=== PATIENT | female | born 1985 | race Caucasian/White ===

== ENCOUNTER → 2017-03-18 | Outpatient (CLI) | payer MEDICAID ==
[~2017-03-18] MED LIST: ACHYD1T PO; AMOX2505RX; CEPH500C PO; CODE-54 PO; FRS325T PO; Ibuprofen PO; MTC10T; ONDA-42 SL; ONDA4TAB11 PO; OSLT75C; PROM25SU10 PR; TIGAN PO
--- NOTE | 2017-03-18 15:02 | Diagnostic Imaging Report ---
PROCEDURE: CT urinary tract, rule out kidney stone. TECHNIQUE: Multiple contiguous axial images were obtained through the abdomen and pelvis without the use of intravenous contrast. INDICATION: Left flank pain and hematuria. No prior studies are available for comparison. The lung bases are clear. The liver is unremarkable. The gallbladder is contracted. The pancreas and spleen are unremarkable. No adrenal mass is identified. No renal calculi or hydronephrosis is detected. No ureteral calculi are detected. There appears to be a cyst in the left adnexa measuring approximately 3.6 cm. No free fluid in the abdomen or pelvis is identified. The uterus and bladder are unremarkable. The small and large bowel loops are normal caliber. There is no ascites. Appendix is unremarkable. IMPRESSION: 1. No evidence of urinary tract calculi or obstruction. 2. Left adnexal cyst 3.6 cm, likely ovarian. Dictated by: Dictated on workstation # [id number]
== END ==
LOC: RAD 14:33
PROVIDERS: ATTEND Nurse Practitioner Family
DX: N83.8 Other noninflammatory disorders of ovary, fallopian tube and broad ligament (principal); R31.9 Hematuria, unspecified; Z87.442 Personal history of urinary calculi
CPT/HCPCS: 74176

== ENCOUNTER 2019-08-22 08:22 | Emergency (ER) | payer MEDICAID ==
[~2019-08-22] VITALS: Ht 167 cm; Wt 59.9 kg
[2019-08-22] MEDS ORDERED: LACTATED RINGERS 1,000 ML IV ONE ×2 (08:34→09:34)
[2019-08-22] MEDS ORDERED: FAMOTIDINE 20MG/2ML IV (PEPCID) IVP ONE (08:45)
[2019-08-22] MEDS ORDERED: PROMETHAZINE INJ 25 MG/ML (PHENERGAN) AMP IVP ONE (08:45)
[2019-08-22 08:49] LABS: BASOPHILS % (AUTO) 0 % (0-10); EOSINOPHILS % (AUTO) 0 % (0-10); HEMATOCRIT 35 % (35-52); HEMOGLOBIN 12.2 G/DL (11.5-16.0); LYMPHOCYTES # (AUTO) 1.6 X 10^3 (1.0-4.0); LYMPHOCYTES % (AUTO) 23 % (12-44); MEAN CORPUSCULAR HEMOGLOBIN 31 PG (25-34); MEAN CORPUSCULAR HGB CONC 35 G/DL (32-36); MEAN CORPUSCULAR VOLUME 88 FL (80-99); MEAN PLATELET VOLUME 9.7 FL (7.4-10.4); MONOCYTES # (AUTO) 0.5 X 10^3 (0.0-1.0); MONOCYTES % (AUTO) 7 % (0-12); NEUTROPHILS # (AUTO) 4.9 X 10^3 (1.8-7.8); NEUTROPHILS % (AUTO) 70 % (42-75); PLATELET COUNT 269 10^3/uL (130-400); RED CELL DISTRIBUTION WIDTH 12.3 % (10.0-14.5)
[2019-08-22 08:50] LABS: CLARITY,URINE TURBID; COLOR,URINE YELLOW; GLUCOSE, URINE (UA) NEGATIVE (NEGATIVE); KETONES,URINE 3+ (NEGATIVE); LEUKOCYTE ESTERASE ,URINE 3+ (NEGATIVE); NITRITE,URINE NEGATIVE (NEGATIVE); PROTEIN,URINE TRACE (NEGATIVE)
[2019-08-22 08:58] LABS: ALBUMIN 4.5 GM/DL (3.2-4.5)
[2019-08-22 08:59] LABS: CHLORIDE 106 MMOL/L (98-107); POTASSIUM 3.9 MMOL/L (3.6-5.0); SODIUM 137 MMOL/L (135-145)
[2019-08-22 09:00] LABS: CALCIUM 9.7 MG/DL (8.5-10.1)
[2019-08-22 09:01] LABS: GLUCOSE 81 MG/DL (70-105); TOTAL PROTEIN 7.2 GM/DL (6.4-8.2)
[2019-08-22 09:02] LABS: CARBON DIOXIDE 19 MMOL/L (21-32)
[2019-08-22 09:03] LABS: BILIRUBIN,TOTAL 0.7 MG/DL (0.1-1.0)
[2019-08-22] MEDS ORDERED: MULT-228 PO (09:03)
[2019-08-22 09:04] LABS: ALKALINE PHOSPHATASE 36 U/L (40-136)
[2019-08-22 09:05] LABS: CREATININE SERUM 0.66 MG/DL (0.60-1.30); GFR ESTIMATED > 60
[2019-08-22 09:06] LABS: BUN/CREATININE RATIO 17
[2019-08-22 09:07] LABS: MAGNESIUM 1.9 MG/DL (1.6-2.4)
[2019-08-22 09:08] LABS: ALANINE AMINOTRANSFERASE 10 U/L (0-55)
[2019-08-22 09:11] LABS: AMORPHOUS SEDIMENT,UR RARE AMOR URATES /LPF; BACTERIA,URINE FEW /HPF; BILIRUBIN,URINE 1+ (NEGATIVE)
--- NOTE | 2019-08-22 09:19 | NUR ---
Patient states her nausea is improving. Warm blankets provided. Patient denies any other needs.
--- OUTSIDE RECORDS SUMMARY | 2019-08-22 09:29 | XMS REPORT ---
Author Author Ubalo fbi investigator [facility] [employer] [facility] Address [address] [address] Care Team Providers Care Superintendent Circus Name Role Phone BELLE RICHMOND Unavailable Unavailable NAVID SILVERIO Unavailable Unavailable JOSE LUIS TOBIAS Unavailable Unavailable SUNITHA LEBRON Unavailable Unavailable SANDRO HOSKINS Unavailable Unavailable SULMA VILA Unavailable Unavailable VONDA MARTINEZ Unavailable Unavailable [facility] Unavailable ROSIO AGUERO Unavailable Unavailable BRITTNI MOODY Unavailable VERONIKA CABALLERO Unavailable ELEANOR DEGN Unavailable [facility] Unavailable MOODY, BRITTNI Unavailable PARAS WILL Unavailable AIDEE Johnson Unavailable CECILE KEENAN Unavailable RICHMOND, BELLE Unavailable MAT AGRAWAL Unavailable AGRAWAL, MAT Unavailable MOODY, BRITTNI Unavailable CECILE Quach Unavailable CAMILO, DALE Unavailable DIMPLE DE LA FUENTE Unavailable CAMILO, DALE Unavailable Migration, Doctor Unavailable Unavailable Migration, Doctor Unavailable Unavailable CALRIBEL Agrawal Unavailable PCP, OUTSIDE Unavailable Unavailable Mat Sommers Unavailable Unavailable Reilly Escobar Unavailable Unavailable RICHMONDASHLEYA Unavailable RICHMOND BELLE Unavailable MELANIE WYNN Unavailable Unavailable Unavailable DONY MIRELES Unavailable Unavailable Unavailable Unavailable Unavailable Unavailable Allergies Normalized Allergy Reported Date of Reaction(s) Care Provider Facility Allergy Type classification allergen Allergy Onset Propensity to Unclassified Omeprazole 06-05-2014 - Unknown Doct or Community adverse Magnesium 20 [facility] reactions (1 Mg of source.) Capsule,delaye [place] ([address]342) d Release Medications The data below is from unstructured sourcesNo Known Medications No Known Medications No Known Medications No Known Medications No Known Medications No Known Medications No Known Medications No Known Medications No Known Medications No Known Medications No Known Medications Unknown Medications Unknown Medications Unknown Medications Unknown Medications Unknown Medications Unknown Medications Unknown Medications Unknown Medications No Known Medications No Known Medications No Known Medications No Known Medications No Known Medications No Known Medications No Known Medications No Known Medications Unknown Medications Unknown Medications Unknown Medications Unknown Medications Unknown Medications Unknown Medications Unknown Medications Unknown Medications Unknown Medications No Known Medications No Known Medications No Known Medications No Known Medications No Known Medications No Known Medications No Known Medications No Known Medications No Known Medications No Known Medications No Known Medications No Known Medications No Known Medications No Known Medications No Known Medications No Known Medications No Known Medications No Known Medications Unknown Medications No Known Medications Problems Active Problems Problem Normalized Date Last Normalized Normalized Provider Fa cility Classification Problem(s) Recorded Problem Problem Sta tus Duration Other skin Alopecia Episodic Active Doctor Community disorders (6 Translations: [facility] sources.) [ Alopecia, of [facility] unspecified] [place] ([address]) Other Anemia of Chronic Active BIANCA FENECH Not Birgit ilable complications mother, , DO (30615) of ; delivered, puerperium with mention affecting of management of complication mother (1 source.) Blindness and Generalized Episodic Active Mat Lan Vision vision defects contraction of [facility] (22803 ) (9 sources.) visual field, bilateral Translations: [ Other visual disturbances] Unclassified Insertion of no information Active Doctor C ommunity (6 sources.) subcutaneous [facility] contraceptive of [facility] Translations: [place] ([address]383) [ Nexplanon insertion] Residual Pain, Episodic Active BELLE RICHMOND Community codes; unspecified [address] [facility] unclassified Translations: of [facility] (6 sources.) [ - Body aches [place] (03643) R52] Residual Reduced libido Episodic Active Doctor Mika ty codes; Translations: [facility] unclassified [ Decreased of [place] (6 sources.) libido] [place] (93816) Substance-rela Tobacco Chronic Active Doctor Communit y margarette disorders dependence [facility] (6 sources.) syndrome of [place] Translations: [place] ([address]134) [ Nondependent tobacco use disorder] Inflammation; Unspecified Chronic Active Mat Edyta Vision infection of optic neuritis [facility] (06364 ) eye (except that caused by tuberculosis or sexually transmitteddis ease) (5 sources.) Past or Other Problems Problem Normalized Date Last Normalized Normalized Provider Fa cility Classification Problem(s) Recorded Problem Problem Sta tus Duration Acute Acute Episodic Completed BIANCA FENECH Not Avai lable posthemorrhagi posthemorrhagi , DO (54512) c anemia (1 c anemia source.) Spondylosis; Backache, Episodic Completed BIANCA FENECH Not Available intervertebral unspecified , DO (34029) disc disorders; other back problems (1 source.) NEGATED Bone and joint Episodic Completed BIANCA FENECH No t Available no disorders of , DO (65728) information (2 back, pelvis, sources.) and lower limbs of mother, antepartum condition or complication Translations: [ BONY PELV OBSTRUCT-DELIV , FETOPELV DISPROPOR-DELI V] Contraceptive Encounter for no information no information Docto r Community and surveillance [facility] procreative of [facility] of [facility] management (3 subdermal [place] ([address]48) sources.) contraceptive Translations: [ - Encounter for Nexplanon removal Z30.46] Other Infections of Episodic Completed ANAIS Not Avai lable complications genitourinary BRUEGGEMANN , (28532) of tract in MD (1 source.) , antepartum condition or complication NEGATED Mild Episodic Completed ANAIS Not Available no hyperemesis BRUEGGEMANN , (29928) information (2 gravidarum, sources.) antepartum condition or complication Umbilical cord Other and Episodic Completed BIANCA FENECH No t Available complication unspecified , DO (08029) (1 source.) cord entanglement, without mention of compression, complicating labor and delivery, delivered, with or without mention of antepartum condition Other Other current Episodic Completed MARITZA Not Avai lable complications conditions MD ELIDA (28754) of classifiable (1 source.) elsewhere of mother, antepartum condition or complication Other female Other Episodic Completed MAT AGRAWAL Not Av ailable genital noninflammator (04688) disorders (2 y disorders of sources.) ovary, fallopian tube and broad ligament Other Other Episodic Completed BIANCA FENECH Not Avai lable complications specified , DO (54202) of complications (1 source.) of , antepartum condition or complication Early or Other Episodic Completed BIANCA FENECH Not Avai lable threatened threatened , DO (15534) labor (1 labor, source.) antepartum condition or complication Urinary tract Urinary tract Episodic Completed ANAIS Not Available infections (1 infection, BRUEGGEMANN , (05130) source.) site not MD specified Procedures Procedure Normalized Procedure Procedure Result Performer Facility Date APPL/ADMIN OF AN no information no name Not Available (10401) ADHESION BARRIER SUBSTA 03-08-2013 Collection venous no information no name [facility] blood venipuncture [facility] ([id number]) 03-08-2013 Gonadotropin chorionic no information no name [facility] (53357) 08-11-2011 Incision & drainage no information no name Critical [facility] hospital abscess simple/single [facility] (29321) LOW CERVICAL no information no name Not Birgit ilable (37965) 03-03-2019 Visual field xm uni/bi no information no name [facility] w/interp extended exam (27237) Immunizations The data below is from unstructured sources Name Given Type Tetanus Booster (TDap) Unknown Historical No Known Immunizations Results Test Name Value Interpretation Reference Range Date Time Fa cility (Normalized) (Normalized) (Medline Reference) laboratory on 2019-08-02 Beta HCG Positive (A) On license of [facility] ( test) [facility] (72671) not yet categorized on 2019-03-22 Control Negative (no code) [facility] (01990) Exp date 01/18/2021 (no code) [facility] (42683) Lot # [id number] (no code) [facility] (20684) not yet categorized on 2018-08-05 Exp date +~11/2019 (no code) [facility] (64486) Lot # [id number] (no code) [facility] (75650) RESULTS Negative (no code) [facility] (57188) not yet categorized on 2018-04-12 COMMENT no information (no code) [facility] (34449) laboratory on 2018-04-12 C. trachomatis NOT DETECTED (N) On license of [facility] rRNA JEFF+probe [facility] (Unsp spec) [facility] (33331) N. gonorrhoeae NOT DETECTED (N) On license of [facility] rRNA JEFF+probe [facility] (Unsp spec) [facility] (65573) urinalysis on 2017-03-18 Bacteria SEE NOTE (no code) On license of [facility] identified Cx [facility] Nom (U) [facility] (42715) Protein mass Negative (no code) 0 - 20 mg/dL [facility] ealth conc (U) [facility] (18833) other on 2017-03-18 BLO 2+ (no code) [facility] (66211) KET 10/2017~clear~ye (no code) [facility]~present~neg [facility] ative~negative~n [facility] egative (32530) TOREY Negative (no code) [facility] (06740) Lot # [id number] (no code) [facility] (81547) SG 1.025 (no code) [facility] (71908) URO 1.0 (no code) [facility] (18227) hematology on 2017-03-18 pH (Bld) 6.5 [pH] (no code) 7.38 - 7.42 [pH] [facility] (59309) thyroid on 2016-07-15 Free T4 1.08 ng/dL (no code) 0.9 - 2.2 ng/dL 07-15-2016 Not A vailable [Mass/Vol] 08:24-0400 (60330) TSH Qn 1.630 (no code) 07-15-2016 Not Available 08:240400 (71742) other on 2016-07-15 Albumin/Globulin 1.8 {ratio} (no code) 1 - 2.5 {ratio} 7 Not Available [Mass ratio] 09: () Erythrocyte 13.4 % (no code) 11.6 - 14.6 % 07-15-2016 Not Av ailable distribution 08: () width (RBC) [Ratio] Globulin (S) 2.4 g/dL (no code) 2 - 3.5 g/dL 07-15-2016 Not Av ailable [Mass/Vol] 09: () Immature 0.0 10*3/uL (no code) 0 - 0.2 10*3/uL 07-15-2016 Not Available granulocytes 08: () (Bld) [#/Vol] Immature 0 % (no code) 0 - 0.5 % 07-15-2016 Not Availabl e granulocytes/100 08: () WBC (Bld) MCHC (RBC) 32.1 g/dL (no code) 32 - 36 g/dL 07-15-2016 Not Avai lable [Mass/Vol] 08: () metabolic panel on 2016-07-15 Albumin 4.2 g/dL (no code) 3.4 - 5.4 g/dL 07-15-2016 Not Birgit ilable [Mass/Vol] 09: () ALP [Catalytic 51 U/L (no code) 44 - 147 U/L 07-15-2016 Not Available activity/Vol] 09: (50581) ALT [Catalytic 7 U/L (no code) 4 - 40 U/L 07-15-2016 Not Av ailable activity/Vol] 09: () AST [Catalytic 11 U/L (no code) 10 - 34 U/L 07-15-2016 Not A vailable activity/Vol] 09: () Bilirubin 0.2 mg/dL (no code) 0.1 - 1.2 mg/dL 07-15-2016 Not Av ailable [Mass/Vol] 09: () Calcium 9.5 mg/dL (no code) 8.5 - 10.2 mg/dL 07-15-2016 Not A vailable [Mass/Vol] 09: (91052) Chloride 101 mmol/L (no code) 95 - 106 mmol/L 07-15-2016 Not A vailable [Moles/Vol] 09: (81531) CO2 [Moles/Vol] 25 mmol/L (no code) 23 - 29 mmol/L 07-15-2016 N ot Available : (33124) Creatinine 0.73 mg/dL (no code) 07-15-2016 Not Available [Mass/Vol] 09: (91864) GFR/1.73 sq M 130 (no code) 90 - 120 07-15-2016 Not Avai lable predicted among mL/min/{1.73_m2} mL/min/{1.73_m2} 09: (20040) blacks MDRD (S/P/Bld) [Vol rate/Area] GFR/1.73 sq M 112 (no code) 90 - 120 07-15-2016 Not Avai lable predicted among mL/min/{1.73_m2} mL/min/{1.73_m2} 09: (66622) non-blacks MDRD (S/P/Bld) [Vol rate/Area] Glucose 86 mg/dL (no code) 60 - 125 mg/dL 07-15-2016 Not Birgit ilable [Mass/Vol] : (10610) Potassium 4.0 mmol/L (no code) 3.7 - 5.2 mmol/L 07-15-2016 Not Available [Moles/Vol] : (71272) Protein 6.6 g/dL (no code) 6.4 - 8.3 g/dL 07-15-2016 Not Birgit ilable [Mass/Vol] : (92438) Sodium 141 mmol/L (no code) 135 - 145 mmol/L 07-15-2016 Not Available [Moles/Vol] 09: (68620) Urea nitrogen 13 mg/dL (no code) 7 - 20 mg/dL 07-15-2016 Not A vailable [Mass/Vol] 09: (74677) Urea 18 mg/mg (no code) 6 - 22 mg/mg 07-15-2016 Not Avail able nitrogen/Creatin 09: (25936) ine [Mass ratio] hematology on 2016-07-15 Basophils (Bld) 0.1 10*3/uL (no code) 0 - 0.3 10*3/uL 07-15-2016 Not Available [#/Vol] 08:060400 (39786) Basophils/100 1 % (no code) 0.5 - 1 % 07-15-2016 Not Avai lable WBC (Bld) 08: (43673) Eosinophils 0.1 10*3/uL (no code) 0.05 - 0.5 07-15-2016 Not Birgit ilable (Bld) [#/Vol] 10*3/uL 08: (51965) Eosinophils/100 2 % (no code) 1 - 4 % 07-15-2016 Not Av ailable WBC (Bld) 08: (69649) Hematocrit (Bld) 38.3 % (no code) 36.1 - 50.3 % 07-15-2016 N ot Available [Volume 08: (88237) fraction] Hemoglobin (Bld) 12.3 g/dL (no code) 12.1 - 17.2 g/dL 07-15-2016 Not Available [Mass/Vol] 08: (43880) Lymphocytes 2.7 10*3/uL (no code) 0.9 - 2.9 07-15-2016 Not Avai lable (Bld) [#/Vol] 10*3/uL 08: (04302) Lymphocytes/100 43 % (no code) 20 - 40 % 07-15-2016 Not Av ailable WBC (Bld) 08: (29557) MCH (RBC) 29.5 pg (no code) 27 - 31 pg 07-15-2016 Not Availab le [Entitic mass] 08: (04836) MCV (RBC) 92 fL (no code) 80 - 100 fL 07-15-2016 Not Availa ble [Entitic vol] 08: (33075) Monocytes (Bld) 0.6 10*3/uL (no code) 0.3 - 0.9 07-15-2016 Not Available [#/Vol] 10*3/uL 08: (43386) Monocytes/100 10 % (no code) 2 - 8 % 07-15-2016 Not Avai lable WBC (Bld) 08: (77130) Neutrophils 2.8 10*3/uL (no code) 1.7 - 7 10*3/uL 07-15-2016 No t Available (Bld) [#/Vol] 08: (51359) Neutrophils/100 44 % (no code) 40 - 60 % 07-15-2016 Not Av ailable WBC (Bld) 08: (26737) Platelets (Bld) 246 10*3/uL (no code) 150 - 450 07-15-2016 Not Available [#/Vol] 10*3/uL 08: (56778) RBC (Bld) 4.17 10*6/uL (no code) 4.2 - 6.1 07-15-2016 Not Avail able [#/Vol] 10*6/uL 08: (98851) WBC (Bld) 6.3 10*3/uL (no code) 3.5 - 10.5 07-15-2016 Not Avail able [#/Vol] 10*3/uL 08: (26413) Vital Signs Vital Sign Value Interpretation Reference Date Time Care Prov ider Facility (Normalized) (Normalized) Range Body height 167.64 cm (no code) cm 08-11-2011 MELANIE NEW [facility] 10:762 (Other Health Center Phone: of [facility] ) [place] ([address]75) Body 98.5 [degF] (no code) 97.8 - 99.0 08-11-2011 MELANIE ZIMMERMAN [facility] temperature [degF] 10:762 (Other Health [facility] er Phone: of [facility] ) [place] ([address]161) Body weight 58.56 kg (no code) kg 08-11-2011 MELANIE WYNN [facility] 10:762 (Other Health Center Phone: of [facility] ) [place] ([address]6552) Interventions No Information Plan of Treatment The data below is from unstructured sources Discharge Date 10/30/13 1:29pm Disposition 01 HOME, SELF-CARE Instructions/Education Provided OB O UTPATIENT DISCHARGE Forms Provided PDI Women Services/OP Prescriptions See Medications Sectio n Referrals BIANCA BUSH DO (Unspe cified) 11/07/13 Address: [address] [place] [address] Discharge Date 11/04/13 12:40pm Disposition 01 HOME, SELF-CARE Instructions/Education Provided POST DISCHARGE SECTION DISCHARGE Iron Rich Diet (DC) Breast Care for the Breast Feeding Mother (DC) Prescriptions See Medications Sectio n Referrals BIANCA BUSH DO (Unspe cified) 11/07/13 Address: [address] [place] [address] BIANCA BUSH DO (Unspecified) 11/07/13 Address: [address] [place] [address] Activity Details Follow Up prn Reason:chin Activity Details Follow Up prn Reason:fillings Activity Details Follow Up prn Reason: Activity Details Follow Up prn Reason:hygiene/filling s Activity Details Follow Up prn Reason:restorative Activity Details Follow Up enzo Reason:endo and crown Activity Details Follow Up prn Reason:RCT #14 Activity Details Follow Up if not improving or with p cp for regular fu Reason: Activity Details Follow Up 3 Months Reason:chin/hygien e Goals No Information Social History No Information Functional Status The data below is from unstructured sourcesNo functional status results.No functional status results.No functional status results.No functional status results.No functional status results.No functional status results.No functional status results.No functional status results.No functional status results. Mental Status No Information Encounters Encounter Normalized Encounter Encounter Diagnosis Care Provi ingrid Organization Date Type 05-19-2018 (D-HYG/13/A) Hygiene Encounter for dental RAMY PARDO (no [facility] - 13 and above examination and phone) DENTAL (n o phone) 05-19-2018 cleaning without - abnormal findings 05-19-2018 01-26-2018 (D-PAIN/BRIDGETTE) Pain/BRIDGETTE Encounter for dental VERONIKA CRUMP (no [facility] - examination and phone) DENTAL (no jonathan ne) 01-26-2018 cleaning without - abnormal findings 01-26-2018 08-05-2018 (imm/inj) Encounter for BELLE RICHMOND (no phone) [facility] - Immunization/injection surveillance of (no p roshan) 08-05-2018 injectable - contraceptive 08-05-2018 04-12-2018 (PROC-40) Procedure-40 Encounter for DONY WINN AM (no [facility] - min surveillance of phone) (no phone) 04-12-2018 implantable subdermal - contraceptive 04-12-2018 03-22-[address] Influenza due to BIANCA BUSCH (no [address] unidentified influenza phone) (no phone) virus with other respiratory manifestations 11-08-2018 [facility] Encounter for DONY Spann (no [facility] - surveillance of phone) (no phone) 11-08-2018 injectable - contraceptive 11-08-2018 04-04-2013 Emergency department no information no name no organization name - patient visit 04-04-2013 03-20-2013 Emergency department no information no name no organization name - patient visit 03-20-2013 04-12-2013 Evaluation and no information no name no organ ization name - management of 04-13-2013 inpatient 03-03-2019 Office outpatient new no information no name n o organization name 45 minutes 04-21-2017 Patient encounter no information no name no or ganization name 03-18-2017 Patient encounter no information no name no or ganization name 03-18-2017 Patient encounter no information no name no or ganization name 08-02-2019 Patient encounter no information (no phone) ANGELA Cook [facility] procedure ALINE (no phone) (no [facility] phone) [place] (no phone) 03-24-2019 Patient encounter no information no name no or ganization name procedure 03-22-2019 Patient encounter no information no name no or ganization name procedure 03-16-2019 Patient encounter no information no name no or ganization name procedure 03-08-2019 Patient encounter no information no name no or ganization name procedure 03-06-2019 Patient encounter no information no name no or ganization name procedure 03-03-2019 Patient encounter no information no name no or ganization name procedure 02-17-2019 Patient encounter no information no name no or ganization name procedure 08-05-2018 Patient encounter no information no name no or ganization name procedure 05-19-2018 Patient encounter no information no name no or ganization name procedure 04-12-2018 Patient encounter no information no name no or ganization name procedure 01-26-2018 Patient encounter no information no name no or ganization name procedure no information Encounter for dental no name no organi zation name examination and cleaning without abnormal findings no information Dental examination no name no organiza tion name no information Encounter for no name no organization name gynecological examination (general) (routine) without abnormal findings Medical Equipment No Information Payers Normalized Payer Value Private Health Insurance [id number] History general Narrative - Reported 2013-11-01 Note Type Note Facility History general Narrative - Reported Type Surgical section 11/01/2013 History Surgical tonsillectomy youth History Hospitaliz /healthy 11/01/2013 ation History [facility] ([id number]) Summary Purpose eClinicalWorks SubmissioneClinicalWorks SubmissioneClinicalWorks SubmissioneClinicalWorks SubmissioneClinicalWorks SubmissioneClinicalWorks SubmissioneClinicalWorks SubmissioneClinicalWorks Submission Advance Directives Directive Response Recor ded Date/Time Advance Directives No 11:25am Health Care Power of Bark Skinner No 10/20/13 3:38am Organ Donor Yes 10/30/13 11:25am Resuscitation Status Full Code 10/30/13 11:25am Directive Response Recor ded Date/Time Advance Directives No 3:44am Health Care Power of Bark Skinner No 11/01/13 3:44am Organ Donor Yes 11/01/13 3:44am Resuscitation Status Full Code 11/01/13 3:44am Resuscitation Status Full Code 11/01/13 5:37am Directive Response Recor ded Date/Time Advance Directives No 3:38am Health Care Power of Bark Skinner No 10/20/13 3:38am Organ Donor Yes 10/20/13 3:38am Resuscitation Status Full Code 10/20/13 3:38am Resuscitation Status Full Code 10/20/13 3:30am Discharge Instructions No hospital discharge instructions. Patient Instructions Physician Instructions New, Converted or Re-Newed RX: Call to Patients Pharmacy Additional Follow Up: Yes Orders/Referrals 7-[address] Bush [address] Bush Activity: Activity as Tolerated Driving Instructions: No Driving for 1 Week NO SMOKING: NO SMOKING Nothing Inside Vagina: No Douching, No [place], No Tampons Discharge Diet: No Restrictions Symptoms to Report to Dr.: Bleeding Excessive, Pain Increased, Fever Over 101 Degrees F, Vaginal Bleeding Increase, Shortness of Breath For Any Problems or Questions: Contact Your Physician Infection Signs and Symptoms: Increased Redness, Foul Odor of Wound, Increased Drainage, Skin Itchy or Has a Rash, Increased Swelling, Temperature Above 101 F Operative Area Clean and Dry: Keep Incision Clean/Dry Stitches/[place]/Dermabond: Dermabond, Care of Stitches Bathing Instructions: Shower No hospital discharge instructions. Patient Instructions Physician Instructions New, Converted or Re-Newed RX: Call to Patients Pharmacy Additional Follow Up: Yes Orders/Referrals 7-[address] Bush [address] Bush Activity: Activity as Tolerated Driving Instructions: No Driving for 1 Week NO SMOKING: NO SMOKING Nothing Inside Vagina: No Douching, No [place], No Tampons Discharge Diet: No Restrictions Symptoms to Report to Dr.: Bleeding Excessive, Pain Increased, Fever Over 101 Degrees F, Vaginal Bleeding Increase, Shortness of Breath For Any Problems or Questions: Contact Your Physician Infection Signs and Symptoms: Increased Redness, Foul Odor of Wound, Increased Drainage, Skin Itchy or Has a Rash, Increased Swelling, Temperature Above 101 F Operative Area Clean and Dry: Keep Incision Clean/Dry Stitches/Merry/Dermabond: Dermabond, Care of Stitches Bathing Instructions: Shower No hospital discharge instructions. Additional Source Comments This clinical document has been generated using [employer] software that has been certified by the Office of the National Coordinator for Health Information Technology (ONC 15.99.04.3023.Diam.31.00.0.584378) and the National Committee for Lining Inserter (NCQA, as an eMeasure certified technology). FOR RECORDS PERTAINING TO PATIENTS WHO ARE OR HAVE BEEN ENROLLED IN A CHEMICAL D EPENDENCY/SUBSTANCE ABUSE PROGRAM, SOME INFORMATION MAY BE OMITTED. This clinica l summary was aggregated from multiple sources. Caution should be exercised in using it in the provision of clinical care. This summary normalizes information from multiple sources, and as a consequence, information in this document may ma terially change the coding, format and clinical context of patient data. In samuel tion, data may be omitted in some cases. CLINICAL DECISIONS SHOULD BE BASED ON T HE PRIMARY CLINICAL RECORDS. [employer] provides no warranty or guara ntee of the accuracy or completeness of information in this document.The followi ng information is based on time limited clinical information UNRECOGNIZED CONTENT PROVIDED BELOW FOR UNRECOGNIZED SECTION MEDICAL (GENERAL) HISTORY Type Description Date Surgical History section 11/01/2013 Surgical History tonsillectomy youth Hospitalization History /healthy 11/01/2013 Type Description Date Medical History Kidney stones during Surgical History section 11/01/2013 Surgical History tonsillectomy youth Hospitalization History /healthy 11/01/2013 UNRECOGNIZED CONTENT PROVIDED BELOW FOR UNRECOGNIZED SECTION REASON FOR VISIT [facility]
--- OUTSIDE RECORDS SUMMARY | 2019-08-22 09:29 | XMS REPORT ---
Author Author Kacey Mariee Doctor Organization [facility] Address Unknown Phone Unavailable Care Team Providers Care [employer] Lab Technician Name Role Phone Migration, Doctor Unavailable Unavailable PROBLEMS Type Condition ICD9-CM Code FKR96-EE Code Onset Dates Condition S tatus SNOMED Code Problem Alopecia, unspecified L65.9 Active 59183229 Problem Abdominal tenderness R10.819 Active 42432343 Problem Nexplanon insertion Z30.49 Active 264790460 Problem Chronic fatigue R53.82 Active 5270 2003 Problem Counseling on substance use and abuse Z71.89 Active 087404684 Problem Nondependent tobacco use disorder Z72.0 Active 33976409 Problem Esophageal reflux K21.9 Active 23 3130205 Problem Decreased libido R68.82 Active 835 7008 ALLERGIES No Information ENCOUNTERS Encounter Location Date Diagnosis [facility] [address] [id number] [address] [place] [phone] 10 Jul, 2019 Encounter for test , result unknown Z32.[id number] [place] [id number] 29 Feb, 2019 Influenza J11.1 [facility] [address] [facility] [id number] [address] [place] [phone] 17 Oct, 2018 Encounter for Depo-Provera c ontraception Z30.42 [facility] [address] [id number] [address] [place] [phone] 14 Jul, 2018 Encounter for Depo-Provera c ontraception Z30.42 [facility] [address] [id number] [address] [place] [id number] 28 Apr, 2018 Dental examination Z01.20 an d Oral health maintenance status requiring routine preventive dental care K08.9 [facility] [address] [facility] [id number] [address] [place] [phone] 19 Mar, 2018 Encounter for Nexplanon almaz tamiko Z30.46 ; Nexplanon removal Z30.49 ; Contraception management Z30.9 ; Encounter for initial prescription of contraceptives, unspecified contraceptive Z30.019 ; Contraceptive education Z30.09 ; Screening for STD (sexually transmitted disease) Z11.3 and Encounter for Depo-Provera contraception Z30.42 [facility] [address] [id number] [address] [place] [address] [id number] Jan, Dental examination Z01.20 [facility] [id number] [place] [address] [phone] June, Dental caries K02.9 [facility] [address] [facility] [id number] [address] [place] [phone] May, Pharyngitis, unspecified lee ology J02.9 [facility] [address] [id number] [address] [place] [address] [id number] Apr, [facility] [address] [id number] [place] [address] [id number] Mar, Dental caries extending into dentin K02.62 and Dental examination Z01.20 [facility] [address] [id number] [address] [place] [phone] Feb, [facility] [address] [id number] [address] [place] [phone] Feb, Flank pain R10.9 and History of renal stone Z87.442 [facility] [address] [id number] [address] [place] [phone] Jan, [facility] [address] [facility] [id number] [address] [place] [phone] Nov, Dental examination Z01.20 [facility] [address] [id number] [place] [address] [id number] Oct, Dental examination Z01.20 [facility] [address] [facility] [id number] [address] [place] [phone] Aug, [facility] [address] [id number] [address] [place] [phone] Jul, Encounter for immunization Z 23 and Penetrating wound of left foot, initial encounter S91.332A [facility] [address] [facility] [id number] [address] [place] [phone] June, Chronic fatigue R53.82 [place] [address] [facility] [id number] [address] [place] [phone] June, [facility] [address] [facility] [id number] [address] [place] [phone] May, Strep pharyngitis J02.0 and Sore throat J02.9 [facility] [address] [facility] [id number] [address] [place] [phone] May, Encounter for immunization Z 23 [place] [address] [facility] [id number] [address] [place] [phone] May, [place] [address] [id number] [address] [place] [phone] May, Dental examination Z01.20 [place] [address] [id number] [address] [place] [phone] Mar, Dental examination Z01.20 [facility] [address] [id number] [address] [place] [address] [phone] Mar, Dental examination Z01.20 [facility] [address] [id number] [address] [place] [phone] Mar, Acute non-recurrent maxillar y sinusitis J01.00 [facility] [address] [facility] [id number] [address] [place] [phone] Feb, Gastroenteritis K52.9 ; Righ t otitis media with effusion H65.91 and Fever R50.9 [facility] [address] [facility] [id number] [address] [place] [phone] Feb, [facility] [address] [place] [address] [phone] Feb, Dental examination Z01.20 [facility] [address] [id number] [address] [place] [phone] Feb, Dysuria R30.0 [place] [address] [id number] Jan, Dental examination Z01.20 [address] [address] [address] Jan, Dental examination Z01.20 [facility] [address] [phone] Dec, Encounter for immunization Z 23 [address] [address] [phone] Nov, Dental examination Z01.20 an d Dental caries K02.9 [address] [address] [phone] Nov, [place] [address] [id number] Oct, Dental examination Z01.20 [facility] [place] [address] [phone] Sep, Body aches R52 and Flu syndr ome J11.1 [place] [address] [id number] Sep, [place] [address] [phone] Apr, [place] [address] [id number] Apr, Well woman exam Z01.419 ; Ne xplanon insertion Z30.49 ; Encounter for screening for malignant neoplasm of cervix Z12.4 and Irregular menses N92.6 [facility] [address] [phone] Mar, Body aches R52 and Acute gas tritis without bleeding K29.00 [facility] [address] [facility] [id number] [address] [place] [phone] Jan, Encounter for counseling reg arding contraception Z30.9 ; Vaginal discharge N89.8 ; Surveillance of contraceptive injection Z30.42 ; Irregular menses N92.6 ; OCP (oral contraceptive pills) initiation Z30.011 and Decreased libido R68.82 [facility] [address] [facility] [id number] [address] [place] [phone] Jan, Encounter for Depo-Provera c ontraception Z30.42 [facility] [id number] [place] [address] [phone] Jan, Encounter for dental examina tion Z01.20 [facility] [address] [place] [address] [phone] Dec, Dental caries K02.9 and Enco unter for dental examination Z01.20 [facility] [address] [id number] [address] [place] [phone] 16 Nov, 2014 Encounter for immunization Z 23 [facility] [id number] [place] [address] [phone] Oct, Encounter for dental examina tion V72.2 [facility] [address] [place] [phone] Sep, Encounter for contraceptive management V25.9 [facility] [address] [place] [phone] May, [facility] [address] [facility] [id number] [address] [place] [phone] May, [facility] [address] [id number] [address] [place] [phone] Feb, [facility] [address] [id number] [address] [place] [phone] Feb, [facility] [address] [id number] [address] [place] [address], [place] [address] Feb, [facility] [address] [id number] [address] [place] [address], [place] [address] Feb, [facility] [address] [id number] [address] [place] [address], [place] [phone] 16 Feb, 2013 [facility] [address] [id number] [address] [place] [address], [place] [address] Feb, [facility] [address] [id number] [address] [place] [address], [place] [address] Feb, [facility] [address] [id number] [address] [place] [address], [place] [address] Feb, [facility] [address] [id number] [address] [place] [address], [place] [address] Jul, [facility] [address] [id number] [address] [place] [address], [place] [phone] June, [facility] [address] [id number] [address] [place] [address], [place] [address] Mar, [facility] [address] [id number] [address] [place] [address], [place] [address] Nov, [facility] [address] [id number] [address] [place] [address], [place] [address] Nov, [facility] [address] [id number] [address] [place] [address], [place] [address] Nov, [facility] [address] [id number] [address] [place] [address], [place] [address] Nov, [facility] [address] [id number] [address] [place] [address], [place] [address] Nov, [facility] [address] [id number] [address] [place] [address], [place] [address] Nov, [facility] [address] [id number] [address] [place] [address], [place] [address] Nov, [facility] [address] [id number] [address] [place] [phone] Jul, [facility] [address] [id number] [address] [place] [phone] 20 May, 2011 [facility] [address] [facility] [id number] [address] [place] [phone] Feb, [facility] [address] [facility] [id number] [address] [place] [phone] Jan, [facility] [address] [facility] [id number] [address] [place] [phone] Jan, [facility] [address] [facility] [id number] [address] [place] [phone] Dec, [facility] [address] [facility] [id number] [address] [place] [phone] Oct, [facility] [address] [facility] [id number] [address] [place] [phone] Sep, IMMUNIZATIONS No Known Immunizations SOCIAL HISTORY Never Assessed REASON FOR VISIT PLAN OF CARE VITAL SIGNS Height 66 in 2012-08-15 Weight 128.42 lbs 2012-08-15 Temperature 98.1 degrees Fahrenheit 2012-08-15 Heart Rate 72 bpm 2012-08-15 Respiratory Rate 18 2012-08-15 Blood pressure systolic 100 mmHg 2012-08-15 Blood pressure diastolic 75 mmHg 2012-08-15 MEDICATIONS Unknown Medications RESULTS No Results PROCEDURES Procedure Date Ordered Result Body Site SMOK TOB CESS CNSL; INTNSV > NEW PT 10 MIN August 15, 2012 INSTRUCTIONS MEDICATIONS ADMINISTERED No Known Medications MEDICAL (GENERAL) HISTORY Type Description Date Medical History Kidney stones during Surgical History section 11/01/2013 Surgical History tonsillectomy youth Hospitalization History /healthy 11/01/2013
--- NOTE | 2019-08-22 09:30 | ED General ---
General Chief Complaint: Abdominal/GI Problems Stated Complaint: N/V;DEHYDRATION Nursing Triage Note: Patient ambulatory to ER with complaint of vomiting x 2 weeks. Patient states she has also had dizziness and dry heaves. Patient states she is 8 weeks with 2nd child with a due date of Apr 03, 2020. She was seen at the walk-in clinic 2 weeks ago and was given Zofran tablets. She has not been able to keep them down. Patient also states she has not had a BM x 10 days. She denies any abdominal pain. Nursing Sepsis Screen: No Definite Risk Source of Information: Patient Exam Limitations: No Limitations (BRANT RATLIFF,MED STUDENT) History of Present Illness Date Seen by Provider: Aug 22, 2019 Time Seen by Provider: 08:26 Initial Comments Ms. Collier is a 33 year old female who presents to the emergency department this morning with complaints of nausea/vomiting. She is currently 8 weeks with expected delivery date of 04/03/20. Kacey states the vomiting began about 2 weeks ago and has been increasing in frequency since. Past medical history of hyperemesis gravidarum in her last . She was seen at the walk-in clinic at the start of her vomiting and prescribed oral zofran. She has not noticed any benefit from the zofran and states she is unable to keep it down. She states she has been able to tolerate only water for the last couple of days. Associated symptoms include dizziness, lightheaded, poor sleep, and a sore throat. She has not had a bowel movement for 10 days. She denies abdominal pain or urinary symptoms. Her obstetric provider is Dr. Martin. Timing/Duration: Getting Worse Associated Systoms: No Chest Pain, No Diaphoresis, No Fever/Chills; Nausea/Vomiting, Other (constipation, dizziness, sore thraot) (BRANT RATLIFF,MED STUDENT) Initial Comments I was personally present for the history and physical on this patient and I agree with MS4 documentation as above. (ANAIS GUERRA MD) Allergies and Home Medications Allergies Coded Allergies: NKANo Known Allergies (Verified Allergy, Mild, 03/29/06) Home Medications Famotidine 20 Mg Tablet, 20 MG PO BID Prescribed by: ANAIS FAITH on 08/22/19 0955 Ferrous Sulfate 325 Mg Tab, 325 MG PO BID WITH MEALS Prescribed by: BIANCA MARTIN on 11/02/13 1630 Hydrocodone Bit/Acetaminophen 1 Ea Tab, 1-2 EA PO Q3HR PRN for PAIN Prescribed by: BIANCA MARTIN on 11/02/13 163 Multivitamin 1 Each Tab.chew, 1 EACH PO DAILY, (Reported) Ondansetron 4 Mg Tab.rapdis, 4 MG PO Q4H PRN for NAUSEA/VOMITING Prescribed by: ANAIS FAITH on 08/22/19 09 Promethazine HCl 25 Mg Tablet, 25 MG PO Q6H PRN for NAUSEA/VOMITING Prescribed by: ANAIS FAITH on 08/22/19 0955 Promethazine HCl 25 Mg Supp.rect, 25 MG RC Q6H PRN for NAUSEA/VOMITING Prescribed by: ANAIS FAITH on 08/22/19 09 [Ibuprofen] 600 MG TAB, 600 MG PO Q6H PRN for PAIN Prescribed by: BIANCA MARTIN on 11/02/13 163 Patient Home Medication List Home Medication List Reviewed: Yes (BRANT RATLIFF MED STUDENT) Review of Systems Review of Systems Constitutional: No chills; dizziness; No fever EENTM: throat pain Respiratory: no symptoms reported Cardiovascular: no symptoms reported Gastrointestinal: No abdominal pain; constipation, loss of appetite, nausea, vomiting Genitourinary: no symptoms reported Expected Date of Delivery: Apr 03, 2020 Musculoskeletal: no symptoms reported Skin: no symptoms reported Psychiatric/Neurological: No Symptoms Reported (BRANT RATLIFF MED STUDENT) Past Warbsrp-Hxyvbz-Ohmtww Hx Past Med/Social Hx: Reviewed Nursing Past Med/Soc Hx (ANAIS GUERRA MD) Patient Social History Alcohol Use: Denies Use Recreational Drug Use: No Smoking Status: Never a Smoker 2nd Hand Smoke Exposure: No Recent Foreign Travel: No Contact w/Someone Who Travel: No Recent Infectious Disease Expo: No Recent Hopitalizations: No Physical Abuse: No Sexual Abuse: No Mistreated: No Fear: No (BRANT RATLIFF MED STUDENT) Immunizations Up To Date Tetanus Booster (TDap): Unknown PED Vaccines UTD: Yes (BRANT RATLIFF MED STUDENT) Past Medical History Surgeries: Yes ([place] Teeth) Section Respiratory: No Cardiac: No Neurological: No : Yes Expected Date of Delivery: Apr 03, 2020 Last Menstrual Period: June 28, 2019 Reproductive Disorders: No Female Reproductive Disorders: Denies Sexually Transmitted Disease: No HIV/AIDS: No Genitourinary: No Gastrointestinal: No Musculoskeletal: No Endocrine: No HEENT: No Cancer: No Psychosocial: No Integumentary: No Blood Disorders: No Adverse Reaction/Blood Tranf: No (BRANT RATLIFF MED STUDENT) Family Medical History Arthritis Grandparents (Maternal Grandmother) Asthma 19 FATHER Cardiovascular disease Grandparents (Maternal Grandmother) Fibrocystic disease of breast 19 MOTHER No Family History of: AIDS Abdominal aortic aneurysm Dewitt's disease Alcoholism Alzheimer's disease Aphasia Cancer of mouth Cataracts Colon cancer Completed stroke Congenital disease Congenital heart disease Coronary thrombosis Cystic fibrosis Deafness or hearing loss Dementia Diabetes mellitus Drug abuse Dysphasia Gastroenteritis Glaucoma Headache disorder Hypercholesterolemia Hypertension Infertility Kidney disease Myocardial infarction Neoplasm Not obtainable due to adoption Osteoporosis Parkinson's disease Prostate cancer Psychosocial problem Respiratory disorder Seizure disorder Severe allergy Thyroid disease Tuberculosis Visual disorder No Pertinent Family Hx (BRANT RATLIFF MED STUDENT) Physical Exam Vital Signs Vital Signs - First Documented 08/22/19 08:27 Temp 36.9 Pulse 83 Resp 18 B/P (MAP) 108/77 (87) Pulse Ox 99 O2 Delivery Room Air (ANAIS GUERRA MD) Vital Signs Capillary Refill : Less Than 3 Seconds (BRANT RATLIFF MED STUDENT) Height, Weight, BMI Height: 5'6.00" Weight: 140lbs. oz. 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 Norm as Tested Skin: Normal Color, Warm/Dry (ANAIS GUERRA MD) Progress/Results/Core Measures Suspected Sepsis Recent Fever Within 48 Hours: No Infection Criteria Present: None New/Unexplained Altered Menta: No Sepsis Screen: No Definite Risk SIRS Temperature: Pulse: 83 Respiratory Rate: 18 Laboratory Tests 08/22/19 08:36: White Blood Count 7.0 Blood Pressure 108 /77 Mean: 87 Laboratory Tests 08/22/19 08:36: Creatinine 0.66, Platelet Count 269, Total Bilirubin 0.7 (BRANT RATLIFF MED STUDENT) Results/Orders Lab Results Laboratory Tests Test 08/22/19 08:36 08/22/19 08:44 Range/Units White Blood Count 7.0 4.3-11.0 10^3/uL Red Blood Count 3.97 L 4.35-5.85 10^6/uL Hemoglobin 12.2 11.5-16.0 G/DL Hematocrit 35 35-52 % Mean Corpuscular Volume 88 80-99 FL Mean Corpuscular Hemoglobin 31 25-34 PG Mean Corpuscular Hemoglobin Concent 35 32-36 G/DL Red Cell Distribution Width 12.3 10.0-14.5 % Platelet Count 269 130-400 10^3/uL Mean Platelet Volume 9.7 7.4-10.4 FL Neutrophils (%) (Auto) 70 42-75 % Lymphocytes (%) (Auto) 23 12-44 % Monocytes (%) (Auto) 7 0-12 % Eosinophils (%) (Auto) 0 0-10 % Basophils (%) (Auto) 0 0-10 % Neutrophils # (Auto) 4.9 1.8-7.8 X 10^3 Lymphocytes # (Auto) 1.6 1.0-4.0 X 10^3 Monocytes # (Auto) 0.5 0.0-1.0 X 10^3 Eosinophils # (Auto) 0.0 0.0-0.3 10^3/uL Basophils # (Auto) 0.0 0.0-0.1 10^3/uL Sodium Level 137 135-145 MMOL/L Potassium Level 3.9 3.6-5.0 MMOL/L Chloride Level 106 98-107 MMOL/L Carbon Dioxide Level 19 L 21-32 MMOL/L Anion Gap 12 5-14 MMOL/L Blood Urea Nitrogen 11 7-18 MG/DL Creatinine 0.66 0.60-1.30 MG/DL Estimat Glomerular Filtration Rate > 60 BUN/Creatinine Ratio 17 Glucose Level 81 70-105 MG/DL Calcium Level 9.7 8.5-10.1 MG/DL Corrected Calcium 9.3 8.5-10.1 MG/DL Magnesium Level 1.9 1.6-2.4 MG/DL Total Bilirubin 0.7 0.1-1.0 MG/DL Aspartate Amino Transf (AST/SGOT) 13 5-34 U/L Alanine Aminotransferase (ALT/SGPT) 10 0-55 U/L Alkaline Phosphatase 36 L 40-136 U/L Total Protein 7.2 6.4-8.2 GM/DL Albumin 4.5 3.2-4.5 GM/DL Urine Color YELLOW Urine Clarity TURBID Urine pH 6.0 5-9 Urine Specific Mather 1.025 H 1.016-1.022 Urine Protein TRACE H NEGATIVE Urine Glucose (UA) NEGATIVE NEGATIVE Urine Ketones 3+ H NEGATIVE Urine Nitrite NEGATIVE NEGATIVE Urine Bilirubin 1+ H NEGATIVE Urine Urobilinogen 1.0 < = 1.0 MG/DL Urine Leukocyte Esterase 3+ H NEGATIVE Urine RBC (Auto) 3+ H NEGATIVE Urine RBC 10-25 H /HPF Urine WBC 5-10 H /HPF Urine Squamous Epithelial Cells 10-25 H /HPF Urine Crystals PRESENT H /LPF Urine Amorphous Sediment RARE AIDE URATES H /LPF Urine Bacteria FEW H /HPF Urine Casts NONE /LPF Urine Mucus SMALL H /LPF Urine Culture Indicated YES (ANAIS GUERRA MD) My Orders Orders - ANAIS GUERRA MD Ed Iv/Invasive Line Start (08/22/19 08:34) Lactated Ringers (Lr 1000 Ml Iv Solution (08/22/19 08:34) Cbc With Automated Diff (08/22/19 08:34) Comprehensive Metabolic Panel (08/22/19 08:34) Magnesium (08/22/19 08:34) Ua Culture If Indicated (08/22/19 08:34) Promethazine Injection (Phenergan Injec (08/22/19 08:45) Famotidine Injection (Pepcid Injection) (08/22/19 08:45) Urine Culture (08/22/19 08:44) Lactated Ringers (Lr 1000 Ml Iv Solution (08/22/19 09:34) Ceftriaxone For Iv Use (Rocephin For I (08/22/19 09:45) (ANAIS GUERRA MD) Medications Given in ED Current Medications Medications Dose Ordered Sig/Shelly Route Start Time Stop Time Status Last Admin Dose Admin Ceftriaxone Sodium 1000 mg/ Sterile Water 10 ml @ 200 mls/hr ONCE ONCE IV 08/22/19 09:45 08/22/19 09:47 DC 08/22/19 09:48 200 MLS/HR Famotidine 20 mg ONCE ONCE IVP 08/22/19 08:45 08/22/19 08:46 DC 08/22/19 08:46 20 MG Lactated Ringer's 1,000 ml @ 0 mls/hr Q0M ONCE IV 08/22/19 08:34 08/22/19 08:36 DC 08/22/19 08:46 1,000 MLS/HR Lactated Ringer's 1,000 ml @ 0 mls/hr Q0M ONCE IV 08/22/19 09:34 08/22/19 09:35 DC 08/22/19 09:41 1,000 MLS/HR Promethazine HCl 25 mg ONCE ONCE IVP 08/22/19 08:45 08/22/19 08:46 DC 08/22/19 08:47 25 MG (ANAIS GUERRA MD) Vital Signs/I&O 08/22/19 08/22/19 08:27 10:15 Temp 36.9 36.9 Pulse 83 85 Resp 18 14 B/P (MAP) 108/77 (87) 104/66 Pulse Ox 99 100 O2 Delivery Room Air Room Air (ANAIS GUERRA MD) Vital Signs/I&O Capillary Refill : Less Than 3 Seconds (BRANT RATLIFF,MED STUDENT) Blood Pressure Mean: 87 Progress Note : Progress Note Patient received a Phenergan, Pepcid and 2 L of IV LR. Strategies for managing nausea and vomiting at home were discussed at length. Labs were unremarkable except for urinalysis showing concentrated urine and questionable UTI. A dose of Rocephin was administered. No antibiotics were prescribed a suitable wait for the urine culture to determine if infection is truly present or if the urinalysis abnormalities are secondary to dehydration. (ANAIS GUERRA MD) Departure Impression Primary Impression: Nausea and vomiting Additional Impression: Urinary tract infection in Disposition: 01 HOME, SELF-CARE Condition: Improved Departure-Patient Inst. Decision time for Depature: 09:42 (ANAIS GUERRA MD) Referrals: [facility] (PCP/Family) Primary Care Physician Patient Instructions: Nausea and Vomiting of (DC), Urinary Tract Infection, Adult (DC) Add. Discharge Instructions: Drink plenty of clear liquids and eat small quantities of food regularly throughout the day. To control nausea and vomiting you can try using Unisom [id number] at night to help prevent nausea the next day. This can be purchased [id number]. You may also treat nausea with Zofran (ondansetron) sublingually. If still nauseated you may follow that with Phenergan (promethazine) orally or suppository. Please be aware Zofran may cause constipation. Use only as needed. Return to care if you have uncontrolled nausea and vomiting or other complications. Follow-up with Dr. MARTIN after 48 hours to review urine culture results. Further antibiotic treatment may be needed. All discharge instructions reviewed with patient and/or family. Voiced understanding. Scripts Promethazine HCl (Promethazine Suppository) 25 Mg Supp.rect 25 MG RC Q6H PRN for NAUSEA/VOMITING, #12 SUPP.RECT Prov: ANAIS GUERRA MD 08/22/19 Famotidine (Pepcid) 20 Mg Tablet 20 MG PO BID, #60 TAB Prov: ANAIS GUERRA MD 08/22/19 Promethazine HCl (Promethazine Tablet) 25 Mg Tablet 25 MG PO Q6H PRN for NAUSEA/VOMITING, #10 TAB Prov: ANAIS GUERRA MD 08/22/19 Ondansetron (Ondansetron Odt) 4 Mg Tab.rapdis 4 MG PO Q4H PRN for NAUSEA/VOMITING, #10 TAB Prov: ANAIS GUERRA MD 08/22/19 Copy Copies To 1: BIANCA MARTIN [place],MED STUDENT Aug 22, 2019 09:30 ANAIS GUERRA MD Aug 22, 2019 09:51
--- OUTSIDE RECORDS SUMMARY | 2019-08-22 09:30 | XMS REPORT ---
Author Author Kacey RICHMOND [facility] [employer] Address Unknown Phone Unavailable Care Team Providers Care Director College Name Role Phone BELLE RICHMOND CP Unavailable Allergies, Adverse Reactions, Alerts Substance Reaction Event Type Omeprazole nausea Drug Allergy Chantix nightmares Drug Allergy Problems Problem Type Condition Code Onset Dates Condition Statu s Problem Nausea with vomiting 787.01 Active Problem Unspecified alopecia 704.00 Active Problem Abdominal tenderness, unspecified site 789.60 Active Assessment Encounter for Depo-Provera contraception Z30.42 Active Problem Counseling on substance use and abuse V65.42 Active Problem Esophageal reflux 530.81 Active Problem examination or test, positive result V72.42 Active Problem Vomiting alone 787.03 Active Problem Other procreative management, counseling and advice V2 6.49 Active Problem Unspecified contraceptive management V25.9 Active Problem Unspecified breast screening V76.10 Active Problem Nondependent tobacco use disorder 305.1 Active Medications No Known Medications Procedures Procedure Coding System Code Date DEPO PROVERA (150 MG/ML) CPT-4 J1050 Jan 31, 2015 THER/PROPH/DIAG INJ, SC/IM CPT-4 10374 Jan 222014 URINE TEST CPT-4 11802 Jan 31 5 Results No Known Results Summary Purpose [employer] Submission
--- OUTSIDE RECORDS SUMMARY | 2019-08-22 09:30 | XMS REPORT ---
Author Author Kacey RICHMOND [facility] Address [address] [place] [address] Care Team Providers Care Records Section Supervisor Name Role Phone BELLE RICHMOND Unavailable PROBLEMS Type Condition ICD9-CM Code PWV23-XR Code Onset Dates Condition S tatus SNOMED Code Problem Alopecia, unspecified L65.9 Active 81752652 Problem Abdominal tenderness R10.819 Active 88607544 Problem Nexplanon insertion Z30.49 Active 170606035 Problem Chronic fatigue R53.82 Active 5270 2003 Problem Counseling on substance use and abuse Z71.89 Active 346822440 Problem Nondependent tobacco use disorder Z72.0 Active 98099122 Problem Esophageal reflux K21.9 Active 23 5658147 Problem Decreased libido R68.82 Active 835 7008 ALLERGIES No Information ENCOUNTERS Encounter Location Date Diagnosis [address] [place] [address] 2 9 Feb, 2019 Influenza J11.1 [place] [address] [place] [id number] [place] [address] 17 Oct, 2018 Encounter for Depo-Provera contraception Z30.42 [place] [address] [place] [id number] [place] [address] 14 Jul, 2018 Encounter for Depo-Provera contraception Z30.42 [facility] [address] [facility]757[address] [place] [id number] Apr, Dental examination Z01.20 and Oral healt h maintenance status requiring routine preventive dental care K08.9 [facility] [id number] [place] [address] 19 Mar, 2018 Encounter for Nexplanon removal Z30.46 ; Nexplanon removal Z30.49 ; Contraception management Z30.9 ; Encounter for initial prescription of contraceptives, unspecified contraceptive Z30.019 ; Contraceptive education Z30.09 ; Screening for STD (sexually transmitted disease) Z11.3 and Encounter for Depo-Provera contraception Z30.42 [facility] [address] [id number] Jan, Dental examination Z01.20 [facility] [address] [id number] June, Dental caries K02.[address] [facility] [address] [place] [id number] [address] [place] [address] May, Pharyngitis, unspecified lee ology J02.9 [facility] [address] [id number] Apr, [facility] [address] [id number] Mar, Dental caries extending into dentin K02. 62 and Dental examination Z01.20 [facility] [address] [address] Feb, [place] [address] [address] Feb, Flank pain R10.[address] one Z87.442 [place] [address] [address] Jan, [facility] [address] [address] Nov, Dental examination Z01.20 [facility] [address] [id number] Oct, Dental examination Z01.20 [facility] [address] [address] Aug, [facility] [address] [place] [id number] [address] [place] [address] Jul, Encounter for immunization Z 23 and Penetrating wound of left foot, initial encounter S91.332A [place] [address] [address] June, Chronic fatigue R53.82 [place] [address] [address] June, [facility] N [address] [address] May, Strep pharyngitis J02.0 and Sore throat J02.[address] [facility] [address] [place] [address] May, Encounter for immunization Z 23 [place] [address] [address] May, [place] [address] [address] May, Dental examination Z01.20 [place] [address] [address] 08 Mar, 2016 Dental examination Z01.20 [facility] [address] [id number] 08 Mar, 2016 Dental examination Z01.[address] [facility] [address] [place] [address] 07 Mar, 2016 Acute non-recurrent maxillar y sinusitis J01.00 [facility] [address] [address] Feb, Gastroenteritis K52.9 ; Righ t otitis media with effusion H65.91 and Fever R50.9 [place] [address] [address] Feb, [facility] [address] [id number] Feb, Dental examination Z01.[address] [facility] N [address] [address] Feb, Dysuria R30.0 [place] [address] [address] Jan, Dental examination Z01.20 [place] [address] [address] Jan, Dental examination Z01.20 [facility] [place] [address] [place] [id number] [address] [place] [address] Dec, Encounter for immunization Z [address] [address] Nov, Dental examination Z01.20 and Dental car ies K02.[address] [address] Nov, [address] [address] Oct, Dental examination Z01.20 [facility] [place] [id number] [address] [place] [address] Sep, Body aches R52 and Flu syndr ome J11.[address] [address] Sep, [address] [address] Apr, [address] [address] 09 Apr, 2015 Well woman exam Z01.419 ; Nexplanon inse rtion Z30.49 ; Encounter for screening for malignant neoplasm of cervix Z12.4 and Irregular menses N92.6 [facility] [place] [id number] [address] [place] [address] 04 Mar, 2015 Body aches R52 and Acute gas tritis without bleeding K29.[address] [address] 30 Jan, 2015 Encounter for counseling regarding contr aception Z30.9 ; Vaginal discharge N89.8 ; Surveillance of contraceptive injection Z30.42 ; Irregular menses N92.6 ; OCP (oral contraceptive pills) initiation Z30.011 and Decreased libido R68.82 [facility] [address] [address] Jan, Encounter for Depo-Provera contraception Z30.42 [facility] [address] [id number] Jan, Encounter for dental examination Z01.20 [facility] [address] [id number] Dec, Dental caries K02.9 and Encounter for de ntal examination Z01.20 [facility] [address] [address] Nov, Encounter for immunization Z23 [facility] [address] [id number] Oct, Encounter for dental examination V72.2 [facility] [address] [address] Sep, Encounter for contraceptive management V 25.9 [facility] [address] [address] May, [facility] [address] [address] May, [facility] [address] [address] Feb, [facility] [address] [address] Feb, [facility] [address] [address] Feb, [facility] [address] [address] Feb, [facility] [address] [address] Feb, [facility] [address] [address] Feb, [facility] [address] [address] Feb, [facility] [address] [id number] [place] [address] Feb, [facility] [address] [id number] [place] [address] Jul, [facility] [address] [id number] [place] [address] June, [facility] [address] [id number] [place] [address] Mar, [facility] [address] [id number] [place] [address] Nov, [facility] [address] [id number] [place] [address] Nov, [facility] [address] [id number] [place] [address] Nov, [facility] [address] [id number] [place] [address] Nov, [facility] [address] [id number] [place] [address] Nov, [facility] [address] [id number] [place] [address] Nov, [facility] [address] [id number] [place] [address] Nov, [facility] [address] [id number] [place] [address] Jul, [facility] [address] [facility] [id number] [place] [address] May, [facility] [address] [id number] [place] [address] Feb, [facility] [address] [id number] [place] [address] Jan, [facility] [address] [id number] [place] [address] Jan, [facility] [address] [id number] [place] [address] Dec, [facility] [address] [id number] [place] [address] Oct, [facility] [address] [id number] [place] [address] Sep, IMMUNIZATIONS No Known Immunizations SOCIAL HISTORY Never Assessed REASON FOR VISIT PLAN OF CARE VITAL SIGNS MEDICATIONS Unknown Medications RESULTS No Results PROCEDURES Procedure Date Ordered Result Body Site CHORIONIC GONADOTROPIN ASSAY Mar 08, 2013 VENIPUNCT, ROUTINE* Mar 08, 2013 INSTRUCTIONS MEDICATIONS ADMINISTERED No Known Medications MEDICAL (GENERAL) HISTORY Type Description Date Surgical History section 11/01/2013 Surgical History tonsillectomy youth Hospitalization History /healthy 11/01/2013
--- OUTSIDE RECORDS SUMMARY | 2019-08-22 09:30 | XMS REPORT ---
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 Name Role Phone CLARIBEL Agrawal Unavailable PROBLEMS Type Condition ICD9-CM Code KBW16-CH Code Onset Dates Condition S tatus SNOMED Code Problem Alopecia, unspecified L65.9 Active 11526923 Problem Abdominal tenderness R10.819 Active 59968159 Problem Nexplanon insertion Z30.49 Active 247302110 Problem Chronic fatigue R53.82 Active 5270 2003 Problem Counseling on substance use and abuse Z71.89 Active 415855608 Problem Nondependent tobacco use disorder Z72.0 Active 19704417 Problem Esophageal reflux K21.9 Active 23 1012227 Problem Decreased libido R68.82 Active 835 7008 ALLERGIES No Information ENCOUNTERS Encounter Location Date Diagnosis [id number] [place] [address] Feb, Influenza J11.1 [facility] [address] [facility] [id number] [address] [place] [address] 17 Oct, 2018 Encounter for Depo-Provera c ontraception Z30.42 [facility] [address] [facility] [id number] [address] [place] [address] 14 Jul, 2018 Encounter for Depo-Provera c ontraception Z30.42 [facility] [address] [id number] [address] [place] [id number] 28 Apr, 2018 Dental examination Z01.20 an d Oral health maintenance status requiring routine preventive dental care K08.9 [facility] [address] [facility] [id number] [address] [place] [address] 19 Mar, 2018 Encounter for Nexplanon almaz tamiko Z30.46 ; Nexplanon removal Z30.49 ; Contraception management Z30.9 ; Encounter for initial prescription of contraceptives, unspecified contraceptive Z30.019 ; Contraceptive education Z30.09 ; Screening for STD (sexually transmitted disease) Z11.3 and Encounter for Depo-Provera contraception Z30.42 [facility] [address] [id number] [address] [place] [address] [id number] Jan, Dental examination Z01.20 [facility] [address] [id number] [place] [address] [id number] June, Dental caries K02.9 [facility] [address] [id number] [address] [place] [address] May, Pharyngitis, unspecified lee ology J02.9 [facility] [address] [id number] [place] [address] [id number] Apr, [facility] [address] [id number] [place] [address] [id number] Mar, Dental caries extending into dentin K02.62 and Dental examination Z01.20 [facility] [address] [id number] [address] [place] [address] Feb, [facility] [address] [facility] [id number] [place] [address] Feb, Flank pain R10.9 and History of renal stone Z87.442 [facility] [address] [id number] [address] [place] [address] Jan, [facility] [address] [id number] [address] [place] [address] Nov, Dental examination Z01.20 [facility] [address] [id number] [place] [address] [id number] Oct, Dental examination Z01.20 [facility] [address] [id number] [address] [place] [address] Aug, [facility] [address] [facility] [id number] [address] [place] [address] Jul, Encounter for immunization Z 23 and Penetrating wound of left foot, initial encounter S91.332A [facility] [address] [id number] [address] [place] [address] June, Chronic fatigue R53.82 [facility] [address] [id number] [address] [place] [address] June, [facility] [address] [id number] [address] [place] [address] May, Strep pharyngitis J02.0 and Sore throat J02.9 [facility] [place] [address] [id number] [address] [place] [address] May, Encounter for immunization Z 23 [facility] [address] [id number] [address] [place] [address] May, [facility] [address] [facility] [id number] [address] [place] [address] May, Dental examination Z01.20 [facility] [address] [facility] [id number] [address] [place] [address] 08 Mar, 2016 Dental examination Z01.20 [facility] [id number] [place] [id number] 08 Mar, 2016 Dental examination Z01.20 [facility] [address] [id number] [address] [place] [address] 07 Mar, 2016 Acute non-recurrent maxillar y sinusitis J01.00 [facility] [address] [id number] [address] [place] [address] Feb, Gastroenteritis K52.9 ; Righ t otitis media with effusion H65.91 and Fever R50.9 [facility] [address] [id number] [address] [place] [address] Feb, [facility] [address] [id number] [address] [place] [id number] Feb, Dental examination Z01.20 [facility] [address] [facility] [id number] [address] [place] [address] Feb, Dysuria R30.0 [place] [address] [facility] [id number] [address] [place] [address] Jan, Dental examination Z01.20 [place] [address] [facility] [id number] [address] [place] [address] Jan, Dental examination Z01.20 [facility] N [facility] [id number] [address] [place] [address] Dec, Encounter for immunization Z 23 [place] [address] [address] Nov, Dental examination Z01.20 an d Dental caries K02.9 [place] [address] [address] Nov, [place] [address] [address] Oct, Dental examination Z01.20 [facility] [place] [address] [place] [id number] [place] [address] Sep, Body aches R52 and Flu syndr ome J11.1 [place] [address] [address] Sep, [place] [address] [address] Apr, [place] [address] [address] Apr, Well woman exam Z01.419 ; Ne xplanon insertion Z30.49 ; Encounter for screening for malignant neoplasm of cervix Z12.4 and Irregular menses N92.6 [facility] [address] [facility] [id number] [address] [place] [address] 04 Mar, 2015 Body aches R52 and Acute gas tritis without bleeding K29.00 [facility] [address] [facility] [id number] [address] [place] [address] 30 Jan, 2015 Encounter for counseling reg arding contraception Z30.9 ; Vaginal discharge N89.8 ; Surveillance of contraceptive injection Z30.42 ; Irregular menses N92.6 ; OCP (oral contraceptive pills) initiation Z30.011 and Decreased libido R68.82 [facility] [address] [facility] [id number] [address] [place] [address] 10 Jan, 2015 Encounter for Depo-Provera c ontraception Z30.42 [facility] [id number] [place] [address] [id number] Jan, Encounter for dental examina tion Z01.20 [facility] [address] [facility] [id number] [place] [address] [id number] Dec, Dental caries K02.9 and Enco unter for dental examination Z01.20 [facility] [address] [place] [id number] [address] [place] [address] Nov, Encounter for immunization Z 23 [facility] [address] [id number] Oct, Encounter for dental examina tion V72.2 [facility] [address] [place] [id number] [address] [place] [address] Sep, Encounter for contraceptive management V25.9 [facility] [address] [facility] [id number] [address] [place] [address] May, [facility] [address] [facility] [id number] [address] [place] [address] May, [facility] [address] [place] [id number] [address] [place] [phone] Feb, [facility] [address] [facility] [id number] [address] [place] [id number] Feb, [facility] [address] [place] [id number] [place] [address] Feb, [facility] [address] [id number] [address] [place] [address], [place] [address] Feb, [facility] [address] [id number] [address] [place] [address], [place] [address] Feb, [facility] [address] [id number] [address] [place] [address], [place] [address] Feb, [facility] [address] [id number] [address] [place] [address], [place] [address] Feb, [facility] [address] [id number] [address] [place] [address], [place] [address] Feb, [facility] [address] [id number] [address] [place] [address], [place] [address] Jul, [facility] [address] [id number] [address] [place] [address], [place] [address] June, [facility] [address] [id number] [address] [place] [address], [place] [address] Mar, [facility] [address] [id number] [address] [place] [address], [place] [address] Nov, [facility] [address] [id number] [address] [place] [address], [place] [address] Nov, [facility] [address] [id number] [address] [place] [address], [place] [address] Nov, [facility] [address] [id number] [address] [place] [address], [place] [address] Nov, [facility] [address] [id number] [address] [place] [address], [place] [address] Nov, [facility] [address] [id number] [address] [place] [address], [place] [address] Nov, [facility] [address] [id number] [address] [place] [address], [place] [address] Nov, [facility] [address] [id number] [address] [place] [phone] 19 Jul, 2011 [facility] [address] [id number] [address] [place] [address] May, [facility] [address] [id number] [address] [place] [phone] 16 Feb, 2011 [facility] [address] [id number] [address] [place] [address] 16 Jan, 2010 [facility] [address] [id number] [address] [place] [address] Jan, [facility] [address] [id number] [address] [place] [address] Dec, [facility] [address] [id number] [address] [place] [phone] 10 Oct, 2008 [facility] [address] [id number] [address] [place] [phone] Sep, IMMUNIZATIONS No Known Immunizations SOCIAL HISTORY Never Assessed REASON FOR VISIT PLAN OF CARE VITAL SIGNS Height 66 in 2014-03-13 Weight 128 lbs 2014-03-13 Temperature 98.6 degrees Fahrenheit 2014-03-13 Heart Rate 68 bpm 2014-03-13 Respiratory Rate 18 2014-03-13 Blood pressure systolic 106 mmHg 2014-03-13 Blood pressure diastolic 68 mmHg 2014-03-13 MEDICATIONS Unknown Medications RESULTS No Results PROCEDURES Procedure Date Ordered Result Body Site THER/PROPH/DIAG INJ, SC/IM Mar 13, 2014 Medroxyprogesterone inj Mar 13, 2014 URINE TEST Mar 13, 2014 VENIPUNCT, ROUTINE* Mar 13, 2014 INSTRUCTIONS MEDICATIONS ADMINISTERED No Known Medications MEDICAL (GENERAL) HISTORY Type Description Date Surgical History section 11/01/2013 Surgical History tonsillectomy youth Hospitalization History /healthy 11/01/2013
--- OUTSIDE RECORDS SUMMARY | 2019-08-22 09:30 | XMS REPORT ---
Author Author Kacey RIHCMOND [facility] Address [address] [place] [address] Care Team Providers Care Leadership Recruiter Name Role Phone BELLE RICHMOND Unavailable PROBLEMS Type Condition ICD9-CM Code LDY73-HC Code Onset Dates Condition S tatus SNOMED Code Problem Alopecia, unspecified L65.9 Active 97106770 Problem Abdominal tenderness R10.819 Active 46920932 Problem Nexplanon insertion Z30.49 Active 526962640 Problem Chronic fatigue R53.82 Active 5270 2003 Problem Counseling on substance use and abuse Z71.89 Active 791997559 Problem Nondependent tobacco use disorder Z72.0 Active 43279300 Problem Esophageal reflux K21.9 Active 23 8531208 Problem Decreased libido R68.82 Active 835 7008 ALLERGIES No Information ENCOUNTERS Encounter Location Date Diagnosis [address] [id number] [place] [address] 29 Feb, 2019 Influenza J11.1 [facility] [address] [facility] [id number] [address] [place] [id number] 17 Oct, 2018 Encounter for Depo-Provera c ontraception Z30.42 [facility] [address] [id number] [address] [place] [id number] 14 Jul, 2018 Encounter for Depo-Provera c ontraception Z30.42 [facility] [address] [id number] [address] [place] [id number] 28 Apr, 2018 Dental examination Z01.20 an d Oral health maintenance status requiring routine preventive dental care K08.9 [facility] [address] [id number] [address] [place] [phone] 19 Mar, 2018 Encounter for Nexplanon almaz tamiko Z30.46 ; Nexplanon removal Z30.49 ; Contraception management Z30.9 ; Encounter for initial prescription of contraceptives, unspecified contraceptive Z30.019 ; Contraceptive education Z30.09 ; Screening for STD (sexually transmitted disease) Z11.3 and Encounter for Depo-Provera contraception Z30.42 [facility] [address] [id number] [address] [place] [address] [phone] Jan, Dental examination Z01.20 [facility] [address] [id number] [place] [address] [phone] June, Dental caries K02.9 [facility] [address] [id number] [address] [place] [phone] May, Pharyngitis, unspecified lee ology J02.9 [facility] [address] [id number] [place] [address] [id number] Apr, [facility] [address] [id number] [place] [address] [phone] Mar, Dental caries extending into dentin K02.62 and Dental examination Z01.20 [facility] [address] [id number] [address] [place] [address] Feb, [facility] [address] [id number] [place] [address] Feb, Flank pain R10.9 and History of renal stone Z87.442 [facility] [address] [id number] [address] [place] [phone] Jan, [facility] [address] [id number] [address] [place] [phone] Nov, Dental examination Z01.20 [facility] [address] [id number] [place] [address] [phone] Oct, Dental examination Z01.20 [facility] [address] [id number] [address] [place] [phone] Aug, [facility] [address] [id number] [address] [place] [address] Jul, Encounter for immunization Z 23 and Penetrating wound of left foot, initial encounter S91.332A [facility] [address] [id number] [address] [place] [address] June, Chronic fatigue R53.82 [facility] [address] [id number] [address] [place] [phone] June, [facility] [address] [id number] [address] [place] [phone] May, Strep pharyngitis J02.0 and Sore throat J02.9 [facility] [address] [id number] [address] [place] [phone] May, Encounter for immunization Z 23 [facility] [address] [id number] [address] [place] [phone] May, [facility] [address] [id number] [address] [place] [address] May, Dental examination Z01.20 [facility] [address] [id number] [address] [place] [phone] Mar, Dental examination Z01.20 [facility] [address] [place] [id number] [address] [place] [address] [id number] Mar, Dental examination Z01.20 [facility] [address] [id number] [address] [place] [phone] Mar, Acute non-recurrent maxillar y sinusitis J01.00 [facility] [address] [id number] [address] [place] [phone] Feb, Gastroenteritis K52.9 ; Righ t otitis media with effusion H65.91 and Fever R50.9 [facility] [address] [id number] [address] [place] [phone] Feb, [facility] [address] [id number] [address] [place] [address] [phone] Feb, Dental examination Z01.20 [facility] [address] [id number] [address] [place] [phone] Feb, Dysuria R30.0 [place] [address] [id number] [address] [place] [phone] Jan, Dental examination Z01.20 [facility] [address] [id number] [address] [place] [address] 15 Jan, 2016 Dental examination Z01.20 [facility] [address] [id number] [address] [place] [phone] 10 Dec, 2015 Encounter for immunization Z 23 [place] [address] [facility] [id number] [place] [phone] Nov, Dental examination Z01.20 an d Dental caries K02.9 [place] [address] [facility] [id number] [place] [phone] Nov, [place] [address] [facility] [facility] [id number] [place] [phone] Oct, Dental examination Z01.20 [facility] [address] [id number] [address] [place] [phone] Sep, Body aches R52 and Flu syndr ome J11.1 [place] [address] [place] [id number] [place] [phone] Sep, [place] [address] [place] [id number] [place] [phone] Apr, [place] [address] [address] Apr, Well woman exam Z01.419 ; Ne xplanon insertion Z30.49 ; Encounter for screening for malignant neoplasm of cervix Z12.4 and Irregular menses N92.6 [facility] [address] [id number] [address] [place] [phone] 04 Mar, 2015 Body aches R52 and Acute gas tritis without bleeding K29.00 [facility] [address] [id number] [address] [place] [address] 30 Jan, 2015 Encounter for counseling reg arding contraception Z30.9 ; Vaginal discharge N89.8 ; Surveillance of contraceptive injection Z30.42 ; Irregular menses N92.6 ; OCP (oral contraceptive pills) initiation Z30.011 and Decreased libido R68.82 [facility] [address] [id number] [address] [place] [phone] Jan, Encounter for Depo-Provera c ontraception Z30.42 [facility] [address] [id number] [address] [place] [address] [phone] Jan, Encounter for dental examina tion Z01.20 [facility] [address] [facility] [id number] [address] [place] [address] [id number] Dec, Dental caries K02.9 and Enco unter for dental examination Z01.20 [facility] [address] [place] [id number] [address] [place] [phone] 16 Nov, 2014 Encounter for immunization Z 23 [facility] [address] [facility] [id number] [place] [address] [phone] Oct, Encounter for dental examina tion V72.2 [facility] [address] [id number] [address] [place] [address] Sep, Encounter for contraceptive management V25.9 [facility] [address] [id number] [address] [place] [phone] May, [facility] [address] [id number] [address] [place] [phone] May, [facility] [address] [place] [id number] [address] [place] [phone] Feb, [facility] [address] [id number] [address] [place] [phone] Feb, [facility] [address] [place] [id number] [address] [place] [phone] Feb, [facility] [address] [id number] [address] [place] [address], [place] [address] Feb, [facility] [address] [id number] [address] [place] [address], [place] [address] Feb, [facility] [address] [id number] [address] [place] [address], [place] [address] Feb, [facility] [address] [id number] [address] [place] [address], [place] [address] Feb, [facility] [address] [id number] [address] [place] [address], [place] [address] Feb, [facility] [address] [id number] [address] [place] [address], [place] [address] Jul, [facility] [address] [id number] [address] [place] [address], [place] [address] June, [facility] [address] [id number] [address] [place] [address], [place] [address] Mar, [facility] [address] [id number] [address] [place] [address], [place] [address] Nov, [facility] [address] [id number] [address] [place] [address], [place] [address] Nov, [facility] [address] [id number] [address] [place] [address], [place] [address] Nov, [facility] [address] [id number] [address] [place] [address], [place] [address] Nov, [facility] [address] [id number] [address] [place] [address], [place] [address] Nov, [facility] [address] [id number] [address] [place] [address], [place] [address] Nov, [facility] [address] [id number] [address] [place] [address], [place] [address] Nov, [facility] [address] [id number] [address] [place] [phone] Jul, [facility] [address] [id number] [address] [place] [phone] May, [facility] [address] [id number] [address] [place] [address] 16 Feb, 2011 [facility] [address] [id number] [address] [place] [phone] 16 Jan, 2010 [facility] [address] [id number] [address] [place] [phone] Jan, [facility] [address] [id number] [address] [place] [phone] Dec, [facility] [address] [id number] [address] [place] [phone] 10 Oct, 2008 [facility] [address] [id number] [address] [place] [address] Sep, IMMUNIZATIONS No Known Immunizations SOCIAL HISTORY Never Assessed REASON FOR VISIT PLAN OF CARE VITAL SIGNS MEDICATIONS Unknown Medications RESULTS No Results PROCEDURES No Known procedures INSTRUCTIONS MEDICATIONS ADMINISTERED No Known Medications MEDICAL (GENERAL) HISTORY Type Description Date Surgical History section 11/01/2013 Surgical History tonsillectomy youth Hospitalization History /healthy 11/01/2013
--- OUTSIDE RECORDS SUMMARY | 2019-08-22 09:30 | XMS REPORT ---
Author Author Kacey Mariee Doctor Organization [facility] Address Unknown Phone Unavailable Care Team Providers Care Clinical Informatics Specialist Name Role Phone Migration, Doctor Unavailable Unavailable PROBLEMS Type Condition ICD9-CM Code UPI00-GI Code Onset Dates Condition S tatus SNOMED Code Problem Alopecia, unspecified L65.9 Active 07689011 Problem Abdominal tenderness R10.819 Active 35761319 Problem Nexplanon insertion Z30.49 Active 524004333 Problem Chronic fatigue R53.82 Active 5270 2003 Problem Counseling on substance use and abuse Z71.89 Active 747922758 Problem Nondependent tobacco use disorder Z72.0 Active 76992061 Problem Esophageal reflux K21.9 Active 23 0178689 Problem Decreased libido R68.82 Active 835 7008 ALLERGIES Substance Reaction Event Type Date Status Omeprazole Magnesium 20 Mg Capsule,delayed Release Unknown Non Drug Allergy 14 May, 2014 Active ENCOUNTERS Encounter Location Date Diagnosis [facility] [address] [id number] 14 Jul, 2018 Encounter for Depo-Provera c ontraception Z30.42 [facility] [address] [id number] Apr, Dental examination Z01.20 an d Oral health maintenance status requiring routine preventive dental care K08.9 [facility] [address] [address] 19 Mar, 2018 Encounter for Nexplanon almaz tamiko Z30.46 ; Nexplanon removal Z30.49 ; Contraception management Z30.9 ; Encounter for initial prescription of contraceptives, unspecified contraceptive Z30.019 ; Contraceptive education Z30.09 ; Screening for STD (sexually transmitted disease) Z11.3 and Encounter for Depo-Provera contraception Z30.42 [facility] [address] [place] [id number] [place] [address] [id number] 05 Jan, [address] [facility] [address] [id number] [address] [place] [address] [id number] June, Dental caries K02.9 [facility] [address] [id number] [address] [place] [phone] May, Pharyngitis, unspecified lee ology J02.9 [facility] [address] [id number] [address] [place] [id number] Apr, [facility] [address] [id number] [place] [address] [id number] Mar, Dental caries extending into dentin K02.62 and Dental examination Z01.20 [facility] [address] [id number] [address] [place] [phone] Feb, [facility] [address] [facility] [id number] [address] [place] [address] Feb, Flank pain R10.9 and History of renal stone Z87.442 [facility] [address] [id number] [address] [place] [phone] Jan, [facility] [address] [facility] [id number] [place] [phone] Nov, Dental examination Z01.20 [facility] [address] [facility] [id number] [address] [place] [address] [id number] Oct, Dental examination Z01.20 [facility] [address] [facility] [id number] [address] [place] [phone] Aug, [facility] [address] [facility] [id number] [address] [place] [phone] Jul, Encounter for immunization Z 23 and Penetrating wound of left foot, initial encounter S91.332A [facility] [address] [facility] [id number] [address] [place] [address] June, Chronic fatigue R53.82 [facility] [address] [facility] [id number] [address] [place] [phone] June, [facility] [address] [facility] [id number] [address] [place] [phone] May, Strep pharyngitis J02.0 and Sore throat J02.9 [facility] [address] [facility] [id number] [address] [place] [phone] May, Encounter for immunization Z 23 [facility] [address] [facility] [id number] [place] [phone] May, [place] [address] [facility] [id number] [place] [phone] May, Dental examination Z01.20 [place] [address] [address] 08 Mar, [address] [facility] [address] [place] [id number] [place] [address] [id number] Mar, Dental examination Z01.20 [facility] [address] [place] [id number] [address] [place] [address] Mar, Acute non-recurrent maxillar y sinusitis J01.00 [facility] [address] [place] [id number] [address] [place] [address] Feb, Gastroenteritis K52.9 ; Righ t otitis media with effusion H65.91 and Fever R50.9 [place] [address] [place] [id number] [address] [place] [phone] Feb, [facility] [address] [place] [id number] [place] [address] [id number] Feb, Dental examination Z01.20 [facility] [address] [place] [id number] [address] [place] [address] Feb, Dysuria R30.0 [place] [address] [facility] [id number] [address] [place] [phone] Jan, Dental examination Z01.20 [facility] [address] [address] 15 Jan, 2016 Dental examination Z01.20 [facility] [place] [address] [address] 10 Dec, 2015 Encounter for immunization Z 23 [place] [address] [address] 26 Nov, 2015 Dental examination Z01.20 an d Dental caries K02.9 [place] [address] [address] Nov, [place] [address] [address] Oct, Dental examination Z01.20 [facility] [place] [address] [address] Sep, Body aches R52 and Flu syndr ome J11.[address] [id number] Sep, [place] [address] [address] Apr, [address] [address] Apr, Well woman exam Z01.419 ; Ne xplanon insertion Z30.49 ; Encounter for screening for malignant neoplasm of cervix Z12.4 and Irregular menses N92.6 [facility] [place] [address] [address] 04 Mar, 2015 Body aches R52 and Acute gas tritis without bleeding K29.[address] [address] 30 Jan, 2015 Encounter for counseling reg arding contraception Z30.9 ; Vaginal discharge N89.8 ; Surveillance of contraceptive injection Z30.42 ; Irregular menses N92.6 ; OCP (oral contraceptive pills) initiation Z30.011 and Decreased libido R68.82 [facility] [address] [id number] [address] [place] [phone] 10 Jan, 2015 Encounter for Depo-Provera c ontraception Z30.42 [facility] [address] [id number] [address] [place] [address] [id number] Jan, Encounter for dental examina tion Z01.20 [facility] [address] [id number] [address] [place] [address] [id number] Dec, Dental caries K02.9 and Enco unter for dental examination Z01.20 [facility] [address] [id number] [address] [place] [phone] Nov, Encounter for immunization Z 23 [facility] [address] [id number] [address] [place] [address] [id number] Oct, Encounter for dental examina tion V72.2 [facility] [address] [id number] [address] [place] [phone] Sep, Encounter for contraceptive management V25.9 [facility] [address] [id number] [address] [place] [phone] May, [facility] [address] [id number] [address] [place] [phone] May, [facility] [address] [id number] [address] [place] [phone] Feb, [facility] [address] [id number] [address] [place] [phone] Feb, [facility] [address] [id number] [address] [place] [phone] Feb, [facility] [address] [id number] [address] [place] [phone] Feb, [facility] [address] [id number] [address] [place] [phone] Feb, [facility] [address] [id number] [address] [place] [phone] Feb, [facility] [address] [id number] [address] [place] [address], [place] [address] Feb, [facility] [address] [id number] [address] [place] [address], [place] [address] Feb, [facility] [address] [id number] [address] [place] [address], [place] [address] Jul, [facility] [address] [id number] [address] [place] [address], [place] [address] June, [facility] [address] [id number] [address] [place] [address], [place] [address] Mar, [facility] [address] [id number] [address] [place] [address], [place] [address] Nov, [facility] [address] [id number] [address] [place] [address], [place] [address] Nov, [facility] [address] [id number] [address] [place] [address], [place] [address] Nov, [facility] [address] [id number] [address] [place] [address], [place] [address] Nov, [facility] [address] [id number] [address] [place] [address], [place] [address] Nov, [facility] [address] [id number] [address] [place] [address], [place] [address] Nov, [facility] [address] [id number] [address] [place] [address], [place] [address] Nov, [facility] [address] [id number] [address] [place] [address], [place] [address] Jul, [facility] [address] [id number] [address] [place] [address], [place] [address] May, [facility] [address] [id number] [address] [place] [address], [place] [address] Feb, [facility] [address] [facility] [id number] [address] [place] [id number] 16 Jan, 2010 [facility] [address] [facility] [id number] [address] [place] [id number] 15 Jan, 2010 [facility] [address] [facility] [id number] [address] [place] [id number] Dec, [facility] [address] [facility] [id number] [address] [place] [id number] 10 Oct, 2008 [facility] [address] [facility] [id number] [address] [place] [id number] Sep, IMMUNIZATIONS No Known Immunizations SOCIAL HISTORY Never Assessed REASON FOR VISIT [facility] [place] C[place] VITAL SIGNS MEDICATIONS Medication Instructions Dosage Frequency Start Date End Date Duration S tatus Bactrim DS 800-160 mg 1 tablet by Oral route 2 times p er day for 7 day(s) Jul, Active RESULTS No Results PROCEDURES No Known procedures INSTRUCTIONS MEDICATIONS ADMINISTERED No Known Medications MEDICAL (GENERAL) HISTORY Type Description Date Medical History Kidney stones during Surgical History section 11/01/2013 Surgical History tonsillectomy youth Hospitalization History /healthy 11/01/2013
--- OUTSIDE RECORDS SUMMARY | 2019-08-22 09:30 | XMS REPORT ---
Author Author Kacey Mariee Doctor Organization [facility] Address Unknown Phone Unavailable Care Team Providers Care Carton Stapler Name Role Phone Migration, Doctor Unavailable Unavailable PROBLEMS Type Condition ICD9-CM Code FYS15-KX Code Onset Dates Condition S tatus SNOMED Code Problem Alopecia, unspecified L65.9 Active 72047759 Problem Abdominal tenderness R10.819 Active 24232768 Problem Nexplanon insertion Z30.49 Active 188076595 Problem Chronic fatigue R53.82 Active 5270 2003 Problem Counseling on substance use and abuse Z71.89 Active 622667747 Problem Nondependent tobacco use disorder Z72.0 Active 48262660 Problem Esophageal reflux K21.9 Active 23 2860778 Problem Decreased libido R68.82 Active 835 7008 ALLERGIES No Information ENCOUNTERS Encounter Location Date Diagnosis [facility] [address] [id number] 14 Jul, 2018 Encounter for Depo-Provera c ontraception Z30.42 [facility] [address] [id number] 28 Apr, 2018 Dental examination Z01.20 an d Oral health maintenance status requiring routine preventive dental care K08.9 [facility] [address] [id number] 19 Mar, 2018 Encounter for Nexplanon almaz tamiko Z30.46 ; Nexplanon removal Z30.49 ; Contraception management Z30.9 ; Encounter for initial prescription of contraceptives, unspecified contraceptive Z30.019 ; Contraceptive education Z30.09 ; Screening for STD (sexually transmitted disease) Z11.3 and Encounter for Depo-Provera contraception Z30.42 [facility] [id number] [place] [id number] 05 Jan, 2018 Dental examination Z01.20 [facility] [address] [id number] June, Dental caries K02.9 [facility] [address] [id number] [address] [place] [phone] May, Pharyngitis, unspecified lee ology J02.9 [facility] [address] [id number] [address] [place] [id number] Apr, [facility] [id number] [place] [id number] Mar, Dental caries extending into dentin K02.62 and Dental examination Z01.20 [facility] [address] [id number] [address] [place] [phone] Feb, [facility] [address] [facility] [id number] [place] [phone] Feb, Flank pain R10.9 and History of renal stone Z87.442 [facility] [address] [place] [id number] [address] [place] [id number] Jan, [facility] [address] [place] [id number] [address] [place] [phone] Nov, Dental examination Z01.20 [facility] [address] [place] [id number] [place] [id number] Oct, Dental examination Z01.20 [facility] [address] [place] [id number] [address] [place] [id number] Aug, [facility] [address] [place] [id number] [place] [phone] Jul, Encounter for immunization Z 23 and Penetrating wound of left foot, initial encounter S91.332A [facility] [address] [place] [id number] [place] [phone] June, Chronic fatigue R53.82 [facility] [address] [place] [id number] [address] [place] [phone] June, [facility] [address] [place] [id number] [place] [address], [place] [address] May, Strep pharyngitis J02.0 and Sore throat J02.9 [facility] [address] [facility] [id number] [address] [place] [phone] May, Encounter for immunization Z 23 [facility] [address] [facility] [id number] [address] [place] [phone] May, [facility] [address] [facility] [id number] [address] [place] [phone] May, Dental examination Z01.20 [place] [id number] [facility] [id number] [place] [phone] Mar, Dental examination Z01.20 [facility] [id number] [place] [id number] Mar, Dental examination Z01.20 [facility] [address] [place] [id number] [address] [place] [phone] Mar, Acute non-recurrent maxillar y sinusitis J01.00 [facility] [address] [facility] [id number] [address] [place] [phone] Feb, Gastroenteritis K52.9 ; Righ t otitis media with effusion H65.91 and Fever R50.9 [facility] [address] [facility] [id number] [address] [place] [phone] Feb, [facility] [address] [place] [id number] [place] [id number] Feb, Dental examination Z01.20 [facility] [address] [facility] [id number] [address] [place] [id number] Feb, Dysuria R30.0 [facility] [address] [facility] [id number] [place] [phone] Jan, Dental examination Z01.20 [facility] [address] [facility] [id number] [address] [place] [phone] Jan, Dental examination Z01.20 [facility] [address] [id number] 10 Dec, 2015 Encounter for immunization Z 23 [place] [address] [id number] 26 Nov, 2015 Dental examination Z01.20 an d Dental caries K02.9 [place] [address] [address] Nov, [place] [address] [phone] Oct, Dental examination Z01.20 [facility] [place] [address] [phone] Sep, Body aches R52 and Flu syndr ome J11.[address] [phone] Sep, [place] [address] [address] Apr, [address] [id number] 09 Apr, 2015 Well woman exam Z01.419 ; Ne xplanon insertion Z30.49 ; Encounter for screening for malignant neoplasm of cervix Z12.4 and Irregular menses N92.6 [facility] [address] [id number] 04 Mar, 2015 Body aches R52 and Acute gas tritis without bleeding K29.00 [place] [address] [address] 30 Jan, 2015 Encounter for counseling reg arding contraception Z30.9 ; Vaginal discharge N89.8 ; Surveillance of contraceptive injection Z30.42 ; Irregular menses N92.6 ; OCP (oral contraceptive pills) initiation Z30.011 and Decreased libido R68.82 [place] [address] [address] Jan, Encounter for Depo-Provera c ontraception Z30.42 [facility] [address] [id number] [address] [place] [id number] Jan, Encounter for dental examina tion Z01.20 [facility] [address] [id number] [address] [place] [id number] Dec, Dental caries K02.9 and Enco unter for dental examination Z01.20 [facility] [address] [id number] [address] [place] [phone] Nov, Encounter for immunization Z 23 [facility] [address] [id number] [address] [place] [address] [id number] Oct, Encounter for dental examina tion V72.2 [facility] [address] [id number] [address] [place] [phone] Sep, Encounter for contraceptive management V25.9 [facility] [address] [id number] [address] [place] [phone] May, [facility] [address] [id number] [address] [place] [phone] May, [facility] [address] [id number] [address] [place] [phone] Feb, [facility] [address] [id number] [address] [place] [phone] Feb, [facility] [address] [id number] [address] [place] [phone] Feb, [facility] [address] [id number] [address] [place] [phone] Feb, [facility] [address] [id number] [address] [place] [phone] Feb, [facility] [address] [id number] [address] [place] [phone] Feb, [facility] [address] [id number] [address] [place] [address], [place] [id number] 15 Feb, 2013 [facility] [address] [id number] [address] [place] [address], [place] [phone] Feb, [facility] [address] [id number] [address] [place] [address], [place] [phone] Jul, [facility] [address] [id number] [address] [place] [address], [place] [phone] June, [facility] [address] [id number] [address] [place] [address], [place] [phone] Mar, [facility] [address] [id number] [address] [place] [address], [place] [phone] Nov, [facility] [address] [id number] [address] [place] [address], [place] [phone] Nov, [facility] [address] [id number] [address] [place] [address], [place] [phone] Nov, [facility] [address] [id number] [address] [place] [address], [place] [phone] Nov, [facility] [address] [id number] [address] [place] [address], [place] [phone] Nov, [facility] [address] [id number] [address] [place] [address], [place] [phone] Nov, [facility] [address] [id number] [address] [place] [address], [place] [id number] Nov, [facility] [address] [id number] [address] [place] [address], [place] [phone] Jul, [facility] [address] [id number] [address] [place] [address], [place] [phone] May, [facility] [address] [id number] [address] [place] [address], [place] [phone] Feb, [facility] [address] [id number] [address] [place] [address], [place] [id number] Jan, [facility] [address] [facility] [id number] [address] [place] [id number] 15 Jan, 2010 [facility] [address] [facility] [id number] [address] [place] [phone] Dec, [facility] [address] [facility] [id number] [address] [place] [id number] Oct, [facility] [address] [facility] [id number] [address] [place] [phone] Sep, IMMUNIZATIONS No Known Immunizations SOCIAL HISTORY Never Assessed REASON FOR VISIT PLAN OF CARE VITAL SIGNS MEDICATIONS Unknown Medications RESULTS No Results PROCEDURES No Known procedures INSTRUCTIONS MEDICATIONS ADMINISTERED No Known Medications MEDICAL (GENERAL) HISTORY Type Description Date Medical History Kidney stones during Surgical History section 11/01/2013 Surgical History tonsillectomy youth Hospitalization History /healthy 11/01/2013
--- OUTSIDE RECORDS SUMMARY | 2019-08-22 09:30 | XMS REPORT ---
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 Name Role Phone MELANIE WYNN Unavailable PROBLEMS Type Condition ICD9-CM Code HVD14-FB Code Onset Dates Condition S tatus SNOMED Code Problem Alopecia, unspecified L65.9 Active 66303647 Problem Abdominal tenderness R10.819 Active 04597215 Problem Nexplanon insertion Z30.49 Active 317496042 Problem Chronic fatigue R53.82 Active 5270 2003 Problem Counseling on substance use and abuse Z71.89 Active 209411152 Problem Nondependent tobacco use disorder Z72.0 Active 79388235 Problem Esophageal reflux K21.9 Active 23 9355282 Problem Decreased libido R68.82 Active 835 7008 ALLERGIES No Information ENCOUNTERS Encounter Location Date Diagnosis [address] [id number] [place] [phone] 29 Feb, 2019 Influenza J11.1 [facility] [address] [facility] [id number] [address] [place] [phone] 17 Oct, 2018 Encounter for Depo-Provera c ontraception Z30.42 [facility] [address] [facility] [id number] [address] [place] [phone] 14 Jul, 2018 Encounter for Depo-Provera c ontraception Z30.42 [facility] [address] [id number] [address] [place] [id number] 28 Apr, 2018 Dental examination Z01.20 an d Oral health maintenance status requiring routine preventive dental care K08.9 [facility] [address] [facility] [id number] [address] [place] [phone] 19 Mar, 2018 Encounter for Nexplanon almaz tamiko Z30.46 ; Nexplanon removal Z30.49 ; Contraception management Z30.9 ; Encounter for initial prescription of contraceptives, unspecified contraceptive Z30.019 ; Contraceptive education Z30.09 ; Screening for STD (sexually transmitted disease) Z11.3 and Encounter for Depo-Provera contraception Z30.42 [facility] [address] [id number] [address] [place] [address] [phone] Jan, Dental examination Z01.20 [facility] [address] [id number] [place] [address] [phone] June, Dental caries K02.9 [facility] [address] [id number] [address] [place] [phone] May, Pharyngitis, unspecified lee ology J02.9 [facility] [address] [id number] [place] [address] [phone] Apr, [facility] [address] [id number] [place] [address] [phone] Mar, Dental caries extending into dentin K02.62 and Dental examination Z01.20 [facility] [address] [facility] [id number] [address] [place] [phone] Feb, [facility] [address] [facility] [id number] [place] [phone] Feb, Flank pain R10.9 and History of renal stone Z87.442 [facility] [address] [facility] [id number] [address] [place] [phone] Jan, [facility] [address] [facility] [id number] [address] [place] [phone] Nov, Dental examination Z01.20 [facility] [address] [id number] [place] [address] [phone] Oct, Dental examination Z01.20 [facility] [address] [id number] [address] [place] [phone] Aug, [facility] [address] [facility] [id number] [address] [place] [phone] Jul, Encounter for immunization Z 23 and Penetrating wound of left foot, initial encounter S91.332A [facility] [address] [facility] [id number] [address] [place] [phone] June, Chronic fatigue R53.82 [facility] [address] [id number] [address] [place] [phone] June, [facility] [address] [id number] [address] [place] [phone] May, Strep pharyngitis J02.0 and Sore throat J02.9 [facility] [address] [id number] [address] [place] [phone] May, Encounter for immunization Z 23 [facility] [address] [id number] [address] [place] [phone] May, [facility] [address] [facility] [id number] [address] [place] [phone] May, Dental examination Z01.20 [facility] [address] [facility] [id number] [address] [place] [phone] Mar, Dental examination Z01.20 [facility] [address] [place] [id number] [address] [place] [address] [phone] Mar, Dental examination Z01.20 [facility] [address] [id number] [address] [place] [phone] Mar, Acute non-recurrent maxillar y sinusitis J01.00 [facility] [address] [id number] [address] [place] [phone] Feb, Gastroenteritis K52.9 ; Righ t otitis media with effusion H65.91 and Fever R50.9 [facility] [address] [id number] [address] [place] [phone] Feb, [facility] [address] [id number] [address] [place] [phone] Feb, Dental examination Z01.20 [facility] [address] [facility] [id number] [address] [place] [phone] Feb, Dysuria R30.0 [place] [address] [facility] [id number] [address] [place] [phone] Jan, Dental examination Z01.20 [facility] [address] [id number] [address] [place] [phone] 15 Jan, 2016 Dental examination Z01.20 [facility] [address] [id number] [address] [place] [phone] 10 Dec, 2015 Encounter for immunization Z 23 [place] [address] [facility] [id number] [place] [phone] Nov, Dental examination Z01.20 an d Dental caries K02.9 [place] [address] [facility] [id number] [place] [phone] Nov, [place] [address] [facility] [id number] [place] [phone] Oct, Dental examination Z01.20 [facility] [address] [facility] [id number] [address] [place] [phone] Sep, Body aches R52 and Flu syndr ome J11.1 [place] [address] [place] [id number] [place] [phone] Sep, [place] [address] [place] [id number] [place] [phone] Apr, [place] [address] [phone] Apr, Well woman exam Z01.419 ; Ne xplanon insertion Z30.49 ; Encounter for screening for malignant neoplasm of cervix Z12.4 and Irregular menses N92.6 [facility] [address] [facility] [id number] [address] [place] [phone] 04 Mar, 2015 Body aches R52 and Acute gas tritis without bleeding K29.00 [facility] [address] [facility] [id number] [address] [place] [phone] 30 Jan, 2015 Encounter for counseling reg arding contraception Z30.9 ; Vaginal discharge N89.8 ; Surveillance of contraceptive injection Z30.42 ; Irregular menses N92.6 ; OCP (oral contraceptive pills) initiation Z30.011 and Decreased libido R68.82 [facility] [address] [facility] [id number] [address] [place] [phone] Jan, Encounter for Depo-Provera c ontraception Z30.42 [facility] [address] [id number] [address] [place] [address] [phone] Jan, Encounter for dental examina tion Z01.20 [facility] [address] [facility] [id number] [address] [place] [address] [phone] Dec, Dental caries K02.9 and Enco unter for dental examination Z01.20 [facility] [address] [place] [id number] [address] [place] [phone] 16 Nov, 2014 Encounter for immunization Z 23 [facility] [address] [facility] [id number] [place] [address] [phone] Oct, Encounter for dental examina tion V72.2 [facility] [address] [facility] [id number] [address] [place] [phone] Sep, Encounter for contraceptive management V25.9 [facility] [address] [facility] [id number] [address] [place] [phone] May, [facility] [address] [facility] [id number] [address] [place] [phone] May, [facility] [address] [place] [id number] [address] [place] [phone] Feb, [facility] [address] [facility] [id number] [address] [place] [phone] Feb, [facility] [address] [place] [id number] [address] [place] [phone] Feb, [facility] [address] [id number] [address] [place] [address], [place] [phone] Feb, [facility] [address] [id number] [address] [place] [address], [place] [phone] Feb, [facility] [address] [id number] [address] [place] [address], [place] [phone] Feb, [facility] [address] [id number] [address] [place] [address], [place] [phone] Feb, [facility] [address] [id number] [address] [place] [address], [place] [phone] Feb, [facility] [address] [id number] [address] [place] [address], [place] [phone] Jul, [facility] [address] [id number] [address] [place] [address], [place] [address] June, [facility] [address] [id number] [address] [place] [address], [place] [phone] Mar, [facility] [address] [id number] [address] [place] [address], [place] [phone] Nov, [facility] [address] [id number] [address] [place] [address], [place] [phone] Nov, [facility] [address] [id number] [address] [place] [address], [place] [phone] Nov, [facility] [address] [id number] [address] [place] [address], [place] [phone] Nov, [facility] [address] [id number] [address] [place] [address], [place] [phone] Nov, [facility] [address] [id number] [address] [place] [address], [place] [address] Nov, [facility] [address] [id number] [address] [place] [address], [place] [phone] Nov, [facility] [address] [id number] [address] [place] [phone] Jul, [facility] [address] [id number] [address] [place] [phone] May, [facility] [address] [id number] [address] [place] [phone] 16 Feb, 2011 [facility] [address] [id number] [address] [place] [phone] 16 Jan, 2010 [facility] [address] [id number] [address] [place] [phone] 15 Jan, 2010 [facility] [address] [id number] [address] [place] [phone] Dec, [facility] [address] [facility] [id number] [address] [place] [phone] 10 Oct, 2008 [facility] [address] [facility] [id number] [address] [place] [phone] Sep, IMMUNIZATIONS No Known Immunizations SOCIAL HISTORY Never Assessed REASON FOR VISIT PLAN OF CARE VITAL SIGNS Height 66 in 2011-08-11 Weight 129.1 lbs 2011-08-11 Temperature 98.5 degrees Fahrenheit 2011-08-11 Heart Rate 80 bpm 2011-08-11 Respiratory Rate 18 2011-08-11 Blood pressure systolic 108 mmHg 2011-08-11 Blood pressure diastolic 66 mmHg 2011-08-11 MEDICATIONS Unknown Medications RESULTS No Results PROCEDURES Procedure Date Ordered Result Body Site DRAINAGE OF SKIN ABSCESS August 11, 2011 INSTRUCTIONS MEDICATIONS ADMINISTERED No Known Medications MEDICAL (GENERAL) HISTORY Type Description Date Surgical History section 11/01/2013 Surgical History tonsillectomy youth Hospitalization History /healthy 11/01/2013
--- OUTSIDE RECORDS SUMMARY | 2019-08-22 09:30 | XMS REPORT ---
Author Author Kacey Agrawal Organization [facility] [place] Address [address] [place] [address] Care Team Providers Care Hydro Electric Station Operator Name Role Phone CLARIBEL Agrawal Unavailable PROBLEMS Type Condition ICD9-CM Code RVW95-RE Code Onset Dates Condition S tatus SNOMED Code Problem Alopecia, unspecified L65.9 Active 20531927 Problem Abdominal tenderness R10.819 Active 73082246 Problem Nexplanon insertion Z30.49 Active 013267110 Problem Chronic fatigue R53.82 Active 5270 2003 Problem Counseling on substance use and abuse Z71.89 Active 463447640 Problem Nondependent tobacco use disorder Z72.0 Active 26928197 Problem Esophageal reflux K21.9 Active 23 1958351 Problem Decreased libido R68.82 Active 835 7008 ALLERGIES No Information ENCOUNTERS Encounter Location Date Diagnosis [facility] [place] [address] [id number] [address] [place] [phone] 17 Oct, 2018 Encounter for Depo-Provera c ontraception Z30.42 [facility] [place] [address] [facility] [id number] [address] [place] [phone] 14 Jul, 2018 Encounter for Depo-Provera c ontraception Z30.42 [facility] [address] [facility] [id number] [address] [place] [address] [phone] 28 Apr, 2018 Dental examination Z01.20 an d Oral health maintenance status requiring routine preventive dental care K08.9 [facility] [place] [address] [facility] [id number] [address] [place] [phone] 19 Mar, 2018 Encounter for Nexplanon almaz tamiko Z30.46 ; Nexplanon removal Z30.49 ; Contraception management Z30.9 ; Encounter for initial prescription of contraceptives, unspecified contraceptive Z30.019 ; Contraceptive education Z30.09 ; Screening for STD (sexually transmitted disease) Z11.3 and Encounter for Depo-Provera contraception Z30.42 [facility] [address] [id number] [address] [place] [address] [phone] Jan, Dental examination Z01.20 [facility] [address] [id number] [address] [place] [address] [phone] June, Dental caries K02.9 [facility] [address] [id number] [address] [place] [phone] May, Pharyngitis, unspecified lee ology J02.9 [facility] [address] [id number] [place] [address] [id number] Apr, [facility] [address] [id number] [place] [address] [phone] Mar, Dental caries extending into dentin K02.62 and Dental examination Z01.20 [facility] [place] [address] [id number] [address] [place] [phone] Feb, [facility] [place] [address] [id number] [address] [place] [phone] Feb, Flank pain R10.9 and History of renal stone Z87.442 [facility] [place] [address] [id number] [address] [place] [phone] Jan, [facility] [place] [id number] [place] [phone] Nov, Dental examination Z01.20 [facility] [address] [id number] [address] [place] [address] [phone] Oct, Dental examination Z01.20 [facility] [place] [address] [id number] [address] [place] [phone] Aug, [facility] [address] [facility] [id number] [address] [place] [phone] Jul, Encounter for immunization Z 23 and Penetrating wound of left foot, initial encounter S91.332A [facility] [place] [address] [facility] [id number] [address] [place] [phone] June, Chronic fatigue R53.82 [facility] [place] [address] [facility] [id number] [address] [place] [phone] June, [facility] [address] [facility] [id number] [address] [place] [phone] May, Strep pharyngitis J02.0 and Sore throat J02.9 [facility] [address] [id number] [address] [place] [phone] May, Encounter for immunization Z [address] [place] [address] [facility] [id number] [place] [phone] 14 May, [address] [place] [address] [facility] [id number] [place] [phone] May, Dental examination Z01.20 [place] [address] [phone] 08 Mar, 2016 Dental examination Z01.20 [facility] [id number] [place] [address] [phone] Mar, Dental examination Z01.20 [facility] [facility] [id number] [address] [place] [phone] Mar, Acute non-recurrent maxillar y sinusitis J01.00 [facility] [address] [facility] [id number] [address] [place] [phone] Feb, Gastroenteritis K52.9 ; Righ t otitis media with effusion H65.91 and Fever R50.9 [place] [address] [id number] [address] [place] [phone] Feb, [facility] [id number] [place] [address] [phone] Feb, Dental examination Z01.20 [facility] [address] [facility] [id number] [address] [place] [phone] Feb, Dysuria R30.0 [place] [address] [phone] Jan, Dental examination Z01.20 [place] [address] [phone] 15 Jan, 2016 Dental examination Z01.20 [facility] [place] [address] [phone] Dec, Encounter for immunization Z 23 [place] [address] [phone] Nov, Dental examination Z01.20 an d Dental caries K02.9 [place] [address] [phone] Nov, [place] [address] [phone] Oct, Dental examination Z01.20 [facility] [place] [address] [phone] Sep, Body aches R52 and Flu syndr ome J11.1 [place] [address] [phone] Sep, [place] [address] [phone] Apr, [place] [address] [id number] 09 Apr, 2015 Well woman exam Z01.419 ; Ne xplanon insertion Z30.49 ; Encounter for screening for malignant neoplasm of cervix Z12.4 and Irregular menses N92.6 [facility] [place] [address] [id number] 04 Mar, 2015 Body aches R52 and Acute gas tritis without bleeding K29.00 [place] [address] [phone] Jan, Encounter for counseling reg arding contraception Z30.9 ; Vaginal discharge N89.8 ; Surveillance of contraceptive injection Z30.42 ; Irregular menses N92.6 ; OCP (oral contraceptive pills) initiation Z30.011 and Decreased libido R68.82 [facility] [place] [address] [facility] [id number] [address] [place] [phone] Jan, Encounter for Depo-Provera c ontraception Z30.42 [facility] [address] [id number] [address] [place] [address] [phone] Jan, Encounter for dental examina tion Z01.20 [facility] [id number] [place] [address] [phone] Dec, Dental caries K02.9 and Enco unter for dental examination Z01.20 [facility] [place] [address] [facility] [id number] [address] [place] [phone] Nov, Encounter for immunization Z 23 [facility] [address] [facility] [id number] [address] [place] [address] [phone] Oct, Encounter for dental examina tion V72.2 [facility] [place] [address] [id number] [address] [place] [phone] Sep, Encounter for contraceptive management V25.9 [facility] [place] [address] [facility] [id number] [address] [place] [phone] May, [facility] [place] [address] [facility] [id number] [address] [place] [phone] May, [facility] [place] [address] [facility] [id number] [address] [place] [phone] Feb, [facility] [place] [address] [facility] [id number] [address] [place] [phone] Feb, [facility] [place] [address] [facility] [id number] [address] [place] [phone] Feb, [facility] [place] [address] [id number] [address] [place] [phone] Feb, [facility] [address] [id number] [address] [place] [address], [place] [phone] Feb, [facility] [address] [id number] [address] [place] [address], [place] [phone] Feb, [facility] [address] [id number] [address] [place] [address], [place] [phone] Feb, [facility] [address] [id number] [address] [place] [address], [place] [phone] Feb, [facility] [address] [id number] [address] [place] [address], [place] [address] Jul, [facility] [address] [id number] [address] [place] [address], [place] [address] June, [facility] [address] [id number] [address] [place] [address], [place] [address] Mar, [facility] [address] [id number] [address] [place] [address], [place] [address] Nov, [facility] [address] [id number] [address] [place] [address], [place] [phone] Nov, [facility] [address] [id number] [address] [place] [address], [place] [phone] Nov, [facility] [address] [id number] [address] [place] [address], [place] [address] Nov, [facility] [address] [id number] [address] [place] [phone] Nov, [facility] [address] [id number] [address] [place] [address], [place] [address] Nov, [facility] [address] [id number] [address] [place] [address], [place] [address] Nov, [facility] [address] [id number] [address] [place] [address], [place] [address] Jul, [facility] [address] [id number] [address] [place] [phone] 20 May, 2011 [facility] [place] [address] [facility] [id number] [address] [place] [phone] Feb, [facility] [place] [address] [facility] [id number] [address] [place] [phone] 16 Jan, 2010 [facility] [place] [address] [facility] [id number] [address] [place] [phone] Jan, [facility] [place] [address] [facility] [id number] [address] [place] [phone] Dec, [facility] [place] [address] [facility] [id number] [address] [place] [phone] 10 Oct, 2008 [facility] [place] [address] [facility] [id number] [address] [place] [phone] Sep, IMMUNIZATIONS No Known Immunizations SOCIAL HISTORY Never Assessed REASON FOR VISIT PLAN OF CARE VITAL SIGNS MEDICATIONS Unknown Medications RESULTS No Results PROCEDURES No Known procedures INSTRUCTIONS MEDICATIONS ADMINISTERED No Known Medications MEDICAL (GENERAL) HISTORY Type Description Date Medical History Kidney stones during Surgical History section 11/01/2013 Surgical History tonsillectomy youth Hospitalization History /healthy 11/01/2013
--- OUTSIDE RECORDS SUMMARY | 2019-08-22 09:30 | XMS REPORT ---
Author Kacey Pope Organization [employer] Address Unknown Phone Unavailable Care Team Providers Care Html Developer Name Role Phone JOSE LUIS TOBIAS CP Unavailable Allergies No Known Allergies Problems Problem Type Condition Code Onset Dates Condition Statu s Assessment Dental examination Z01.20 Active Problem Decreased libido R68.82 Active Problem Esophageal reflux K21.9 Active Problem Nexplanon insertion Z30.49 Active Problem Abdominal tenderness R10.819 Active Problem Counseling on substance use and abuse Z71.89 Active Problem Nondependent tobacco use disorder Z72.0 Active Problem Alopecia, unspecified L65.9 Active Medications No Known Medications Procedures Procedure Coding System Code Date INTRAORL-PERIAPICAL 1 FILM 31447 CPT-4 D0220 Nov 13, 2015 LTD ORAL EVALUATION - PROBLEM FOCUS CPT-4 D0140 Nov 13, 2015 Results No Known Results Summary Purpose [employer] Submission
--- OUTSIDE RECORDS SUMMARY | 2019-08-22 09:31 | XMS REPORT ---
Author Author Kacey MARTINEZ Organization [employer] Address Unknown Phone Unavailable Care Team Providers Care Roller Mill Tender Name Role Phone VONDA MARTINEZ CP Unavailable Allergies, Adverse Reactions, Alerts Substance Reaction Event Type Omeprazole nausea Drug Allergy Chantix nightmares Drug Allergy Problems Problem Type Condition Code Onset Dates Condition Statu s Assessment Vaginal discharge N89.8 Active Problem Counseling on substance use and abuse Z71.89 Active Assessment Encounter for counseling regarding contraception Z30.9 Active Problem OCP (oral contraceptive pills) initiation Z30.011 Active Problem Decreased libido R68.82 Active Problem Surveillance of contraceptive injection Z30.42 Active Problem Alopecia, unspecified L65.9 Active Problem Abdominal tenderness R10.819 Active Problem Esophageal reflux K21.9 Active Problem Nondependent tobacco use disorder Z72.0 Active Assessment Decreased libido R68.82 Active Assessment OCP (oral contraceptive pills) initiation Z30.011 Active Assessment Irregular menses N92.6 Active Assessment Surveillance of contraceptive injection Z30.42 Active Medications Medication Code System Code Instructions Start Date End Date Status Dosage Flagyl [facility] [address]-17 500 MG Orally 2 times a day Feb 20, 2015 Feb 27, 2015 1 tablet Microgestin 1.5/30 [facility] [address]-76 1.5-30 MG-MCG Orally Once a day Feb 20, 2015 1 tablet Depo-Provera [facility] [address]-23 150 MG/ML Intramuscular 1 ml Procedures Procedure Coding System Code Date Office Visit, Est Pt., Level 3 CPT-4 67024 D 2014 TRICHOMONAS ASSAY W/OPTIC CPT-4 18307 Jan Vital Signs Date/Time: Feb 20, 2015 Temperature 98.5 F Weight 133.1 lbs Height 66 in BMI 21.48 Index Blood Pressure Diastolic 72 mmHg Blood Pressure Systolic 118 mmHg Cardiac Monitoring Heart Rate 76 bpm Results No Known Results Summary Purpose [employer] Submission
--- OUTSIDE RECORDS SUMMARY | 2019-08-22 09:31 | XMS REPORT ---
Author Author Kacey RICHMOND [facility] [employer] Address Unknown Phone Unavailable Care Team Providers Care Account Liaison Hospice Name Role Phone BELLE RICHMOND CP Unavailable Allergies No Known Allergies Problems Problem Type Condition Code Onset Dates Condition Statu s Problem Nausea with vomiting 787.01 Active Problem Unspecified alopecia 704.00 Active Problem Abdominal tenderness, unspecified site 789.60 Active Assessment Encounter for immunization Z23 A ctive Problem Counseling on substance use and abuse [...] Medications Procedures Procedure Coding System Code Date SINGLE IMMUNIZATION ADMIN CPT-4 83403 Nov FLUARIX QUAD (3 & UP)-GSK-2014 CPT-[address] 2014 Results No Known Results Immunizations Vaccine Administration Date FLUARIX QUAD (3 & UP)-GSK-2014Dec 07, 2014 Summary Purpose [employer] Submission
--- OUTSIDE RECORDS SUMMARY | 2019-08-22 09:31 | XMS REPORT ---
Author Author Kacey HOSKINS [facility] [employer] Address Unknown Phone Unavailable Care Team Providers Care Skidway Worker Name Role Phone SANDRO HOSKINS CP Unavailable Allergies, Adverse Reactions, Alerts Substance Reaction Event Type Omeprazole nausea Drug Allergy Chantix nightmares Drug Allergy Problems Problem Type Condition Code Onset Dates Condition Statu s Assessment Acute gastritis without bleeding K29.00 Active Problem Counseling on substance use and abuse Z71.89 Active Assessment Body aches R52 Active Problem OCP (oral contraceptive pills) initiation Z30.011 Active Problem Decreased libido R68.82 Active Problem Surveillance of contraceptive injection Z30.42 Active Problem Alopecia, unspecified L65.9 Active Problem Abdominal tenderness R10.819 Active Problem Esophageal reflux K21.9 Active Problem Nondependent tobacco use disorder Z72.0 Active Medications Medication Code System Code Instructions Start Date End Date Status Dosage Microgestin 1.5/30 [facility] [address]-23 1.5-30 MG-MCG Orally Once a day Feb 20, 2015 1 tablet Zofran [facility] [address]-60 8 MG Orally 2 times a day Mar 28, 2015 1 tablet Depo-Provera [facility] [address]-26 150 MG/ML Intramuscular 1 ml Procedures Procedure Coding System Code Date Office Visit, Est Pt., Level 3 CPT-4 16834 F 2015 INFLUENZA ASSAY W/OPTIC CPT-4 11202 Mar 28, 2015 Vital Signs Date/Time: Mar 28, 2015 Temperature 98.2 F Weight 125.6 lbs Height 66 in BMI 20.27 Index Blood Pressure Diastolic 66 mmHg Blood Pressure Systolic 92 mmHg Cardiac Monitoring Heart Rate 100 bpm Results Name Result Date Reference Range Unit Abnormali ty Flag INFLUENZA A & B (IN HOUSE) ----Exp date [id number] ----INFLUENZA A negative [id number] ----INFLUENZA B negative [id number] ----Control + [id number] ----Lot # [id number] Summary Purpose [facility] Sub[facility]
--- OUTSIDE RECORDS SUMMARY | 2019-08-22 09:31 | XMS REPORT ---
Author Kacey Pope [facility] [employer] Address Unknown Phone Unavailable Care Team Providers Care Edge Setter Name Role Phone JOSE LUIS TOBIAS CP Unavailable Allergies, Adverse Reactions, Alerts Substance Reaction Event Type Omeprazole nausea Drug Allergy Chantix nightmares Drug Allergy Problems Problem Type Condition Code Onset Dates Condition Statu s Assessment Dental examination Z01.20 Active Assessment Dental caries K02.9 Active Problem Decreased libido R68.82 Active Problem Esophageal reflux K21.9 Active Problem Nexplanon insertion Z30.49 Active Problem Abdominal tenderness R10.819 Active Problem Counseling on substance use and abuse Z71.89 Active Problem Nondependent tobacco use disorder Z72.0 Active Problem Alopecia, unspecified L65.9 Active Medications Medication Code System Code Instructions Start Date End Date Status Dosage Valium [facility] [place] 2] [address]-46 10 mg Orally 2 times a day Dec 11, 2015 1 tablet as needed Zofran [facility] [place] 2] [address]-56 8 MG Orally every 8 hours, PRN nausea Oct 22, 2015 1 tablet Procedures Procedure Coding System Code Date EXTRAC ERUPTED TOOTH/EXPOSED ROOT CPT-4 D7140 Dec 18, 2015 RESIN COMPOS - 1 SURFACE POSTERIOR CPT-4 D2391 Dec 18, 2015 Vital Signs Date/Time: Dec 18, 2015 Blood Pressure Diastolic 70 mmHg Blood Pressure Systolic 122 mmHg Height 66 in Results No Known Results Summary Purpose [employer] Submission
--- OUTSIDE RECORDS SUMMARY | 2019-08-22 09:31 | XMS REPORT ---
Author Author Kacey RICHMOND Organization [employer] Address Unknown Phone Unavailable Care Team Providers Care Java Jsf Developer Name Role Phone BELLE RICHMOND CP Unavailable Allergies No Known Allergies Problems Problem Type Condition Code Onset Dates Condition Statu s Assessment Encounter for immunization Z23 A ctive Problem Decreased libido R68.82 Active Problem Esophageal reflux K21.9 Active Problem Nexplanon insertion Z30.49 Active Problem Abdominal tenderness R10.819 Active Problem Counseling on substance use and abuse Z71.89 Active Problem Nondependent tobacco use disorder Z72.0 Active Problem Alopecia, unspecified L65.9 Active Medications No Known Medications Procedures Procedure Coding System Code Date SINGLE IMMUNIZATION ADMIN CPT-4 63621 Dec FLUARIX QUAD P-FREE 3 AND UP .50 2015 CPT-4 36697 Jan 02, 2016 Results No Known Results Immunizations Vaccine Administration Date FLUARIX QUAD P-FREE 3 AND UP .50 2015Jan 02, 2016 Summary Purpose [employer] Submission
--- OUTSIDE RECORDS SUMMARY | 2019-08-22 09:31 | XMS REPORT ---
Author Author Kacey AGUERO [facility] e[employer] Address Unknown Phone Unavailable Care Team Providers Care Automatic Fancy Machine Operator Name Role Phone ROSIO AGUERO CP Unavailable Allergies, Adverse Reactions, Alerts Substance Reaction Event Type N.K.D.A. Info Not Available Non Drug Allergy Problems Problem Type Condition Code Onset Dates Condition Statu s Problem Nausea with vomiting 787.01 Active Problem Unspecified alopecia 704.00 Active Problem Abdominal tenderness, unspecified site 789.60 Active Assessment Encounter for dental examination V72.2 Active Problem Counseling on substance use and [...] Coding System Code Date INTRAORL-PERIAPICAL 1 FILM 17371 CPT-4 D0220 Nov 19, 2014 INTRAORL-PERIAPICAL EA ADD FILM CPT-4 D0230 Nov 19, 2014 COMP ORAL EVALUATION - NEW/EST PT CPT-4 D0150 Nov 19, 2014 PRDONTAL SCAL and ROOT PLAN 1-3 TEETH CPT-4 D4342 Nov 19, 2014 PRDONTAL SCAL and ROOT PLAN 1-3 TEETH CPT-4 D4342 Nov 19, 2014 BITEWINGS - FOUR FILMS CPT-4 D0274 Nov 19, 2014 INTRAORL-PERIAPICAL EA ADD FILM CPT-4 D0230 Nov 19, 2014 PRDONTAL SCAL and ROOT PLAN 1-3 TEETH CPT-4 D4342 Nov 19, 2014 PRDONTAL SCAL and ROOT PLAN 1-3 TEETH CPT-4 D4342 Nov 19, 2014 Vital Signs Date/Time: Nov 19, 2014 Blood Pressure Diastolic 60 mmHg Blood Pressure Systolic 102 mmHg Results No Known Results Summary Purpose [employer] Submission
--- OUTSIDE RECORDS SUMMARY | 2019-08-22 09:31 | XMS REPORT ---
Author Author Kacey PAGE Organization [facility] Address [address] [place] [address] Care Team Providers Care Remelt Operator Name Role Phone DALE PAGE Unavailable PROBLEMS Type Condition ICD9-CM Code MEN93-VH Code Onset Dates Condition S tatus SNOMED Code Problem Abdominal tenderness R10.819 Active 84668561 Problem Alopecia, unspecified L65.9 Active 89449562 Problem Chronic fatigue R53.82 Active 5270 2003 Problem Nexplanon insertion Z30.49 Active 695481669 Problem Nondependent tobacco use disorder Z72.0 Active 96034176 Problem Counseling on substance use and abuse Z71.89 Active 486388282 Problem Decreased libido R68.82 Active 835 7008 Problem Esophageal reflux K21.9 Active 23 1810667 ALLERGIES No Information ENCOUNTERS Encounter Location Date Diagnosis [facility] [address] [facility] [id number] [address] [place] [address] [id number] June, Dental caries K02.9 [facility] [address] [facility] [id number] [address] [place] [phone] May, Pharyngitis, unspecified lee ology J02.9 [facility] [address] [id number] [address] [place] [address] [id number] Apr, [facility] [address] [facility] [id number] [address] [place] [address] [id number] Mar, Dental caries extending into dentin K02.62 and Dental examination Z01.20 [facility] [address] [id number] [address] [place] [phone] Feb, [facility] [address] [facility] [id number] [address] [place] [phone] Feb, Flank pain R10.9 and History of renal stone Z87.442 [facility] [address] [id number] [address] [place] [phone] Jan, [facility] [address] [id number] [address] [place] [phone] Nov, Dental examination Z01.20 [facility] [address] [id number] [address] [place] [address] [id number] Oct, Dental examination Z01.20 [facility] [address] [id number] [address] [place] [phone] Aug, [facility] [address] [facility] [id number] [address] [place] [phone] Jul, Encounter for immunization Z 23 and Penetrating wound of left foot, initial encounter S91.332A [facility] [address] [facility] [id number] [address] [place] [phone] June, Chronic fatigue R53.82 [facility] [address] [id number] [address] [place] [phone] June, [facility] [address] [facility] [id number] [address] [place] [phone] May, Strep pharyngitis J02.0 and Sore throat J02.9 [facility] [address] [facility] [id number] [address] [place] [phone] May, Encounter for immunization Z 23 [facility] [address] [id number] [address] [place] [phone] May, [facility] [address] [facility] [id number] [address] [place] [phone] May, Dental examination Z01.20 [facility] [address] [id number] [address] [place] [phone] Mar, Dental examination Z01.20 [facility] [address] [id number] [address] [place] [address] [id number] Mar, Dental examination Z01.20 [facility] [address] [facility] [id number] [address] [place] [phone] 07 Mar, 2016 Acute non-recurrent maxillar y sinusitis J01.00 [facility] [address] [facility] [id number] [address] [place] [phone] 09 Feb, 2016 Gastroenteritis K52.9 ; Righ t otitis media with effusion H65.91 and Fever R50.9 [facility] [address] [facility] [id number] [address] [place] [phone] 09 Feb, 2016 [facility] [address] [id number] [address] [place] [address] [id number] Feb, Dental examination Z01.20 [facility] [address] [address] Feb, Dysuria R30.0 [place] [address] [phone] Jan, Dental examination Z01.20 [facility] [address] [phone] Jan, Dental examination Z01.20 [facility] [address] [phone] Dec, Encounter for immunization Z 23 [place] [address] [address] Nov, Dental examination Z01.20 an d Dental caries K02.9 [facility] [address] [facility] [id number] [address] [place] [phone] Nov, [place] [address] [address] Oct, Dental examination Z01.20 [facility] [address] [place] [id number] [address] [place] [phone] Sep, Body aches R52 and Flu syndr ome J11.1 [facility] [address] [place] [id number] [address] [place] [phone] Sep, [facility] [address] [address] Apr, [facility] [address] [address] 09 Apr, 2015 Well woman exam Z01.419 ; Ne xplanon insertion Z30.49 ; Encounter for screening for malignant neoplasm of cervix Z12.4 and Irregular menses N92.6 [facility] [address] [place] [id number] [address] [place] [phone] 04 Mar, 2015 Body aches R52 and Acute gas tritis without bleeding K29.00 [facility] [address] [id number] 30 Jan, 2015 Encounter for counseling reg arding contraception Z30.9 ; Vaginal discharge N89.8 ; Surveillance of contraceptive injection Z30.42 ; Irregular menses N92.6 ; OCP (oral contraceptive pills) initiation Z30.011 and Decreased libido R68.82 [facility] [address] [place] [id number] [address] [place] [phone] 10 Jan, 2015 Encounter for Depo-Provera c ontraception Z30.42 [facility] [id number] [place] [address] [id number] Jan, Encounter for dental examina tion Z01.20 [facility] [address] [place] [id number] [address] [place] [address] [id number] Dec, Dental caries K02.9 and Enco unter for dental examination Z01.20 [facility] [address] [place] [id number] [address] [place] [phone] 16 Nov, 2014 Encounter for immunization Z 23 [facility] [address] [place] [id number] [address] [place] [address] [id number] 28 Oct, 2014 Encounter for dental examina tion V72.2 [facility] [address] [phone] Sep, Encounter for contraceptive management V25.9 [facility] [address] [id number] [address] [place] [phone] 14 May, 2014 [facility] [address] [id number] [address] [place] [phone] May, [facility] [address] [id number] [address] [place] [phone] Feb, [facility] [address] [id number] [address] [place] [phone] Feb, [facility] [address] [id number] [address] [place] [phone] Feb, [facility] [address] [id number] [address] [place] [phone] Feb, [facility] [address] [id number] [address] [place] [phone] Feb, [facility] [address] [id number] [address] [place] [phone] Feb, [facility] [address] [id number] [address] [place] [phone] Feb, [facility] [address] [id number] [address] [place] [phone] Feb, [facility] [address] [id number] [address] [place] [phone] Jul, [facility] [address] [id number] [address] [place] [phone] June, [facility] [address] [id number] [address] [place] [phone] Mar, [facility] [address] [id number] [address] [place] [phone] Nov, [facility] [address] [id number] [address] [place] [phone] Nov, [facility] [address] [id number] [address] [place] [phone] Nov, [facility] [address] [id number] [address] [place] [phone] Nov, [facility] [address] [id number] [address] [place] [phone] Nov, [facility] [address] [id number] [address] [place] [phone] Nov, [facility] [address] [id number] [address] [place] [phone] Nov, [facility] [address] [id number] [address] [place] [phone] Jul, [facility] [address] [id number] [address] [place] [phone] May, [facility] [address] [id number] [address] [place] [phone] Feb, [facility] [address] [id number] [address] [place] [phone] Jan, [facility] [address] [id number] [address] [place] [phone] Jan, [facility] [address] [id number] [address] [place] [phone] Dec, [facility] [address] [id number] [address] [place] [phone] Oct, [facility] [address] [id number] [address] [place] [phone] Sep, IMMUNIZATIONS No Known Immunizations SOCIAL HISTORY Never Assessed REASON FOR VISIT Schedule Appointment PLAN OF CARE VITAL SIGNS MEDICATIONS No Known Medications RESULTS No Results PROCEDURES No Known procedures INSTRUCTIONS MEDICATIONS ADMINISTERED No Known Medications MEDICAL (GENERAL) HISTORY Type Description Date Medical History Kidney stones during Surgical History section 11/01/2013 Surgical History tonsillectomy youth Hospitalization History /healthy 11/01/2013
--- OUTSIDE RECORDS SUMMARY | 2019-08-22 09:31 | XMS REPORT ---
Author Author WandaKacey MAC Organization [facility] Address [address] [place] [address] Care Team Providers Care Coater Associate Name Role Phone darellCECILE Ledesma Unavailable PROBLEMS Type Condition ICD9-CM Code UJR69-TF Code Onset Dates Condition S tatus SNOMED Code Problem Abdominal tenderness R10.819 Active 06946908 Problem Alopecia, unspecified L65.9 Active 80534701 Problem Chronic fatigue R53.82 Active 5270 2003 Problem Nexplanon insertion Z30.49 Active 794610966 Problem Nondependent tobacco use disorder Z72.0 Active 04706244 Problem Counseling on substance use and abuse Z71.89 Active 918664126 Problem Decreased libido R68.82 Active 835 7008 Problem Esophageal reflux K21.9 Active 23 8356429 ALLERGIES Substance Reaction Event Type Date Status Omeprazole nausea Drug Allergy Mar, Active Chantix nightmares Drug Allergy Mar, Active ENCOUNTERS Encounter Location Date Diagnosis [facility] [address] [place] [id number] [address] [place] [address] [id number] June, Dental caries K02.9 [facility] [address] [place] [id number] [address] [place] [phone] May, Pharyngitis, unspecified lee ology J02.9 [facility] [address] [id number] [address] [place] [address] [id number] Apr, [facility] [address] [facility] [id number] [address] [place] [address] [id number] Mar, Dental caries extending into dentin K02.62 and Dental examination Z01.20 [facility] [address] [place] [id number] [address] [place] [phone] Feb, [facility] [address] [facility] [id number] [address] [place] [phone] Feb, Flank pain R10.9 and History of renal stone Z87.442 [facility] [address] [id number] [address] [place] [phone] Jan, [facility] [address] [facility] [id number] [address] [place] [phone] Nov, Dental examination Z01.20 [facility] [address] [id number] [address] [place] [address] [id number] Oct, Dental examination Z01.20 [facility] [address] [id number] [address] [place] [phone] Aug, [facility] [address] [facility] [id number] [address] [place] [phone] Jul, Encounter for immunization Z 23 and Penetrating wound of left foot, initial encounter S91.332A [facility] [address] [facility] [id number] [address] [place] [phone] June, Chronic fatigue R53.82 [facility] [address] [facility] [id number] [address] [place] [phone] June, [facility] [address] [facility] [id number] [address] [place] [phone] 28 May, 2016 Strep pharyngitis J02.0 and Sore throat J02.9 [facility] [address] [facility] [id number] [address] [place] [phone] May, Encounter for immunization Z 23 [facility] [address] [facility] [id number] [address] [place] [phone] May, [facility] [address] [facility] [id number] [address] [place] [phone] May, Dental examination Z01.20 [facility] [address] [facility] [id number] [address] [place] [phone] 08 Mar, 2016 Dental examination Z01.20 [facility] [address] [id number] [address] [place] [address] [id number] 08 Mar, 2016 Dental examination Z01.20 [facility] [address] [id number] [address] [place] [phone] 07 Mar, 2016 Acute non-recurrent maxillar y sinusitis J01.00 [facility] [address] [id number] [address] [place] [phone] 09 Feb, 2016 Gastroenteritis K52.9 ; Righ t otitis media with effusion H65.91 and Fever R50.9 [place] [address] [id number] [address] [place] [phone] 09 Feb, 2016 [facility] [address] [id number] [address] [place] [address] [id number] Feb, Dental examination Z01.20 [facility] [address] [facility] [id number] [address] [place] [phone] Feb, Dysuria R30.0 [place] [address] [id number] [address] [place] [phone] Jan, Dental examination Z01.20 [place] [address] [facility] [id number] [address] [place] [phone] 15 Jan, 2016 Dental examination Z01.20 [facility] [address] [facility] [id number] [address] [place] [phone] Dec, Encounter for immunization Z 23 [facility] [address] [id number] [address] [place] [phone] Nov, Dental examination Z01.20 an d Dental caries K02.9 [place] [address] [id number] [address] [place] [phone] Nov, [place] [address] [facility] [id number] [address] [place] [phone] Oct, Dental examination Z01.20 [facility] [address] [id number] [address] [place] [phone] Sep, Body aches R52 and Flu syndr ome J11.1 [facility] [address] [place] [id number] [address] [place] [phone] Sep, [facility] [address] [place] [id number] [address] [place] [phone] Apr, [facility] [address] [phone] Apr, Well woman exam Z01.419 ; Ne xplanon insertion Z30.49 ; Encounter for screening for malignant neoplasm of cervix Z12.4 and Irregular menses N92.6 [facility] [address] [address] Mar, Body aches R52 and Acute gas tritis without bleeding K29.00 [facility] [address] [address] Jan, Encounter for counseling reg arding contraception Z30.9 ; Vaginal discharge N89.8 ; Surveillance of contraceptive injection Z30.42 ; Irregular menses N92.6 ; OCP (oral contraceptive pills) initiation Z30.011 and Decreased libido R68.82 [facility] [address] [place] [id number] [address] [place] [phone] Jan, Encounter for Depo-Provera c ontraception Z30.42 [facility] [id number] [place] [address] [id number] Jan, Encounter for dental examina tion Z01.20 [facility] [id number] [place] [address] [id number] Dec, Dental caries K02.9 and Enco unter for dental examination Z01.20 [facility] [address] [place] [id number] [address] [place] [phone] Nov, Encounter for immunization Z 23 [facility] [address] [place] [id number] [place] [address] [id number] Oct, Encounter for dental examina tion V72.2 [facility] [address] [id number] [address] [place] [phone] Sep, Encounter for contraceptive management V25.9 [facility] [address] [id number] [address] [place] [id number] 14 May, 2014 [facility] [address] [id number] [address] [place] [phone] May, [facility] [address] [id number] [address] [place] [phone] Feb, [facility] [address] [id number] [address] [place] [phone] Feb, [facility] [address] [id number] [address] [place] [phone] Feb, [facility] [address] [id number] [address] [place] [phone] Feb, [facility] [address] [id number] [address] [place] [phone] Feb, [facility] [address] [id number] [address] [place] [phone] Feb, [facility] [address] [id number] [address] [place] [phone] Feb, [facility] [address] [id number] [address] [place] [phone] Feb, [facility] [address] [id number] [address] [place] [phone] Jul, [facility] [address] [id number] [address] [place] [phone] June, [facility] [address] [id number] [address] [place] [phone] Mar, [facility] [address] [id number] [address] [place] [phone] Nov, [facility] [address] [id number] [address] [place] [phone] Nov, [facility] [address] [id number] [address] [place] [phone] Nov, [facility] [address] [id number] [address] [place] [phone] Nov, [facility] [address] [id number] [address] [place] [phone] Nov, [facility] [address] [id number] [address] [place] [phone] Nov, [facility] [address] [id number] [address] [place] [phone] Nov, [facility] [address] [id number] [address] [place] [phone] Jul, [facility] [address] [id number] [address] [place] [id number] May, [facility] [address] [id number] [address] [place] [phone] Feb, [facility] [address] [id number] [address] [place] [id number] Jan, [facility] [address] [id number] [address] [place] [phone] Jan, [facility] [address] [id number] [address] [place] [phone] Dec, [facility] [address] [id number] [address] [place] [phone] Oct, [facility] [address] [id number] [address] [place] [id number] Sep, IMMUNIZATIONS No Known Immunizations SOCIAL HISTORY Never Assessed REASON FOR VISIT fillings PLAN OF CARE Activity Details Follow Up prn Reason:RCT #14 VITAL SIGNS MEDICATIONS Medication Instructions Dosage Frequency Start Date End Date Duration S tatus Ibuprofen 800 MG Orally Three times a day 1 tablet with food or milk as needed 8h 30 Feb, 2017 13 Apr, 2017 14 days Not-Taking RESULTS No Results PROCEDURES Procedure Date Ordered Result Body Site RESIN COMPOS - 1 SURFACE POSTERIOR Apr 21, 2017 RESIN COMPOS - 1 SURFACE POSTERIOR Apr 21, 2017 Billing Notes on claim Apr 21, 2017 RESIN COMPOS - 2 SURFACES POSTERIOR Apr 21, 2017 [employer] Employee/Board adjustment Apr 21, 2017 INSTRUCTIONS MEDICATIONS ADMINISTERED No Known Medications MEDICAL (GENERAL) HISTORY Type Description Date Medical History Kidney stones during Surgical History section 11/01/2013 Surgical History tonsillectomy youth Hospitalization History /healthy 11/01/2013
--- OUTSIDE RECORDS SUMMARY | 2019-08-22 09:31 | XMS REPORT ---
Author Author Kacey PAGE Organization [facility] Address [address] [place] [address] Care Team Providers Care Performance Improvement Consultant Name Role Phone DALE PAGE Unavailable PROBLEMS Type Condition ICD9-CM Code CLH72-HH Code Onset Dates Condition S tatus SNOMED Code Problem Abdominal tenderness R10.819 Active 55233415 Problem Alopecia, unspecified L65.9 Active 39648639 Problem Chronic fatigue R53.82 Active 5270 2003 Problem Nexplanon insertion Z30.49 Active 998516864 Problem Nondependent tobacco use disorder Z72.0 Active 61764968 Problem Counseling on substance use and abuse Z71.89 Active 712947782 Problem Decreased libido R68.82 Active 835 7008 Problem Esophageal reflux K21.9 Active 23 3772809 ALLERGIES Substance Reaction Event Type Date Status Omeprazole nausea Drug Allergy June, Active Chantix nightmares Drug Allergy June, Active ENCOUNTERS Encounter Location Date Diagnosis [facility] [address] [facility] [id number] [address] [place] [address] [phone] June, Dental caries K02.9 [facility] [address] [facility] [place] [id number] [address] [place] [phone] May, Pharyngitis, unspecified lee ology J02.9 [facility] [address] [id number] [address] [place] [address] [phone] Apr, [facility] [address] [id number] [address] [place] [address] [phone] Mar, Dental caries extending into dentin K02.62 and Dental examination Z01.20 [facility] [address] [facility] [place] [place] [id number] [address] [place] [phone] Feb, [facility] [address] [facility] [place] [id number] [address] [place] [phone] Feb, Flank pain R10.9 and History of renal stone Z87.442 [facility] [address] [id number] [address] [place] [phone] Jan, [facility] [address] [facility] [place] [id number] [address] [place] [phone] Nov, Dental examination Z01.20 [facility] [address] [id number] [address] [place] [address] [phone] Oct, Dental examination Z01.20 [facility] [address] [facility] [place] [id number] [address] [place] [phone] Aug, [facility] [address] [facility] [place] [id number] [address] [place] [phone] Jul, Encounter for immunization Z 23 and Penetrating wound of left foot, initial encounter S91.332A [facility] [address] [facility] [place] [id number] [address] [place] [phone] June, Chronic fatigue R53.82 [facility] [address] [facility] [place] [id number] [address] [place] [phone] June, [facility] [address] [facility] [place] [id number] [address] [place] [phone] May, Strep pharyngitis J02.0 and Sore throat J02.9 [facility] [address] [facility] [place] [id number] [address] [place] [phone] May, Encounter for immunization Z 23 [facility] [address] [facility] [place] [id number] [address] [place] [phone] May, [facility] [address] [facility] [place] [id number] [address] [place] [phone] May, Dental examination Z01.20 [facility] [address] [facility] [place] [id number] [address] [place] [phone] Mar, Dental examination Z01.20 [facility] [address] [id number] [address] [place] [address] [phone] Mar, 2016 Dental examination Z01.20 [facility] [address] [id number] [address] [place] [phone] 07 Mar, 2016 Acute non-recurrent maxillar y sinusitis J01.00 [facility] [address] [id number] [address] [place] [phone] 09 Feb, 2016 Gastroenteritis K52.9 ; Righ t otitis media with effusion H65.91 and Fever R50.9 [facility] [address] [id number] [address] [place] [phone] Feb, [facility] [address] [id number] [place] [address] [phone] Feb, Dental examination Z01.20 [facility] [address] [id number] [address] [place] [phone] Feb, Dysuria R30.0 [facility] [id number] [place] [phone] Jan, Dental examination Z01.20 [facility] [address] [id number] [place] [phone] Jan, Dental examination Z01.20 [facility] [address] [phone] Dec, Encounter for immunization Z 23 [facility] [address] [id number] [address] [place] [phone] Nov, Dental examination Z01.20 an d Dental caries K02.9 [facility] [address] [id number] [address] [place] [phone] Nov, [facility] [address] [facility] [place] [id number] [place] [phone] Oct, Dental examination Z01.20 [facility] [address] [facility] [place] [id number] [address] [place] [phone] Sep, Body aches R52 and Flu syndr ome J11.1 [facility] [address] [place] [id number] [address] [place] [phone] Sep, [facility] [address] [place] [id number] [address] [place] [phone] Apr, [facility] [address] [phone] Apr, Well woman exam Z01.419 ; Ne xplanon insertion Z30.49 ; Encounter for screening for malignant neoplasm of cervix Z12.4 and Irregular menses N92.6 [facility] [address] [phone] Mar, Body aches R52 and Acute gas tritis without bleeding K29.00 [facility] [address] [phone] Jan, Encounter for counseling reg arding contraception Z30.9 ; Vaginal discharge N89.8 ; Surveillance of contraceptive injection Z30.42 ; Irregular menses N92.6 ; OCP (oral contraceptive pills) initiation Z30.011 and Decreased libido R68.82 [facility] [address] [place] [phone] Jan, Encounter for Depo-Provera c ontraception Z30.42 [facility] [id number] [place] [address] [phone] Jan, Encounter for dental examina tion Z01.20 [facility] [id number] [place] [address] [id number] Dec, Dental caries K02.9 and Enco unter for dental examination Z01.20 [facility] [address] [place] [phone] Nov, Encounter for immunization Z 23 [facility] [id number] [place] [address] [phone] Oct, Encounter for dental examina tion V72.2 [facility] [address] [id number] [address] [place] [phone] 04 Sep, 2014 Encounter for contraceptive management V25.9 [facility] [address] [id number] [address] [place] [phone] 14 May, 2014 [facility] [address] [id number] [address] [place] [phone] May, [facility] [address] [id number] [address] [place] [phone] Feb, [facility] [address] [id number] [address] [place] [phone] Feb, [facility] [address] [id number] [address] [place] [phone] Feb, [facility] [address] [id number] [address] [place] [phone] Feb, [facility] [address] [id number] [address] [place] [phone] Feb, [facility] [address] [id number] [address] [place] [phone] Feb, [facility] [address] [id number] [address] [place] [phone] Feb, [facility] [address] [id number] [address] [place] [phone] Feb, [facility] [address] [id number] [address] [place] [phone] Jul, [facility] [address] [id number] [address] [place] [phone] June, [facility] [address] [id number] [address] [place] [phone] Mar, [facility] [address] [id number] [address] [place] [phone] Nov, [facility] [address] [id number] [address] [place] [phone] Nov, [facility] [address] [id number] [address] [place] [phone] Nov, [facility] [address] [id number] [address] [place] [phone] Nov, [facility] [address] [id number] [address] [place] [phone] Nov, [facility] [address] [id number] [address] [place] [phone] Nov, [facility] [address] [id number] [address] [place] [phone] Nov, [facility] [address] [id number] [address] [place] [phone] Jul, [facility] [address] [id number] [address] [place] [phone] May, [facility] [address] [id number] [address] [place] [phone] Feb, [facility] [address] [id number] [address] [place] [phone] Jan, [facility] [address] [id number] [address] [place] [phone] Jan, [facility] [address] [id number] [address] [place] [phone] Dec, [facility] [address] [id number] [address] [place] [phone] Oct, [facility] [address] [id number] [address] [place] [phone] Sep, IMMUNIZATIONS No Known Immunizations SOCIAL HISTORY Never Assessed REASON FOR VISIT TE #14 PLAN OF CARE Activity Details Follow Up 3 Months Reason:chin/hygiene VITAL SIGNS Height 66 in 2017-06-28 Blood pressure systolic 119 mmHg 2017-06-28 Blood pressure diastolic 72 mmHg 2017-06-28 MEDICATIONS Medication Instructions Dosage Frequency Start Date End Date Duration S tatus Amoxicillin 500 MG Orally every 8 hrs 1 capsule 8h June, June, 7 days Active [place] 5-325 MG Orally every 6 hrs 1 tablet as needed 6h 2017June, 4 days Active RESULTS No Results PROCEDURES Procedure Date Ordered Result Body Site SURG REMOVAL ERUPTED TOOTH June 28, 2017 INSTRUCTIONS MEDICATIONS ADMINISTERED No Known Medications MEDICAL (GENERAL) HISTORY Type Description Date Medical History Kidney stones during Surgical History section 11/01/2013 Surgical History tonsillectomy youth Hospitalization History /healthy 11/01/2013
--- OUTSIDE RECORDS SUMMARY | 2019-08-22 09:31 | XMS REPORT ---
Author Author Kacey VILA Organization [employer] Address Unknown Phone Unavailable Care Team Providers Care C T Tech Name Role Phone SULMA VILA CP Unavailable Allergies, Adverse Reactions, Alerts Substance Reaction Event Type Omeprazole nausea Drug Allergy Chantix nightmares Drug Allergy Problems Problem Type Condition Code Onset Dates Condition Statu s Problem Nausea with vomiting 787.01 Active Problem Unspecified alopecia 704.00 Active Problem Abdominal tenderness, unspecified site 789.60 Active Problem Esophageal reflux 530.81 Active Problem examination or test, positive result V72.42 Active Problem Vomiting alone 787.03 Active Problem Other procreative management, counseling and advice V2 6.49 Active Problem Unspecified contraceptive management V25.9 Active Problem Unspecified breast screening V76.10 Active Problem Nondependent tobacco use disorder 305.1 Active Assessment Encounter for dental examination Z01.20 Active Assessment Dental caries K02.9 Active Problem Counseling on substance use and abuse V65.42 Active Medications Medication Code System Code Instructions Start Date End Date Status Dosage [place] [facility] [address]-38 5-325 MG Orally every 6 hrs Jan 21, 2015 D ec 2014 1 tablet as needed Procedures Procedure Coding System Code Date SURG REMOVAL ERUPTED TOOTH CPT-4 D7210 Nov 19, 2014 Vital Signs Date/Time: Jan 21, 2015 Blood Pressure Diastolic 64 mmHg Blood Pressure Systolic 114 mmHg Height 66 in Results No Known Results Summary Purpose [employer] Submission
--- OUTSIDE RECORDS SUMMARY | 2019-08-22 09:31 | XMS REPORT ---
Author Kacey Ortega Organization [employer] Address Unknown Phone Unavailable Care Team Providers Care Ornamental Machine Operator Name Role Phone NAVID SILVERIO CP Unavailable Allergies, Adverse Reactions, Alerts Substance Reaction Event Type Omeprazole nausea Drug Allergy Chantix nightmares Drug Allergy Problems Problem Type Condition Code Onset Dates Condition Statu s Assessment Body aches R52 Active Assessment Flu syndrome J11.1 Active Problem Decreased libido R68.82 Active Problem Esophageal reflux K21.9 Active Problem Nexplanon insertion Z30.49 Active Problem Abdominal tenderness R10.819 Active Problem Counseling on substance use and abuse Z71.89 Active Problem Nondependent tobacco use disorder Z72.0 Active Problem Alopecia, unspecified L65.9 Active Medications Medication Code System Code Instructions Start Date End Date Status Dosage Zofran [facility] [address]-99 8 MG Orally every 8 hours, PRN nausea Oct 22, 2015 1 tablet Procedures Procedure Coding System Code Date Office Visit, Est Pt., Level 3 CPT-4 02476 A 2015 Vital Signs Date/Time: Oct 22, 2015 Cardiac Monitoring Heart Rate 105 bpm Weight 130.8 lbs Height 66 in BMI 21.11 Index Blood Pressure Diastolic 62 mmHg Blood Pressure Systolic 102 mmHg Results No Known Results Summary Purpose [employer] Submission
--- OUTSIDE RECORDS SUMMARY | 2019-08-22 09:31 | XMS REPORT ---
Author Author Kacey LEBRON Organization [employer] Address Unknown Phone Unavailable Care Team Providers Care Storm Chaser Name Role Phone SUNITHA LEBRON CP Unavailable Allergies No Known Allergies Problems Problem Type Condition Code Onset Dates Condition Statu s Problem Decreased libido R68.82 Active Problem Esophageal reflux K21.9 Active Problem Nexplanon insertion Z30.49 Active Problem Abdominal tenderness R10.819 Active Problem Counseling on substance use and abuse Z71.89 Active Problem Nondependent tobacco use disorder Z72.0 Active Problem Alopecia, unspecified L65.9 Active Medications Medication Code System Code Instructions Start Date End Date Status Dosage Valium [facility] [address]-73 10 mg Orally 2 times a day Dec 11, 2015 1 tablet as needed Results No Known Results Summary Purpose [employer] Submission
--- OUTSIDE RECORDS SUMMARY | 2019-08-22 09:31 | XMS REPORT ---
Author Author Kacey VILA [facility] [employer] Address Unknown Phone Unavailable Care Team Providers Care Starbucks Barista Name Role Phone SULMA VILA CP Unavailable Allergies, Adverse Reactions, Alerts Substance Reaction Event Type Omeprazole nausea Drug Allergy Chantix nightmares Drug Allergy Problems Problem Type Condition Code Onset Dates Condition Statu s Problem Nausea with vomiting 787.01 Active Problem Unspecified alopecia 704.00 Active Problem Abdominal tenderness, unspecified site 789.60 Active Assessment Encounter for dental examination Z01.20 Active Problem Counseling on substance use and abuse V65.42 Active Problem Esophageal reflux 530.81 Active Problem examination or test, positive result V72.42 Active Problem Vomiting alone 787.03 Active Problem Other procreative management, counseling and advice V2 6.49 Active Problem Unspecified contraceptive management V25.9 Active Problem Unspecified breast screening V76.10 Active Problem Nondependent tobacco use disorder 305.1 Active Medications Medication Code System Code Instructions Start Date End Date Status Dosage [place] [facility] [address]-51 5-325 MG Orally every 6 hrs Jan 21, 2015 D ec 2014 1 tablet as needed Procedures Procedure Coding System Code Date [place] COMPS - UNUSUL CIRCUMSTANCES RPT CPT-4 D9930 Jan 22, 2015 Results No Known Results Summary Purpose [employer] Submission
--- OUTSIDE RECORDS SUMMARY | 2019-08-22 09:31 | XMS REPORT ---
Author Author Kacey DE LA FUENTE Y Organization [facility] Address [address] [place] [address] Care Team Providers Care Cardiology Physician Name Role Phone DIMPLE DE LA FUENTE Unavailable PROBLEMS Type Condition ICD9-CM Code [id number] Code Onset Dates Condition S tatus SNOMED Code Problem Abdominal tenderness R10.819 Active 42022039 Problem Alopecia, unspecified L65.9 Active 15495158 Problem Chronic fatigue R53.82 Active 5270 2003 Problem Nexplanon insertion Z30.49 Active 373273494 Problem Nondependent tobacco use disorder Z72.0 Active 41679785 Problem Counseling on substance use and abuse Z71.89 Active 538890710 Problem Decreased libido R68.82 Active 835 7008 Problem Esophageal reflux K21.9 Active 23 4967467 ALLERGIES Substance Reaction Event Type Date Status Omeprazole nausea Drug Allergy May, Active Chantix nightmares Drug Allergy May, Active ENCOUNTERS Encounter Location Date Diagnosis [facility] [address] [facility] [id number] [address] [place] [id number] June, Dental caries K02.9 [facility] [address] [facility] [id number] [address] [place] [phone] May, Pharyngitis, unspecified lee ology J02.9 [facility] [address] [id number] [address] [place] [id number] Apr, [facility] [address] [id number] [address] [place] [address] [id number] Mar, Dental caries extending into dentin K02.62 and Dental examination Z01.20 [facility] [address] [facility] [id number] [address] [place] [phone] Feb, [facility] [address] [facility] [id number] [address] [place] [phone] Feb, Flank pain R10.9 and History of renal stone Z87.442 [facility] [address] [id number] [address] [place] [phone] Jan, [facility] [address] [facility] [id number] [address] [place] [phone] Nov, Dental examination Z01.20 [facility] [address] [id number] [address] [place] [address] [id number] Oct, Dental examination Z01.20 [facility] [address] [facility] [id number] [address] [place] [phone] Aug, [facility] [address] [facility] [id number] [address] [place] [phone] Jul, Encounter for immunization Z 23 and Penetrating wound of left foot, initial encounter S91.332A [facility] [address] [facility] [id number] [address] [place] [phone] June, Chronic fatigue R53.82 [facility] [address] [facility] [id number] [address] [place] [phone] June, [facility] [address] [facility] [id number] [address] [place] [phone] May, Strep pharyngitis J02.0 and Sore throat J02.9 [facility] [address] [facility] [id number] [address] [place] [phone] May, Encounter for immunization Z 23 [facility] [address] [facility] [id number] [address] [place] [phone] May, [facility] [address] [facility] [id number] [address] [place] [phone] May, Dental examination Z01.20 [facility] [address] [facility] [id number] [address] [place] [phone] Mar, Dental examination Z01.20 [facility] [address] [id number] [address] [place] [address] [id number] Mar, 2016 Dental examination Z01.20 [facility] [address] [id number] [address] [place] [phone] 07 Mar, 2016 Acute non-recurrent maxillar y sinusitis J01.00 [facility] [address] [id number] [address] [place] [phone] 09 Feb, 2016 Gastroenteritis K52.9 ; Righ t otitis media with effusion H65.91 and Fever R50.9 [facility] [address] [id number] [address] [place] [phone] Feb, [facility] [address] [id number] [place] [address] [phone] Feb, Dental examination Z01.20 [facility] [address] [id number] [address] [place] [phone] Feb, Dysuria R30.0 [facility] [address] [id number] [place] [phone] Jan, Dental examination Z01.20 [facility] [address] [id number] [place] [phone] Jan, Dental examination Z01.20 [facility] [address] [phone] Dec, Encounter for immunization Z 23 [facility] [address] [id number] [address] [place] [phone] Nov, Dental examination Z01.20 an d Dental caries K02.9 [place] [address] [id number] [address] [place] [phone] Nov, [facility] [address] [facility] [id number] [place] [phone] Oct, Dental examination Z01.20 [facility] [address] [facility] [id number] [address] [place] [phone] Sep, Body aches R52 and Flu syndr ome J11.1 [facility] [address] [place] [id number] [address] [place] [phone] Sep, [facility] [address] [place] [id number] [address] [place] [phone] Apr, [facility] [address] [phone] Apr, Well woman exam Z01.419 ; Ne xplanon insertion Z30.49 ; Encounter for screening for malignant neoplasm of cervix Z12.4 and Irregular menses N92.6 [facility] [address] [phone] Mar, Body aches R52 and Acute gas tritis without bleeding K29.00 [facility] [address] [phone] Jan, Encounter for counseling reg arding contraception Z30.9 ; Vaginal discharge N89.8 ; Surveillance of contraceptive injection Z30.42 ; Irregular menses N92.6 ; OCP (oral contraceptive pills) initiation Z30.011 and Decreased libido R68.82 [facility] [address] [place] [phone] Jan, Encounter for Depo-Provera c ontraception Z30.42 [facility] [id number] [place] [phone] Jan, Encounter for dental examina tion Z01.20 [facility] [address] [place] [address] [id number] Dec, Dental caries K02.9 and Enco unter for dental examination Z01.20 [facility] [address] [place] [phone] Nov, Encounter for immunization Z 23 [facility] [id number] [place] [address] [phone] Oct, Encounter for dental examina tion V72.2 [facility] [address] [id number] [address] [place] [phone] 04 Sep, 2014 Encounter for contraceptive management V25.9 [facility] [address] [id number] [address] [place] [phone] 14 May, 2014 [facility] [address] [id number] [address] [place] [phone] May, [facility] [address] [id number] [address] [place] [phone] Feb, [facility] [address] [id number] [address] [place] [phone] Feb, [facility] [address] [id number] [address] [place] [phone] Feb, [facility] [address] [id number] [address] [place] [phone] Feb, [facility] [address] [id number] [address] [place] [phone] Feb, [facility] [address] [id number] [address] [place] [phone] Feb, [facility] [address] [id number] [address] [place] [phone] Feb, [facility] [address] [id number] [address] [place] [phone] Feb, [facility] [address] [id number] [address] [place] [phone] Jul, [facility] [address] [id number] [address] [place] [phone] June, [facility] [address] [id number] [address] [place] [phone] Mar, [facility] [address] [id number] [address] [place] [phone] Nov, [facility] [address] [id number] [address] [place] [phone] Nov, [facility] [address] [id number] [address] [place] [phone] Nov, [facility] [address] [id number] [address] [place] [phone] Nov, [facility] [address] [id number] [address] [place] [phone] Nov, [facility] [address] [id number] [address] [place] [phone] Nov, [facility] [address] [id number] [address] [place] [phone] Nov, [facility] [address] [id number] [address] [place] [phone] Jul, [facility] [address] [id number] [address] [place] [phone] May, [facility] [address] [id number] [address] [place] [phone] Feb, [facility] [address] [id number] [address] [place] [phone] Jan, [facility] [address] [id number] [address] [place] [phone] Jan, [facility] [address] [id number] [address] [place] [phone] Dec, [facility] [address] [id number] [address] [place] [phone] Oct, [facility] [address] [id number] [address] [place] [phone] Sep, IMMUNIZATIONS No Known Immunizations SOCIAL HISTORY Never Assessed REASON FOR VISIT sneezing et runny nose 2 nocs ago. now has a cough, sore throat, body aches. francisco naik PLAN OF CARE Activity Details Follow Up if not improving or with pcp for regular fu Reason: VITAL SIGNS Height 66 in 2017-06-10 Weight 142.0 lbs 2017-06-10 Temperature 97.8 degrees Fahrenheit 2017-06-10 Heart Rate 74 bpm 2017-06-10 Respiratory Rate 20 2017-06-10 BMI 22.92 kg/m2 2017-06-10 Blood pressure systolic 112 mmHg 2017-06-10 Blood pressure diastolic 72 mmHg 2017-06-10 MEDICATIONS No Known Medications RESULTS Name Result Date Reference Range STREP A (IN HOUSE) 2017-06-10 STREP A negative Control + Lot # [id number] Exp date 11 09 19 PROCEDURES Procedure Date Ordered Result Body Site STREP A ASSAY W/OPTIC June 10, 2017 INSTRUCTIONS MEDICATIONS ADMINISTERED No Known Medications MEDICAL (GENERAL) HISTORY Type Description Date Medical History Kidney stones during Surgical History section 11/01/2013 Surgical History tonsillectomy youth Hospitalization History /healthy 11/01/2013
--- OUTSIDE RECORDS SUMMARY | 2019-08-22 09:31 | XMS REPORT ---
Author Kacey Marcial [facility] eClinicalWorks Address Unknown Phone Unavailable Care Team Providers Care Chauffeur [employer]ousine Name Role Phone BELLE RICHMOND CP Unavailable [...] unspecified L65.9 Active Medications No Known Medications Results No Known Results Summary Purpose eClinicalWorks Submission
--- OUTSIDE RECORDS SUMMARY | 2019-08-22 09:32 | XMS REPORT ---
Author Author Kacey MOODY Organization [facility] Address [address] [place] [address] Care Team Providers Care Mail Inserter Name Role Phone BRITTNI MOODY Unavailable PROBLEMS Type Condition ICD9-CM Code [id number] Code Onset Dates Condition S tatus SNOMED Code Problem Abdominal tenderness R10.819 Active 58220801 Problem Alopecia, unspecified L65.9 Active 60675783 Problem Chronic fatigue R53.82 Active 5270 2003 Problem Nexplanon insertion Z30.49 Active 693131475 Problem Nondependent tobacco use disorder Z72.0 Active 34556670 Problem Counseling on substance use and abuse Z71.89 Active 983359136 Problem Decreased libido R68.82 Active 835 7008 Problem Esophageal reflux K21.9 Active 23 8231226 ALLERGIES Substance Reaction Event Type Date Status Omeprazole nausea Drug Allergy Jan, Active Chantix nightmares Drug Allergy Jan, Active SOCIAL HISTORY No smoking Hx information available PLAN OF CARE Activity Details Follow Up prn Reason:tx VITAL SIGNS MEDICATIONS Unknown Medications RESULTS No Results PROCEDURES Procedure Date Ordered Related Diagnosis Body Site PERIODIC ORAL EXAMINATION Feb 19, 2016 IMMUNIZATIONS No Known Immunizations
--- OUTSIDE RECORDS SUMMARY | 2019-08-22 09:32 | XMS REPORT ---
Author Author aKcey DENG Organization [facility] Address [address] [place] [address] Care Team Providers Care Call Center Agent Name Role Phone ELEANOR DENG Unavailable PROBLEMS Type Condition ICD9-CM Code PMA64-ZY Code Onset Dates Condition S tatus SNOMED Code Problem Abdominal tenderness R10.819 Active 91381807 Problem Alopecia, unspecified L65.9 Active 57828887 Problem Chronic fatigue R53.82 Active 5270 2003 Problem Nexplanon insertion Z30.49 Active 345728337 Problem Nondependent tobacco use disorder Z72.0 Active 74994017 Problem Counseling on substance use and abuse Z71.89 Active 227236430 Problem Decreased libido R68.82 Active 835 7008 Problem Esophageal reflux K21.9 Active 23 5130670 ALLERGIES Substance Reaction Event Type Date Status Omeprazole nausea Drug Allergy Mar, Active Chantix nightmares Drug Allergy Mar, Active SOCIAL HISTORY Never Assessed PLAN OF CARE Activity Details Follow Up prn Reason: VITAL SIGNS Height 66 in 2016-03-31 Weight 134.8 lbs 2016-03-31 Temperature 98.4 degrees Fahrenheit 2016-03-31 Heart Rate 78 bpm 2016-03-31 Respiratory Rate 18 2016-03-31 BMI 21.75 kg/m2 2016-03-31 Blood pressure systolic 114 mmHg 2016-03-31 Blood pressure diastolic 70 mmHg 2016-03-31 MEDICATIONS Medication Instructions Dosage Frequency Start Date End Date Duration S tatus Fluticasone Propionate 50 MCG/ACT Nasally Twice a day 1 spray in each nostril 12h Mar, 30 day(s) Active Augmentin 875-125 MG Orally every 12 hrs 1 tablet 12h Mar, 2 017 Mar, 10 day(s) Active RESULTS No Results PROCEDURES Procedure Date Ordered Result Body Site DEPO MEDROL 40 MG/ML Mar 31, 2016 THER/PROPH/DIAG INJ, SC/IM Mar 31, 2016 DEXAMETHASONE 4MG/ML (PER 1 MG) Mar 31, 2016 IMMUNIZATIONS Vaccine Route Administration Date Status DEXAMETHASONE 4MG/ML (PER 1 MG) IM Intramuscular Mar 31, 2016 Administered DEPO MEDROL 40 MG/ML IM Intramuscular Mar 31, 2016 Administer ed MEDICAL (GENERAL) HISTORY Type Description Date Surgical History section 11/01/2013 Surgical History tonsillectomy youth Hospitalization History /healthy 11/01/2013
--- OUTSIDE RECORDS SUMMARY | 2019-08-22 09:32 | XMS REPORT ---
Author Author Kacey AGRAWAL Organization [facility] Address [address] [place] [address] Care Team Providers Care Executive Assistant To President Name Role Phone AGRAWALSADE Chen Unavailable PROBLEMS Type Condition ICD9-CM Code RPV14-PY Code Onset Dates Condition S tatus SNOMED Code Problem Abdominal tenderness R10.819 Active 80511121 Problem Alopecia, unspecified L65.9 Active 80222848 Problem Chronic fatigue R53.82 Active 5270 2003 Problem Nexplanon insertion Z30.49 Active 130087410 Problem Nondependent tobacco use disorder Z72.0 Active 19389154 Problem Counseling on substance use and abuse Z71.89 Active 166885709 Problem Decreased libido R68.82 Active 835 7008 Problem Esophageal reflux K21.9 Active 23 3226185 ALLERGIES Substance Reaction Event Type Date Status Omeprazole nausea Drug Allergy Feb, Active Chantix nightmares Drug Allergy Feb, Active SOCIAL HISTORY No smoking Hx information available PLAN OF CARE Activity Details Follow Up prn Reason: VITAL SIGNS Height 66 in 2016-03-02 Weight 133 lbs 2016-03-02 Temperature 97.4 degrees Fahrenheit 2016-03-02 Heart Rate 88 bpm 2016-03-02 Respiratory Rate 18 2016-03-02 BMI 21.46 kg/m2 2016-03-02 Blood pressure systolic 114 mmHg 2016-03-02 Blood pressure diastolic 68 mmHg 2016-03-02 MEDICATIONS Medication Instructions Dosage Frequency Start Date End Date Duration S tatus Zofran ODT 4 MG Orally every 8 hrs 1 tablet on the tongue and al low to dissolve 8h Feb, 10 days Active Amoxicillin 500 MG Orally every 12 hrs 1 capsule 12h Feb, 201 7 19 Feb, 2016 10 day(s) Active RESULTS Name Result Date Reference Range INFLUENZA A & B (IN HOUSE) 2016-03-02 INFLUENZA A negative INFLUENZA B negative Control + Lot # [id number] Exp date 2017 PROCEDURES Procedure Date Ordered Related Diagnosis Body Site INFLUENZA ASSAY W/OPTIC Mar 02, 2016 Office Visit, Est Pt., Level 3 Mar 02, 2016 IMMUNIZATIONS No Known Immunizations
--- OUTSIDE RECORDS SUMMARY | 2019-08-22 09:32 | XMS REPORT ---
Author Author Kacey KUO Organization [facility] Address [address] [place] [address] Care Team Providers Care Merchant Banker Name Role Phone JENNY KUO Unavailable PROBLEMS Type Condition ICD9-CM Code [id number] Code Onset Dates Condition S tatus SNOMED Code Problem Abdominal tenderness R10.819 Active 68235442 Problem Alopecia, unspecified L65.9 Active 14401307 Problem Chronic fatigue R53.82 Active 5270 2003 Problem Nexplanon insertion Z30.49 Active 443140284 Problem Nondependent tobacco use disorder Z72.0 Active 88227513 Problem Counseling on substance use and abuse Z71.89 Active 613387554 Problem Decreased libido R68.82 Active 835 7008 Problem Esophageal reflux K21.9 Active 23 9410135 ALLERGIES Substance Reaction Event Type Date Status Omeprazole nausea Drug Allergy Feb, Active Chantix nightmares Drug Allergy Feb, Active SOCIAL HISTORY No smoking Hx information available PLAN OF CARE Activity Details Follow Up prn Reason: VITAL SIGNS Height 66 in 2016-02-25 Weight 133.4 lbs 2016-02-25 Temperature 97.7 degrees Fahrenheit 2016-02-25 Heart Rate 68 bpm 2016-02-25 Respiratory Rate 18 2016-02-25 BMI 21.53 kg/m2 2016-02-25 Blood pressure systolic 100 mmHg 2016-02-25 Blood pressure diastolic 60 mmHg 2016-02-25 MEDICATIONS Medication Instructions Dosage Frequency Start Date End Date Duration S tatus Macrobid 100 MG Orally every 12 hrs 1 capsule with food 12h Feb, Feb, 7 day(s) Active RESULTS Name Result Date Reference Range UA LONG DIP (IN HOUSE) 2016-02-25 Lot # [id number] Exp date 2017-03-24 Clarity cloudy Color yellow Odor none GLU negative JAZZMINE negative KET negative SG >=1.030 BLO 2+ pH 7.0 Protein 1+ URO 0.2 NIT negative TOREY trace Lot # [id number] Exp date 2017-03 PROCEDURES Procedure Date Ordered Related Diagnosis Body Site Office Visit, Est Pt., Level 3 Feb 25, 2016 URINALYSIS, AUTO, W/O SCOPE Feb 25, 2016 IMMUNIZATIONS No Known Immunizations
--- OUTSIDE RECORDS SUMMARY | 2019-08-22 09:32 | XMS REPORT ---
Author Author Kacey KEENAN Organization [facility] Address [address] [place] [address] Care Team Providers Care Teacher Of The Deaf Name Role Phone CECILE KEENAN Unavailable PROBLEMS Type Condition ICD9-CM Code AVW02-YE Code Onset Dates Condition S tatus SNOMED Code Problem Abdominal tenderness R10.819 Active 52720748 Problem Alopecia, unspecified L65.9 Active 99550085 Problem Chronic fatigue R53.82 Active 5270 2003 Problem Nexplanon insertion Z30.49 Active 978422733 Problem Nondependent tobacco use disorder Z72.0 Active 53193679 Problem Counseling on substance use and abuse Z71.89 Active 014571794 Problem Decreased libido R68.82 Active 835 7008 Problem Esophageal reflux K21.9 Active 23 5849603 ALLERGIES Substance Reaction Event Type Date Status Omeprazole nausea Drug Allergy Oct, Active Chantix nightmares Drug Allergy Oct, Active ENCOUNTERS Encounter Location Date Diagnosis [facility] [address] [id number] [address] [place] [address] [phone] June, [facility] [address] [facility] [id number] [address] [place] [phone] May, Pharyngitis, unspecified lee ology J02.9 [facility] [address] [id number] [address] [place] [address] [phone] Apr, [facility] [address] [id number] [address] [place] [address] [phone] Mar, Dental caries extending into dentin K02.62 and Dental examination Z01.20 [facility] [address] [id number] [address] [place] [phone] Feb, [facility] [address] [id number] [address] [place] [phone] Feb, Flank pain R10.9 and History of renal stone Z87.442 [facility] [address] [id number] [address] [place] [phone] Jan, [facility] [address] [facility] [id number] [address] [place] [phone] Nov, Dental examination Z01.20 [facility] [address] [id number] [address] [place] [address] [phone] Oct, Dental examination Z01.20 [facility] [address] [id number] [address] [place] [phone] Aug, [facility] [address] [facility] [id number] [address] [place] [phone] Jul, Encounter for immunization Z 23 and Penetrating wound of left foot, initial encounter S91.332A [facility] [address] [facility] [id number] [address] [place] [phone] June, Chronic fatigue R53.82 [facility] [address] [facility] [id number] [address] [place] [phone] June, [facility] [address] [facility] [id number] [address] [place] [phone] May, Strep pharyngitis J02.0 and Sore throat J02.9 [facility] [address] [facility] [id number] [address] [place] [phone] May, Encounter for immunization Z 23 [facility] [address] [id number] [address] [place] [phone] May, [facility] [address] [facility] [id number] [address] [place] [phone] May, Dental examination Z01.20 [facility] [address] [facility] [id number] [address] [place] [phone] 08 Mar, 2016 Dental examination Z01.20 [facility] [address] [id number] [address] [place] [address] [phone] 08 Mar, 2016 Dental examination Z01.20 [facility] [address] [facility] [id number] [address] [place] [phone] 07 Mar, 2016 Acute non-recurrent maxillar y sinusitis J01.00 [facility] [address] [facility] [id number] [address] [place] [phone] 09 Feb, 2016 Gastroenteritis K52.9 ; Righ t otitis media with effusion H65.91 and Fever R50.9 [facility] [address] [facility] [id number] [address] [place] [phone] 09 Feb, 2016 [facility] [address] [place] [id number] [place] [address] [phone] Feb, Dental examination Z01.20 [facility] [address] [phone] Feb, Dysuria R30.0 [place] [address] [phone] Jan, Dental examination Z01.20 [place] [id number] [phone] Jan, Dental examination Z01.20 [facility] [address] [place] [id number] [place] [phone] Dec, Encounter for immunization Z 23 [facility] [address] [phone] Nov, Dental examination Z01.20 an d Dental caries K02.9 [facility] [address] [facility] [id number] [address] [place] [phone] Nov, [place] [address] [place] [id number] [place] [phone] Oct, Dental examination Z01.20 [facility] [address] [place] [id number] [address] [place] [phone] Sep, Body aches R52 and Flu syndr ome J11.1 [facility] [address] [place] [id number] [address] [place] [phone] Sep, [facility] [address] [facility] [id number] [place] [phone] Apr, [facility] [address] [phone] Apr, Well woman exam Z01.419 ; Ne xplanon insertion Z30.49 ; Encounter for screening for malignant neoplasm of cervix Z12.4 and Irregular menses N92.6 [facility] [address] [facility] [id number] [place] [phone] 04 Mar, 2015 Body aches R52 and Acute gas tritis without bleeding K29.00 [facility] [address] [phone] 30 Jan, 2015 Encounter for counseling reg arding contraception Z30.9 ; Vaginal discharge N89.8 ; Surveillance of contraceptive injection Z30.42 ; Irregular menses N92.6 ; OCP (oral contraceptive pills) initiation Z30.011 and Decreased libido R68.82 [facility] [address] [place] [id number] [address] [place] [phone] Jan, Encounter for Depo-Provera c ontraception Z30.42 [facility] [id number] [place] [address] [phone] Jan, Encounter for dental examina tion Z01.20 [facility] [address] [place] [id number] [place] [address] [phone] Dec, Dental caries K02.9 and Enco unter for dental examination Z01.20 [facility] [address] [facility] [id number] [address] [place] [phone] 16 Nov, 2014 Encounter for immunization Z 23 [facility] [address] [place] [id number] [place] [address] [id number] 28 Oct, 2014 Encounter for dental examina tion V72.2 [facility] [address] [id number] [address] [place] [phone] Sep, Encounter for contraceptive management V25.9 [facility] [address] [id number] [address] [place] [address], [place] [address] 14 May, 2014 [facility] [address] [id number] [address] [place] [phone] May, [facility] [address] [id number] [address] [place] [phone] Feb, [facility] [address] [id number] [address] [place] [address], [place] [address] Feb, [facility] [address] [id number] [address] [place] [phone] Feb, [facility] [address] [id number] [address] [place] [phone] Feb, [facility] [address] [id number] [address] [place] [phone] Feb, [facility] [address] [id number] [address] [place] [phone] Feb, [facility] [address] [id number] [address] [place] [phone] Feb, [facility] [address] [id number] [address] [place] [phone] Feb, [facility] [address] [id number] [address] [place] [phone] Jul, [facility] [address] [id number] [address] [place] [phone] June, [facility] [address] [id number] [address] [place] [phone] Mar, [facility] [address] [id number] [address] [place] [phone] Nov, [facility] [address] [id number] [address] [place] [phone] Nov, [facility] [address] [id number] [address] [place] [phone] Nov, [facility] [address] [id number] [address] [place] [phone] Nov, [facility] [address] [id number] [address] [place] [phone] Nov, [facility] [address] [id number] [address] [place] [phone] Nov, [facility] [address] [id number] [address] [place] [phone] Nov, [facility] [address] [id number] [address] [place] [phone] Jul, [facility] [address] [id number] [address] [place] [phone] May, [facility] [address] [id number] [address] [place] [phone] Feb, [facility] [address] [id number] [address] [place] [phone] Jan, [facility] [address] [id number] [address] [place] [phone] Jan, [facility] [address] [id number] [address] [place] [phone] Dec, [facility] [address] [id number] [address] [place] [phone] Oct, [facility] [address] [id number] [address] [place] [phone] Sep, IMMUNIZATIONS No Known Immunizations SOCIAL HISTORY Never Assessed REASON FOR VISIT PLAN OF CARE Activity Details Follow Up enzo Reason:endo and crown VITAL SIGNS Height 66 in 2016-11-16 Blood pressure systolic 100 mmHg 2016-11-16 Blood pressure diastolic 62 mmHg 2016-11-16 MEDICATIONS Unknown Medications RESULTS No Results PROCEDURES Procedure Date Ordered Result Body Site LTD ORAL EVALUATION - PROBLEM FOCUS Nov 16, 2016 INTRAORL-PERIAPICAL 1 FILM [id number] Nov 16, 2016 Billing Notes on claim Nov 16, 2016 BITEWING - SINGLE FILM Nov 16, 2016 [facility] Employee/Board adjustment Nov 16, 2016 INSTRUCTIONS MEDICATIONS ADMINISTERED No Known Medications MEDICAL (GENERAL) HISTORY Type Description Date Medical History Kidney stones during Surgical History section 11/01/2013 Surgical History tonsillectomy youth Hospitalization History /healthy 11/01/2013
--- OUTSIDE RECORDS SUMMARY | 2019-08-22 09:32 | XMS REPORT ---
Author Author Kacey MOODY Organization [facility] Address [address] [place] [address] Care Team Providers Care Stores Assistant Name Role Phone MOODYSHWETHAA Unavailable PROBLEMS Type Condition ICD9-CM Code [id number] Code Onset Dates Condition S tatus SNOMED Code Problem Abdominal tenderness R10.819 Active 96947689 Problem Alopecia, unspecified L65.9 Active 58009792 Problem Chronic fatigue R53.82 Active 5270 2003 Problem Nexplanon insertion Z30.49 Active 924393158 Problem Nondependent tobacco use disorder Z72.0 Active 51174309 Problem Counseling on substance use and abuse Z71.89 Active 301071816 Problem Decreased libido R68.82 Active 835 7008 Problem Esophageal reflux K21.9 Active 23 6504100 ALLERGIES Substance Reaction Event Type Date Status Omeprazole nausea Drug Allergy Mar, Active Chantix nightmares Drug Allergy Mar, Active SOCIAL HISTORY Never Assessed PLAN OF CARE Activity Details Follow Up prn Reason:restorative VITAL SIGNS MEDICATIONS Medication Instructions Dosage Frequency Start Date End Date Duration S tatus Augmentin 875-125 MG Orally every 12 hrs 1 tablet 12h Mar, 2 017 17 Mar, 2016 10 day(s) Active Fluticasone Propionate 50 MCG/ACT Nasally Twice a day 1 spray in each nostril 12h Mar, 30 day(s) Active RESULTS No Results PROCEDURES Procedure Date Ordered Result Body Site PRDONTAL SCAL and ROOT PLAN 1-3 TEETH Apr 01, 2016 Periodontal maint procedures Apr 01, 2016 Billing Notes on claim Apr 01, 2016 [facility] Employee/Board adjustment Apr 01, 2016 IMMUNIZATIONS No Known Immunizations MEDICAL (GENERAL) HISTORY Type Description Date Surgical History section 11/01/2013 Surgical History tonsillectomy youth Hospitalization History /healthy 11/01/2013
--- OUTSIDE RECORDS SUMMARY | 2019-08-22 09:32 | XMS REPORT ---
Author Author Kacey AGRAWAL Organization [facility] Address [address] [place] [address] Care Team Providers Care Scientific Glass Blower Name Role Phone SADE AGRAWAL Unavailable PROBLEMS Type Condition ICD9-CM Code TDQ23-QY Code Onset Dates Condition S tatus SNOMED Code Problem Abdominal tenderness R10.819 Active 89631716 Problem Alopecia, unspecified L65.9 Active 45910336 Problem Chronic fatigue R53.82 Active 5270 2003 Problem Nexplanon insertion Z30.49 Active 958628669 Problem Nondependent tobacco use disorder Z72.0 Active 50054427 Problem Counseling on substance use and abuse Z71.89 Active 351219373 Problem Decreased libido R68.82 Active 835 7008 Problem Esophageal reflux K21.9 Active 23 4309775 ALLERGIES Unknown Allergies SOCIAL HISTORY No smoking Hx information available PLAN OF CARE VITAL SIGNS MEDICATIONS Unknown Medications RESULTS No Results PROCEDURES No Known procedures IMMUNIZATIONS No Known Immunizations
--- OUTSIDE RECORDS SUMMARY | 2019-08-22 09:32 | XMS REPORT ---
Author Author Kacey CABALLERO Organization [facility] Address Unknown Care Team Providers Care Stoner Hand Name Role Phone FEDERICO VERONIKA Unavailable PROBLEMS Type Condition ICD9-CM Code JQU86-VA Code Onset Dates Condition S tatus SNOMED Code Problem Abdominal tenderness R10.819 Active 02357294 Problem Alopecia, unspecified L65.9 Active 98069445 Problem Chronic fatigue R53.82 Active 5270 2003 Problem Nexplanon insertion Z30.49 Active 252390462 Problem Nondependent tobacco use disorder Z72.0 Active 76162841 Problem Counseling on substance use and abuse Z71.89 Active 209634316 Problem Decreased libido R68.82 Active 835 7008 Problem Esophageal reflux K21.9 Active 23 2151921 ALLERGIES Substance Reaction Event Type Date Status Omeprazole nausea Drug Allergy Feb, Active Chantix nightmares Drug Allergy Feb, Active SOCIAL HISTORY No smoking Hx information available PLAN OF CARE Activity Details Follow Up prn Reason:fillings VITAL SIGNS Height 66 in 2016-02-27 Blood pressure systolic 121 mmHg 2016-02-27 Blood pressure diastolic 64 mmHg 2016-02-27 MEDICATIONS Unknown Medications RESULTS No Results PROCEDURES Procedure Date Ordered Related Diagnosis Body Site LTD ORAL EVALUATION - PROBLEM FOCUS Feb 27, 2016 INTRAORL-PERIAPICAL 1 FILM [id number] Feb 27, 2016 IMMUNIZATIONS No Known Immunizations
--- OUTSIDE RECORDS SUMMARY | 2019-08-22 09:32 | XMS REPORT ---
Author Author Kacey WILL Organization [facility] Address [address] [place] [address] Care Team Providers Care Sustain Engineer Name Role Phone PARAS WILL Unavailable PROBLEMS Type Condition ICD9-CM Code HWK60-EB Code Onset Dates Condition S tatus SNOMED Code Problem Abdominal tenderness R10.819 Active 90174427 Problem Alopecia, unspecified L65.9 Active 40752670 Problem Chronic fatigue R53.82 Active 5270 2003 Problem Nexplanon insertion Z30.49 Active 997853255 Problem Nondependent tobacco use disorder Z72.0 Active 02605848 Problem Counseling on substance use and abuse Z71.89 Active 506872419 Problem Decreased libido R68.82 Active 835 7008 Problem Esophageal reflux K21.9 Active 23 2910377 ALLERGIES Substance Reaction Event Type Date Status Omeprazole nausea Drug Allergy June, Active Chantix nightmares Drug Allergy June, Active SOCIAL HISTORY Never Assessed PLAN OF CARE VITAL SIGNS MEDICATIONS Unknown Medications RESULTS No Results PROCEDURES No Known procedures IMMUNIZATIONS No Known Immunizations MEDICAL (GENERAL) HISTORY Type Description Date Surgical History section 11/01/2013 Surgical History tonsillectomy youth Hospitalization History /healthy 11/01/2013
--- OUTSIDE RECORDS SUMMARY | 2019-08-22 09:32 | XMS REPORT ---
Author Author Kacey CABALLERO Organization [facility] Address Unknown Care Team Providers Care Manager Copy Name Role Phone LANDENSTEPHANEVERONIKA Unavailable PROBLEMS Type Condition ICD9-CM Code NHR69-VX Code Onset Dates Condition S tatus SNOMED Code Problem Abdominal tenderness R10.819 Active 63488158 Problem Alopecia, unspecified L65.9 Active 78675181 Problem Chronic fatigue R53.82 Active 5270 2003 Problem Nexplanon insertion Z30.49 Active 883975089 Problem Nondependent tobacco use disorder Z72.0 Active 43819693 Problem Counseling on substance use and abuse Z71.89 Active 229629813 Problem Decreased libido R68.82 Active 835 7008 Problem Esophageal reflux K21.9 Active 23 3713804 ALLERGIES Substance Reaction Event Type Date Status Omeprazole nausea Drug Allergy Mar, Active Chantix nightmares Drug Allergy Mar, Active SOCIAL HISTORY Never Assessed PLAN OF CARE Activity Details Follow Up prn Reason:hygiene/fillings VITAL SIGNS Blood pressure systolic 106 mmHg 2016-04-01 Blood pressure diastolic 70 mmHg 2016-04-01 MEDICATIONS Medication Instructions Dosage Frequency Start Date End Date Duration S tatus Peridex 0.12 % Mouth/Throat 3 times daily as directed 30 days Active Fluticasone Propionate 50 MCG/ACT Nasally Twice a day 1 spray in each nostril 12h Mar, 30 day(s) Active Augmentin 875-125 MG Orally every 12 hrs 1 tablet 12h Mar, 2 017 17 Mar, 2016 10 day(s) Active RESULTS No Results PROCEDURES Procedure Date Ordered Result Body Site SEDATIVE FILLING Apr 01, 2016 SEDATIVE FILLING Apr 01, 2016 Billing Notes on claim Apr 01, 2016 IMMUNIZATIONS No Known Immunizations MEDICAL (GENERAL) HISTORY Type Description Date Surgical History section 11/01/2013 Surgical History tonsillectomy youth Hospitalization History /healthy 11/01/2013
--- OUTSIDE RECORDS SUMMARY | 2019-08-22 09:32 | XMS REPORT ---
Author Author Kacey Johnson [facility] WALK IN [facility] Address [address] [place] [address] Care Team Providers Care Director Diabetes Name Role Phone AIDEE Johnson Unavailable PROBLEMS Type Condition ICD9-CM Code CZA43-YX Code Onset Dates Condition S tatus SNOMED Code Problem Abdominal tenderness R10.819 Active 26771594 Problem Alopecia, unspecified L65.9 Active 16590996 Problem Chronic fatigue R53.82 Active 5270 2003 Problem Nexplanon insertion Z30.49 Active 066331438 Problem Nondependent tobacco use disorder Z72.0 Active 83455240 Problem Counseling on substance use and abuse Z71.89 Active 965051735 Problem Decreased libido R68.82 Active 835 7008 Problem Esophageal reflux K21.9 Active 23 2348018 ALLERGIES Substance Reaction Event Type Date Status Omeprazole nausea Drug Allergy Jul, Active Chantix nightmares Drug Allergy Jul, Active ENCOUNTERS Encounter Location Date Diagnosis [facility] [address] [id number] [address] [place] [address] [id number] 28 Mar, 2017 Dental caries extending into dentin K02.62 and Dental examination Z01.20 [facility] [address] [id number] [address] [place] [phone] Feb, [facility] [address] [id number] [address] [place] [phone] Feb, Flank pain R10.9 and History of renal stone Z87.442 [facility] [address] [id number] [address] [place] [phone] 13 Jan, 2017 [facility] [address] [id number] [address] [place] [phone] 09 Nov, 2016 Dental examination Z01.20 [facility] [address] [id number] [address] [place] [address] [id number] Oct, Dental examination Z01.20 [facility] [address] [id number] [address] [place] [phone] Aug, [facility] [address] [facility] [id number] [address] [place] [phone] Jul, Encounter for immunization Z 23 and Penetrating wound of left foot, initial encounter S91.332A [facility] [address] [id number] [address] [place] [address] June, Chronic fatigue R53.82 [facility] [address] [facility] [id number] [address] [place] [phone] June, [facility] [address] [facility] [id number] [address] [place] [phone] May, Strep pharyngitis J02.0 and Sore throat J02.9 [facility] [address] [facility] [id number] [address] [place] [phone] May, Encounter for immunization Z 23 [facility] [address] [facility] [id number] [address] [place] [phone] May, [facility] [address] [facility] [id number] [address] [place] [phone] May, Dental examination Z01.20 [facility] [address] [id number] [address] [place] [phone] 08 Mar, 2016 Dental examination Z01.20 [facility] [address] [id number] [address] [place] [address] [id number] 08 Mar, 2016 Dental examination Z01.20 [facility] [address] [facility] [id number] [address] [place] [phone] 07 Mar, 2016 Acute non-recurrent maxillar y sinusitis J01.00 [facility] [address] [facility] [id number] [address] [place] [phone] Feb, Gastroenteritis K52.9 ; Righ t otitis media with effusion H65.91 and Fever R50.9 [facility] [address] [facility] [id number] [address] [place] [phone] Feb, [facility] [address] [id number] [address] [place] [address] [id number] Feb, Dental examination Z01.20 [facility] [address] [facility] [id number] [address] [place] [phone] Feb, Dysuria R30.0 [facility] [address] [facility] [id number] [address] [place] [phone] Jan, Dental examination Z01.20 [place] [id number] [place] [phone] Jan, Dental examination Z01.20 [facility] [address] [phone] Dec, Encounter for immunization Z 23 [facility] [id number] [place] [phone] Nov, Dental examination Z01.20 an d Dental caries K02.9 [place] [address] [id number] Nov, [facility] [address] [phone] Oct, Dental examination Z01.20 [facility] [address] [facility] [id number] [address] [place] [phone] Sep, Body aches R52 and Flu syndr ome J11.1 [facility] [address] [id number] [address] [place] [phone] Sep, [facility] [address] [facility] [id number] [address] [place] [phone] Apr, [place] [address] [id number] [place] [address] Apr, Well woman exam Z01.419 ; Ne xplanon insertion Z30.49 ; Encounter for screening for malignant neoplasm of cervix Z12.4 and Irregular menses N92.6 [facility] [address] [id number] [address] [place] [phone] 04 Mar, 2015 Body aches R52 and Acute gas tritis without bleeding K29.00 [facility] [address] [address] Jan, Encounter for counseling reg arding contraception Z30.9 ; Vaginal discharge N89.8 ; Surveillance of contraceptive injection Z30.42 ; Irregular menses N92.6 ; OCP (oral contraceptive pills) initiation Z30.011 and Decreased libido R68.82 [facility] [address] [id number] [address] [place] [phone] Jan, Encounter for Depo-Provera c ontraception Z30.42 [facility] [id number] [place] [address] [phone] Jan, Encounter for dental examina tion Z01.20 [facility] [address] [id number] Dec, Dental caries K02.9 and Enco unter for dental examination Z01.20 [facility] [address] [id number] [address] [place] [phone] Nov, Encounter for immunization Z 23 [facility] [address] [id number] Oct, Encounter for dental examina tion V72.2 [facility] [address] [id number] [address] [place] [phone] Sep, Encounter for contraceptive management V25.9 [facility] [address] [id number] [address] [place] [phone] May, [facility] [address] [phone] May, [facility] [address] [id number] [address] [place] [address], [place] [address] Feb, [facility] [address] [id number] [address] [place] [address], [place] [address] Feb, [facility] [address] [id number] [address] [place] [address], [place] [address] Feb, [facility] [address] [id number] [address] [place] [address], [place] [address] Feb, [facility] [address] [id number] [address] [place] [address], [place] [address] Feb, [facility] [address] [id number] [address] [place] [address], [place] [address] Feb, [facility] [address] [id number] [address] [place] [address], [place] [address] Feb, [facility] [address] [id number] [address] [place] [address], [place] [address] Feb, [facility] [address] [id number] [address] [place] [address], [place] [address] Jul, [facility] [address] [id number] [address] [place] [address], [place] [address] June, [facility] [address] [id number] [address] [place] [address], [place] [address] Mar, [facility] [address] [id number] [address] [place] [address], [place] [address] Nov, [facility] [address] [id number] [address] [place] [address], [place] [address] Nov, [facility] [address] [id number] [address] [place] [address], [place] [address] Nov, [facility] [address] [id number] [address] [place] [address], [place] [address] Nov, [facility] [address] [id number] [address] [place] [phone] Nov, [facility] [address] [id number] [address] [place] [phone] Nov, [facility] [address] [id number] [address] [place] [phone] Nov, [facility] [address] [id number] [address] [place] [phone] Jul, [facility] [address] [id number] [address] [place] [phone] May, [facility] [address] [id number] [address] [place] [phone] Feb, [facility] [address] [id number] [address] [place] [phone] Jan, [facility] [address] [id number] [address] [place] [phone] Jan, [facility] [address] [id number] [address] [place] [phone] Dec, [facility] [address] [id number] [address] [place] [phone] Oct, [facility] [address] [id number] [address] [place] [phone] Sep, IMMUNIZATIONS Vaccine Route Administration Date Status TDAP (BOOSTRIX) IM Intramuscular August 11, 2016 Administered SOCIAL HISTORY Never Assessed REASON FOR VISIT stepped on some boards last night...nail in boards....nail went into foot. pt wa s wearing thin shoes at the time. [email or web address], unknown last Tdap PLAN OF CARE Activity Details Follow Up prn Reason: VITAL SIGNS Height 66 in 2016-08-11 Weight 139.4 lbs 2016-08-11 Temperature 98.4 degrees Fahrenheit 2016-08-11 Heart Rate 76 bpm 2016-08-11 Respiratory Rate 20 2016-08-11 BMI 22.50 kg/m2 2016-08-11 Blood pressure systolic 108 mmHg 2016-08-11 Blood pressure diastolic 64 mmHg 2016-08-11 MEDICATIONS Medication Instructions Dosage Frequency Start Date End Date Duration S tatus Bactrim DS 800-160 MG Orally Twice a day 1 tablet 12h 20 Jul, 2 017 30 Jul, 2016 10 day(s) Active RESULTS No Results PROCEDURES Procedure Date Ordered Result Body Site TDAP (BOOSTRIX) August 11, 2016 SINGLE IMMUNIZATION ADMIN August 11, 2016 INSTRUCTIONS MEDICATIONS ADMINISTERED No Known Medications MEDICAL (GENERAL) HISTORY Type Description Date Medical History Kidney stones during Surgical History section 11/01/2013 Surgical History tonsillectomy youth Hospitalization History /healthy 11/01/2013
--- OUTSIDE RECORDS SUMMARY | 2019-08-22 09:32 | XMS REPORT ---
Author Author Kacey MOODY [facility] Address [address] [place] [address] Care Team Providers Care Fashion Director Name Role Phone BRITTNI MOODY Unavailable PROBLEMS Type Condition ICD9-CM Code SDH07-SO Code Onset Dates Condition S tatus SNOMED Code Problem Abdominal tenderness R10.819 Active 89363280 Problem Alopecia, unspecified L65.9 Active 18022906 Problem Chronic fatigue R53.82 Active 5270 2003 Problem Nexplanon insertion Z30.49 Active 057973165 Problem Nondependent tobacco use disorder Z72.0 Active 04811674 Problem Counseling on substance use and abuse Z71.89 Active 099813464 Problem Decreased libido R68.82 Active 835 7008 Problem Esophageal reflux K21.9 Active 23 6402017 ALLERGIES Substance Reaction Event Type Date Status Omeprazole nausea Drug Allergy Nov, Active Chantix nightmares Drug Allergy Nov, Active ENCOUNTERS Encounter Location Date Diagnosis [facility] [address] [facility] [id number] [place] [address] [id number] June, Dental caries K02.9 [facility] WALK IN [facility] [address] [facility] [id number] [address] [place] [phone] May, Pharyngitis, unspecified lee ology J02.9 [facility] [address] [id number] [address] [place] [address] [id number] Apr, [facility] [address] [id number] [address] [place] [address] [id number] Mar, Dental caries extending into dentin K02.62 and Dental examination Z01.20 [facility] [address] [facility] [id number] [address] [place] [phone] Feb, [facility] [address] [facility] [id number] [address] [place] [phone] Feb, Flank pain R10.9 and History of renal stone Z87.442 [facility] [address] [facility] [id number] [address] [place] [phone] Jan, [facility] [address] [facility] [id number] [address] [place] [phone] Nov, Dental examination Z01.20 [facility] [address] [id number] [address] [place] [address] [id number] Oct, Dental examination Z01.20 [facility] [address] [facility] [id number] [address] [place] [phone] Aug, [facility] [address] [id number] [address] [place] [phone] Jul, Encounter for immunization Z 23 and Penetrating wound of left foot, initial encounter S91.332A [facility] [address] [id number] [address] [place] [address] June, Chronic fatigue R53.82 [facility] [address] [facility] [id number] [address] [place] [phone] June, [facility] [address] [facility] [id number] [address] [place] [phone] May, Strep pharyngitis J02.0 and Sore throat J02.9 [facility] [address] [facility] [id number] [address] [place] [phone] May, Encounter for immunization Z 23 [facility] [address] [facility] [id number] [address] [place] [phone] May, [facility] [address] [facility] [id number] [address] [place] [phone] May, Dental examination Z01.20 [facility] [address] [facility] [id number] [address] [place] [phone] 08 Mar, 2016 Dental examination Z01.20 [facility] [address] [facility] [id number] [address] [place] [address] [id number] 08 Mar, 2016 Dental examination Z01.20 [facility] [id number] [place] [phone] 07 Mar, 2016 Acute non-recurrent maxillar y sinusitis J01.00 [facility] [id number] [place] [address] 09 Feb, 2016 Gastroenteritis K52.9 ; Righ t otitis media with effusion H65.91 and Fever R50.9 [facility] [address] [phone] 09 Feb, 2016 [facility] [address] [id number] Feb, Dental examination Z01.20 [facility] [address] [phone] Feb, Dysuria R30.0 [facility] [address] [address] Jan, Dental examination Z01.20 [place] [address] [address] Jan, Dental examination Z01.20 [facility] [address] [address] Dec, Encounter for immunization Z 23 [facility] [address] [address] Nov, Dental examination Z01.20 an d Dental caries K02.9 [place] [id number] [place] [address] Nov, [place] [address] [address] Oct, Dental examination Z01.20 [facility] [id number] [place] [address] Sep, Body aches R52 and Flu syndr ome J11.1 [facility] [id number] [place] [address] Sep, [facility] [address] [address] Apr, [facility] [address] [address] Apr, Well woman exam Z01.419 ; Ne xplanon insertion Z30.49 ; Encounter for screening for malignant neoplasm of cervix Z12.4 and Irregular menses N92.6 [facility] IN [facility] [address] [address] Mar, Body aches R52 and Acute gas tritis without bleeding K29.00 [facility] [address] [address] Jan, Encounter for counseling reg arding contraception Z30.9 ; Vaginal discharge N89.8 ; Surveillance of contraceptive injection Z30.42 ; Irregular menses N92.6 ; OCP (oral contraceptive pills) initiation Z30.011 and Decreased libido R68.82 [facility] [address] [id number] [address] [place] [phone] Jan, Encounter for Depo-Provera c ontraception Z30.42 [facility] [id number] [place] [address] [id number] Jan, Encounter for dental examina tion Z01.20 [facility] [address] [place] [address] [id number] Dec, Dental caries K02.9 and Enco unter for dental examination Z01.20 [facility] [address] [id number] [address] [place] [phone] 16 Nov, 2014 Encounter for immunization Z 23 [facility] [address] [place] [address] [id number] Oct, Encounter for dental examina tion V72.2 [facility] [address] [id number] [address] [place] [phone] 04 Sep, 2014 Encounter for contraceptive management V25.9 [facility] [address] [id number] [address] [place] [phone] 14 May, 2014 [facility] [address] [id number] [address] [place] [phone] May, [facility] [address] [id number] [address] [place] [phone] Feb, [facility] [address] [id number] [address] [place] [phone] Feb, [facility] [address] [id number] [address] [place] [phone] Feb, [facility] [address] [id number] [address] [place] [phone] Feb, [facility] [address] [id number] [address] [place] [phone] Feb, [facility] [address] [id number] [address] [place] [phone] Feb, [facility] [address] [id number] [address] [place] [phone] Feb, [facility] [address] [id number] [address] [place] [phone] Feb, [facility] [address] [id number] [address] [place] [phone] Jul, [facility] [address] [id number] [address] [place] [phone] June, [facility] [address] [id number] [address] [place] [phone] Mar, [facility] [address] [id number] [address] [place] [phone] Nov, [facility] [address] [id number] [address] [place] [phone] Nov, [facility] [address] [id number] [address] [place] [phone] Nov, [facility] [address] [id number] [address] [place] [phone] Nov, [facility] [address] [id number] [address] [place] [phone] Nov, [facility] [address] [id number] [address] [place] [phone] Nov, [facility] [address] [id number] [address] [place] [phone] Nov, [facility] [address] [id number] [address] [place] [phone] Jul, [facility] [address] [id number] [address] [place] [phone] May, [facility] [address] [id number] [address] [place] [phone] Feb, [facility] [address] [id number] [address] [place] [phone] Jan, [facility] [address] [id number] [address] [place] [phone] Jan, [facility] [address] [id number] [address] [place] [phone] Dec, [facility] [address] [id number] [address] [place] [phone] Oct, [facility] [address] [id number] [address] [place] [phone] Sep, IMMUNIZATIONS No Known Immunizations SOCIAL HISTORY Never Assessed REASON FOR VISIT Dental Hygiene/Exam PLAN OF CARE Activity Details Follow Up prn Reason: VITAL SIGNS Height 66 in 2016-11-30 Heart Rate 72 bpm 2016-11-30 Blood pressure systolic 99 mmHg 2016-11-30 Blood pressure diastolic 69 mmHg 2016-11-30 MEDICATIONS No Known Medications RESULTS No Results PROCEDURES Procedure Date Ordered Result Body Site PERIODIC ORAL EXAMINATION Nov 30, 2016 BITEWINGS - FOUR FILMS Nov 30, 2016 PROPHYLAXIS - ADULT Nov 30, 2016 INSTRUCTIONS MEDICATIONS ADMINISTERED No Known Medications MEDICAL (GENERAL) HISTORY Type Description Date Medical History Kidney stones during Surgical History section 11/01/2013 Surgical History tonsillectomy youth Hospitalization History /healthy 11/01/2013
--- OUTSIDE RECORDS SUMMARY | 2019-08-22 09:33 | XMS REPORT | Continuity of Care Document ---
Demographics Preferred Language Unknown Marital Status Unknown Alevism Affiliation Unknown Race Unknown Ethnic Group Unknown Author Organization Unknown Address Unknown Phone Unavailable Allergies Active Description Code Type Severity Reaction Onset Reported/Identified Relationship to Patient Clinical Status Yes NKANo Known Allergies NKA Miscellaneous Allergy Mild N/A 03/29/2006 Yes omeprazole magnesium 20 mg c apsule,delayed release(DR/EC) Drug Allergy 12/15/2011 Yes omeprazole magnesium 20 mg c apsule,delayed release(DR/EC) Drug Allergy N/A N/A 12/15/2011 Medications There is no data. Problems Date Dx Coded Attending Type Code Diagnosis Diagnosed By 07/12/2008 682.9 CELL ULITIS 07/12/2008 911.4 SUPE RFICIAL INJURY - NONVENOMOUS INSECT BITE ON TRUNK 07/12/2008 682.9 CELL ULITIS 07/12/2008 911.4 SUPE RFICIAL INJURY - NONVENOMOUS INSECT BITE ON TRUNK 07/12/2008 682.9 CELL ULITIS 07/12/2008 911.4 SUPE RFICIAL INJURY - NONVENOMOUS INSECT BITE ON TRUNK 07/12/2008 BELLE RICHMOND DO 682.9 CELLULITIS 07/12/2008 BELLE RICHMOND DO 911.4 SUPERFICIAL INJURY - NONVENOMOUS INSECT BITE ON TRUNK 07/12/2008 CLARIBEL RAVI APRN A 68 2.9 CELLULITIS 07/12/2008 CLARIBEL RAVI APRN A 91 1.4 SUPERFICIAL INJURY - NONVENOMOUS INSECT BITE ON TRUNK 07/12/2008 BELLE RICHMOND DO K 682.9 CELLULITIS 07/12/2008 BELLE RICHMOND DO 911.4 SUPERFICIAL INJURY - NONVENOMOUS INSECT BITE ON TRUNK 09/21/2008 V25.49 Lining Cementer ecologic Service Prescrip Of Contracept Agent - Repeat Rx 09/21/2008 V25.49 Lining Cementer ecologic Service Prescrip Of Contracept Agent - Repeat Rx 09/21/2008 V25.49 Lining Cementer ecologic Service Prescrip Of Contracept Agent - Repeat Rx 09/21/2008 BELLE RICHMOND DO V25.49 Gynecologic Service Prescrip Of Contracept Agent - Repeat Rx 09/21/2008 CLARIBEL RAVI APRN V25.49 Gynecologic Service Prescrip Of Contracept Agent - Rep eat Rx 09/21/2008 BELLE RICHMOND DO V25.49 Gynecologic Service Prescrip Of Contracept Agent - Repeat Rx 10/09/2008 V05.8 NEED FOR PROPHYLACTIC VACCINATION AND INOCULATION AGAINST OTHER SPECIFIED DISEASE 10/09/2008 V05.8 NEED FOR PROPHYLACTIC VACCINATION AND INOCULATION AGAINST OTHER SPECIFIED DISEASE 10/09/2008 V05.8 NEED FOR PROPHYLACTIC VACCINATION AND INOCULATION AGAINST OTHER SPECIFIED DISEASE 10/09/2008 BELLE RICHMOND DO V05.8 NEED FOR PROPHYLACTIC VACCINATION AND INOCULATION AGAINST OTHER SPECIFIED DISEASE 10/09/2008 CLARIBEL RAVI APRN V0 5.8 NEED FOR PROPHYLACTIC VACCINATION AND INOCULATION AGAINST OTHER SPECIFIED DISEASE 10/09/2008 BELLE RICHMOND DO V05.8 NEED FOR PROPHYLACTIC VACCINATION AND INOCULATION AGAINST OTHER SPECIFIED DISEASE 11/01/[address] BITE NONVENOMOUS OF OTHER MULTIPLE AND UNSPECIFIED SITES WITHOUT INFECTION 11/01/[address] BITE NONVENOMOUS OF OTHER MULTIPLE AND UNSPECIFIED SITES WITHOUT INFECTION 11/01/[address] BITE NONVENOMOUS OF OTHER MULTIPLE AND UNSPECIFIED SITES WITHOUT INFECTION 11/01/2008 BELLE RICHMOND DO 919.4 INSECT BITE NONVENOMOUS OF OTHER MULTIPLE AND UNSPECIFIED SITES WITHOUT INFECTION 11/01/2008 CLARIBEL RAVI APRN 91 9.4 INSECT BITE NONVENOMOUS OF OTHER MULTIPLE AND UNSPECIFIED SITES WITHOUT INFECTION 11/01/2008 BELLE RICHMOND DO 919.4 INSECT BITE NONVENOMOUS OF OTHER MULTIPLE AND UNSPECIFIED SITES WITHOUT INFECTION 02/26/2010 691.8 DERM ATITIS ATOPIC ECZEMA 02/26/2010 780.79 MAL AISE AND FATIGUE 02/26/2010 691.8 DERM ATITIS ATOPIC ECZEMA 02/26/2010 780.79 MAL AISE AND FATIGUE 02/26/2010 691.8 DERM ATITIS ATOPIC ECZEMA 02/26/2010 780.79 MAL AISE AND FATIGUE 02/26/2010 BELLE RICHMOND DO 691.8 DERMATITIS ATOPIC ECZEMA 02/26/2010 BELLE RICHMOND DO 780.79 MALAISE AND FATIGUE 02/26/2010 CLARIBEL RAVI APRN 69 1.8 DERMATITIS ATOPIC ECZEMA 02/26/2010 CLARIBEL RAVI APRN 780.79 MALAISE AND FATIGUE 02/26/2010 BELLE RICHMOND DO 691.8 DERMATITIS ATOPIC ECZEMA 02/26/2010 BELLE RICHMOND DO 780.79 MALAISE AND FATIGUE 06/26/2010 V72.31 HEALTHCARE TRANSLATOR EXAM, ROUTINE 06/26/2010 V72.31 HEALTHCARE TRANSLATOR EXAM, ROUTINE 06/26/2010 V72.31 HEALTHCARE TRANSLATOR EXAM, ROUTINE 06/26/2010 BELLE RICHMOND DO V72.31 HEALTHCARE TRANSLATOR EXAM, ROUTINE 06/26/2010 CLARIBEL RAVI APRN V72.31 HEALTHCARE TRANSLATOR EXAM, ROUTINE 06/26/2010 BELLE RICHMOND DO V72.31 HEALTHCARE TRANSLATOR EXAM, ROUTINE 06/12/2011 V25.9 CONT RACEPTION MANAGEMENT 06/12/2011 V25.9 CONT RACEPTION MANAGEMENT 06/12/2011 V25.9 CONT RACEPTION MANAGEMENT 06/12/2011 BELLE RICHMOND DO V25.9 CONTRACEPTION MANAGEMENT 06/12/2011 CLARIBEL RAVI APRN V2 5.9 CONTRACEPTION MANAGEMENT 06/12/2011 BELLE RICHMOND DO V25.9 CONTRACEPTION MANAGEMENT 12/01/2011 530.81 GERD 12/01/2011 787.03 VOM ITING ALONE 12/01/2011 530.81 GERD 12/01/2011 787.03 VOM ITING ALONE 12/01/2011 530.81 GERD 12/01/2011 787.03 VOM ITING ALONE 12/01/2011 BELLE RICHMOND DO 530.81 GERD 12/01/2011 BELLE RICHMOND DO 787.03 VOMITING ALONE 12/01/2011 CLARIBEL RAVI APRN 530.81 GERD 12/01/2011 CLARIBEL RAVI APRN 787.03 VOMITING ALONE 12/01/2011 BELLE RICHMOND DO 530.81 GERD 12/01/2011 BELLE RICHMOND DO 787.03 VOMITING ALONE 12/15/2011 787.01 LIBAN SEA WITH VOMITING 12/15/2011 789.60 EPI GASTRIC PAIN 12/15/2011 787.01 LIBAN SEA WITH VOMITING 12/15/2011 789.60 EPI GASTRIC PAIN 12/15/2011 787.01 LIBAN SEA WITH VOMITING 12/15/2011 789.60 EPI GASTRIC PAIN 12/15/2011 BELLE RICHMOND DO 787.01 NAUSEA WITH VOMITING 12/15/2011 BELLE RICHMOND DO K 789.60 EPIGASTRIC PAIN 12/15/2011 CLARIBEL RAVI APRN A 787.01 NAUSEA WITH VOMITING 12/15/2011 TRAVCLARIBEL PALMER APRN A 789.60 EPIGASTRIC PAIN 12/15/2011 BELLE RICHMOND DO 787.01 NAUSEA WITH VOMITING 12/15/2011 BELLE RICHMOND DO 789.60 EPIGASTRIC PAIN 07/07/2012 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 07/07/2012 V26.49 OTH ER PROCREATIVE MANAGEMENT COUNSELING AND ADVICE 07/07/2012 V76.10 WILFREDO AST CANCER SCREENING 07/07/2012 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 07/07/2012 V26.49 OTH ER PROCREATIVE MANAGEMENT COUNSELING AND ADVICE 07/07/2012 V76.10 WILFREDO AST CANCER SCREENING 07/07/2012 BELLE RICHMOND DO 305.1 TOBACCO ABUSE 07/07/2012 BELLE RICHMOND DO V26.49 OTHER PROCREATIVE MANAGEMENT COUNSELING AND ADVICE 07/07/2012 BELLE RICHMOND DO V76.10 BREAST CANCER SCREENING 07/07/2012 CLARIBEL RAVI APRN 30 5.1 TOBACCO ABUSE 07/07/2012 CLARIBEL RAVI APRN V26.49 OTHER PROCREATIVE MANAGEMENT COUNSELING AND ADVICE 07/07/2012 CLARIBEL RAVI APRN V76.10 BREAST CANCER SCREENING 07/07/2012 BELLE RICHMOND DO 305.1 TOBACCO ABUSE 07/07/2012 BELLE RICHMOND DO V26.49 OTHER PROCREATIVE MANAGEMENT COUNSELING AND ADVICE 07/07/2012 BELLE RICHMOND DO V76.10 BREAST CANCER SCREENING 08/15/2012 V65.42 COU NSELING - SMOKING CESSATION 08/15/2012 BELLE RICHMOND DO V65.42 COUNSELING - SMOKING CESSATION 08/15/2012 CLARIBEL RAVI APRN V65.42 COUNSELING - SMOKING CESSATION 08/15/2012 BELLE RICHMOND DO V65.42 COUNSELING - SMOKING CESSATION 03/08/2013 BELLE RICHMOND DO V72.42 TEST POSITIVE RESULT 03/08/2013 CLARIBEL RAVI APRN V72.42 TEST POSITIVE RESULT 03/08/2013 BELLE RICHMOND DO V72.42 TEST POSITIVE RESULT 03/20/2013 MARITZA MARRERO MD Ot 648.93 OTH CURR COND-ANTEPARTUM 03/20/2013 MARITZA MARRERO MD Ot 787.01 NAUSEA WITH VOMITING 04/04/2013 MARI BAUMANN, ANAIS Holt Ot 599.0 URIN TRACT INFECTION NOS 04/04/2013 MARI BAUMANN, ANAIS Holt Ot 643.03 MILD HYPEREMESIS-ANTEPAR 04/04/2013 MARI BAUMANN, ANAIS Holt Ot 646.63 INFECTION-ANTEPARTUM 04/04/2013 MARI BAUMANN, ANAIS Holt Ot 787.01 NAUSEA WITH VOMITING 04/13/2013 BIANCA BUSH DO Ot 643.03 MILD HYPEREMESIS-ANTEPAR 10/20/2013 BIANCA BUSH DO Ot 592.0 CALCULUS OF KIDNEY 10/20/2013 BIANCA BUSH DO Ot 646.83 PREG COMPL NEC-ANTEPART 10/30/2013 BIANCA BUSH DO Ot 644.13 THREAT LABOR NEC-ANTEPAR 10/30/2013 BIANCA BUSH DO Ot 648.73 BONE DISORDER-ANTEPARTUM 10/30/2013 BIANCA BUSH DO Ot 724.5 BACKACHE NOS 11/04/2013 BIANCA BUSH DO Ot 285.1 AC POSTHEMORRHAG ANEMIA 11/04/2013 BIANCA BUSH DO Ot 648.22 ANEMIA-DELIVERED W P/P 11/04/2013 BIANCA BUSH DO Ot 653.41 FETOPELV DISPROPOR-DELIV 11/04/2013 BIANCA BUSH DO Ot 660.11 BONY PELV OBSTRUCT-DELIV 11/04/2013 BIANCA BUSH DO Ot 663.31 CORD ENTANGLE NEC-DELIV 11/04/2013 BIANCA BUSH DO Ot V06.1 [id number], COMBINED [ 11/04/2013 BIANCA BUSH DO Ot V27.0 DELIVER-SINGLE LIVEBORN 03/13/2014 CLARIBEL RAVI APRN 704.00 ALOPECIA UNSPECIFIED 03/13/2014 BELLE RICHMOND DO 704.00 ALOPECIA UNSPECIFIED 03/22/2017 AGRAWAL, SADE R ICE GUARD TESTER Ot N83.8 OTH NONINFLAMMATORY DISORD OF OVARY, FAL 03/22/2017 SADE AGRAWAL APRN Ot R31.9 HEMATURIA, UNSPECIFIED 03/22/2017 SADE AGRAWAL ICE GUARD TESTER Ot Z87.442 PERSONAL HISTORY OF URINARY CALCULI 03/30/2017 SADE AGRAWAL ICE GUARD TESTER Ot N83.8 OTH NONINFLAMMATORY DISORD OF OVARY, FAL 03/30/2017 SADE AGRAWAL ICE GUARD TESTER Ot R31.9 HEMATURIA, UNSPECIFIED 03/30/2017 SADE AGRAWAL ICE GUARD TESTER Ot Z87.442 PERSONAL HISTORY OF URINARY CALCULI Procedures Code [place] [address] URIN E TEST (IN- HOUSE) 04/01/2012 33541 THER APUTIC INJ SQ/IM 04/01/2012 J1055 DEPO -PROVERA INJ 150 MG 04/01/2012 G0437 TOBA MARKETING ASSISTANT RETAIL DIVISION-USE AUTOCAD DESIGNER>10MIN 08/16/2012 44368 ROUT INE VENIPUNCTURE 03/08/2013 15248 PREG DIMPLE TEST, SERUM (RML) 03/08/2013 74.1 LOW C ERVICAL 11/01/2013 99.77 APPL /ADMIN OF AN ADHESION BARRIER SUBSTA 11/01/2013 J1050 DEPO PROVERA 06/11/2014 37394 THER APUTIC INJ SQ/IM 06/11/2014 97400 PREG DIMPLE TEST, URINE (IN- HOUSE) 06/11/2014 Results Test Result Range TSH+Free T4 - 07/14/16 16:54 TSH 1.630 uIU/mL 0.450-4.500 T4,Free(Direct) 1.08 ng/dL 0.82-1.77 CBC With Differential/Platelet - 7 16:54 WBC 6.3 x10E3/uL 3.4-10.8 RBC 4.17 x10E6/uL 3.77-5.28 Hemoglobin 12.3 g/dL 11.1-15.9 Hematocrit 38.3 % 34.0-46.6 MCV 92 fL 79-97 MCH 29.5 pg 26.6-33.0 MCHC 32.1 g/dL 31.5-35.7 RDW 13.4 % 12.3-15.4 Platelets 246 x10E3/uL 150-379 Neutrophils 44 % Lymphs 43 % Monocytes 10 % Eos 2 % Basos 1 % Neutrophils (Absolute) 2.8 x10E3/uL 1.4- 7.0 Lymphs (Absolute) 2.7 x10E3/uL 0.7-3.1 Monocytes(Absolute) 0.6 x10E3/uL 0.1-0.9 Eos (Absolute) 0.1 x10E3/uL 0.0-0.4 Baso (Absolute) 0.1 x10E3/uL 0.0-0.2 Immature Granulocytes 0 % Immature Grans (Abs) 0.0 x10E3/uL 0.0-0. 1 Comp. Metabolic Panel (14) - 07/14/16 16 :54 Glucose, Serum 86 mg/dL 65-99 BUN 13 mg/dL 6-20 Creatinine, Serum 0.73 mg/dL 0.57-1.00 eGFR If NonAfricn Am 112 mL/min/1.73 >59 eGFR If Africn Am 130 mL/min/1.73 >5 9 BUN/Creatinine Ratio 18 9-23 Sodium, Serum 141 mmol/L 134-144 Potassium, Serum 4.0 mmol/L 3.5-5.2 Chloride, Serum 101 mmol/L 96-106 Carbon Dioxide, Total 25 mmol/L 18-29 Calcium, Serum 9.5 mg/dL 8.7-10.2 Protein, Total, Serum 6.6 g/dL 6.0-8.5 Albumin, Serum 4.2 g/dL 3.5-5.5 Globulin, Total 2.4 g/dL 1.5-4.5 A/G Ratio 1.8 1.2-2.2 Bilirubin, Total 0.2 mg/dL 0.0-1.2 Alkaline Phosphatase, S 51 IU/L 39-117 AST (SGOT) 11 IU/L 0-40 ALT (SGPT) 7 IU/L 0-32 CULTURE, URINE - 03/18/17 12:07 CULTURE, URINE, ROUTINE SEE NOTE NRG GC/CHLAMYDIA (SWAB OR URINE)-RAPID - 09:23 CHLAMYDIA TRACHOMATIS RNA, TMA NOT DETECTED NOT DETECTED NEISSERIA GONORRHOEAE RNA, TMA NOT DETECTED NOT DETECTED COMMENT NRG TEST, SERUM (QUAL) - 08/02/19 09:14 HCG, TOTAL, QL POSITIVE See Note: Complete blood count (CBC) with automate d white blood cell (WBC) differential - 08/22/19 08:36 Blood leukocytes automated count (number/volume) 7.0 10*3/uL 4.3-11.0 Blood erythrocytes automated count (number/volume) 3.97 10*6/uL 4.35-5.85 Venous blood hemoglobin measurement (mass/volume) 12.2 g/dL 11.5-16.0 Blood hematocrit (volume fraction) 35 % 35-52 Automated erythrocyte mean corpuscular volume 88 [ foz_us] 80-99 Automated erythrocyte mean corpuscular h emoglobin (mass per erythrocyte) 31 pg 25-34 Automated erythrocyte mean corpuscular h emoglobin concentration measurement (mass/volume) 35 g/dL 32-36 Automated erythrocyte distribution width ratio 12. 3 % 10.0- 14.5 Automated blood platelet count (count/volume) 269 10*3/uL 130-400 Automated blood platelet mean volume measurement 9.7 [foz_us] 7.4-10.4 Automated blood neutrophils/100 leukocytes 70 % 42-75 Automated blood lymphocytes/100 leukocytes 23 % 12-44 Blood monocytes/100 leukocytes 7 % 0-12 Automated blood eosinophils/100 leukocytes 0 % 0-10 Automated blood basophils/100 leukocytes 0 % 0-10 Blood neutrophils automated count (number/volume) 4.9 10*3 1.8-7.8 Blood lymphocytes automated count (number/volume) 1.6 10*3 1.0-4.0 Blood monocytes automated count (number/volume) 0. 5 10*3 0.0-1.0 Automated eosinophil count 0.0 10*3/uL 0 .0-0.3 Automated blood basophil count (count/volume) 0.0 10*3/uL 0.0-0.1 Comprehensive metabolic panel - 08/22/19 08:36 Serum or plasma sodium measurement (moles/volume) 137 mmol/L 135-145 Serum or plasma potassium measurement (moles/volume) 3.9 mmol/L 3.6-5.0 Serum or plasma chloride measurement (moles/volume) 106 mmol/L 98-107 Carbon dioxide 19 mmol/L 21-32 Serum or plasma anion gap determination (moles/volume) 12 mmol/L 5-14 Serum or plasma urea nitrogen measurement (mass/volume ) 11 mg/dL 7-18 Serum or plasma creatinine measurement (mass/volume) 0.66 mg/dL 0.60-1.30 Serum or plasma urea nitrogen/creatinine mass ratio 17 NRG Serum or plasma creatinine measurement w ith calculation of estimated glomerular filtration rate > NRG Serum or plasma glucose measurement (mass/volume) 81 mg/dL 70-105 Serum or plasma calcium measurement (mass/volume) 9.7 mg/dL 8.5-10.1 Serum or plasma total bilirubin measurement (mass/volu me) 0.7 mg/dL 0.1-1.0 Serum or plasma alkaline phosphatase virgil surement (enzymatic activity/volume) 36 U/L 40-136 Serum or plasma aspartate aminotransfera se measurement (enzymatic activity/volume) 13 U/L 5-34 Serum or plasma alanine aminotransferase measurement (enzymatic activity/volume) 10 U/L 0-55 Serum or plasma protein measurement (mass/volume) 7.2 g/dL 6.4-8.2 Serum or plasma albumin measurement (mass/volume) 4.5 g/dL 3.2-4.5 CALCIUM CORRECTED 9.3 mg/dL 8.5-10.1 Magnesium - 08/22/19 08:36 Magnesium 1.9 mg/dL 1.6-2.4 Complete urinalysis with reflex to cultu re - 08/22/19 08:44 Urine color determination YELLOW NRG Urine clarity determination TURBID NR G Urine pH measurement by test strip 6.0 5-9 Specific gravity of urine by test strip 1.025 1.016-1.022 Urine protein assay by test strip, semi-quantitative TRACE NEGATIVE Urine glucose detection by automated test strip NE GATIVE NEGATIVE Erythrocytes detection in urine sediment by light micr oscopy 3+ NEGATIVE Urine ketones detection by automated test strip 3+ NEGATIVE Urine nitrite detection by test strip NEGATIVE NEGATIVE Urine total bilirubin detection by test strip 1+ NEGATIVE Urine urobilinogen measurement by automated test strip (mass/volume) 1.0 mg/dL < = 1.0 Urine leukocyte esterase detection by dipstick 3+ NEGATIVE Automated urine sediment erythrocyte cou nt by microscopy (number/high power field) [HPF] NRG Automated urine sediment leukocyte count by microscopy (number/high power field) [HPF] NRG Bacteria detection in urine sediment by light microsco py FEW NRG Squamous epithelial cells detection in u rine sediment by light microscopy 12-16 NRG Crystals detection in urine sediment by light microsco py PRESENT NRG Casts detection in urine sediment by light microscopy NONE NRG Mucus detection in urine sediment by light microscopy SMALL NRG Complete urinalysis with reflex to culture YES NRG Amorphous sediment detection in urine sediment by ligh t microscopy RARE AIDE URATES NRG Encounters ACCT No. Visit Date/Time Discharge Status Pt. Type Provider Facility Loc./Unit Complaint [id number] 07/15/2016 08:44:00 Document Registration [id number] 03/18/2017 14:33:00 018 23:59:59 CLS Outpatient SADE AGRAWAL ICE GUARD TESTER [facility] RAD Z87.442 [id number] 11/01/2013 05:30:00 014 12:40:00 DIS Inpatient BIANCA BUSH DO [facility] LDRP LABOR/CONTRACTIONS [id number] 10/30/2013 11:05:00 014 13:29:00 DIS Outpatient BIANCA BUSH DO [facility] HIGH BP, CONTRACTIONS [id number] 10/20/2013 03:16:00 014 09:40:00 DIS Outpatient BIANCA BUSH DO [facility] CONTACTIONS/BACK PAIN [id number] 04/12/2013 09:51:00 014 10:20:00 DIS Inpatient BIANCA BUSH DO [facility] HYPEREMESIS GRAVIDARUM [id number] 04/04/2013 20:02:00 014 23:02:00 DIS Emergency MARI BAUMANN, ANAIS Holt [facility] ER 8 WKS PREG; VOM ITING; ABD PAIN [id number] 03/20/2013 05:47:00 014 08:42:00 DIS Emergency ELIDA BAUMANN, MARITZA Kim [facility] ER 7 WKS;VOMITING [id number] 08/22/2019 08:49:00 Document Registration [id number] 08/10/2019 09:00:00 08/10/2019 23:59:5 9 CLS Outpatient DONY MIRELES [facility] [id number] 08/02/2019 09:00:00 Document Registration [id number] 04/12/2018 09:00:00 Document Registration [id number] 03/18/2017 11:40:00 Document Registration [id number] 06/11/2014 09:40:00 06/11/2014 23:59: 59 CLS Outpatient BELLE RICHMOND DO [id number] 03/13/2014 13:22:00 03/13/2014 23:59: 59 CLS Outpatient CLARIBEL RAVI APRN [id number] 03/08/2013 12:31:00 03/08/2013 23:59: 59 CLS Outpatient BELLE RIHCMOND DO [id number] 04/01/2012 11:36:00 04/01/2012 23:59: 59 CLS Outpatient [id number] 08/15/2012 11:45:00 Document Registration [id number] 07/07/2012 09:44:00 Document Registration
--- OUTSIDE RECORDS SUMMARY | 2019-08-22 09:33 | XMS REPORT ---
Author Author Kacey WILL Organization [facility] [place] Address [address] [place] [address] Care Team Providers Care Graves Registration Specialist Name Role Phone PARAS WILL Unavailable PROBLEMS Type Condition ICD9-CM Code XWG60-TF Code Onset Dates Condition S tatus SNOMED Code Problem Abdominal tenderness R10.819 Active 79420617 Problem Alopecia, unspecified L65.9 Active 32395652 Problem Chronic fatigue R53.82 Active 5270 2003 Problem Nexplanon insertion Z30.49 Active 284485287 Problem Nondependent tobacco use disorder Z72.0 Active 54466232 Problem Counseling on substance use and abuse Z71.89 Active 993742333 Problem Decreased libido R68.82 Active 835 7008 Problem Esophageal reflux K21.9 Active 23 2859665 ALLERGIES Substance Reaction Event Type Date Status Omeprazole nausea Drug Allergy June, Active Chantix nightmares Drug Allergy June, Active SOCIAL HISTORY Never Assessed PLAN OF CARE Activity Details Follow Up we will call Reason: VITAL SIGNS Height 66 in 2016-07-14 Weight 137.0 lbs 2016-07-14 Temperature 98.2 degrees Fahrenheit 2016-07-14 Heart Rate 78 bpm 2016-07-14 Respiratory Rate 18 2016-07-14 BMI 22.11 kg/m2 2016-07-14 Blood pressure systolic 102 mmHg 2016-07-14 Blood pressure diastolic 72 mmHg 2016-07-14 MEDICATIONS Unknown Medications RESULTS Name Result Date Reference Range TSH W/ FREE T4 2016-07-14 TSH 1.630 0.450-4.500 T4,Free(Direct) 1.08 0.82-1.77 CBC 2016-07-14 WBC 6.3 3.4-10.8 RBC 4.17 3.77-5.28 Hemoglobin 12.3 11.1-15.9 Hematocrit 38.3 34.0-46.6 MCV 92 79-97 MCH 29.5 26.6-33.0 MCHC 32.1 31.5-35.7 RDW 13.4 12.3-15.4 Platelets 246 150-379 Neutrophils 44 Lymphs 43 Monocytes 10 Eos 2 Basos 1 Neutrophils (Absolute) 2.8 1.4-7.0 Lymphs (Absolute) 2.7 0.7-3.1 Monocytes(Absolute) 0.6 0.1-0.9 Eos (Absolute) 0.1 0.0-0.4 Baso (Absolute) 0.1 0.0-0.2 Immature Granulocytes 0 Immature Grans (Abs) 0.0 0.0-0.1 CMP 2016-07-14 Glucose, Serum 86 65-99 BUN 13 6-20 Creatinine, Serum 0.73 0.57-1.00 eGFR If NonAfricn Am 112 >59 eGFR If Africn Am 130 >59 BUN/Creatinine Ratio 18 9-23 Sodium, Serum 141 134-144 Potassium, Serum 4.0 3.5-5.2 Chloride, Serum 101 96-106 Carbon Dioxide, Total 25 18-29 Calcium, Serum 9.5 8.7-10.2 Protein, Total, Serum 6.6 6.0-8.5 Albumin, Serum 4.2 3.5-5.5 Globulin, Total 2.4 1.5-4.5 A/G Ratio 1.8 1.2-2.2 Bilirubin, Total 0.2 0.0-1.2 Alkaline Phosphatase, S 51 39-117 AST (SGOT) 11 0-40 ALT (SGPT) 7 0-32 TEST, URINE (IN HOUSE) 2016-07-14 RESULTS Negative Lot # [id number] Control + Exp date 08/2017 PROCEDURES Procedure Date Ordered Result Body Site LAB NOT BILLED BY [facility] July 14, 2016 URINE TEST July 14, 2016 VENIPUNCT, ROUTINE* July 14, 2016 IMMUNIZATIONS No Known Immunizations MEDICAL (GENERAL) HISTORY Type Description Date Surgical History section 11/01/2013 Surgical History tonsillectomy youth Hospitalization History /healthy 11/01/2013
--- OUTSIDE RECORDS SUMMARY | 2019-08-22 09:33 | XMS REPORT ---
Author Author Kacey AGRAWAL Organization [facility] Address [address] [place] [address] Care Team Providers Care Conservation Specialist Name Role Phone AGRAWALSADE Chen Unavailable PROBLEMS Type Condition ICD9-CM Code PET53-EN Code Onset Dates Condition S tatus SNOMED Code Problem Abdominal tenderness R10.819 Active 33930926 Problem Alopecia, unspecified L65.9 Active 60663528 Problem Chronic fatigue R53.82 Active 5270 2003 Problem Nexplanon insertion Z30.49 Active 873146692 Problem Nondependent tobacco use disorder Z72.0 Active 40795995 Problem Counseling on substance use and abuse Z71.89 Active 470604118 Problem Decreased libido R68.82 Active 835 7008 Problem Esophageal reflux K21.9 Active 23 5186493 ALLERGIES No Information ENCOUNTERS Encounter Location Date Diagnosis [facility] [address] [facility] [id number] [place] [address] [phone] June, Dental caries K02.9 [facility] [address] [facility] [id number] [address] [place] [phone] May, Pharyngitis, unspecified lee ology J02.9 [facility] [address] [id number] [address] [place] [address] [phone] Apr, [facility] [address] [id number] [address] [place] [address] [phone] Mar, Dental caries extending into dentin K02.62 and Dental examination Z01.20 [facility] [address] [facility] [id number] [address] [place] [phone] Feb, [facility] [address] [facility] [id number] [address] [place] [phone] Feb, Flank pain R10.9 and History of renal stone Z87.442 [facility] [address] [id number] [address] [place] [phone] 13 Jan, 2017 [facility] [address] [id number] [address] [place] [phone] Nov, Dental examination Z01.20 [facility] [address] [id number] [address] [place] [address] [phone] Oct, Dental examination Z01.20 [facility] [address] [id number] [address] [place] [phone] Aug, [facility] [address] [id number] [address] [place] [phone] Jul, Encounter for immunization Z 23 and Penetrating wound of left foot, initial encounter S91.332A [facility] [address] [facility] [id number] [address] [place] [phone] June, Chronic fatigue R53.82 [facility] [address] [id number] [address] [place] [phone] June, [facility] [address] [id number] [address] [place] [phone] May, Strep pharyngitis J02.0 and Sore throat J02.9 [facility] [address] [id number] [address] [place] [phone] May, Encounter for immunization Z 23 [facility] [address] [id number] [address] [place] [phone] May, [facility] [address] [id number] [address] [place] [phone] May, Dental examination Z01.20 [facility] [address] [id number] [address] [place] [phone] Mar, Dental examination Z01.20 [facility] [address] [id number] [address] [place] [address] [phone] Mar, Dental examination Z01.20 [facility] [address] [id number] [address] [place] [phone] 07 Mar, 2016 Acute non-recurrent maxillar y sinusitis J01.00 [facility] [address] [facility] [id number] [address] [place] [phone] 09 Feb, 2016 Gastroenteritis K52.9 ; Righ t otitis media with effusion H65.91 and Fever R50.9 [facility] [address] [facility] [id number] [address] [place] [phone] 09 Feb, 2016 [facility] [address] [id number] [address] [place] [address] [phone] Feb, Dental examination Z01.20 [facility] [address] [place] [id number] [place] [phone] Feb, Dysuria R30.0 [place] [address] [phone] Jan, Dental examination Z01.20 [facility] [address] [facility] [id number] [address] [place] [phone] Jan, Dental examination Z01.20 [facility] [address] [place] [id number] [place] [phone] Dec, Encounter for immunization Z 23 [facility] [address] [place] [id number] [place] [phone] 26 Nov, 2015 Dental examination Z01.20 an d Dental caries K02.9 [facility] [address] [facility] [id number] [address] [place] [phone] Nov, [facility] [address] [place] [id number] [place] [phone] Oct, Dental examination Z01.20 [facility] [address] [facility] [id number] [address] [place] [phone] Sep, Body aches R52 and Flu syndr ome J11.1 [facility] [address] [place] [id number] [address] [place] [phone] Sep, [facility] [address] [place] [id number] [address] [place] [phone] Apr, [facility] [address] [phone] Apr, Well woman exam Z01.419 ; Ne xplanon insertion Z30.49 ; Encounter for screening for malignant neoplasm of cervix Z12.4 and Irregular menses N92.6 [facility] [address] [place] [id number] [address] [place] [phone] 04 Mar, 2015 Body aches R52 and Acute gas tritis without bleeding K29.00 [facility] [address] [place] [id number] [address] [place] [phone] 30 Jan, 2015 Encounter for counseling reg arding contraception Z30.9 ; Vaginal discharge N89.8 ; Surveillance of contraceptive injection Z30.42 ; Irregular menses N92.6 ; OCP (oral contraceptive pills) initiation Z30.011 and Decreased libido R68.82 [facility] [address] [place] [id number] [address] [place] [phone] 10 Jan, 2015 Encounter for Depo-Provera c ontraception Z30.42 [facility] [id number] [place] [address] [phone] Jan, Encounter for dental examina tion Z01.20 [facility] [id number] [place] [address] [phone] Dec, Dental caries K02.9 and Enco unter for dental examination Z01.20 [facility] [address] [place] [id number] [address] [place] [phone] 16 Nov, 2014 Encounter for immunization Z 23 [facility] [id number] [place] [address] [phone] Oct, Encounter for dental examina tion V72.2 [facility] [address] [phone] Sep, Encounter for contraceptive management V25.9 [facility] [address] [id number] [address] [place] [phone] 14 May, 2014 [facility] [address] [id number] [address] [place] [phone] May, [facility] [address] [id number] [address] [place] [phone] Feb, [facility] [address] [id number] [address] [place] [phone] Feb, [facility] [address] [id number] [address] [place] [phone] Feb, [facility] [address] [id number] [address] [place] [phone] Feb, [facility] [address] [id number] [address] [place] [phone] Feb, [facility] [address] [id number] [address] [place] [phone] Feb, [facility] [address] [id number] [address] [place] [phone] Feb, [facility] [address] [id number] [address] [place] [phone] Feb, [facility] [address] [id number] [address] [place] [phone] Jul, [facility] [address] [id number] [address] [place] [phone] June, [facility] [address] [id number] [address] [place] [phone] Mar, [facility] [address] [id number] [address] [place] [phone] Nov, [facility] [address] [id number] [address] [place] [phone] Nov, [facility] [address] [id number] [address] [place] [phone] Nov, [facility] [address] [id number] [address] [place] [phone] Nov, [facility] [address] [id number] [address] [place] [phone] Nov, [facility] [address] [id number] [address] [place] [phone] Nov, [facility] [address] [id number] [address] [place] [phone] Nov, [facility] [address] [id number] [address] [place] [phone] Jul, [facility] [address] [id number] [address] [place] [phone] May, [facility] [address] [id number] [address] [place] [phone] Feb, [facility] [address] [id number] [address] [place] [phone] Jan, [facility] [address] [id number] [address] [place] [phone] Jan, [facility] [address] [id number] [address] [place] [phone] Dec, [facility] [address] [id number] [address] [place] [phone] Oct, [facility] [address] [id number] [address] [place] [phone] Sep, IMMUNIZATIONS No Known Immunizations SOCIAL HISTORY Never Assessed REASON FOR VISIT Lab results PLAN OF CARE VITAL SIGNS MEDICATIONS Medication Instructions Dosage Frequency Start Date End Date Duration S tatus Ibuprofen 800 MG Orally Three times a day 1 tablet with food or milk as needed 8h Feb, Apr, 14 days Active RESULTS No Results PROCEDURES No Known procedures INSTRUCTIONS MEDICATIONS ADMINISTERED No Known Medications MEDICAL (GENERAL) HISTORY Type Description Date Medical History Kidney stones during Surgical History section 11/01/2013 Surgical History tonsillectomy youth Hospitalization History /healthy 11/01/2013
--- OUTSIDE RECORDS SUMMARY | 2019-08-22 09:33 | XMS REPORT ---
Author Author Kacey MOODY Organization [facility] Address [address] [place] [address] Care Team Providers Care Commissioning Specialist Name Role Phone BRITTNI MOODY Unavailable PROBLEMS Type Condition ICD9-CM Code PLV61-UG Code Onset Dates Condition S tatus SNOMED Code Problem Abdominal tenderness R10.819 Active 90290972 Problem Counseling on substance use and abuse Z71.89 Active 347749666 Problem Chronic fatigue R53.82 Active 5270 2003 Problem Nexplanon insertion Z30.49 Active 232575644 Problem Nondependent tobacco use disorder Z72.0 Active 56770647 Problem Alopecia, unspecified L65.9 Active 69501605 Problem Decreased libido R68.82 Active 835 7008 Problem Esophageal reflux K21.9 Active 23 0585830 ALLERGIES Substance Reaction Event Type Date Status Omeprazole nausea Drug Allergy Jan, Active Chantix nightmares Drug Allergy Jan, Active SOCIAL HISTORY No smoking Hx information available PLAN OF CARE Activity Details Follow Up prn Reason:chin VITAL SIGNS Height 66 in 2016-02-06 Heart Rate 66 bpm 2016-02-06 Blood pressure systolic 109 mmHg 2016-02-06 Blood pressure diastolic 60 mmHg 2016-02-06 MEDICATIONS Unknown Medications RESULTS No Results PROCEDURES Procedure Date Ordered Related Diagnosis Body Site BITEWINGS - FOUR FILMS Feb 06, 2016 ORAL HYGIENE INSTRUCTIONS Feb 06, 2016 Full mouth debridement Feb 06, 2016 IMMUNIZATIONS No Known Immunizations
--- OUTSIDE RECORDS SUMMARY | 2019-08-22 09:33 | XMS REPORT ---
Author Author Kacey AGRAWAL Organization [facility] Address [address] [place] [address] Care Team Providers Care Precinct Police Lieutenant Name Role Phone AGRAWALSADE Chen Unavailable PROBLEMS Type Condition ICD9-CM Code VGM39-TM Code Onset Dates Condition S tatus SNOMED Code Problem Abdominal tenderness R10.819 Active 99219082 Problem Alopecia, unspecified L65.9 Active 34057695 Problem Chronic fatigue R53.82 Active 5270 2003 Problem Nexplanon insertion Z30.49 Active 855379985 Problem Nondependent tobacco use disorder Z72.0 Active 07406352 Problem Counseling on substance use and abuse Z71.89 Active 226507003 Problem Decreased libido R68.82 Active 835 7008 Problem Esophageal reflux K21.9 Active 23 1615736 ALLERGIES Substance Reaction Event Type Date Status Omeprazole nausea Drug Allergy Feb, Active Chantix nightmares Drug Allergy Feb, Active ENCOUNTERS Encounter Location Date Diagnosis [facility] [address] [facility] [id number] [address] [place] [address] [phone] June, Dental caries K02.9 [facility] [address] [facility] [id number] [address] [place] [phone] May, Pharyngitis, unspecified lee ology J02.9 [facility] [address] [id number] [address] [place] [address] [phone] Apr, [facility] [address] [id number] [address] [place] [address] [phone] Mar, Dental caries extending into dentin K02.62 and Dental examination Z01.20 [facility] [address] [facility] [id number] [address] [place] [phone] Feb, [facility] [address] [facility] [id number] [address] [place] [phone] Feb, Flank pain R10.9 and History of renal stone Z87.442 [facility] [address] [facility] [id number] [address] [place] [id number] Jan, [facility] [address] [facility] [id number] [address] [place] [phone] Nov, Dental examination Z01.20 [facility] [address] [id number] [address] [place] [address] [id number] Oct, Dental examination Z01.20 [facility] [address] [id number] [address] [place] [phone] Aug, [facility] [address] [facility] [id number] [address] [place] [phone] Jul, Encounter for immunization Z 23 and Penetrating wound of left foot, initial encounter S91.332A [facility] [address] [place] [id number] [address] [place] [phone] June, Chronic fatigue R53.82 [facility] [address] [facility] [id number] [address] [place] [phone] June, [facility] [address] [facility] [id number] [address] [place] [phone] May, Strep pharyngitis J02.0 and Sore throat J02.9 [facility] [address] [facility] [id number] [address] [place] [phone] May, Encounter for immunization Z 23 [facility] [address] [id number] [address] [place] [phone] May, [facility] [address] [facility] [id number] [address] [place] [phone] May, Dental examination Z01.20 [facility] [address] [facility] [id number] [address] [place] [phone] 08 Mar, 2016 Dental examination Z01.20 [facility] [address] [place] [id number] [address] [place] [address] [id number] 08 Mar, 2016 Dental examination Z01.20 [facility] [address] [facility] [id number] [address] [place] [phone] 07 Mar, 2016 Acute non-recurrent maxillar y sinusitis J01.00 [facility] [address] [facility] [id number] [address] [place] [phone] 09 Feb, 2016 Gastroenteritis K52.9 ; Righ t otitis media with effusion H65.91 and Fever R50.9 [facility] [address] [facility] [id number] [address] [phone] 09 Feb, 2016 [facility] [address] [place] [id number] [place] [address] [phone] Feb, Dental examination Z01.20 [facility] [address] [phone] Feb, Dysuria R30.0 [facility] [address] [phone] Jan, Dental examination Z01.20 [place] [address] [address] Jan, Dental examination Z01.20 [facility] [address] [address] Dec, Encounter for immunization Z 23 [facility] [address] [phone] Nov, Dental examination Z01.20 an d Dental caries K02.9 [place] [address] [facility] [id number] [place] [phone] Nov, [place] [address] [place] [id number] [place] [phone] Oct, Dental examination Z01.20 [facility] [address] [place] [id number] [address] [place] [phone] Sep, Body aches R52 and Flu syndr ome J11.1 [facility] [address] [place] [phone] Sep, [facility] [address] [phone] Apr, [facility] [address] [address] Apr, Well woman exam Z01.419 ; Ne xplanon insertion Z30.49 ; Encounter for screening for malignant neoplasm of cervix Z12.4 and Irregular menses N92.6 [facility] [address] [address] 04 Mar, 2015 Body aches R52 and Acute gas tritis without bleeding K29.00 [facility] [address] [address] Jan, Encounter for counseling reg arding contraception Z30.9 ; Vaginal discharge N89.8 ; Surveillance of contraceptive injection Z30.42 ; Irregular menses N92.6 ; OCP (oral contraceptive pills) initiation Z30.011 and Decreased libido R68.82 [facility] [address] [place] [id number] [address] [place] [phone] Jan, Encounter for Depo-Provera c ontraception Z30.42 [facility] [id number] [place] [address] [id number] Jan, Encounter for dental examina tion Z01.20 [facility] [id number] [place] [address] [id number] Dec, Dental caries K02.9 and Enco unter for dental examination Z01.20 [facility] [address] [place] [id number] [address] [place] [phone] Nov, Encounter for immunization Z 23 [facility] [address] [place] [id number] [place] [address] [id number] 28 Oct, 2014 Encounter for dental examina tion V72.2 [facility] [address] [id number] [address] [place] [phone] 04 Sep, 2014 Encounter for contraceptive management V25.9 [facility] [address] [id number] [address] [place] [phone] 14 May, 2014 [facility] [address] [id number] [address] [place] [phone] May, [facility] [address] [id number] [address] [place] [phone] Feb, [facility] [address] [id number] [address] [place] [phone] Feb, [facility] [address] [id number] [address] [place] [phone] Feb, [facility] [address] [id number] [address] [place] [phone] Feb, [facility] [address] [id number] [address] [place] [phone] Feb, [facility] [address] [id number] [address] [place] [phone] Feb, [facility] [address] [id number] [address] [place] [phone] Feb, [facility] [address] [id number] [address] [place] [phone] Feb, [facility] [address] [id number] [address] [place] [phone] Jul, [facility] [address] [id number] [address] [place] [phone] June, [facility] [address] [id number] [address] [place] [phone] Mar, [facility] [address] [id number] [address] [place] [phone] Nov, [facility] [address] [id number] [address] [place] [phone] Nov, [facility] [address] [id number] [address] [place] [phone] Nov, [facility] [address] [id number] [address] [place] [phone] Nov, [facility] [address] [id number] [address] [place] [phone] Nov, [facility] [address] [id number] [address] [place] [phone] Nov, [facility] [address] [id number] [address] [place] [phone] Nov, [facility] [address] [id number] [address] [place] [phone] Jul, [facility] [address] [id number] [address] [place] [phone] May, [facility] [address] [id number] [address] [place] [phone] Feb, [facility] [address] [id number] [address] [place] [phone] Jan, [facility] [address] [id number] [address] [place] [phone] Jan, [facility] [address] [id number] [address] [place] [phone] Dec, [facility] [address] [id number] [address] [place] [phone] Oct, [facility] [address] [id number] [address] [place] [phone] Sep, IMMUNIZATIONS No Known Immunizations SOCIAL HISTORY Never Assessed REASON FOR VISIT kidney pain: left side x2 days, all movement exhaserbates, hx of kidney stones shayla sparrow rn PLAN OF CARE Activity Details Follow Up prn Reason: VITAL SIGNS Height 66 in 2017-03-18 Weight 140.4 lbs 2017-03-18 Temperature 98 degrees Fahrenheit 2017-03-18 Heart Rate 70 bpm 2017-03-18 Respiratory Rate 18 2017-03-18 BMI 22.66 kg/m2 2017-03-18 Blood pressure systolic 110 mmHg 2017-03-18 Blood pressure diastolic 62 mmHg 2017-03-18 MEDICATIONS Medication Instructions Dosage Frequency Start Date End Date Duration S juice Bactrim DS 800-160 MG Orally Twice a day 1 tablet 12h Feb, 018 1 Mar, 2017 07 days Active RESULTS No Results PROCEDURES Procedure Date Ordered Result Body Site URINALYSIS, AUTO, W/O SCOPE Mar 18, 2017 LAB [facility] Mar 18, 2017 INSTRUCTIONS MEDICATIONS ADMINISTERED No Known Medications MEDICAL (GENERAL) HISTORY Type Description Date Medical History Kidney stones during Surgical History section 11/01/2013 Surgical History tonsillectomy youth Hospitalization History /healthy 11/01/2013
--- OUTSIDE RECORDS SUMMARY | 2019-08-22 09:33 | XMS REPORT ---
Author Author [facility] Address [address] [place] [address] Care Team Providers Care Sql Ssrs Developer Name Role Phone BELLE RICHMOND Unavailable PROBLEMS Type Condition ICD9-CM Code APU42-GJ Code Onset Dates Condition S tatus SNOMED Code Problem Abdominal tenderness R10.819 Active 95879871 Problem Alopecia, unspecified L65.9 Active 84584383 Problem Chronic fatigue R53.82 Active 5270 2003 Problem Nexplanon insertion Z30.49 Active 413031031 Problem Nondependent tobacco use disorder Z72.0 Active 31931640 Problem Counseling on substance use and abuse Z71.89 Active 826702075 Problem Decreased libido R68.82 Active 835 7008 Problem Esophageal reflux K21.9 Active 23 0273164 ALLERGIES No Information ENCOUNTERS Encounter Location Date Diagnosis [facility] [address] [facility] [id number] [address] [place] [address] [id number] June, Dental caries K02.9 [facility] [address] [facility] [id number] [address] [place] [phone] May, Pharyngitis, unspecified lee ology J02.9 [facility] [address] [id number] [address] [place] [address] [id number] Apr, [facility] [address] [id number] [address] [place] [address] [id number] Mar, Dental caries extending into dentin K02.62 and Dental examination Z01.20 [facility] [address] [facility] [id number] [address] [place] [phone] Feb, [facility] [address] [facility] [id number] [address] [place] [phone] Feb, Flank pain R10.9 and History of renal stone Z87.442 [facility] [address] [id number] [address] [place] [phone] 13 Jan, 2017 [facility] [address] [id number] [address] [place] [phone] Nov, Dental examination Z01.20 [facility] [address] [id number] [address] [place] [address] [id number] Oct, Dental examination Z01.20 [facility] [address] [id number] [address] [place] [phone] Aug, [facility] [address] [id number] [address] [place] [phone] Jul, Encounter for immunization Z 23 and Penetrating wound of left foot, initial encounter S91.332A [facility] [address] [facility] [id number] [address] [place] [phone] June, Chronic fatigue R53.82 [facility] [address] [id number] [address] [place] [phone] June, [facility] [address] [id number] [address] [place] [phone] May, Strep pharyngitis J02.0 and Sore throat J02.9 [facility] [address] [id number] [address] [place] [phone] May, Encounter for immunization Z 23 [facility] [address] [id number] [address] [place] [phone] May, [facility] [address] [id number] [address] [place] [phone] May, Dental examination Z01.20 [facility] [address] [id number] [address] [place] [phone] Mar, Dental examination Z01.20 [facility] [address] [id number] [address] [place] [address] [id number] Mar, Dental examination Z01.20 [facility] [address] [facility] [id number] [address] [place] [phone] 07 Mar, 2016 Acute non-recurrent maxillar y sinusitis J01.00 [facility] [address] [facility] [id number] [address] [place] [phone] 09 Feb, 2016 Gastroenteritis K52.9 ; Righ t otitis media with effusion H65.91 and Fever R50.9 [facility] [address] [facility] [id number] [address] [place] [phone] 09 Feb, 2016 [facility] [address] [facility] [id number] [address] [place] [address] [id number] Feb, Dental examination Z01.20 [facility] [address] [address] Feb, Dysuria R30.0 [place] [address] [phone] Jan, Dental examination Z01.20 [facility] [address] [address] Jan, Dental examination Z01.20 [facility] [address] [address] Dec, Encounter for immunization Z 23 [place] [address] [address] 26 Nov, 2015 Dental examination Z01.20 an d Dental caries K02.9 [facility] [address] [place] [id number] [address] [place] [phone] Nov, [place] [address] [address] Oct, Dental examination Z01.20 [facility] [address] [place] [id number] [address] [place] [phone] Sep, Body aches R52 and Flu syndr ome J11.1 [place] [address] [place] [address] Sep, [facility] [address] [address] Apr, [facility] [address] [address] Apr, Well woman exam Z01.419 ; Ne xplanon insertion Z30.49 ; Encounter for screening for malignant neoplasm of cervix Z12.4 and Irregular menses N92.6 [facility] [address] [address] 04 Mar, 2015 Body aches R52 and Acute gas tritis without bleeding K29.00 [facility] [address] [address] Jan, Encounter for counseling reg arding contraception Z30.9 ; Vaginal discharge N89.8 ; Surveillance of contraceptive injection Z30.42 ; Irregular menses N92.6 ; OCP (oral contraceptive pills) initiation Z30.011 and Decreased libido R68.82 [facility] [address] [place] [id number] [address] [place] [phone] Jan, Encounter for Depo-Provera c ontraception Z30.42 [facility] [address] [place] [address] [phone] Jan, Encounter for dental examina tion Z01.20 [facility] [address] [place] [address] [id number] Dec, Dental caries K02.9 and Enco unter for dental examination Z01.20 [facility] [address] [place] [id number] [address] [place] [phone] Nov, Encounter for immunization Z 23 [facility] [address] [place] [address] [id number] Oct, Encounter for dental examina tion V72.2 [facility] [address] [address] Sep, Encounter for contraceptive management V25.9 [facility] [address] [id number] [address] [place] [address], [place] [address] 14 May, 2014 [facility] [address] [id number] [address] [place] [phone] May, [facility] [address] [id number] [address] [place] [phone] Feb, [facility] [address] [id number] [address] [place] [phone] Feb, [facility] [address] [id number] [address] [place] [phone] Feb, [facility] [address] [id number] [address] [place] [phone] Feb, [facility] [address] [id number] [address] [place] [phone] Feb, [facility] [address] [id number] [address] [place] [phone] Feb, [facility] [address] [id number] [address] [place] [phone] Feb, [facility] [address] [id number] [address] [place] [phone] Feb, [facility] [address] [id number] [address] [place] [phone] Jul, [facility] [address] [id number] [address] [place] [id number] June, [facility] [address] [id number] [address] [place] [phone] Mar, [facility] [address] [id number] [address] [place] [phone] Nov, [facility] [address] [id number] [address] [place] [phone] Nov, [facility] [address] [id number] [address] [place] [phone] Nov, [facility] [address] [id number] [address] [place] [phone] Nov, [facility] [address] [id number] [address] [place] [phone] Nov, [facility] [address] [id number] [address] [place] [phone] Nov, [facility] [address] [id number] [address] [place] [phone] Nov, [facility] [address] [id number] [address] [place] [phone] Jul, [facility] [address] [id number] [address] [place] [phone] May, [facility] [address] [id number] [address] [place] [phone] Feb, [facility] [address] [id number] [address] [place] [phone] Jan, [facility] [address] [id number] [address] [place] [phone] Jan, [facility] [address] [id number] [address] [place] [id number] Dec, [facility] [address] [id number] [address] [place] [id number] Oct, [facility] [address] [id number] [address] [place] [phone] Sep, IMMUNIZATIONS No Known Immunizations SOCIAL HISTORY Never Assessed REASON FOR VISIT eye exam PLAN OF CARE VITAL SIGNS MEDICATIONS No Known Medications RESULTS No Results PROCEDURES No Known procedures INSTRUCTIONS MEDICATIONS ADMINISTERED No Known Medications MEDICAL (GENERAL) HISTORY Type Description Date Medical History Kidney stones during Surgical History section 11/01/2013 Surgical History tonsillectomy youth Hospitalization History /healthy 11/01/2013
--- OUTSIDE RECORDS SUMMARY | 2019-08-22 09:33 | XMS REPORT ---
Author Author Kacey DENG Organization [facility] Address [address] [place] [address] Care Team Providers Care Retail Customer Service Specialist Name Role Phone ELEANOR DENG Unavailable PROBLEMS Type Condition ICD9-CM Code UNE06-ON Code Onset Dates Condition S tatus SNOMED Code Problem Abdominal tenderness R10.819 Active 27886688 Problem Alopecia, unspecified L65.9 Active 22462769 Problem Chronic fatigue R53.82 Active 5270 2003 Problem Nexplanon insertion Z30.49 Active 271539365 Problem Nondependent tobacco use disorder Z72.0 Active 03360524 Problem Counseling on substance use and abuse Z71.89 Active 742354126 Problem Decreased libido R68.82 Active 835 7008 Problem Esophageal reflux K21.9 Active 23 5095049 ALLERGIES Substance Reaction Event Type Date Status Omeprazole nausea Drug Allergy May, Active Chantix nightmares Drug Allergy May, Active SOCIAL HISTORY Never Assessed PLAN OF CARE Activity Details Follow Up prn Reason: VITAL SIGNS Height 66 in 2016-06-19 Weight 134 lbs 2016-06-19 Temperature 97.7 degrees Fahrenheit 2016-06-19 Heart Rate 76 bpm 2016-06-19 Respiratory Rate 20 2016-06-19 BMI 21.63 kg/m2 2016-06-19 Blood pressure systolic 124 mmHg 2016-06-19 Blood pressure diastolic 62 mmHg 2016-06-19 MEDICATIONS Medication Instructions Dosage Frequency Start Date End Date Duration S tatus Amoxicillin 500 MG Orally every 12 hrs 1 capsule 12h May, 201 7 8 Jun, 2016 10 day(s) Active RESULTS No Results PROCEDURES Procedure Date Ordered Result Body Site STREP A ASSAY W/OPTIC June 19, 2016 IMMUNIZATIONS No Known Immunizations MEDICAL (GENERAL) HISTORY Type Description Date Surgical History section 11/01/2013 Surgical History tonsillectomy youth Hospitalization History /healthy 11/01/2013
[2019-08-22] MEDS ORDERED: cefTRIAXone FOR IV USE 1,000 MG in WATER (STERILE) FOR INJECTION 10 ML IV ONE (09:45)
[2019-08-22] MEDS ORDERED: FAMO-119 PO (09:55)
[2019-08-22] MEDS ORDERED: ONDA4TAB11 PO (09:55)
[2019-08-22] MEDS ORDERED: PROM25TA14 PO (09:55)
[2019-08-22] MEDS ORDERED: PROM25SU44 RC (09:55)
[2019-08-22 10:15] VITALS: BP 104/66
== END 2019-08-22 10:15 | disposition home or self-care (01) ==
LOC: EDUNIT# 08:22 → ER 08:24
DX: O23.41 Unspecified infection of urinary tract in pregnancy, first trimester (principal); O21.9 Vomiting of pregnancy, unspecified; Z3A.08 8 weeks gestation of pregnancy
CPT/HCPCS: 36415; 80053; 81000; 83735; 85025; 87088; 96361; 96374; 96375

== ENCOUNTER 2019-08-28 12:49 | Emergency (ER) | payer MEDICAID ==
[~2019-08-28] VITALS: Ht 167.7 cm; Wt 58.9 kg
[~2019-08-28 12:49] MED LIST changes: +FAMO-119 PO; +MULT-228 PO; +PROM25SU44 RC; +PROM25TA14 PO
[2019-08-28] MEDS ORDERED: LACTATED RINGERS 1,000 ML IV ONE ×2 (13:11→14:15)
[2019-08-28 13:24] LABS: BASOPHILS % (AUTO) 0 % (0-10); EOSINOPHILS # (AUTO) 0.1 10^3/uL (0.0-0.3); EOSINOPHILS % (AUTO) 1 % (0-10); HEMATOCRIT 33 % (35-52); HEMOGLOBIN 11.4 G/DL (11.5-16.0); LYMPHOCYTES # (AUTO) 1.8 X 10^3 (1.0-4.0); LYMPHOCYTES % (AUTO) 20 % (12-44); MEAN CORPUSCULAR HEMOGLOBIN 30 PG (25-34); MEAN CORPUSCULAR HGB CONC 35 G/DL (32-36); MEAN CORPUSCULAR VOLUME 88 FL (80-99); MEAN PLATELET VOLUME 9.9 FL (7.4-10.4); MONOCYTES # (AUTO) 0.6 X 10^3 (0.0-1.0); MONOCYTES % (AUTO) 7 % (0-12); NEUTROPHILS # (AUTO) 6.5 X 10^3 (1.8-7.8); NEUTROPHILS % (AUTO) 72 % (42-75); PLATELET COUNT 257 10^3/uL (130-400); RED CELL DISTRIBUTION WIDTH 12.3 % (10.0-14.5)
[2019-08-28] MEDS ORDERED: PROMETHAZINE INJ 25 MG/ML (PHENERGAN) AMP IVP ONE (13:30)
[2019-08-28 13:34] LABS: CLARITY,URINE CLEAR; COLOR,URINE YELLOW; GLUCOSE, URINE (UA) NEGATIVE (NEGATIVE); KETONES,URINE 3+ (NEGATIVE); LEUKOCYTE ESTERASE ,URINE 2+ (NEGATIVE); NITRITE,URINE NEGATIVE (NEGATIVE); PROTEIN,URINE 1+ (NEGATIVE)
[2019-08-28 13:35] LABS: ALBUMIN 4.3 GM/DL (3.2-4.5)
[2019-08-28 13:36] LABS: CHLORIDE 106 MMOL/L (98-107); POTASSIUM 3.4 MMOL/L (3.6-5.0); SODIUM 138 MMOL/L (135-145)
[2019-08-28 13:37] LABS: AMYLASE 41 U/L (25-125); CALCIUM 9.3 MG/DL (8.5-10.1)
[2019-08-28 13:38] LABS: GLUCOSE 88 MG/DL (70-105); TOTAL PROTEIN 6.8 GM/DL (6.4-8.2)
[2019-08-28 13:39] LABS: CARBON DIOXIDE 21 MMOL/L (21-32)
[2019-08-28 13:40] LABS: BILIRUBIN,TOTAL 0.7 MG/DL (0.1-1.0)
[2019-08-28 13:41] LABS: ALKALINE PHOSPHATASE 32 U/L (40-136)
[2019-08-28 13:42] LABS: GFR ESTIMATED > 60
[2019-08-28 13:43] LABS: BACTERIA,URINE FEW /HPF
[2019-08-28 13:43] LABS: BUN/CREATININE RATIO 18
--- NOTE | 2019-08-28 13:43 | ED GI ---
General Chief Complaint: Abdominal/GI Problems Stated Complaint: 10 WEEKS ,POSS DEHYRDRATED,N/V Nursing Triage Note: PT AMB TO [facility] 4 WITH COMPLAINT OF N/V AND DIZZINESS. STATES SHE IS 10 WEEKS AND HAS BEEN TAKING ZOFRAN AND PHENERGAN FOR VOMITING. ALSO STATES SHE HAS NOT HAD A BOWEL MOVEMENT IN 3 WEEKS. Sepsis Screen: No Definite Risk Source of Information: Patient Exam Limitations: No Limitations History of Present Illness Date Seen by Provider: Aug 28, 2019 Time Seen by Provider: 13:12 Initial Comments PT ARRIVES VIA POV FROM HOME PT STATES SHE IS 10 WEEKS WITH LMP OF JUNE [id number]--NORMAL STATES SHE HAS HAD NAUSEA AND VOMITING FOR THE LAST 4 WEEKS, WORSE FOR THE LAST WEEK HAS VOMITED > 10 TIMES TODAY--STATES SHE CAN'T KEEP ANYTHING DOWN NO ABDOMINAL PAIN HAS NOT VOIDED MUCH USUAL BUT NO PAIN / BURNING ON URINATION. PT HAS NOT HAD A BM IN 3 WEEKS-STATES SHE HAS TAKEN A STOOL SOFTENER AND A LAXATIVE WITHOUT SUCCESS, BUT NOT TAKING ON DAILY BASIS NO VAGINAL BLEEDING FELT WEAK TODAY PT WAS SEEN HERE 08/22/19 FOR SAME WAS GIVEN RX'S FOR PHENERGAN SUPPOSITORIES #12, PHENERGAN TABLETS #10, PEPCID 20 MG BID #60, ZOFRAN ODT 4 MG #10 PT STATES SHE HAS NOT TAKEN ANY ZOFRAN--"CAN'T KEEP IT DOWN" AND HAS NOT USED ANY PEPCID OR PHENERGAN TABLETS OR SUPPOSITORIES PT STATES SHE HAD THE SAME ISSUE WITH PREVIOUS 5 YEARS AGO. NO FEVER/SWEATS/CHILLS NO COUGH OR SHORTNESS OF BREATH NO KNOWN SICK CONTACTS OR EXPOSURE TO COVID-19. 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 Allergies and Home Medications Allergies Coded Allergies: NKANo Known Allergies (Verified Allergy, Mild, 03/29/06) Home Medications Doxylamine/Pyridoxine HCl 1 Each Tablet.dr, 2 EACH PO HS Prescribed by: BRITTNI CELESTE on 08/28/19 1434 Famotidine 20 Mg Tablet, 20 MG PO BID Prescribed by: ANAIS FAITH on 08/22/19 0955 Ferrous Sulfate 325 Mg Tab, 325 MG PO BID WITH MEALS Prescribed by: BIANCA BUSH on 11/02/13 1630 Hydrocodone Bit/Acetaminophen 1 Ea Tab, 1-2 EA PO Q3HR PRN for PAIN Prescribed by: BIANCA BUSH on 11/02/13 1630 Multivitamin 1 Each Tab.chew, 1 EACH PO DAILY, (Reported) Nitrofurantoin Monohyd/M-Cryst 100 Mg Capsule, 1 TAB PO BID Prescribed by: BRITTNI CELESTE on 08/28/19 1434 Ondansetron 4 Mg Tab.rapdis, 4 MG PO Q4H PRN for NAUSEA/VOMITING Prescribed by: ANAIS FAITH on 08/22/19 0955 Promethazine HCl 25 Mg Tablet, 25 MG PO Q6H PRN for NAUSEA/VOMITING Prescribed by: ANAIS FATIH on 08/22/19 0955 Promethazine HCl 25 Mg Supp.rect, 25 MG RC Q6H PRN for NAUSEA/VOMITING Prescribed by: ANAIS FAITH on 08/22/19 0955 [Ibuprofen] 600 MG TAB, 600 MG PO Q6H PRN for PAIN Prescribed by: BIANCA BUSH on 11/02/13 1630 Patient Home Medication List Home Medication List Reviewed: Yes Review of Systems Review of Systems Constitutional: No chills, No diaphoresis, No dizziness, No fever; malaise, weakness EENTM: No Symptoms Reported Respiratory: No Symptoms Reported; Denies Cough, Denies Shortness of Air Cardiovascular: No Symptoms Reported Gastrointestinal: See HPI; Denies Abdominal Pain; Constipated, Nausea, Poor Appetite, Poor Fluid Intake, Vomiting Genitourinary: See HPI; Denies Burning, Denies Drainage, Denies Frequency, Denies Flank Pain Musculoskeletal: no symptoms reported Skin: no symptoms reported Psychiatric/Neurological: No Symptoms Reported Endocrine: No Symptoms Reported Hematologic/Lymphatic: No Symptoms Reported Past Cnmtdri-Dcjruw-[place] Hx Past Med/Social Hx: Reviewed and Corrections made Patient Social History Alcohol Use: Denies Use Recreational Drug Use: No Smoking Status: Never a Smoker 2nd Hand Smoke Exposure: No Recent Foreign Travel: No Contact w/Someone Who Travel: No Recent Infectious Disease Expo: No Recent Hopitalizations: No Immunizations Up To Date Tetanus Booster (TDap): Unknown PED Vaccines UTD: Yes Past Medical History Surgeries: Yes (Leipsic Teeth) Section Respiratory: No Cardiac: No Neurological: No : Yes Last Menstrual Period: June 28, 2019 Hx : 2 Hx Para: 1 Reproductive Disorders: No Female Reproductive Disorders: Denies Sexually Transmitted Disease: No HIV/AIDS: No Genitourinary: No Gastrointestinal: No Musculoskeletal: No Endocrine: No HEENT: No Cancer: No Psychosocial: No Integumentary: No Blood Disorders: No Adverse Reaction/Blood Tranf: No Family Medical History Arthritis Grandparents (Maternal Grandmother) Asthma 19 FATHER Cardiovascular disease Grandparents (Maternal Grandmother) Fibrocystic disease of breast 19 MOTHER No Family History of: AIDS Abdominal aortic aneurysm Raphine's disease Alcoholism Alzheimer's disease Aphasia Cancer of mouth Cataracts Colon cancer Completed stroke Congenital disease Congenital heart disease Coronary thrombosis Cystic fibrosis Deafness or hearing loss Dementia Diabetes mellitus Drug abuse Dysphasia Gastroenteritis Glaucoma Headache disorder Hypercholesterolemia Hypertension Infertility Kidney disease Myocardial infarction Neoplasm Not obtainable due to adoption Osteoporosis Parkinson's disease Prostate cancer Psychosocial problem Respiratory disorder Seizure disorder Severe allergy Thyroid disease Tuberculosis Visual disorder No Pertinent Family Hx Physical Exam Vital Signs Vital Signs - First Documented 08/28/19 12:59 Temp 36.7 Pulse 80 Resp 20 B/P (MAP) 109/83 (92) Pulse Ox 98 O2 Delivery Room Air Capillary Refill : Less Than 3 Seconds Height/Weight/BMI Height: 5'6.00" Weight: 140lbs. oz. 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, no motor/sensory deficits, alert, normal mood/affect, oriented x 3 Skin: warm/dry, pallor Progress/Results/Core Measures Results/Orders Lab Results Laboratory Tests Test 08/28/19 13:02 08/28/19 13:10 Range/Units Urine Color YELLOW Urine Clarity CLEAR Urine pH 7.0 5-9 Urine Specific [place] 1.020 1.016-1.022 Urine Protein 1+ H NEGATIVE Urine Glucose (UA) NEGATIVE NEGATIVE Urine Ketones 3+ H NEGATIVE Urine Nitrite NEGATIVE NEGATIVE Urine Bilirubin 1+ H NEGATIVE Urine Urobilinogen 4.0 < = 1.0 MG/DL Urine Leukocyte Esterase 2+ H NEGATIVE Urine RBC (Auto) 2+ H NEGATIVE Urine RBC 2-5 H /HPF Urine WBC 10-25 H /HPF Urine Squamous Epithelial Cells 2-5 /HPF Urine Crystals NONE /LPF Urine Bacteria FEW H /HPF Urine Casts NONE /LPF Urine Mucus SMALL H /LPF Urine Culture Indicated YES White Blood Count 9.0 4.3-11.0 10^3/uL Red Blood Count 3.75 L 4.35-5.85 10^6/uL Hemoglobin 11.4 L 11.5-16.0 G/DL Hematocrit 33 L 35-52 % Mean Corpuscular Volume 88 80-99 FL Mean Corpuscular Hemoglobin 30 25-34 PG Mean Corpuscular Hemoglobin Concent 35 32-36 G/DL Red Cell Distribution Width 12.3 10.0-14.5 % Platelet Count 257 130-400 10^3/uL Mean Platelet Volume 9.9 7.4-10.4 FL Neutrophils (%) (Auto) 72 42-75 % Lymphocytes (%) (Auto) 20 12-44 % Monocytes (%) (Auto) 7 0-12 % Eosinophils (%) (Auto) 1 0-10 % Basophils (%) (Auto) 0 0-10 % Neutrophils # (Auto) 6.5 1.8-7.8 X 10^3 Lymphocytes # (Auto) 1.8 1.0-4.0 X 10^3 Monocytes # (Auto) 0.6 0.0-1.0 X 10^3 Eosinophils # (Auto) 0.1 0.0-0.3 10^3/uL Basophils # (Auto) 0.0 0.0-0.1 10^3/uL Sodium Level 138 135-145 MMOL/L Potassium Level 3.4 L 3.6-5.0 MMOL/L Chloride Level 106 98-107 MMOL/L Carbon Dioxide Level 21 21-32 MMOL/L Anion Gap 11 5-14 MMOL/L Blood Urea Nitrogen 11 7-18 MG/DL Creatinine 0.60 0.60-1.30 MG/DL Estimat Glomerular Filtration Rate > 60 BUN/Creatinine Ratio 18 Glucose Level 88 70-105 MG/DL Calcium Level 9.3 8.5-10.1 MG/DL Corrected Calcium 9.1 8.5-10.1 MG/DL Magnesium Level 1.8 1.6-2.4 MG/DL Total Bilirubin 0.7 0.1-1.0 MG/DL Aspartate Amino Transf (AST/SGOT) 28 5-34 U/L Alanine Aminotransferase (ALT/SGPT) 69 H 0-55 U/L Alkaline Phosphatase 32 L 40-136 U/L Total Protein 6.8 6.4-8.2 GM/DL Albumin 4.3 3.2-4.5 GM/DL Amylase Level 41 25-125 U/L Lipase 10 8-78 U/L Human Chorionic Gonadotropin, Quant 46482 H <5 MIU/ML My Orders Orders - BRITTNI CELESTE DO Ed Iv/Invasive Line Start (08/28/19 13:11) Amylase (08/28/19 13:11) Cbc With Automated Diff (08/28/19 13:11) Comprehensive Metabolic Panel (08/28/19 13:11) Hcg,Quantitative (08/28/19 13:11) Lipase (08/28/19 13:11) Magnesium (08/28/19 13:11) Ua Culture If Indicated (08/28/19 13:11) Ed Iv/Invasive Line Start (08/28/19 13:11) Lactated Ringers (Lr 1000 Ml Iv Solution (08/28/19 13:11) Promethazine Injection (Phenergan Injec (08/28/19 13:30) Urine Culture (08/28/19 13:02) Ed Iv/Invasive Line Start (08/28/19 14:15) Lactated Ringers (Lr 1000 Ml Iv Solution (08/28/19 14:15) Ceftriaxone For Iv Use (Rocephin For I (08/28/19 14:15) Medications Given in ED Current Medications Medications Dose Ordered Sig/Shelly Route Start Time Stop Time Status Last Admin Dose Admin Ceftriaxone Sodium 1000 mg/ Sterile Water 10 ml @ 200 mls/hr ONCE ONCE IV 08/28/19 14:15 08/28/19 14:25 DC 08/28/19 14:34 200 MLS/HR Lactated Ringer's 1,000 ml @ 0 mls/hr Q0M ONCE IV 08/28/19 13:11 08/28/19 13:15 DC 08/28/19 13:19 0 MLS/HR Lactated Ringer's 1,000 ml @ 0 mls/hr Q0M ONCE IV 08/28/19 14:15 08/28/19 14:25 DC 08/28/19 14:34 0 MLS/HR Promethazine HCl 25 mg ONCE ONCE IVP 08/28/19 13:30 08/28/19 13:31 DC 08/28/19 13:38 25 MG Vital Signs/I&O 08/28/19 12:59 Temp 36.7 Pulse 80 Resp 20 B/P (MAP) 109/83 (92) Pulse Ox 98 O2 Delivery Room Air Blood Pressure Mean: 92 Progress Progress Note : Progress Note NO VOMITING AT ANY TIME DURING ER STAY--NAUSEA IMPROVED PT TOLERATING ICE CHIPS Departure Impression Primary Impression: Nausea and vomiting during prior to 22 weeks gestation Additional Impression: UTI (urinary tract infection) in in first trimester Disposition: 01 HOME, SELF-CARE Condition: Improved Departure-Patient Inst. Referrals: [facility]/ (PCP) Primary Care Physician BIANCA BUSH DO (Family) Primary Care Physician Patient Instructions: Urinary Tract Infections in , Nausea and Vomit ing of (DC) Add. Discharge Instructions: CLEAR LIQUIDS, SIPS AT A TIME--WATER, BROTH, JELLO, GATORADE, POPSICLES, ICE CHIPS BLAND DIET--NO SPICY, GREASY, ACIDIC FOOD OR DRINK USE MIRALAX--MAY USE EVERY 2 HOURS UNTIL YOU HAVE A BOWEL MOVEMENT, THEN DECREASE TO USING TWICE A DAY EVERY DAY USE YOUR ZOFRAN AND PHENERGAN SUPPOSITORIES NEEDED FOR NAUSEA FOLLOW UP WITH DR. BUSH IN 1-2 DAYS IF NO BETTER, OTHERWISE KEEP YOUR SCHEDULED APPOINTMENT All discharge instructions reviewed with patient and/or family. Voiced understanding. Scripts Doxylamine/Pyridoxine HCl (Natalio Bahena 10-10 mg Tablet) 1 Each Tablet. 2 EACH PO HS, #30 TAB Prov: BRITTNI CELESTE DO 08/28/19 Nitrofurantoin Monohyd/M-Cryst (Macrobid 100 mg Capsule) 100 Mg Capsule 1 TAB PO BID, #20 CAP Prov: BRITTNI CELESTE DO 08/28/19 BRITTNI CELESTE DO Aug 28, 2019 13:43
[2019-08-28 13:44] LABS: ALANINE AMINOTRANSFERASE 69 U/L (0-55); MAGNESIUM 1.8 MG/DL (1.6-2.4)
[2019-08-28 13:45] LABS: LIPASE 10 U/L (8-78)
[2019-08-28] MEDS ORDERED: cefTRIAXone FOR IV USE 1,000 MG in WATER (STERILE) FOR INJECTION 10 ML IV ONE (14:15)
[2019-08-28] MEDS ORDERED: DOXY1TAB3 PO (14:34)
[2019-08-28] MEDS ORDERED: NITR-65 PO (14:34)
[2019-08-28 14:57] LABS: BILIRUBIN,URINE 1+ (NEGATIVE)
[2019-08-28 15:26] VITALS: BP 115/79
== END 2019-08-28 15:26 | disposition home or self-care (01) ==
LOC: EDUNIT# 12:49 → ER 12:50
DX: O21.9 Vomiting of pregnancy, unspecified (principal); O23.41 Unspecified infection of urinary tract in pregnancy, first trimester; Z3A.08 8 weeks gestation of pregnancy
CPT/HCPCS: 36415; 80053; 81000; 82150; 83690; 83735; 84702; 85025; 87088

== ENCOUNTER 2019-09-03 13:31 | Emergency (ER) | payer MEDICAID ==
[~2019-09-03] VITALS: Ht 167.7 cm; Wt 57.2 kg
[~2019-09-03 13:31] MED LIST changes: +DOXY1TAB3 PO; +NITR-65 PO
--- OUTSIDE RECORDS SUMMARY | 2019-09-03 13:36 | XMS REPORT ---
Author Author [employer] [facility] Address [address] [address] Care Team Providers Care Bobbin Winder Tender Name Role Phone BELLE RICHMOND Unavailable Unavailable NAVID SILVERIO Unavailable Unavailable JOSE LUIS TOBIAS Unavailable Unavailable SUNITHA LEBRON Unavailable Unavailable SANDRO HOSKINS Unavailable Unavailable SULMA VILA Unavailable Unavailable VONDA MARTINEZ Unavailable [facility]available [facility] Unavailable [phone] ROSIO AGUERO Unavailable Unavailable BRITTNI MOODY Un[facility] ELEANOR EDNG Un[facility] Unavailable HEIDY BRITTNI Unavailable PARAS WILL Unavailable AIDEE Johnson Unavailable CECILE KEENAN Unavailable RICHMOND, BELLE Unavailable MAT AGRAWAL Unavailable AGRAWALLYNDSAYMAT Unavailable HEIDY BRITTNI Unavailable CECILE Quach Unavailable CAMILO, DALE Unavailable DIMPLE DE LA FUENTE Unavailable CAMILO, DALE Unavailable Migration, Doctor Unavailable Unavailable Migration, Doctor Unavailable Unavailable CLARIBEL Agrawal Unavailable PCP, OUTSIDE Unavailable Unavailable Mat Sommers Unavailable Unavailable Reilly Escobar Unavailable Unavailable RICHMONDBELLE Unavailable RICHMOND BELLE Unavailable MELANIE WYNN Unavailable Unavailable Unavailable DONY MIRELES Unavailable Unavailable MARI BAUMANN, ANAIS Holt Unavailable Unavailable BRITTNI CELESTE DO Unavailable Unavailable Unavailable Unavailable Unavailable Unavailable Unavailable Unavailable Unavailable Unavailable Allergies Allergy Reported Allergen(s) Allergy Type Date of Reaction(s) Care Facility Classificati Onset Provider on Unclassified Omeprazole Magnesium 20 Propensity 06-05-2014 Unknow n Doctor Community (1 source) Mg Capsule,delayed to adverse [facility] Release reactions Center [facility] ([id number]) Encounters Encounter Date Encounter Type Encounter Diagnosis Care Provider Facility Start: Patient encounter BRITTNI CELESTE DO [facility]ti 08-28-2019 procedure [facility] [address] Start: Patient encounter ANAIS GUERRA [facility] V ia Joann 08-22-2019 procedure [facility] Start: Patient encounter NA Critical access hospital 08-02-2019 [facility] Start: Patient encounter Mat Matthieu Gomezne [facility] 03-24-2019 procedure ([id number]) Start: Patient encounter NA Critical access hospital 03-22-2019 procedure [facility] ([id number]) Start: [address] Influenza due to BIANCA BUSCH [address] 03-22-2019 unidentified influenza virus with other respiratory manifestations Start: Patient encounter Mat Matthieu Patriciane [facility] 03-16-2019 procedure ([id number]) Start: Patient encounter Mat Matthieu Gomezne [facility] 03-08-2019 procedure ([id number]) Start: Patient encounter Mat Barlows [facility] 03-06-2019 procedure ([id number]) Start: Office outpatient new [facility] 03-03-2019 45 minutes ([id number]) Start: Patient encounter Mat Gomezne [facility] 03-03-2019 procedure ([id number]) Start: Patient encounter Mat Matthieu [facility] 02-17-2019 procedure ([id number]) Start: [facility] Encounter for DONY Spann [facility] 11-08-2018 surveillance of injectable End: contraceptive 11-08-2018 Start: [facility] Encounter for BELLE RICHMOND [facility] 08-05-2018 surveillance of injectable End: contraceptive 08-05-2018 Start: Patient encounter OUTSIDE [facility] 08-05-2018 procedure [facility] ([id number]) Start: [facility] Encounter for dental RAMY DELVALLE N [facility] 05-19-2018 DENTAL examination and DENTAL cleaning without End: abnormal findings 05-19-2018 Start: Patient encounter OUTSIDE [facility] 05-19-2018 procedure [facility] ([id number]) Start: [facility] Encounter for DONY Spann [facility] 04-12-2018 surveillance of implantable subdermal End: contraceptive 04-12-2018 Start: Patient encounter NA Critical access hospital 04-12-2018 procedure [facility] ([id number]) Start: Patient encounter OUTSIDE [facility] 01-26-2018 procedure [facility] ([id number]) Start: [facility] Encounter for dental VERONIKA NEARING [facility] 01-26-2018 DENTAL examination and DENTAL cleaning without End: abnormal findings 01-26-2018 Start: Patient encounter OUTSIDE [facility] 04-21-2017 procedure [facility] ([id number]) Start: Patient encounter MAT AGRAWAL Not Availab le ([id number]) 03-18-2017 procedure Start: Patient encounter 03-18-2017 procedure Start: Evaluation and BIANCA ELEAZAR DO Not Availab le ([id number]) 04-12-2013 management of inpatient End: 04-13-2013 Start: Emergency department ANAIS GUERRA MD N ot Available ([id number]) 04-04-2013 patient visit End: 04-04-2013 Start: Emergency department MARITZA MARRERO MD Not Available ([id number]) 03-20-2013 patient visit End: 03-20-2013 Medical Equipment No Information Goals No Information Immunizations The data below is from unstructured sources Name Given Type Tetanus Booster (TDap) Unknown Historical No Known Immunizations Interventions No Information Medications The data below is from unstructured [...] Known Medications Unknown Medications No Known Medications Payers Date Payer Normalized Payer Policy ID [employer] PRIVATE [employer] INSURANCE [id number] Plan of Treatment The data below is from unstructured sources Discharge Date 10/30/13 1:29pm Disposition 01 HOME, SELF-CARE Instructions/Education Provided OB O UTPATIENT DISCHARGE Forms Provided [facility]I Women Services/OP Prescriptions See Medications Sectio n Referrals BIANCA BUSH DO (Unspe cified) 11/07/13 Address: [address] [place] [address] Discharge Date 11/04/13 12:40pm Disposition 01 HOME, SELF-CARE Instructions/Education Provided POST DISCHARGE SECTION DISCHARGE Iron Rich Diet (DC) Breast Care for the Breast Feeding Mother (DC) Prescriptions See Medications Sectio n Referrals BIANCA BUSH DO (Unspe cified) 11/07/13 Address: [address] [place] [id number] BIANCA BUSH DO (Unspecified) 11/07/13 Address: [address] [place] [id number] Activity Details Follow Up prn Reason:chin Activity [...] Details Follow Up 3 Months Reason:chin/hygien e Problems Problem Problem Date Last Documented Episodic/Chr Provider Classificati Recorded Date onic on Acute Acute posthemorrhagic anemia Episodic BIANCA posthemorrha FENYARIEL DO gic anemia (1 source) Blindness Generalized contraction of visual Episodic Mat and vision field, bilateral ; Translations: Ri ggins defects [Other visual disturbances] (9 sources) Early or Other threatened labor, antepartum Episodic BIANCA threatened condition or complication FENECH DO labor (1 source) Fetopelvic Bone and joint disorders of back, Episodic BIANCA disproportio pelvis, and lower limbs of mother, FENECH DO n; antepartum condition or obstruction complication ; Translations : (2 sources) [Fetopelvic disproportion, delivered, with or without mention of antepartum condition] Inflammation Unspecified optic neuritis Chronic M ichele ; infection [place] of eye (except that caused by tuberculosis or sexually transmittedd isease) (5 sources) Other Anemia of mother, delivered, with Chronic BIANCA complication mention of complication FENECH DO s of ; puerperium affecting management of mother (1 source) Other Other current conditions Episodic DEREK OTHY complication classifiable elsewhere of mother, S ERNESTO BAUMANN s of antepartum condition or complication (1 source) Other Infections of genitourinary tract Episodic ANAIS complication in , antepartum condition BRUEGGEMANN s of or complication (1 source) Other Mild hyperemesis gravidarum, Episodic ANAIS complication antepartum condition or BRUEGGEMANN s of complication (2 sources) Other Other specified complications of Episodic BIANCA complication , antepartum condition or FENECH DO s of complication (1 source) Other Vomiting of , unspecified 08-29-2019 Epis odic ANAIS complication MARI s of (4 sources) Other Unspecified infection of urinary 08-29-2019 Episod ic ANAIS complication tract in , first trimester BRUEGGEMANN s of (2 sources) Other female Other noninflammatory disorders of Episodic MAT genital ovary, fallopian tube and broad CAR EY disorders ligament (2 sources) Residual 8 weeks gestation of 08-29-2019 Episodic ANAIS codes; MARI unclassified (2 sources) Spondylosis; Backache, unspecified Episodic MICHAE L intervertebr FENECH DO al disc disorders; other back problems (1 source) Umbilical Other and unspecified cord Episodic M ICHAEL cord entanglement, without mention of FE NECH DO complication compression, complicating l abor and (1 source) delivery, delivered, with o r without mention of antepartum condition Urinary Urinary tract infection, site not Episodic ANAIS tract specified BRUEGGECHAPO infections (1 source) Procedures Date Procedure Procedure Detail Performing Cl inician Start: Visual field xm Mat Sommers 03-03-2019 uni/bi w/interp extended exam Start: Collection venous BELLE RICHMOND 03-08-2013 blood venipuncture Other Start: Gonadotropin BELLE RICHMOND 03-08-2013 chorionic Other Phone: qualitative Start: Incision & MELANIE KINGSLEY 08-11-2011 drainage abscess Other Phone: simple/single APPL/ADMIN OF AN BIANCA FENECH DO 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 NO SUSCEPTIBILITY PERFORMED Invalid PEND ING Interpreta LOCATIO 020 tion Code N [facility] 09:02-0 ([id number]) 400 SUSCEPTIBILITY Positive Invalid PENDING Interpreta LOCATIO 020 tion Code N [facility] 09:02-0 ([id number]) 400 laboratory on 2019-08-28 Bacteria identified 3 OR MORE Invalid PENDING Cx Nom (U) Interpreta LOCATIO 020 tion Code N [facility] 09:02-0 ([id number]) 400 MRSA DNA JEFF+probe COLLECTION CONTAMINATION WITH SKIN Invalid PENDING Ql (Unsp spec) Interpreta LOCATIO 020 tion Code N [facility] 09:02-0 ([id number]) 400 not yet categorized on 2019-08-22 COLONY COUNT >100,000/ML Invalid PENDING Interpreta LOCATIO 020 tion Code N [facility] 04:44-0 ([id number]) 400 RAPID ID NO SUSCEPTIBILITY PERFORMED Invalid PENDING Interpreta LOCATIO 020 tion Code N [facility] 04:44-0 ([id number]) 400 SUSCEPTIBILITY Positive Invalid PENDING Interpreta LOCATIO 020 tion Code N [facility] 04:44-0 ([id number]) 400 laboratory on 2019-08-22 Bacteria identified 3 OR MORE Invalid PENDING Cx Nom (U) Interpreta LOCATIO 020 tion Code N [facility] 04:44-0 ([id number]) 400 MRSA DNA JEFF+probe COLLECTION CONTAMINATION WITH SKIN JEFF I nvalid PENDING Ql (Unsp spec) Interpreta LOCATIO 020 tion Code N [facility] 04:44-0 ([id number]) 400 laboratory on 2019-08-02 Beta HCG ( Positive Abnormal See Note: Commun i test) Ql ty [facility] ([id number]) not yet categorized on 2019-03-22 Control Negative Invalid Communi Interpreta ty tion Code [facility] ([id number]) Exp date 01/18/2021 Invalid Communi Interpreta ty tion Code [facility] ([id number]) Lot # [id number] Invalid Communi Interpreta ty tion Code [facility] ([id number]) not yet categorized on 2018-08-05 Exp date +~11/2019 Invalid Communi Interpreta ty tion Code [facility] ([id number]) Lot # [id number] Invalid Communi Interpreta ty tion Code [facility] ([id number]) RESULTS Negative Invalid Communi Interpreta ty tion Code [facility] ([id number]) not yet categorized on 2018-04-12 COMMENT Invalid Communi Interpreta ty tion Code [facility] ([id number]) laboratory on 2018-04-12 C. trachomatis rRNA Not detected Normal NOT Commu ni JEFF+probe Ql (Unsp DETECTED ty spec) [facility] ([id number]) N. gonorrhoeae rRNA Not detected Normal NOT Commu ni JEFF+probe Ql (Unsp DETECTED ty spec) [facility] ([id number]) not yet categorized on 2017-03-18 BLO 2+ Invalid Not Interpreta Availab tion Code le (79361) KET 10/2017~clear~yellow~present~negative~negativ Invalid Not e~negative Interpreta Availab tion Code le (54923) TOREY Negative Invalid Not Interpreta Availab tion Code le (73234) Lot # [id number] Invalid Not Interpreta Availab tion Code le (11141) SG 1.025 Invalid Not Interpreta Availab tion Code le (58886) URO 1.0 Invalid Not Interpreta Availab tion Code le (89131) laboratory on 2017-03-18 Bacteria identified SEE NOTE Invalid Not Cx Nom (U) Interpreta Availab tion Code le () pH (Bld) 6.5 [pH] Invalid Not Interpreta Availab tion Code le () Protein (U) Negative Invalid Not [Mass/Vol] Interpreta Availab tion Code le () laboratory on 2016-07-15 Albumin [Mass/Vol] 4.2 g/dL Invalid 3.5-5.5 Not 05-2 4-2 Interpreta g/dL Availab 017 tion Code le 09:0 ([id number]) 400 Albumin/Globulin 1.8 {ratio} Invalid 1.2-2.2 Not 05-2 4-2 [Mass ratio] Interpreta Availab 017 tion Code le 09:0 (93177) 400 ALP [Catalytic 51 U/L Invalid 39-117 Not 05-24-2 activity/Vol] Interpreta IU/L Availab 017 tion Code le 09:0 ([id number]) 400 ALT [Catalytic 7 U/L Invalid 0-32 IU/L Not 05-24-2 activity/Vol] Interpreta Availab 017 tion Code le 09:0 (10804) 400 AST [Catalytic 11 U/L Invalid 0-40 IU/L Not 05-24-2 activity/Vol] Interpreta Availab 017 tion Code le 09:0 (93990) 400 Basophils (Bld) 0.1 10*3/uL Invalid 0.0-0.2 Not 24 -2 [#/Vol] Interpreta x10E3/uL Availab 017 tion Code le 08:060 (31904) 400 Basophils/100 WBC 1 % Invalid % Not 24 -2 (Bld) Interpreta Availab 017 tion Code le 08:06-0 (76882) 400 Bilirubin [Mass/Vol] 0.2 mg/dL Invalid 0.0-1.2 Not 05 -24-2 Interpreta mg/dL Availab 017 tion Code le 09:22-0 (08743) 400 Calcium [Mass/Vol] 9.5 mg/dL Invalid 8.7-10.2 Not 05-2 4-2 Interpreta mg/dL Availab 017 tion Code le 09:22-0 (16799) 400 Chloride [Moles/Vol] 101 mmol/L Invalid 96-106 Not 0 24-2 Interpreta mmol/L Availab 017 tion Code le 09:22-0 ([id number]) 400 CO2 [Moles/Vol] 25 mmol/L Invalid 18-29 Not 2 Interpreta mmol/L Availab 017 tion Code le 09:22-0 (39841) 400 Creatinine 0.73 mg/dL Invalid 0.57-1.00 Not [Mass/Vol] Interpreta mg/dL Availab 017 tion Code le 09:22-0 (14325) 400 Eosinophils (Bld) 0.1 10*3/uL Invalid 0.0-0.4 Not [#/Vol] Interpreta x10E3/uL Availab 017 tion Code le 08:06-0 (16854) 400 Eosinophils/100 WBC 2 % Invalid % Not (Bld) Interpreta Availab 017 tion Code le 08:06-0 (43885) 400 Erythrocyte 13.4 % Invalid 12.3-15.4 Not distribution width Interpreta % Availab 017 (RBC) [Ratio] tion Code le 08:06-0 (23477) 400 Free T4 [Mass/Vol] 1.08 ng/dL Invalid 0.82-1.77 Not Interpreta ng/dL Availab 017 tion Code le 08:24-0 (10609) 400 GFR/1.73 sq 130 mL/min/{1.73_m2} Invalid >59 Not 07-15-2 M.predicted among Interpreta mL/min/1.7 Availab 017 blacks MDRD tion Code 3 le 09:22-0 (S/P/Bld) [Vol (17540) 400 rate/Area] GFR/1.73 sq 112 mL/min/{1.73_m2} Invalid >59 Not 07-15-2 M.predicted among Interpreta mL/min/1.7 Availab 017 non-blacks MDRD tion Code 3 le 09:22-0 (S/P/Bld) [Vol (35979) 400 rate/Area] Globulin (S) 2.4 g/dL Invalid 1.5-4.5 Not -24-2 [Mass/Vol] Interpreta g/dL Availab 017 tion Code le 09:22-0 (86540) 400 Glucose [Mass/Vol] 86 mg/dL Invalid 65-99 Not 05-2 4-2 Interpreta mg/dL Availab 017 tion Code le 09:22-0 (75002) 400 Hematocrit (Bld) 38.3 % Invalid 34.0-46.6 Not 24- 2 [Volume fraction] Interpreta % Availab 017 tion Code le 08:06-0 ([id number]) 400 Hemoglobin (Bld) 12.3 g/dL Invalid 11.1-15.9 Not 24- 2 [Mass/Vol] Interpreta g/dL Availab 017 tion Code le 08:06-0 (06498) 400 Immature 0.0 10*3/uL Invalid 0.0-0.1 Not 24-2 granulocytes (Bld) Interpreta x10E3/uL Availab 017 [#/Vol] tion Code le 08:06-0 (43580) 400 Immature 0 % Invalid % Not 07-15-2 granulocytes/100 WBC Interpreta Availab 017 (Bld) tion Code le 08:06-0 (58151) 400 Lymphocytes (Bld) 2.7 10*3/uL Invalid 0.7-3.1 Not 24-2 [#/Vol] Interpreta x10E3/uL Availab 017 tion Code le 08:06-0 (10190) 400 Lymphocytes/100 WBC 43 % Invalid % Not 24-2 (Bld) Interpreta Availab 017 tion Code le 08:06-0 (61319) 400 MCH (RBC) [Entitic 29.5 pg Invalid 26.6-33.0 Not 05-2 4-2 mass] Interpreta pg Availab 017 tion Code le 08:06-0 (62765) 400 MCHC (RBC) 32.1 g/dL Invalid 31.5-35.7 Not 05-24-2 [Mass/Vol] Interpreta g/dL Availab 017 tion Code le 08:06-0 (11516) 400 MCV (RBC) [Entitic 92 fL Invalid 79-97 fL Not 05-2 4-2 vol] Interpreta Availab 017 tion Code le 08:06-0 (52145) 400 Monocytes (Bld) 0.6 10*3/uL Invalid 0.1-0.9 Not 07-15 [#/Vol] Interpreta x10E3/uL Availab 017 tion Code le 08:06-0 (40961) 400 Monocytes/100 WBC 10 % Invalid % Not 07-15 (Bld) Interpreta Availab 017 tion Code le 08:06-0 (96277) 400 Neutrophils (Bld) 2.8 10*3/uL Invalid 1.4-7.0 Not [#/Vol] Interpreta x10E3/uL Availab 017 tion Code le 08:06-0 (75236) 400 Neutrophils/100 WBC 44 % Invalid % Not (Bld) Interpreta Availab 017 tion Code le 08:06-0 (22138) 400 Platelets (Bld) 246 10*3/uL Invalid 150-379 Not 07-15 [#/Vol] Interpreta x10E3/uL Availab 017 tion Code le 08:060 (08802) 400 Potassium 4.0 mmol/L Invalid 3.5-5.2 Not [Moles/Vol] Interpreta mmol/L Availab 017 tion Code le 09:-0 (99370) 400 Protein [Mass/Vol] 6.6 g/dL Invalid 6.0-8.5 Not 06-23 4-2 Interpreta g/dL Availab 017 tion Code le 09:-0 (44804) 400 RBC (Bld) [#/Vol] 4.17 10*6/uL Invalid 3.77-5.28 Not Interpreta x10E6/uL Availab 017 tion Code le 08:06-0 (03300) 400 Sodium [Moles/Vol] 141 mmol/L Invalid 134-144 Not Interpreta mmol/L Availab 017 tion Code le 09:22-0 (41564) 400 TSH Qn 1.630 Invalid 0.450-4.50 Not Interpreta 0 uIU/mL Availab 017 tion Code le 08:24-0 (74844) 400 Urea nitrogen 13 mg/dL Invalid 6-20 mg/dL Not [Mass/Vol] Interpreta Availab 017 tion Code le 09:22-0 (41758) 400 Urea 18 mg/mg Invalid 11-14 Not nitrogen/Creatinine Interpreta Availab 017 [Mass ratio] tion Code le 09:22-0 (05236) 400 WBC (Bld) [#/Vol] 6.3 10*3/uL Invalid 3.4-10.8 Not Interpreta x10E3/uL Availab 017 tion Code le 08:06-0 (78101) 400 Social History No Information Vital Signs Date Time Vital Sign Value Performing Clinician Facil ity 08-11-2011 Body height 167.64 cm [facility] 10: Other Phone: [facility] [place] ([id number]) 08-11-2011 Body temperature 98.5 [degF] [facility] 10: Other Phone: [facility] ([id number]) 08-11-2011 Body weight 58.56 kg [facility] 10: Other Phone: [facility] ([id number]) Functional Status The data below is from unstructured sourcesNo functional status results.No functional status results.No functional status results.No functional status results.No functional status results.No functional status results.No functional status results.No functional status results.No functional status results. Mental Status No Information Summary Purpose eClinicalWorks SubmissioneClinicalWorks SubmissioneClinicalWorks SubmissioneClinicalWorks SubmissioneClinicalWorks SubmissioneClinicalWorks SubmissioneClinicalWorks SubmissioneClinicalWorks Submission Advance Directives Directive Response Recor ded Date/Time Advance Directives No 11:25am Health Care Power of Public Relations Intern No 10/20/13 3:38am Organ Donor Yes 10/30/13 11:25am Resuscitation Status Full Code 10/30/13 11:25am Directive Response Recor ded Date/Time Advance Directives No 3:44am Health Care Power of Public Relations Intern No 11/01/13 3:44am Organ Donor Yes 11/01/13 3:44am Resuscitation Status Full Code 11/01/13 3:44am Resuscitation Status Full Code 11/01/13 5:37am Directive Response Recor ded Date/Time Advance Directives No 3:38am Health Care Power of Public Relations Intern No 10/20/13 3:38am Organ Donor Yes 10/20/13 [...] SMOKING Nothing Inside Vagina: No Douching, No [place], No Tampons Discharge Diet: No Restrictions Symptoms to Report to DrJulio: Bleeding Excessive, Pain Increased, Fever Over 101 Degrees F, Vaginal Bleeding Increase, Shortness of Breath For Any Problems or Questions: Contact Your Physician Infection Signs and Symptoms: Increased Redness, Foul Odor of Wound, Increased Drainage, Skin Itchy or Has a Rash, Increased Swelling, Temperature Above 101 F Operative Area Clean and Dry: Keep Incision Clean/Dry Stitches/Taylor/Dermabond: Dermabond, Care of Stitches Bathing Instructions: Shower No hospital discharge instructions. Patient Instructions Physician Instructions New, Converted or Re-Newed RX: Call to Patients Pharmacy Additional Follow Up: Yes Orders/Referrals 7-[address] Bush [address] Bush Activity: Activity as Tolerated Driving Instructions: No Driving for 1 Week NO SMOKING: NO SMOKING Nothing Inside Vagina: No Douching, No [place], No Tampons Discharge Diet: No Restrictions Symptoms to Report to DrJulio: Bleeding Excessive, Pain Increased, Fever Over 101 [...] This clinical document has been generated using [employer] software that has been certified by the Office of the National Coordinator for Health Information Technology (ONC 15.99.04.3023.Diam.31.00.0.091964) and the National Committee for Chemical Engraver (NCQA, as an eMeasure certified technology). FOR [...] BASED ON T HE PRIMARY CLINICAL RECORDS. [employer]. provides no warranty or guara ntee of the accuracy or completeness of information in this document.The followi ng information is based on time limited clinical information UNRECOGNIZED CONTENT PROVIDED BELOW FOR UNRECOGNIZED SECTION REASON FOR VISIT EMR-[facility]
--- OUTSIDE RECORDS SUMMARY | 2019-09-03 13:38 | XMS REPORT | Continuity of Care Document ---
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 Sculpturer ecologic Service Prescrip Of Contracept Agent - Repeat Rx 09/21/2008 V25.49 Fingernail Sculpturer ecologic Service Prescrip Of Contracept Agent - Repeat Rx 09/21/2008 V25.49 Fingernail Sculpturer ecologic Service Prescrip Of Contracept Agent - [...] DO 691.8 DERMATITIS ATOPIC ECZEMA 02/26/2010 BELLE RICHMNOD DO 780.79 MALAISE AND FATIGUE 06/26/2010 V72.31 SURGICAL RN EXAM, ROUTINE 06/26/2010 V72.31 SURGICAL RN EXAM, ROUTINE 06/26/2010 V72.31 SURGICAL RN EXAM, ROUTINE 06/26/2010 BELLE RICHMOND DO V72.31 SURGICAL RN EXAM, ROUTINE 06/26/2010 CLARIBEL RAVI APRN V72.31 SURGICAL RN EXAM, ROUTINE 06/26/2010 BELLE RICHMOND DO V72.31 SURGICAL RN EXAM, ROUTINE 06/12/2011 V25.9 CONT RACEPTION MANAGEMENT [...] DO 789.60 EPIGASTRIC PAIN 07/07/2012 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 07/07/2012 V26.49 OTH ER PROCREATIVE MANAGEMENT COUNSELING AND ADVICE 07/07/2012 V76.10 WILFREDO AST CANCER SCREENING 07/07/2012 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 07/07/2012 V26.49 OTH ER PROCREATIVE MANAGEMENT [...] RICHMOND DO V72.42 TEST POSITIVE RESULT 03/08/2013 CLARBIEL RAVI APRN V72.42 TEST POSITIVE RESULT 03/08/2013 [...] NEC-DELIV 11/04/2013 BIANCA BUSH DO Ot V06.1 [id number], COMBINED [ 11/04/2013 BIANCA BUSH DO Ot V27.0 DELIVER-SINGLE LIVEBORN 03/13/2014 CLARIBEL RAVI APRN 704.00 ALOPECIA UNSPECIFIED 03/13/2014 BELLE RICHMOND DO 704.00 ALOPECIA UNSPECIFIED 03/22/2017 AGRAWAL, SADE R FILM AND VIDEO EDITOR Ot N83.8 OTH NONINFLAMMATORY DISORD OF OVARY, FAL 03/22/2017 AGRAWAL, SADE Oden FILM AND VIDEO EDITOR Ot R31.9 HEMATURIA, UNSPECIFIED 03/22/2017 AGRAWAL, SADE Oden FILM AND VIDEO EDITOR Ot Z87.442 PERSONAL HISTORY OF URINARY CALCULI 03/30/2017 AGRAWAL, SADE Oden FILM AND VIDEO EDITOR Ot N83.8 OTH NONINFLAMMATORY DISORD OF OVARY, FAL 03/30/2017 AGRAWAL, SADE Oden FILM AND VIDEO EDITOR Ot R31.9 HEMATURIA, UNSPECIFIED 03/30/2017 AGRAWAL, SADE R FILM AND VIDEO EDITOR Ot Z87.442 PERSONAL HISTORY OF URINARY CALCULI 08/22/2019 AGRAWAL, SADE Oden FILM AND VIDEO EDITOR Ot N83.8 OTH NONINFLAMMATORY DISORD OF OVARY, FAL 08/22/2019 AGRAWAL, SADE Oden FILM AND VIDEO EDITOR Ot R31.9 HEMATURIA, UNSPECIFIED 08/22/2019 AGRAWAL, SADE R FILM AND VIDEO EDITOR Ot Z87.442 PERSONAL HISTORY OF URINARY CALCULI 08/29/2019 MARI BAUMANN, NAAIS Holt Ot O21.9 VOMITING OF , UNSPECIFIED 08/29/2019 ANAIS GUERRA MD Ot O23.41 UNSP INFCT OF URINARY TRACT IN 08/29/2019 MARI BAUMANN, ANAIS Holt Ot Z3A.08 8 WEEKS GESTATION OF 09/01/2019 BRITTNI CELESTE DO Ot O21.9 VOMITING OF , UNSPECIFIED 09/01/2019 BRITTNI CELESTE DO Ot O23.41 UNSP INFCT OF URINARY TRACT IN 09/01/2019 BRITTNI CELESTE DO Ot Z3A.08 8 WEEKS GESTATION OF Procedures Code Description [place] [address] URIN E TEST (IN- HOUSE) 04/01/2012 96085 THER APUTIC INJ SQ/IM 04/01/2012 J1055 DEPO -PROVERA INJ 150 MG 04/01/2012 G0437 TOBA SCALPER OPERATOR-USE CHIEF INTERNAL AUDITOR>10MIN 08/16/2012 07049 ROUT INE VENIPUNCTURE 03/08/2013 40234 PREG DIMPLE TEST, SERUM (RML) 03/08/2013 74.1 LOW C ERVICAL 11/01/2013 99.77 APPL /ADMIN OF AN ADHESION BARRIER SUBSTA 11/01/2013 J1050 DEPO PROVERA 06/11/2014 89647 THER APUTIC INJ SQ/IM 06/11/2014 80391 PREG DIMPLE TEST, URINE (IN- HOUSE) 06/11/2014 [...] in u rine sediment by light microscopy 10-25 NRG Crystals detection in urine sediment by light microsco py PRESENT NRG Casts detection in urine sediment by light microscopy NONE NRG Mucus detection in urine sediment by light microscopy SMALL NRG Complete urinalysis with reflex to culture YES NRG Amorphous sediment detection in urine sediment by ligh t microscopy RARE AIDE URATES NRG Bacterial urine culture - 08/22/19 08:44 Bacterial urine culture 3 OR MORE NRG COLONY COUNT >100,000/ML NRG SUSCEPTIBILITY GRAM POSITIVES, SUGGESTING PROBABLE NRG MRSA SCREEN COLLECTION CONTAMINATION WITH SKIN JENNIFER RA NRG RAPID ID NO SUSCEPTIBILITY PERFORMED N RG Complete urinalysis with reflex to cultu re - 08/28/19 13:02 Urine color determination YELLOW NRG Urine clarity determination CLEAR NR G Urine pH measurement by test strip 7.0 5-9 Specific gravity of urine by test strip 1.020 1.016-1.022 Urine protein assay by test strip, semi-quantitative 1+ NEGATIVE Urine glucose detection by automated test strip NE GATIVE NEGATIVE Erythrocytes detection in urine sediment by light micr oscopy 2+ NEGATIVE Urine ketones detection by automated test strip 3+ NEGATIVE Urine nitrite detection by test strip NEGATIVE NEGATIVE Urine total bilirubin detection by test strip 1+ NEGATIVE Urine urobilinogen measurement by automated test strip (mass/volume) 4.0 mg/dL < = 1.0 Urine leukocyte esterase detection by dipstick 2+ NEGATIVE Automated urine sediment erythrocyte cou nt by microscopy (number/high power field) [HPF] NRG Automated urine sediment leukocyte count by microscopy (number/high power field) [HPF] NRG Bacteria detection in urine sediment by light microsco py FEW NRG Squamous epithelial cells detection in u rine sediment by light microscopy 2-5 NRG Crystals detection in urine sediment by light microsco py NONE NRG Casts detection in urine sediment by light microscopy NONE NRG Mucus detection in urine sediment by light microscopy SMALL NRG Complete urinalysis with reflex to culture YES NRG Bacterial urine culture - 08/28/19 13:02 Bacterial urine culture 3 OR MORE NRG COLONY COUNT >100,000/ML NRG SUSCEPTIBILITY GRAM POSITIVES, SUGGESTING PROBABLE NRG MRSA SCREEN COLLECTION CONTAMINATION WITH SKIN NRG RAPID ID JEFF. NO SUSCEPTIBILITY PERFORMED NRG Complete blood count (CBC) with automate d white blood cell (WBC) differential - 08/28/19 13:10 Blood leukocytes automated count (number/volume) 9.0 10*3/uL 4.3-11.0 Blood erythrocytes automated count (number/volume) 3.75 10*6/uL 4.35-5.85 Venous blood hemoglobin measurement (mass/volume) 11.4 g/dL 11.5-16.0 Blood hematocrit (volume fraction) 33 % 35-52 Automated erythrocyte mean corpuscular volume 88 [ foz_us] 80-99 Automated erythrocyte mean corpuscular h emoglobin (mass per erythrocyte) 30 pg 25-34 Automated erythrocyte mean corpuscular h emoglobin concentration measurement (mass/volume) 35 g/dL 32-36 Automated erythrocyte distribution width ratio 12. 3 % 10.0- 14.5 Automated blood platelet count (count/volume) 257 10*3/uL 130-400 Automated blood platelet mean volume measurement 9.9 [foz_us] 7.4-10.4 Automated blood neutrophils/100 leukocytes 72 % 42-75 Automated blood lymphocytes/100 leukocytes 20 % 12-44 Blood monocytes/100 leukocytes 7 % 0-12 Automated blood eosinophils/100 leukocytes 1 % 0-10 Automated blood basophils/100 leukocytes 0 % 0-10 Blood neutrophils automated count (number/volume) 6.5 10*3 1.8-7.8 Blood lymphocytes automated count (number/volume) 1.8 10*3 1.0-4.0 Blood monocytes automated count (number/volume) 0. 6 10*3 0.0-1.0 Automated eosinophil count 0.1 10*3/uL 0 .0-0.3 Automated blood basophil count (count/volume) 0.0 10*3/uL 0.0-0.1 Comprehensive metabolic panel - 08/28/19 13:10 Serum or plasma sodium measurement (moles/volume) 138 mmol/L 135-145 Serum or plasma potassium measurement (moles/volume) 3.4 mmol/L 3.6-5.0 Serum or plasma chloride measurement (moles/volume) 106 mmol/L 98-107 Carbon dioxide 21 mmol/L 21-32 Serum or plasma anion gap determination (moles/volume) 11 mmol/L 5-14 Serum or plasma urea nitrogen measurement (mass/volume ) 11 mg/dL 7-18 Serum or plasma creatinine measurement (mass/volume) 0.60 mg/dL 0.60-1.30 Serum or plasma urea nitrogen/creatinine mass ratio 18 NRG Serum or plasma creatinine measurement w ith calculation of estimated glomerular filtration rate > NRG Serum or plasma glucose measurement (mass/volume) 88 mg/dL 70-105 Serum or plasma calcium measurement (mass/volume) 9.3 mg/dL 8.5-10.1 Serum or plasma total bilirubin measurement (mass/volu me) 0.7 mg/dL 0.1-1.0 Serum or plasma alkaline phosphatase virgil surement (enzymatic activity/volume) 32 U/L 40-136 Serum or plasma aspartate aminotransfera se measurement (enzymatic activity/volume) 28 U/L 5-34 Serum or plasma alanine aminotransferase measurement (enzymatic activity/volume) 69 U/L 0-55 Serum or plasma protein measurement (mass/volume) 6.8 g/dL 6.4-8.2 Serum or plasma albumin measurement (mass/volume) 4.3 g/dL 3.2-4.5 CALCIUM CORRECTED 9.1 mg/dL 8.5-10.1 Magnesium - 08/28/19 13:10 Magnesium 1.8 mg/dL 1.6-2.4 Serum or plasma amylase measurement (enz ymatic activity/volume) - 08/28/19 13:10 Serum or plasma amylase measurement (enzymatic activit y/volume) 41 U/L 25-125 Lipase - 08/28/19 13:10 Lipase 10 U/L 8-78 Serum or plasma choriogonadotropin measu rement (units/volume) - 08/28/19 13:10 Serum or plasma choriogonadotropin measurement (units/ volume) 511205 m[iU]/mL <5 Encounters ACCT No. Visit Date/Time Discharge Status Pt. Type Provider Facility Loc./Unit Complaint [id number] 07/15/2016 08:44:00 Document Registration [id number] 08/28/2019 12:50:00 020 15:26:00 DIS Outpatient ROULA BRITTNI RAMÍREZ V ia [facility] ER 8 WEEKS ,POSS DEHYRDRATED,N/V [id number] 08/22/2019 08:24:00 020 10:15:00 DIS Outpatient MARI BAUMANN, ANAIS Holt [facility] ER N/V;DEHYDRATION [id number] 03/18/2017 14:33:00 018 23:59:59 CLS Outpatient SADE AGRAWAL APRN [facility] RAD Z87.442 [id number] 11/01/2013 05:30:00 014 12:40:00 DIS Inpatient BIANCA BUSH DO [facility] LDRP LABOR/CONTRACTIONS [id number] 10/30/2013 11:05:00 014 13:29:00 DIS Outpatient BIANCA BUSH DO [facility] WSo HIGH BP, CONTRACTIONS [id number] 10/20/2013 03:16:00 014 09:40:00 DIS Outpatient BIANCA BUSH DO [facility] WSo CONTACTIONS/BACK PAIN [id number] 04/12/2013 09:51:00 014 10:20:00 DIS Inpatient BIANCA BUSH DO [facility] WS HYPEREMESIS GRAVIDARUM [id number] 04/04/2013 20:02:00 014 23:02:00 DIS Emergency ANAIS GUERRA MD [facility] ER 8 WKS PREG; VOM ITING; ABD PAIN [id number] 03/20/2013 05:47:00 014 08:42:00 DIS Emergency MARITZA MARRERO MD [facility] ER 7 WKS;VOMITING [id number] 08/10/2019 09:00:00 08/10/2019 23:59:5 9 CLS [id number] 08/02/2019 09:00:00 Document Registration [id number] 04/12/2018 09:00:00 Document Registration [id number] 03/18/2017 11:40:00 Document Registration [id number] 06/11/2014 09:40:00 06/11/2014 23:59: 59 CLS Outpatient BELLE RICHMOND DO [id number] 03/13/2014 13:22:00 03/13/2014 23:59: 59 CLS Outpatient CLARIBEL RAVI APRN [id number] 03/08/2013 12:31:00 03/08/2013 23:59: 59 CLS Outpatient BELLE RICHMOND DO [id number] 04/01/2012 11:36:00 04/01/2012 23:59: 59 CLS Outpatient [id number] 08/15/2012 11:45:00 Document Registration [id number] 07/07/2012 09:44:00 Document Registration
[2019-09-03] MEDS ORDERED: NS IV 1000 ML 1,000 ML IV SCH (14:00)
[2019-09-03] MEDS ORDERED: PROCHLORPERAZINE 10 MG/2ML INJ (COMPAZINE) IV ONE ×2 (14:00→14:45)
[2019-09-03] MEDS ORDERED: diphenhydrAMINE 50 MG/ML INJ (BENADRYL) IVP ONE ×2 (14:00→14:45)
--- NOTE | 2019-09-03 14:07 | ED General ---
General Stated Complaint: VOMITING/9 WKS PREG Source of Information: Patient Exam Limitations: No Limitations History of Present Illness Date Seen by Provider: Sep 03, 2019 Time Seen by Provider: 14:04 Initial Comments To ER with nausea vomiting. She is between 9 and 10 weeks . She is already on Zofran and Phenergan suppositories at home but denies improvement. This will be her third visit to ER for this Timing/Duration: Constant Severity: Moderate Associated Systoms: Nausea/Vomiting Allergies and Home Medications Allergies Coded Allergies: NKANo Known Allergies (Verified Allergy, Mild, 03/29/06) Home Medications Doxylamine/Pyridoxine HCl 1 Each Tablet.dr, 2 EACH PO HS Prescribed by: BRITTNI CELESTE on 08/28/19 1434 Famotidine 20 Mg Tablet, 20 MG PO BID Prescribed by: ANAIS FAITH on 08/22/19 0955 Ferrous Sulfate 325 Mg Tab, 325 MG PO BID WITH MEALS Prescribed by: BIANCA BUSH on 11/02/13 1630 Hydrocodone Bit/Acetaminophen 1 Ea Tab, 1-2 EA PO Q3HR PRN for PAIN Prescribed by: BIANCA BUSH on 11/02/13 1630 Multivitamin 1 Each Tab.chew, 1 EACH PO DAILY, (Reported) Nitrofurantoin Monohyd/M-Cryst 100 Mg Capsule, 1 TAB PO BID Prescribed by: BRITTNI CELESTE on 08/28/19 1434 Ondansetron 4 Mg Tab.rapdis, 4 MG PO Q4H PRN for NAUSEA/VOMITING Prescribed by: ANAIS FAITH on 08/22/19 0955 Promethazine HCl 25 Mg Tablet, 25 MG PO Q6H PRN for NAUSEA/VOMITING Prescribed by: ANAIS FAITH on 08/22/19 0955 Promethazine HCl 25 Mg Supp.rect, 25 MG RC Q6H PRN for NAUSEA/VOMITING Prescribed by: ANAIS FAITH on 08/22/19 0955 [Ibuprofen] 600 MG TAB, 600 MG PO Q6H PRN for PAIN Prescribed by: BIANCA BUSH on 11/02/13 1630 Patient Home Medication List Home Medication List Reviewed: Yes Review of Systems Review of Systems Constitutional: see HPI EENTM: see HPI Respiratory: no symptoms reported Cardiovascular: no symptoms reported Gastrointestinal: No abdominal pain, No diarrhea; nausea, vomiting Genitourinary: no symptoms reported Musculoskeletal: no symptoms reported Skin: no symptoms reported Psychiatric/Neurological: No Symptoms Reported Hematologic/Lymphatic: No Symptoms Reported Immunological/Allergic: no symptoms reported Past Cazkekj-Ujynhd-Qsvkcg Hx Patient Social History 2nd Hand Smoke Exposure: No Recent Foreign Travel: No Contact w/Someone Who Travel: No Recent Hopitalizations: No Immunizations Up To Date Tetanus Booster (TDap): Unknown PED Vaccines UTD: Yes Past Medical History Surgeries: Yes (Tony Teeth) Section Respiratory: No Cardiac: No Neurological: No Reproductive Disorders: No Female Reproductive Disorders: Denies Sexually Transmitted Disease: No HIV/AIDS: No Genitourinary: No Gastrointestinal: No Musculoskeletal: No Endocrine: No HEENT: No Cancer: No Psychosocial: No Integumentary: No Blood Disorders: No Adverse Reaction/Blood Tranf: No Family Medical History Arthritis Grandparents (Maternal Grandmother) Asthma 19 FATHER Cardiovascular disease Grandparents (Maternal Grandmother) Fibrocystic disease of breast 19 MOTHER No Family History of: AIDS Abdominal aortic aneurysm Kimo's disease Alcoholism Alzheimer's disease Aphasia Cancer of mouth Cataracts Colon cancer Completed stroke Congenital disease Congenital heart disease Coronary thrombosis Cystic fibrosis Deafness or hearing loss Dementia Diabetes mellitus Drug abuse Dysphasia Gastroenteritis Glaucoma Headache disorder Hypercholesterolemia Hypertension Infertility Kidney disease Myocardial infarction Neoplasm Not obtainable due to adoption Osteoporosis Parkinson's disease Prostate cancer Psychosocial problem Respiratory disorder Seizure disorder Severe allergy Thyroid disease Tuberculosis Visual disorder No Pertinent Family Hx Physical Exam Vital Signs Vital Signs - First Documented 09/03/19 13:45 Temp 36.4 Pulse 100 Resp 20 B/P (MAP) 114/78 (90) Capillary Refill : Height, Weight, BMI Height: 5'6.00" Weight: 140lbs. oz. 63.499696py; 20.00 BMI Method:Stated General Appearance: No Apparent Distress, WD/WN Eyes: Bilateral Eye Normal Inspection, Bilateral Eye PERRL, Bilateral Eye EOMI Neck: Full Range of Motion, Normal Inspection Respiratory: No Accessory Muscle Use, No Respiratory Distress Gastrointestinal: Normal Bowel Sounds, Non Tender, Soft Extremity: Normal Capillary Refill, Normal Inspection Neurologic/Psychiatric: Alert, Oriented x3 Skin: Normal Color, Warm/Dry Progress/Results/Core Measures Suspected Sepsis SIRS Temperature: Pulse: Respiratory Rate: Laboratory Tests 09/03/19 14:20: White Blood Count 4.6 Blood Pressure / Mean: Laboratory Tests 09/03/19 14:20: Creatinine 0.60, Platelet Count 282, Total Bilirubin 0.5 Results/Orders Lab Results Laboratory Tests Test 09/03/19 14:20 Range/Units White Blood Count 4.6 4.3-11.0 10^3/uL Red Blood Count 3.93 L 4.35-5.85 10^6/uL Hemoglobin 11.9 11.5-16.0 G/DL Hematocrit 33 L 35-52 % Mean Corpuscular Volume 85 80-99 FL Mean Corpuscular Hemoglobin 30 25-34 PG Mean Corpuscular Hemoglobin Concent 36 32-36 G/DL Red Cell Distribution Width 11.9 10.0-14.5 % Platelet Count 282 130-400 10^3/uL Mean Platelet Volume 9.2 7.4-10.4 FL Neutrophils (%) (Auto) 58 42-75 % Lymphocytes (%) (Auto) 31 12-44 % Monocytes (%) (Auto) 11 0-12 % Eosinophils (%) (Auto) 0 0-10 % Basophils (%) (Auto) 0 0-10 % Neutrophils # (Auto) 2.7 1.8-7.8 X 10^3 Lymphocytes # (Auto) 1.4 1.0-4.0 X 10^3 Monocytes # (Auto) 0.5 0.0-1.0 X 10^3 Eosinophils # (Auto) 0.0 0.0-0.3 10^3/uL Basophils # (Auto) 0.0 0.0-0.1 10^3/uL Sodium Level 135 135-145 MMOL/L Potassium Level 3.1 L 3.6-5.0 MMOL/L Chloride Level 102 98-107 MMOL/L Carbon Dioxide Level 17 L 21-32 MMOL/L Anion Gap 16 H 5-14 MMOL/L Blood Urea Nitrogen 8 7-18 MG/DL Creatinine 0.60 0.60-1.30 MG/DL Estimat Glomerular Filtration Rate > 60 BUN/Creatinine Ratio 13 Glucose Level 95 70-105 MG/DL Calcium Level 9.5 8.5-10.1 MG/DL Corrected Calcium 9.5 8.5-10.1 MG/DL Total Bilirubin 0.5 0.1-1.0 MG/DL Aspartate Amino Transf (AST/SGOT) 102 H 5-34 U/L Alanine Aminotransferase (ALT/SGPT) 155 H 0-55 U/L Alkaline Phosphatase 56 40-136 U/L Total Protein 7.0 6.4-8.2 GM/DL Albumin 4.0 3.2-4.5 GM/DL My Orders Orders - JUSTIN MCKEON APRN Ua Culture If Indicated (09/03/19 14:00) Cbc With Automated Diff (09/03/19 14:00) Comprehensive Metabolic Panel (09/03/19 14:00) Ed Iv/Invasive Line Start (09/03/19 14:00) Diphenhydramine Injection (Benadryl Inje (09/03/19 14:00) Prochlorperazine Injection (Compazine In (09/03/19 14:00) Ns Iv 1000 Ml (Sodium Chloride 0.9%) (09/03/19 14:00) Prochlorperazine Injection (Compazine In (09/03/19 14:45) Diphenhydramine Injection (Benadryl Inje (09/03/19 14:45) Medications Given in ED Current Medications Medications Dose Ordered Sig/Shelly Route Start Time Stop Time Status Last Admin Dose Admin Diphenhydramine HCl 25 mg ONCE ONCE IVP 09/03/19 14:00 09/03/19 14:02 DC 09/03/19 14:12 25 MG Diphenhydramine HCl 25 mg ONCE ONCE IVP 09/03/19 14:45 09/03/19 14:46 DC 09/03/19 14:48 25 MG Prochlorperazine Edisylate 5 mg ONCE ONCE IV 09/03/19 14:00 09/03/19 14:02 DC 09/03/19 14:12 5 MG Prochlorperazine Edisylate 5 mg ONCE ONCE IV 09/03/19 14:45 09/03/19 14:46 DC 09/03/19 14:48 5 MG Vital Signs/I&O 09/03/19 13:45 Temp 36.4 Pulse 100 Resp 20 B/P (MAP) 114/78 (90) Capillary Refill : Departure Communication (Admissions) 5521-worse that she is feeling better at this time, has not vomited since she's been here. Impression Primary Impression: Nausea and vomiting Disposition: 01 HOME, SELF-CARE Condition: Stable Departure-Patient Inst. Decision time for Depature: 15:16 Referrals: BIANCA BUSH DO (PCP) Primary Care Physician [facility] (Family) Primary Care Physician JUSTIN MCKEON APRN Sep 03, 2019 14:07
[2019-09-03 14:27] LABS: BASOPHILS % (AUTO) 0 % (0-10); EOSINOPHILS % (AUTO) 0 % (0-10); HEMATOCRIT 33 % (35-52); HEMOGLOBIN 11.9 G/DL (11.5-16.0); LYMPHOCYTES # (AUTO) 1.4 X 10^3 (1.0-4.0); LYMPHOCYTES % (AUTO) 31 % (12-44); MEAN CORPUSCULAR HEMOGLOBIN 30 PG (25-34); MEAN CORPUSCULAR HGB CONC 36 G/DL (32-36); MEAN CORPUSCULAR VOLUME 85 FL (80-99); MEAN PLATELET VOLUME 9.2 FL (7.4-10.4); MONOCYTES # (AUTO) 0.5 X 10^3 (0.0-1.0); MONOCYTES % (AUTO) 11 % (0-12); NEUTROPHILS # (AUTO) 2.7 X 10^3 (1.8-7.8); NEUTROPHILS % (AUTO) 58 % (42-75); PLATELET COUNT 282 10^3/uL (130-400); RED CELL DISTRIBUTION WIDTH 11.9 % (10.0-14.5); WHITE BLOOD COUNT 4.6 10^3/uL (4.3-11.0)
[2019-09-03 14:37] LABS: CHLORIDE 102 MMOL/L (98-107); POTASSIUM 3.1 MMOL/L (3.6-5.0); SODIUM 135 MMOL/L (135-145)
[2019-09-03 14:38] LABS: CALCIUM 9.5 MG/DL (8.5-10.1)
[2019-09-03 14:39] LABS: GLUCOSE 95 MG/DL (70-105)
[2019-09-03 14:40] LABS: CARBON DIOXIDE 17 MMOL/L (21-32)
[2019-09-03 14:41] LABS: BILIRUBIN,TOTAL 0.5 MG/DL (0.1-1.0)
[2019-09-03 14:42] LABS: ALKALINE PHOSPHATASE 56 U/L (40-136); GFR ESTIMATED > 60
[2019-09-03 14:44] LABS: BUN/CREATININE RATIO 13
[2019-09-03 14:45] LABS: ALANINE AMINOTRANSFERASE 155 U/L (0-55)
[2019-09-03] MEDS ORDERED: PROC-1 PO (15:21)
[2019-09-03 15:28] VITALS: BP 118/68
[2019-09-03] MEDS ORDERED: KCL 20 MEQ TAB (K-DUR) PO ONE (15:30)
[2019-09-03 15:32] LABS: CLARITY,URINE CLOUDY; COLOR,URINE ORANGE; GLUCOSE, URINE (UA) NEGATIVE (NEGATIVE); KETONES,URINE 3+ (NEGATIVE); LEUKOCYTE ESTERASE ,URINE 2+ (NEGATIVE); NITRITE,URINE NEGATIVE (NEGATIVE); PROTEIN,URINE 1+ (NEGATIVE)
[2019-09-03 15:49] LABS: BACTERIA,URINE MODERATE /HPF; BILIRUBIN,URINE 1+ (NEGATIVE)
== END 2019-09-03 15:28 | disposition home or self-care (01) ==
LOC: EDUNIT# 13:31 → ER 13:32
DX: O21.9 Vomiting of pregnancy, unspecified (principal); Z3A.09 9 weeks gestation of pregnancy; Z82.49 Family history of ischemic heart disease and other diseases of the circulatory system
CPT/HCPCS: 36415; 80053; 81000; 85025; 87088

== ENCOUNTER 2019-09-08 10:00 | Outpatient (CLI) | payer MEDICAID ==
[~2019-09-08] VITALS: Ht 167.7 cm; Wt 59.6 kg
--- NOTE | 2019-09-08 09:54 | NUR ---
CYNDY RUDD presented to unit via ambulation, accompanied by S.O., with HYPEREMISIS. CYNDY RUDD weighed and to bed. VS taken. CYNDY RUDD oriented to bed controls, call light, TV, heat, and A/C controls.
[~2019-09-08 10:00] MED LIST changes: +PROC-1 PO
--- NOTE | 2019-09-08 10:00 | NUR ---
Dr. Crawford notified of pt arrival. Pt sent to unit by so aware of pt condition. will put in orders.
[2019-09-08] MEDS ORDERED: ONDANSETRON 4 MG/2 ML (SDV) Z0FRAN IVP PRN (10:15)
[2019-09-08] MEDS ORDERED: NS IV 1000 ML 1,000 ML ONE (10:32)
[2019-09-08] MEDS: NS IV 1000 ML 1,000 ML IV SCH ×2 (10:55→11:59)
[2019-09-08 11:13] LABS: BASOPHILS % (AUTO) 0 % (0-10); EOSINOPHILS % (AUTO) 0 % (0-10); HEMATOCRIT 37 % (35-52); HEMOGLOBIN 13.5 G/DL (11.5-16.0); LYMPHOCYTES # (AUTO) 1.6 X 10^3 (1.0-4.0); LYMPHOCYTES % (AUTO) 16 % (12-44); MEAN CORPUSCULAR HEMOGLOBIN 30 PG (25-34); MEAN CORPUSCULAR HGB CONC 37 G/DL (32-36); MEAN CORPUSCULAR VOLUME 82 FL (80-99); MEAN PLATELET VOLUME 9.1 FL (7.4-10.4); MONOCYTES # (AUTO) 0.9 X 10^3 (0.0-1.0); MONOCYTES % (AUTO) 10 % (0-12); NEUTROPHILS # (AUTO) 7.3 X 10^3 (1.8-7.8); NEUTROPHILS % (AUTO) 74 % (42-75); PLATELET COUNT 416 10^3/uL (130-400); RED CELL DISTRIBUTION WIDTH 12.6 % (10.0-14.5); WHITE BLOOD COUNT 9.9 10^3/uL (4.3-11.0)
[2019-09-08] MEDS ORDERED: PROCHLORPERAZINE 10 MG/2ML INJ (COMPAZINE) IV PRN (11:15)
[2019-09-08 11:37] LABS: ALANINE AMINOTRANSFERASE 114 U/L (0-55); ALBUMIN 4.6 GM/DL (3.2-4.5); ALKALINE PHOSPHATASE 56 U/L (40-136); BILIRUBIN,TOTAL 0.7 MG/DL (0.1-1.0); BUN/CREATININE RATIO 8; CALCIUM 10.3 MG/DL (8.5-10.1); CARBON DIOXIDE 12 MMOL/L (21-32); CHLORIDE 106 MMOL/L (98-107); CREATININE SERUM 0.66 MG/DL (0.60-1.30); GFR ESTIMATED > 60; GLUCOSE 112 MG/DL (70-105); POTASSIUM 3.1 MMOL/L (3.6-5.0); SODIUM 136 MMOL/L (135-145); TOTAL PROTEIN 7.9 GM/DL (6.4-8.2)
[2019-09-08 11:51] LABS: CLARITY,URINE CLEAR; COLOR,URINE YELLOW; GLUCOSE, URINE (UA) NEGATIVE (NEGATIVE); KETONES,URINE 3+ (NEGATIVE); LEUKOCYTE ESTERASE ,URINE NEGATIVE (NEGATIVE); NITRITE,URINE NEGATIVE (NEGATIVE); PROTEIN,URINE 1+ (NEGATIVE)
[2019-09-08] MEDS ORDERED: METOCLOPRAMIDE INJ 10 MG/2 ML (REGLAN) IVP SCH (12:00)
[2019-09-08] MEDS ORDERED: SCOPOLAMINE 1.5 MG (TRANSDERM-SCOP) PATCH TD NR (12:00)
[2019-09-08 12:02] LABS: BACTERIA,URINE TRACE /HPF
[2019-09-08 12:03] LABS: BILIRUBIN,URINE 1+ (NEGATIVE)
[2019-09-08] MEDS ORDERED: CATHETER FLUSH 10 ML SYR IV PRN (12:15)
[2019-09-08] MEDS: FAMOTIDINE 20MG/2ML IV (PEPCID) IVP SCH ×2 (12:23→21:48)
--- NOTE | 2019-09-08 12:30 | NUR ---
Pt had one episode of emesis after several episodes of dry heaving. Approx 200ml bile noted in bag. Pt reports episode occurred after few ice chips.
[2019-09-08] MEDS ORDERED: THIAMINE INJECTION 100 MG, FOLIC ACID INJECTION 1 MG, VITAMIN MULTI INJECTION 10 ML, MA... IV SCH ×5 (13:00)
[2019-09-08 13:24] LABS: FREE T4 (FREE THYROXINE) 1.48 NG/DL (0.70-1.48)
[2019-09-08 13:51] VITALS: BP 134/81
--- NOTE | 2019-09-08 14:00 | NUR ---
Pt tolerating ice chips well. Requesting water. Encouraged to stick with ice chips for now and see if able to continue to tolerate
[2019-09-08 15:45] VITALS: BP 114/73
--- NOTE | 2019-09-08 15:45 | NUR ---
Dr Crawford at bedside discussing plan of care with pt. Orders rec'd, Dr. Crawford to put in computer
[2019-09-08] MEDS ORDERED: HYDROCORTISONE 100 MG/2 ML (Solu-CORTEF) VIAL IV ONE (16:00)
[2019-09-08] MEDS ORDERED: diphenhydrAMINE 50 MG/ML INJ (BENADRYL) IVP PRN (16:00)
--- NOTE | 2019-09-08 16:00 | NUR ---
Ice water provided, pt now clear liquid diet.
--- NOTE | 2019-09-08 16:06 | History & Physical-OB ---
OB - Chief Complaint & HPI Date/Time Date of Admission: Date of Admission: 09/08/19 Date seen by a Provider: Sep 08, 2019 Chief Complaint/History OB-Reason for Admission/Chief: hyperemesis with hypovolemia Hx : 2 Hx Para: 1 Expected Date of Delivery: Mar 30, 2019 Gestational Age in Weeks: 10 Admission Nurse Assessment Rev: Yes History of Labs Laboratory Tests Test 09/08/19 10:40 09/08/19 10:50 Range/Units Urine Color YELLOW Urine Clarity CLEAR Urine pH 6.0 5-9 Urine Specific [place] >=1.030 1.016-1.022 Urine Protein 1+ H NEGATIVE Urine Glucose (UA) NEGATIVE NEGATIVE Urine Ketones 3+ H NEGATIVE Urine Nitrite NEGATIVE NEGATIVE Urine Bilirubin 1+ H NEGATIVE Urine Urobilinogen 0.2 < = 1.0 MG/DL Urine Leukocyte Esterase NEGATIVE NEGATIVE Urine RBC (Auto) 3+ H NEGATIVE Urine RBC 2-5 H /HPF Urine WBC NONE /HPF Urine Crystals NONE /LPF Urine Bacteria TRACE /HPF Urine Casts PRESENT /LPF Urine Hyaline Casts 2-5 H /LPF Urine Mucus NEGATIVE /LPF Urine Culture Indicated NO White Blood Count 9.9 4.3-11.0 10^3/uL Red Blood Count 4.49 4.35-5.85 10^6/uL Hemoglobin 13.5 11.5-16.0 G/DL Hematocrit 37 35-52 % Mean Corpuscular Volume 82 80-99 FL Mean Corpuscular Hemoglobin 30 25-34 PG Mean Corpuscular Hemoglobin Concent 37 H 32-36 G/DL Red Cell Distribution Width 12.6 10.0-14.5 % Platelet Count 416 H 130-400 10^3/uL Mean Platelet Volume 9.1 7.4-10.4 FL Neutrophils (%) (Auto) 74 42-75 % Lymphocytes (%) (Auto) 16 12-44 % Monocytes (%) (Auto) 10 0-12 % Eosinophils (%) (Auto) 0 0-10 % Basophils (%) (Auto) 0 0-10 % Neutrophils # (Auto) 7.3 1.8-7.8 X 10^3 Lymphocytes # (Auto) 1.6 1.0-4.0 X 10^3 Monocytes # (Auto) 0.9 0.0-1.0 X 10^3 Eosinophils # (Auto) 0.0 0.0-0.3 10^3/uL Basophils # (Auto) 0.0 0.0-0.1 10^3/uL Sodium Level 136 135-145 MMOL/L Potassium Level 3.1 L 3.6-5.0 MMOL/L Chloride Level 106 98-107 MMOL/L Carbon Dioxide Level 12 L 21-32 MMOL/L Anion Gap 18 H 5-14 MMOL/L Blood Urea Nitrogen 5 L 7-18 MG/DL Creatinine 0.66 0.60-1.30 MG/DL Estimat Glomerular Filtration Rate > 60 BUN/Creatinine Ratio 8 Glucose Level 112 H 70-105 MG/DL Calcium Level 10.3 H 8.5-10.1 MG/DL Corrected Calcium 8.5-10.1 MG/DL Total Bilirubin 0.7 0.1-1.0 MG/DL Aspartate Amino Transf (AST/SGOT) 35 H 5-34 U/L Alanine Aminotransferase (ALT/SGPT) 114 H 0-55 U/L Alkaline Phosphatase 56 40-136 U/L Total Protein 7.9 6.4-8.2 GM/DL Albumin 4.6 H 3.2-4.5 GM/DL Thyroid Stimulating Hormone (TSH) 0.01 L 0.35-4.94 UIU/ML Free Thyroxine 1.48 0.70-1.48 NG/DL Human Chorionic Gonadotropin, Quant [id number] H <5 MIU/ML Allergies and Home Medications Allergies Coded Allergies: NKANo Known Allergies (Verified Allergy, Mild, 03/29/06) Home Medications Doxylamine/Pyridoxine HCl 1 Each Tablet., 2 EACH PO HS Prescribed by: BRITTNI CELESTE on 08/28/19 1434 Famotidine 20 Mg Tablet, 20 MG PO BID Prescribed by: ANAIS FAITH on 08/22/19 0955 Multivitamin 1 Each Tab.chew, 1 EACH PO DAILY, (Reported) Ondansetron 4 Mg Tab.rapdis, 4 MG PO Q4H PRN for NAUSEA/VOMITING Prescribed by: ANAIS FAITH on 08/22/19 0955 Prochlorperazine Maleate 10 Mg Tablet, 10 MG PO BID Prescribed by: JUSTIN MCKEON on 09/03/19 1521 Promethazine HCl 25 Mg Tablet, 25 MG PO Q6H PRN for NAUSEA/VOMITING Prescribed by: ANAIS FAITH on 08/22/19 09 Promethazine HCl 25 Mg Supp.rect, 25 MG RC Q6H PRN for NAUSEA/VOMITING Prescribed by: ANAIS FAITH on 08/22/19954 Patient Home Medication List Home Medication List Reviewed: Yes OB - History Hx of Present Care: Yes Obstetrical Complications: Hyperemesis Obstetrical History Hx : 2 Hx Para: 1 Delivery History Hx Blood Disorders: No Adverse Rxn to Tranfusion: No Social History/Family History HIV/AIDS: No Sexually Transmitted Disease: No Alcohol Use: Denies Use Recreational Drug Use: No 2nd Hand Smoke Exposure: No Immunizations Tetanus Booster (TDap): Unknown OB - Admission Exam Physical Exam Vitals: Vital Signs 09/08/19 13:51 Temp 36.8 Pulse 111 Resp 20 Pulse Ox 97 O2 Delivery Room Air HEENT: Comment: (Dry mucous membranes) Heart: Rhythm Normal Lungs: Clear Reflexes: Normal Labs Laboratory Tests Test 09/08/19 10:40 09/08/19 10:50 Range/Units Urine Color YELLOW Urine Clarity CLEAR Urine pH 6.0 5-9 Urine Specific [place] >=1.030 1.016-1.022 Urine Protein 1+ H NEGATIVE Urine Glucose (UA) NEGATIVE NEGATIVE Urine Ketones 3+ H NEGATIVE Urine Nitrite NEGATIVE NEGATIVE Urine Bilirubin 1+ H NEGATIVE Urine Urobilinogen 0.2 < = 1.0 MG/DL Urine Leukocyte Esterase NEGATIVE NEGATIVE Urine RBC (Auto) 3+ H NEGATIVE Urine RBC 2-5 H /HPF Urine WBC NONE /HPF Urine Crystals NONE /LPF Urine Bacteria TRACE /HPF Urine Casts PRESENT /LPF Urine Hyaline Casts 2-5 H /LPF Urine Mucus NEGATIVE /LPF Urine Culture Indicated NO White Blood Count 9.9 4.3-11.0 10^3/uL Red Blood Count 4.49 4.35-5.85 10^6/uL Hemoglobin 13.5 11.5-16.0 G/DL Hematocrit 37 35-52 % Mean Corpuscular Volume 82 80-99 FL Mean Corpuscular Hemoglobin 30 25-34 PG Mean Corpuscular Hemoglobin Concent 37 H 32-36 G/DL Red Cell Distribution Width 12.6 10.0-14.5 % Platelet Count 416 H 130-400 10^3/uL Mean Platelet Volume 9.1 7.4-10.4 FL Neutrophils (%) (Auto) 74 42-75 % Lymphocytes (%) (Auto) 16 12-44 % Monocytes (%) (Auto) 10 0-12 % Eosinophils (%) (Auto) 0 0-10 % Basophils (%) (Auto) 0 0-10 % Neutrophils # (Auto) 7.3 1.8-7.8 X 10^3 Lymphocytes # (Auto) 1.6 1.0-4.0 X 10^3 Monocytes # (Auto) 0.9 0.0-1.0 X 10^3 Eosinophils # (Auto) 0.0 0.0-0.3 10^3/uL Basophils # (Auto) 0.0 0.0-0.1 10^3/uL Sodium Level 136 135-145 MMOL/L Potassium Level 3.1 L 3.6-5.0 MMOL/L Chloride Level 106 98-107 MMOL/L Carbon Dioxide Level 12 L 21-32 MMOL/L Anion Gap 18 H 5-14 MMOL/L Blood Urea Nitrogen 5 L 7-18 MG/DL Creatinine 0.66 0.60-1.30 MG/DL Estimat Glomerular Filtration Rate > 60 BUN/Creatinine Ratio 8 Glucose Level 112 H 70-105 MG/DL Calcium Level 10.3 H 8.5-10.1 MG/DL Corrected Calcium 8.5-10.1 MG/DL Total Bilirubin 0.7 0.1-1.0 MG/DL Aspartate Amino Transf (AST/SGOT) 35 H 5-34 U/L Alanine Aminotransferase (ALT/SGPT) 114 H 0-55 U/L Alkaline Phosphatase 56 40-136 U/L Total Protein 7.9 6.4-8.2 GM/DL Albumin 4.6 H 3.2-4.5 GM/DL Thyroid Stimulating Hormone (TSH) 0.01 L 0.35-4.94 UIU/ML Free Thyroxine 1.48 0.70-1.48 NG/DL Human Chorionic Gonadotropin, Quant [id number] H <5 MIU/ML OB - Assessment/Plan/Diagnosis Assessment Assessment: observation, other (hyperemesis gravidarum with hypovolemia) Plan Other Plan IVF Banana bag/replace electrolytes scopalamine patch/compazine/zofran/hydrocortisone/pepcid DARY BRAMBILA DO Sep 08, 2019 16:05
[2019-09-08 19:55] VITALS: BP 110/66
[2019-09-08] MEDS: PROCHLORPERAZINE 10 MG/2ML INJ (COMPAZINE) IV SCH (19:56)
[2019-09-08] MEDS ORDERED: D5 NS W/KCL 20 MEQ/L 1,000 ML IV ONE (21:42)
[2019-09-08] MEDS: POTASSIUM CHLORIDE INJ 20 MEQ in D5 NS 1000 ML IV SOLUTION 1,000 ML IV SCH (21:49)
[2019-09-08] MEDS: MIRTAZAPINE 15 MG (REMERON) TAB PO SCH (21:51)
[2019-09-09 00:55] VITALS: BP 105/68
[2019-09-09] MEDS: PROCHLORPERAZINE 10 MG/2ML INJ (COMPAZINE) IV SCH ×4 (01:13→19:34)
[2019-09-09 04:35] VITALS: BP 98/53
[2019-09-09] MEDS ORDERED: D5 NS W/KCL 20 MEQ/L 1,000 ML IV ONE (04:46)
[2019-09-09] MEDS: POTASSIUM CHLORIDE INJ 20 MEQ in D5 NS 1000 ML IV SOLUTION 1,000 ML IV SCH (05:27)
[2019-09-09 05:48] LABS: ALBUMIN 3.2 GM/DL (3.2-4.5); CHLORIDE 113 MMOL/L (98-107); POTASSIUM 3.6 MMOL/L (3.6-5.0); SODIUM 136 MMOL/L (135-145)
[2019-09-09 05:49] LABS: CALCIUM 8.1 MG/DL (8.5-10.1)
[2019-09-09 05:51] LABS: CARBON DIOXIDE 15 MMOL/L (21-32); GLUCOSE 159 MG/DL (70-105); TOTAL PROTEIN 5.3 GM/DL (6.4-8.2)
[2019-09-09 05:52] LABS: BILIRUBIN,TOTAL 0.9 MG/DL (0.1-1.0)
[2019-09-09 05:54] LABS: ALKALINE PHOSPHATASE 37 U/L (40-136); CREATININE SERUM 0.48 MG/DL (0.60-1.30); GFR ESTIMATED > 60; PHOSPHORUS 2.4 MG/DL (2.3-4.7)
[2019-09-09 05:55] LABS: BUN/CREATININE RATIO 8
[2019-09-09 05:57] LABS: ALANINE AMINOTRANSFERASE 90 U/L (0-55); MAGNESIUM 1.7 MG/DL (1.6-2.4)
[2019-09-09 08:45] VITALS: BP 102/62
[2019-09-09] MEDS: FAMOTIDINE 20MG/2ML IV (PEPCID) IVP SCH ×2 (08:56→21:12)
--- NOTE | 2019-09-09 09:21 | Progress Note ---
Subjective Date Seen by a Provider: Sep 09, 2019 Time Seen by a Provider: 09:00 Subjective/Events-last exam Received Reglan and Scop patch after arrival. Was having dry heaves and vomiting bile. Took several hours to get the scop patch and reglan to the floor so didn't receive immediately. Then started scheduled compazine and hydrocortisone and has not requested anything extra. Pepcid IV as well. She refused remeron at night. Has tolerated ice chips but has not taken much po fluid. She has had 400 ml out since yesterday and has received 4 liters of fl uid (1 L NS, 1 L banana bag and 2 L D5LR with 20 mEq K). K was 3.1 on arrival now is 3.6. LFTs elevated from emesis but are improving. Just took in about 500 of liquid breakfast. Not really hungry but she would like to try a diet. will start with bland/BRAT diet. If tolerates then will change meds to po and consider dc home Will continue IVF Intake and Output 09/09/19 00:00 Intake Total 1015.2 ml Balance 1015.2 ml IV Total 1015.2 ml Vital Signs 09/09/19 04:35 Temp 36.4 Pulse 88 Resp 16 B/P (MAP) 98/53 (68) Pulse Ox 97 O2 Delivery Room Air Intake and Output 09/09/19 00:00 Intake Total 1015.2 ml Balance 1015.2 ml IV Total 1015.2 ml Laboratory Tests Test 09/08/19 10:40 09/08/19 10:50 09/09/19 05:21 Range/Units Urine Color YELLOW Urine Clarity CLEAR Urine pH 6.0 5-9 Urine Specific [place] >=1.030 1.016-1.022 Urine Protein 1+ H NEGATIVE Urine Glucose (UA) NEGATIVE NEGATIVE Urine Ketones 3+ H NEGATIVE Urine Nitrite NEGATIVE NEGATIVE Urine Bilirubin 1+ H NEGATIVE Urine Urobilinogen 0.2 < = 1.0 MG/DL Urine Leukocyte Esterase NEGATIVE NEGATIVE Urine RBC (Auto) 3+ H NEGATIVE Urine RBC 2-5 H /HPF Urine WBC NONE /HPF Urine Crystals NONE /LPF Urine Bacteria TRACE /HPF Urine Casts PRESENT /LPF Urine Hyaline Casts 2-5 H /LPF Urine Mucus NEGATIVE /LPF Urine Culture Indicated NO White Blood Count 9.9 4.3-11.0 10^3/uL Red Blood Count 4.49 4.35-5.85 10^6/uL Hemoglobin 13.5 11.5-16.0 G/DL Hematocrit 37 35-52 % Mean Corpuscular Volume 82 80-99 FL Mean Corpuscular Hemoglobin 30 25-34 PG Mean Corpuscular Hemoglobin Concent 37 H 32-36 G/DL Red Cell Distribution Width 12.6 10.0-14.5 % Platelet Count 416 H 130-400 10^3/uL Mean Platelet Volume 9.1 7.4-10.4 FL Neutrophils (%) (Auto) 74 42-75 % Lymphocytes (%) (Auto) 16 12-44 % Monocytes (%) (Auto) 10 0-12 % Eosinophils (%) (Auto) 0 0-10 % Basophils (%) (Auto) 0 0-10 % Neutrophils # (Auto) 7.3 1.8-7.8 X 10^3 Lymphocytes # (Auto) 1.6 1.0-4.0 X 10^3 Monocytes # (Auto) 0.9 0.0-1.0 X 10^3 Eosinophils # (Auto) 0.0 0.0-0.3 10^3/uL Basophils # (Auto) 0.0 0.0-0.1 10^3/uL Sodium Level 136 136 135-145 MMOL/L Potassium Level 3.1 L 3.6 3.6-5.0 MMOL/L Chloride Level 106 113 H 98-107 MMOL/L Carbon Dioxide Level 12 L 15 L 21-32 MMOL/L Anion Gap 18 H 8 5-14 MMOL/L Blood Urea Nitrogen 5 L 4 L 7-18 MG/DL Creatinine 0.66 0.48 L 0.60-1.30 MG/DL Estimat Glomerular Filtration Rate > 60 > 60 BUN/Creatinine Ratio 8 8 Glucose Level 112 H 159 H 70-105 MG/DL Calcium Level 10.3 H 8.1 L 8.5-10.1 MG/DL Corrected Calcium 8.7 8.5-10.1 MG/DL Total Bilirubin 0.7 0.9 0.1-1.0 MG/DL Aspartate Amino Transf (AST/SGOT) 35 H 54 H 5-34 U/L Alanine Aminotransferase (ALT/SGPT) 114 H 90 H 0-55 U/L Alkaline Phosphatase 56 37 L 40-136 U/L Total Protein 7.9 5.3 L 6.4-8.2 GM/DL Albumin 4.6 H 3.2 3.2-4.5 GM/DL Thyroid Stimulating Hormone (TSH) 0.01 L 0.35-4.94 UIU/ML Free Thyroxine 1.48 0.70-1.48 NG/DL Total Triiodothyronine 141 60-180 ng/dL Human Chorionic Gonadotropin, Quant [id number] H <5 MIU/ML Phosphorus Level 2.4 2.3-4.7 MG/DL Magnesium Level 1.7 1.6-2.4 MG/DL Review of Systems General: No Appetite Gastrointestinal: No: Nausea, Vomiting Objective Exam Vital Signs Date Time Temp Pulse Resp B/P (MAP) Pulse Ox O2 Delivery O2 Flow Rate FiO2 09/09/19 04:35 36.4 88 16 98/53 (68) 97 Room Air 09/09/19 00:55 36.6 91 16 105/68 (80) 97 Room Air 09/08/19 19:55 37.0 98 18 110/66 (81) 97 Room Air 09/08/19 15:45 36.8 106 20 114/73 (87) 96 Room Air 09/08/19 13:51 36.8 111 20 97 Room Air I & O 09/09/19 07:00 Intake Total 1015.2 ml Balance 1015.2 ml Capillary Refill : General Appearance: WD/WN, Cachetic, Thin, Other (Appears to be feeling better than yesterday) HEENT: Other (lips still dry and MM are not moist. ) Results Lab Laboratory Tests 09/08/19 10:40: Urine Color YELLOW, Urine Clarity CLEAR, Urine pH 6.0, Urine Specific [place] >=1.030, Urine Protein 1+H, Urine Glucose (UA) NEGATIVE, Urine Ketones 3+H, Urine Nitrite NEGATIVE, Urine Bilirubin 1+H, Urine Urobilinogen 0.2, Urine Leukocyte Esterase NEGATIVE, Urine RBC (Auto) 3+H, Urine RBC 2-5H, Urine WBC NONE, Urine Crystals NONE, Urine Bacteria TRACE, Urine Casts PRESENT, Urine Hyaline Casts 2-5H, Urine Mucus NEGATIVE, Urine Culture Indicated NO 09/08/19 10:50: White Blood Count 9.9, Red Blood Count 4.49, Hemoglobin 13.5, Hematocrit 37, Mean Corpuscular Volume 82, Mean Corpuscular Hemoglobin 30, Mean Corpuscular Hemoglobin Concent 37H, Red Cell Distribution Width 12.6, Platelet Count 416H, Mean Platelet Volume 9.1, Neutrophils (%) (Auto) 74, Lymphocytes (%) (Auto) 16, Monocytes (%) (Auto) 10, Eosinophils (%) (Auto) 0, Basophils (%) (Auto) 0, Neutrophils # (Auto) 7.3, Lymphocytes # (Auto) 1.6, Monocytes # (Auto) 0.9, Eosinophils # (Auto) 0.0, Basophils # (Auto) 0.0, Sodium Level 136, Potassium Level 3.1L, Chloride Level 106, Carbon Dioxide Level 12L, Anion Gap 18H, Blood Urea Nitrogen 5L, Creatinine 0.66, Estimat Glomerular Filtration Rate > 60, BUN/Creatinine Ratio 8, Glucose Level 112H, Calcium Level 10.3H, Corrected Calcium , Total Bilirubin 0.7, Aspartate Amino Transf (AST/SGOT) 35H, Alanine Aminotransferase (ALT/SGPT) 114H, Alkaline Phosphatase 56, Total Protein 7.9, Albumin 4.6H, Thyroid Stimulating Hormone (TSH) 0.01L, Free Thyroxine 1.48, Total Triiodothyronine 141, Human Chorionic Gonadotropin, Quant [id number] 09/09/19 05:21: Sodium Level 136, Potassium Level 3.6, Chloride Level 113H, Carbon Dioxide Level 15L, Anion Gap 8, Blood Urea Nitrogen 4L, Creatinine 0.48L, Estimat Glomerular Filtration Rate > 60, BUN/Creatinine Ratio 8, Glucose Level 159H, Calcium Level 8.1L, Corrected Calcium 8.7, Total Bilirubin 0.9, Aspartate Amino Transf (AST/SGOT) 54H, Alanine Aminotransferase (ALT/SGPT) 90H, Alkaline Phosphatase 37L, Total Protein 5.3L, Albumin 3.2, Phosphorus Level 2.4, Magnesium Level 1.7 Meds Sixto - DARY BRAMBILA DO Cbc With Automated Diff (09/08/19 10:03) Comprehensive Metabolic Panel (09/08/19 10:03) Ns Iv 1000 Ml (Sodium Chloride 0.9%) (09/08/19 10:15) Scopolamine Patch (Transderm-Scop Patch) (09/08/19 12:00) Mirtazapine Tablet (Remeron Tablet) (09/08/19 21:00) Metoclopramide Injection (Reglan Injecti (09/08/19 12:00) Ondansetron Injection (Zofran Injectio (09/08/19 10:15) Urinalysis (09/08/19 10:40) Daily Weight 06 (09/08/19 10:13) Nothing By Mouth (09/08/19 Lunch) Thyroid Stimulating Hormone (09/08/19 10:20) Famotidine Injection (Pepcid Injection) (09/08/19 11:15) Prochlorperazine Injection (Compazine In (09/08/19 11:15) Ns Iv 1000 Ml (Sodium Chloride 0.9%) (09/08/19 10:32) Transfer - Bed/Room/Location (09/08/19 11:26) Patch Removal (Patch Removal) (09/11/19 12:00) Sodium Chloride Flush (Catheter Flush Sy (09/08/19 12:15) Hcg,Quantitative (09/08/19 12:42) Triiodothyronine Total T3 (09/08/19 12:42) Free T4 (Free Thyroxine) (09/08/19 12:42) Thiamine Injection (Vitamin B-1 Injectio (09/08/19 13:00) Clear Liquid (09/08/19 Dinner) Prochlorperazine Injection (Compazine In (09/08/19 17:15) Hydrocortisone Injection (Solu-Cortef In (09/08/19 16:00) Diphenhydramine Injection (Benadryl Inje (09/08/19 16:00) Comprehensive Metabolic Panel (09/09/19 05:00) Magnesium (09/09/19 05:00) Phosphorus (09/09/19 05:00) D5 Ns 1000 Ml Iv So... W/Potassium Chlor (09/08/19 16:15) Intake & Output-Until Iv D/C'D (09/08/19 16:14) Intake & Output-Accurate (Orde (09/08/19 16:14) D5 Ns W/Kcl 20 Meq/L (Dextrose 5%/0.9% S (09/08/19 21:42) D5 Ns W/Kcl 20 Meq/L (Dextrose 5%/0.9% S (09/09/19 04:46) Thiamine Injection (Vitamin B-1 Injectio (09/10/19 09:00) Item Value Date Time HYDROCORTISONE INJECTION (Solu-CORTEF IN (PHA) Complete 09/08/19 8210 Assessment/Plan Assessment/Plan Assess & Plan/Chief Complaint 1. Hyperemesis gravidarum with hypovolumia 2. Improving hypokalemia 3. hyperthyroid of Plan continue IVF and antiemetics (scheduled compazi ne/hydrocortisone/scopalamine patch/ pepcid, prn zofran/diphenhydramine/remeron). Has had gastric rest. If tolerates diet then will advance and consider to DC home. DARY BRAMBILA DO Sep 09, 2019 09:21
[2019-09-09] MEDS ORDERED: THIAMINE INJECTION 100 MG, FOLIC ACID INJECTION 1 MG, VITAMIN MULTI INJECTION 10 ML, MA... IV SCH ×5 (09:24)
[2019-09-09] MEDS: HYDROCORTISONE 100 MG/2 ML (Solu-CORTEF) VIAL IV SCH ×2 (10:03→22:01)
[2019-09-09 12:40] VITALS: BP 92/58
--- NOTE | 2019-09-09 13:50 | NUR ---
Pt denies nausea so far this shift. Pt tolerating water but not eating much.Sleeps at long intervals with room darkened. Significant other visited during lunch. Showered this am - assisted by Alysia
[2019-09-09 15:08] LABS: BILIRUBIN,URINE NEGATIVE (NEGATIVE); CLARITY,URINE CLEAR; COLOR,URINE YELLOW; GLUCOSE, URINE (UA) 3+ (NEGATIVE); KETONES,URINE TRACE (NEGATIVE); LEUKOCYTE ESTERASE ,URINE TRACE (NEGATIVE); NITRITE,URINE NEGATIVE (NEGATIVE); PROTEIN,URINE NEGATIVE (NEGATIVE)
[2019-09-09 15:24] LABS: BACTERIA,URINE FEW /HPF
[2019-09-09] MEDS: D5 NS W/KCL 20 MEQ/L 1,000 ML IV SCH (18:07)
[2019-09-09 19:35] VITALS: BP 101/59
[2019-09-09] MEDS: MIRTAZAPINE 15 MG (REMERON) TAB PO SCH (21:13)
[2019-09-10 01:05] VITALS: BP 102/62
[2019-09-10] MEDS: PROCHLORPERAZINE 10 MG/2ML INJ (COMPAZINE) IV SCH ×2 (01:05→07:08)
[2019-09-10] MEDS: D5 NS W/KCL 20 MEQ/L 1,000 ML IV SCH (02:14)
[2019-09-10 05:05] VITALS: BP 98/57
[2019-09-10] MEDS ORDERED: cefTRIAXone FOR IV USE 1,000 MG in WATER (STERILE) FOR INJECTION 10 ML IV ONE (07:45)
[2019-09-10] MEDS ORDERED: PROCHLORPERAZINE 25 MG (COMPAZINE) SUPP PR PRN (07:45)
[2019-09-10] MEDS ORDERED: PROCHLORPERAZINE 10 MG TAB (COMPAZINE) PO PRN (07:45)
[2019-09-10] MEDS ORDERED: predniSONE 20 MG TAB PO ONE (07:45)
--- NOTE | 2019-09-10 07:45 | Progress Note ---
Standard Progress Note Progress Notes/Assess & Plan Date Seen by a Provider: Sep 10, 2019 Time Seen by a Provider: 08:00 Progress/Assessment & Plan Doing much better today. Urine yesterday was orangish and cloudy despite initial clean UA. sent for UA. Possible UTI. Patient asymptomatic. Rocephin x 1 and then will treat culture accordingly. Tolerating some diet. States she feels much better. Will DC home if she tolerates oral meds today. Schedule Zofran ODT tid with compazine q 6 hr for breakthrough Prednisone taper Scopalamine patch Bongesta Pepcid prn benedryl BRAT diet and fluids Can start to remove meds as she is able. Discussed avoidance foods, etc with patient. follow up with Dr. Martin in 7-10 days Laboratory Tests Test 09/09/19 14:45 Range/Units Urine Color YELLOW Urine Clarity CLEAR Urine pH 6.0 5-9 Urine Specific [place] 1.025 H 1.016-1.022 Urine Protein NEGATIVE NEGATIVE Urine Glucose (UA) 3+ H NEGATIVE Urine Ketones TRACE H NEGATIVE Urine Nitrite NEGATIVE NEGATIVE Urine Bilirubin NEGATIVE NEGATIVE Urine Urobilinogen 2.0 < = 1.0 MG/DL Urine Leukocyte Esterase TRACE H NEGATIVE Urine RBC (Auto) 1+ H NEGATIVE Urine RBC NONE /HPF Urine WBC 10-25 H /HPF Urine Squamous Epithelial Cells 5-10 /HPF Urine Crystals NONE /LPF Urine Bacteria FEW H /HPF Urine Casts NONE /LPF Urine Mucus NEGATIVE /LPF Urine Culture Indicated YES Intake and Output 09/10/19 00:00 Intake Total 3160 ml Output Total 400 ml Balance 2760 ml Intake Oral 550 ml IV Total 2610 ml Output Urine Total 400 ml 09/10/19 09/10/19 01:05 05:05 Temp 36.6 36.7 Pulse 92 89 Resp 16 16 B/P (MAP) 102/62 (75) 98/57 (71) Pulse Ox 97 97 O2 Delivery Room Air Room Air 09/10/19 00:00 Intake Total 1000 ml Balance 1000 ml Final Diagnosis Hyperemesis gravidarum 11 Week gestation (EDC 03/30/2020) hypovolumia hypokalemia UTI Hyperthyroid of DARY BRAMBILA DO Sep 10, 2019 07:45
--- NOTE | 2019-09-10 08:20 | NUR ---
Dr. Crawford here to see pt. Discharge orders rec'd once pt tolerating PO medications
[2019-09-10] MEDS ORDERED: PRED5TAB PO (08:35)
[2019-09-10] MEDS ORDERED: SCOP1PAT11 TD (08:35)
[2019-09-10] MEDS ORDERED: ONDA4TAB11 PO (08:35)
[2019-09-10] MEDS ORDERED: DOXY1TAB6 PO (08:35)
[2019-09-10] MEDS ORDERED: PROC10TA10 PO (08:35)
[2019-09-10] MEDS ORDERED: FAMO20TA5 PO (08:35)
--- NOTE | 2019-09-10 08:49 | Discharge Inst-Women's Service ---
Discharge Inst-Women's Serv Depart Medication/Instructions New, Converted or Re-Newed RX: Transmitted to Pharmacy Instructions Zofran three times daily scheduled Compazine (prochlorperazine) as needed for breakthrough every 4-6 hours scopalamine patch every three days prednisone taper pepcid twice daily See hyperemesis handout for avoidances Final Diagnosis Hyperemesis gravidarum 11 week gestation hypovolumia Hypokalemia hyperthyroid of Problems Reviewed?: Yes Consults/Follow Up Additional Follow Up: Yes (7-10 days with Fenech. His nurse will call to set up appointment. Repeat TSH with next set of labs) Activity Activity: Activity as Tolerated Driving Instructions: You May Drive NO SMOKING: NO SMOKING Nothing Inside Vagina: No Douching Diet Discharge Diet: Eat Small Frequent Meals, Other Diet (hyperemesis) Symptoms to Report to : Fever Over 101 Degrees F, Lightheadedness, Dizziness/Fainting, Nausea/Vomiting For Any Problems or Questions: Contact Your Physician DARY BRAMBILA DO Sep 10, 2019 08:49
[2019-09-10 08:54] VITALS: BP 104/60
[2019-09-10] MEDS ORDERED: FAMOTIDINE 20 MG (PEPCID) TABLET PO SCH (09:00)
[2019-09-10] MEDS ORDERED: ONDANSETRON 4 MG (ZOFRAN) ORAL DISSOLVE TAB PO SCH (09:00)
--- NOTE | 2019-09-10 09:25 | NUR ---
Pt verbalizes feeling much better and wanting to go home. Discharge instructions explained to pt with copy provided to pt at this time. Pt instructed on new medications and verbalizes understanding. Pt notified office will be contacting for a follow up appointment. Pt verbalizes understanding of all instructions and signs to verify. No questions or concerns voiced at this time. Pt awaiting ride
--- NOTE | 2019-09-10 10:05 | NUR ---
Pt ambulates off unit to private vehicle accompanied by this RN along with all personal belongings. No s/s of distress noted.
[2019-09-11] MEDS ORDERED: SCOPOLAMINE PATCH REMOVAL TP SCH (12:00)
== END 2019-09-10 10:05 | disposition home or self-care (01) ==
LOC: WSo 10:00 → LDRP 11:26 → WSo 09-10 10:05
PROVIDERS: ATTEND Obstetrics & Gynecology
DX: O21.0 Mild hyperemesis gravidarum (principal); Z3A.00 Weeks of gestation of pregnancy not specified
CPT/HCPCS: 36415; 80053; 81000; 84439; 84443; 84480; 84702; 85025; 87077; 96361; 96374; 96375; 96376; 99211; G0378

== ENCOUNTER 2019-09-26 10:56 | Observation (INO) | payer MEDICAID ==
[~2019-09-26] VITALS: Ht 167.7 cm; Wt 59.1 kg
[~2019-09-26 10:56] MED LIST changes: +DOXY1TAB6 PO; +FAMO20TA5 PO; +PRED5TAB PO; +PROC10TA10 PO; +SCOP1PAT11 TD
[2019-09-26] MEDS ORDERED: LACTATED RINGERS 1,000 ML IV ONE (11:19)
[2019-09-26 11:26] LABS: BASOPHILS % (AUTO) 0 % (0-10); EOSINOPHILS % (AUTO) 0 % (0-10); HEMATOCRIT 33 % (35-52); HEMOGLOBIN 11.2 G/DL (11.5-16.0); LYMPHOCYTES # (AUTO) 1.6 X 10^3 (1.0-4.0); LYMPHOCYTES % (AUTO) 22 % (12-44); MEAN CORPUSCULAR HEMOGLOBIN 30 PG (25-34); MEAN CORPUSCULAR HGB CONC 34 G/DL (32-36); MEAN CORPUSCULAR VOLUME 90 FL (80-99); MONOCYTES # (AUTO) 0.4 X 10^3 (0.0-1.0); MONOCYTES % (AUTO) 6 % (0-12); NEUTROPHILS % (AUTO) 71 % (42-75); PLATELET COUNT 317 10^3/uL (130-400); RED CELL DISTRIBUTION WIDTH 13.8 % (10.0-14.5); WHITE BLOOD COUNT 7.1 10^3/uL (4.3-11.0)
--- NOTE | 2019-09-26 11:36 | ED GI ---
General Chief Complaint: Abdominal/GI Problems Stated Complaint: VOMITING;DEHYDRATION;13 WKS Source of Information: Patient Exam Limitations: No Limitations History of Present Illness Date Seen by Provider: Sep 26, 2019 Time Seen by Provider: 11:06 Initial Comments Patient presents ER by private conveyance with chief complaint of nausea vomiting and dehydration. She has a history of hyperemesis gravidarum area she says she is not able to tolerate her Zofran this morning and talk to Dr. BUSH's nurse who directed to come here. She is a at 12 weeks 6 days based on LMP of June 28, 2019. She had an ultrasound that did not change her dates significantly. She also has Compazine and Phenergan at her disposal. 3 weeks ago she had to spend a few days in the hospital rehydrating. She is not having any fevers chills cough shortness of breath or pain. Occasionally she gets a crampy pain in her epigastric region after vomiting. She's had poor appetite and this l ast episode of emesis has been going on since Wednesday, 4 days ago. No diarrhea but she is having some constipation. 2 days ago she had a bowel movement after enemas and stool softener. She does not feel bloated or distended presently. C- section but no other abdominal surgeries. Allergies and Home Medications Allergies Coded Allergies: NKANo Known Allergies (Verified Allergy, Mild, 03/29/06) Home Medications Doxylamine Succinate/Vit B6 1 Each Tab.ir.dr, 1 EACH PO HS May repeat in am if needed Prescribed by: DARY BRAMBILA on 09/10/19 0835 Famotidine 20 Mg Tablet, 20 MG PO BID Prescribed by: ANAIS FAITH on 08/22/19 0955 Famotidine 20 Mg Tablet, 20 MG PO BID Prescribed by: DARY BRAMBILA on 09/10/19 0835 Multivitamin 1 Each Tab.chew, 1 EACH PO DAILY, (Reported) Ondansetron 4 Mg Tab.rapdis, 4 MG PO TID schedule zofran tid with compazine as needed in between Prescribed by: DARY BRAMBILA on 09/10/19 0835 Prednisone 5 Mg Tablet, 5 MG PO as directed 5 mg po ac breakfast after lunch and after dinner and at bedtime (x 3 days) then 5 mg po ac breakfast and at bedtime (x 3 days), then 5 mg ac breakfast (x 3 days) Prescribed by: DARY BRAMBILA on 09/10/19834 Prochlorperazine Maleate 10 Mg Tablet, 10 MG PO QID PRN for NAUSEA/VOMITING-4TH LINE Prescribed by: DARY BRAMBILA on 09/10/19834 Promethazine HCl 25 Mg Tablet, 25 MG PO Q6H PRN for NAUSEA/VOMITING Prescribed by: ANAIS FAITH on 08/22/19 09 Promethazine HCl 25 Mg Supp.rect, 25 MG RC Q6H PRN for NAUSEA/VOMITING Prescribed by: ANAIS FAITH on 08/22/19 09 Scopolamine 1 Each Patch.td72, 1 EACH TD Q72H Prescribed by: DARY BRAMBILA on 09/10/19834 Patient Home Medication List Home Medication List Reviewed: Yes Review of Systems Review of Systems Constitutional: No chills, No fever EENTM: No Blurred Vision, No Double Vision Respiratory: Denies Cough, Denies Shortness of Air Cardiovascular: Denies Chest Pain, Denies Edema Gastrointestinal: See HPI; Denies Abdomen Distended, Denies Abdominal Pain; Constipated; Denies Diarrhea; Nausea, Poor Fluid Intake, Vomiting Genitourinary: Denies Burning, Denies Discharge Musculoskeletal: No back pain, No joint pain All Other Systems Reviewed Negative Unless Noted: Yes Past Aqqiypv-Cdoshe-Wxjkoy Hx Patient Social History Alcohol Use: Denies Use Recreational Drug Use: No Smoking Status: Former Smoker Type Used: Cigarettes 2nd Hand Smoke Exposure: No Recent Foreign Travel: No Contact w/Someone Who Travel: No Recent Hopitalizations: No Immunizations Up To Date Tetanus Booster (TDap): Unknown PED Vaccines UTD: Yes Past Medical History Surgeries: Yes ([place]) Section Respiratory: No Cardiac: No Neurological: No Reproductive Disorders: No Female Reproductive Disorders: Denies Sexually Transmitted Disease: No HIV/AIDS: No Genitourinary: No Gastrointestinal: No Musculoskeletal: No Endocrine: No HEENT: No Cancer: No Psychosocial: No Integumentary: No Blood Disorders: No Adverse Reaction/Blood Tranf: No Family Medical History Arthritis Grandparents (Maternal Grandmother) Asthma 19 FATHER Cardiovascular disease Grandparents (Maternal Grandmother) Fibrocystic disease of breast 19 MOTHER No Family History of: AIDS Abdominal aortic aneurysm [place]'s disease Alcoholism Alzheimer's disease Aphasia Cancer of mouth Cataracts Colon cancer Completed stroke Congenital disease Congenital heart disease Coronary thrombosis Cystic fibrosis Deafness or hearing loss Dementia Diabetes mellitus Drug abuse Dysphasia Gastroenteritis Glaucoma Headache disorder Hypercholesterolemia Hypertension Infertility Kidney disease Myocardial infarction Neoplasm Not obtainable due to adoption Osteoporosis Parkinson's disease Prostate cancer Psychosocial problem Respiratory disorder Seizure disorder Severe allergy Thyroid disease Tuberculosis Visual disorder No Pertinent Family Hx Physical Exam Vital Signs Vital Signs - First Documented 09/26/19 11:05 Temp 36.7 Pulse 74 Resp 18 B/P (MAP) 106/74 (85) Pulse Ox 100 Capillary Refill : Height/Weight/BMI Height: 5'6.00" Weight: 140lbs. oz. [id number]; 19.23 BMI Method:Stated General Appearance: WD/WN, mild distress HEENT: PERRL/EOMI, pharynx normal Neck: full range of motion, supple, normal inspection Respiratory: lungs clear, normal breath sounds, no respiratory distress, no accessory muscle use Cardiovascular: normal peripheral pulses, regular rate, rhythm, no edema, no murmur Peripheral Pulses: 2+ Radial Pulses (R), 2+ Radial Pulses (L) Gastrointestinal: normal bowel sounds, non tender, soft, no organomegaly Extremities: normal range of motion, normal inspection, no pedal edema, normal capillary refill Neurologic/Psychiatric: alert, normal mood/affect, oriented x 3 Skin: normal color, warm/dry Progress/Results/Core Measures Results/Orders Lab Results Laboratory Tests Test 09/26/19 11:13 09/26/19 11:35 09/26/19 12:12 Range/Units White Blood Count 7.1 4.3-11.0 10^3/uL Red Blood Count 3.69 L 4.35-5.85 10^6/uL Hemoglobin 11.2 L 11.5-16.0 G/DL Hematocrit 33 L 35-52 % Mean Corpuscular Volume 90 80-99 FL Mean Corpuscular Hemoglobin 30 25-34 PG Mean Corpuscular Hemoglobin Concent 34 32-36 G/DL Red Cell Distribution Width 13.8 10.0-14.5 % Platelet Count 317 130-400 10^3/uL Mean Platelet Volume 9.0 7.4-10.4 FL Neutrophils (%) (Auto) 71 42-75 % Lymphocytes (%) (Auto) 22 12-44 % Monocytes (%) (Auto) 6 0-12 % Eosinophils (%) (Auto) 0 0-10 % Basophils (%) (Auto) 0 0-10 % Neutrophils # (Auto) 5.0 1.8-7.8 X 10^3 Lymphocytes # (Auto) 1.6 1.0-4.0 X 10^3 Monocytes # (Auto) 0.4 0.0-1.0 X 10^3 Eosinophils # (Auto) 0.0 0.0-0.3 10^3/uL Basophils # (Auto) 0.0 0.0-0.1 10^3/uL Sodium Level 133 L 135-145 MMOL/L Potassium Level 3.9 3.6-5.0 MMOL/L Chloride Level 103 98-107 MMOL/L Carbon Dioxide Level 16 L 21-32 MMOL/L Anion Gap 14 5-14 MMOL/L Blood Urea Nitrogen 13 7-18 MG/DL Creatinine 0.58 L 0.60-1.30 MG/DL Estimat Glomerular Filtration Rate > 60 BUN/Creatinine Ratio 22 Glucose Level 65 L 70-105 MG/DL Calcium Level 9.2 8.5-10.1 MG/DL Corrected Calcium 9.1 8.5-10.1 MG/DL Total Bilirubin 1.1 H 0.1-1.0 MG/DL Aspartate Amino Transf (AST/SGOT) 19 5-34 U/L Alanine Aminotransferase (ALT/SGPT) 21 0-55 U/L Alkaline Phosphatase 48 40-136 U/L Total Protein 6.9 6.4-8.2 GM/DL Albumin 4.1 3.2-4.5 GM/DL Urine Color YELLOW Urine Clarity CLEAR Urine pH 6.0 5-9 Urine Specific Coleman >=1.030 1.016-1.022 Urine Protein TRACE H NEGATIVE Urine Glucose (UA) NEGATIVE NEGATIVE Urine Ketones 3+ H NEGATIVE Urine Nitrite NEGATIVE NEGATIVE Urine Bilirubin NEGATIVE NEGATIVE Urine Urobilinogen 0.2 < = 1.0 MG/DL Urine Leukocyte Esterase NEGATIVE NEGATIVE Urine RBC (Auto) 2+ H NEGATIVE Urine RBC 0-2 /HPF Urine WBC NONE /HPF Urine Squamous Epithelial Cells 25-50 H /HPF Urine Crystals NONE /LPF Urine Bacteria TRACE /HPF Urine Casts NONE /LPF Urine Mucus NEGATIVE /LPF Urine Culture Indicated NO Glucometer 60 *L 70-110 MG/DL My Orders Orders - MINA CHRISTINE Ed Iv/Invasive Line Start (09/26/19 11:19) Lactated Ringers (Lr 1000 Ml Iv Solution (09/26/19 11:19) Cbc With Automated Diff (09/26/19 11:19) Comprehensive Metabolic Panel (09/26/19 11:19) Ua Culture If Indicated (09/26/19 11:19) Diphenhydramine Injection (Benadryl Inje (09/26/19 11:45) Ondansetron Injection (Zofran Injectio (09/26/19 11:45) Accucheck Stat ONCE (09/26/19 12:09) D5w 500 Ml Iv Solution (Dextrose 5% Wate (09/26/19 12:15) Promethazine Injection (Phenergan Injec (09/26/19 12:30) Medications Given in ED Current Medications Medications Dose Ordered Sig/Shelly Route Start Time Stop Time Status Last Admin Dose Admin Dextrose/Water 500 ml @ 1,000 mls/hr Q30M ONCE IV 09/26/19 12:15 09/26/19 12:44 DC 09/26/19 12:46 1,000 MLS/HR Diphenhydramine HCl 25 mg ONCE ONCE IVP 09/26/19 11:45 09/26/19 11:46 DC 09/26/19 11:58 25 MG Lactated Ringer's 1,000 ml @ 0 mls/hr Q0M ONCE IV 09/26/19 11:19 09/26/19 11:22 DC 09/26/19 11:26 0 MLS/HR Ondansetron HCl 8 mg ONCE ONCE IVP 09/26/19 11:45 09/26/19 11:46 DC 09/26/19 11:58 8 MG Promethazine HCl 25 mg ONCE ONCE IVP 09/26/19 12:30 09/26/19 12:31 DC 09/26/19 12:25 25 MG Vital Signs/I&O 09/26/19 11:05 Temp 36.7 Pulse 74 Resp 18 B/P (MAP) 106/74 (85) Pulse Ox 100 Progress Progress Note #1: Time: 11:35 Progress Note We'll start with 8 mg Zofran IV and 25 mg IV Benadryl. 1 L of lactated Ringer's and check some labs including a magnesium and urinalysis. Progress Note #2: Time: 13:32 Progress Note The patient's having some marginal improvement in her nausea however she did just recently dry heaves several times. She is noting some new tremors in her right arm and right leg and the rest of her neurologic exam was normal. Her blood sugars 165 so it was supposed that perhaps her tremors are coming from the Phenergan and another 25 mg IV Benadryl was ordered. Departure Communication (Admissions) Time/Spoke to Admitting Phy: 12:20 Dr. BUSH agrees to put her up with some D5 LR and antinausea medicines observation. Impression Primary Impression: Dehydration Additional Impression: hyperemesis gravidarum Disposition: ADMITTED INPATIENT Condition: Stable Admissions Decision to Admit Reason: Admit from ER (General) Decision to Admit/Date: Sep 26, 2019 Time/Decision to Admit Time: 12:15 Departure-Patient Inst. Referrals: BIANCA BUSH DO (PCP) Primary Care Physician [facility]NOHEMI (Family) Primary Care Physician MINA CHRISTINE Sep 26, 2019 11:36
[2019-09-26 11:44] LABS: BILIRUBIN,URINE NEGATIVE (NEGATIVE); CLARITY,URINE CLEAR; COLOR,URINE YELLOW; GLUCOSE, URINE (UA) NEGATIVE (NEGATIVE); KETONES,URINE 3+ (NEGATIVE); LEUKOCYTE ESTERASE ,URINE NEGATIVE (NEGATIVE); NITRITE,URINE NEGATIVE (NEGATIVE); PROTEIN,URINE TRACE (NEGATIVE)
[2019-09-26] MEDS ORDERED: diphenhydrAMINE 50 MG/ML INJ (BENADRYL) IVP ONE ×2 (11:45→13:30)
[2019-09-26] MEDS ORDERED: ONDANSETRON 4 MG/2 ML (SDV) Z0FRAN IVP ONE (11:45)
[2019-09-26 11:47] LABS: ALANINE AMINOTRANSFERASE 21 U/L (0-55); ALBUMIN 4.1 GM/DL (3.2-4.5); ALKALINE PHOSPHATASE 48 U/L (40-136); BILIRUBIN,TOTAL 1.1 MG/DL (0.1-1.0); BUN/CREATININE RATIO 22; CALCIUM 9.2 MG/DL (8.5-10.1); CARBON DIOXIDE 16 MMOL/L (21-32); CHLORIDE 103 MMOL/L (98-107); CREATININE SERUM 0.58 MG/DL (0.60-1.30); GFR ESTIMATED > 60; GLUCOSE 65 MG/DL (70-105); POTASSIUM 3.9 MMOL/L (3.6-5.0); SODIUM 133 MMOL/L (135-145); TOTAL PROTEIN 6.9 GM/DL (6.4-8.2)
[2019-09-26 11:54] LABS: BACTERIA,URINE TRACE /HPF; RBC,URINE 0-2 /HPF; SQUAMOUS EPITHELIAL CELL,UR 25-50 /HPF
[2019-09-26] MEDS ORDERED: D5W 500 ML IV SOLUTION 500 ML IV ONE (12:15)
[2019-09-26] MEDS ORDERED: PROMETHAZINE INJ 25 MG/ML (PHENERGAN) AMP IVP ONE (12:30)
[2019-09-26] MEDS ORDERED: PROCHLORPERAZINE 10 MG/2ML INJ (COMPAZINE) IV PRN (13:45)
[2019-09-26] MEDS ORDERED: D5 LR IV SOLUTION 1,000 ML IV ONE (13:57)
[2019-09-26] MEDS: D5 LR IV SOLUTION 1,000 ML IV SCH ×2 (14:09→21:58)
[2019-09-26 14:10] VITALS: BP 94/52
[2019-09-26] MEDS ORDERED: ANTACID SUSP 30 ML UDC (MYLANTA) PO PRN (14:15)
[2019-09-26] MEDS ORDERED: PROMETHAZINE INJ 25 MG/ML (PHENERGAN) AMP IV PRN (14:15)
[2019-09-26] MEDS ORDERED: ACETAMINOPHEN 500 MG TAB (TYLENOL) PO PRN (14:15)
[2019-09-26] MEDS ORDERED: CATHETER FLUSH 10 ML SYR IV PRN (14:15)
[2019-09-26 16:40] VITALS: BP 93/54
[2019-09-26] MEDS: ONDANSETRON 4 MG/2 ML (SDV) Z0FRAN IVP PRN (18:46)
[2019-09-26 21:40] VITALS: BP 84/52
[2019-09-27 04:25] VITALS: BP 81/49
[2019-09-27 05:00] LABS: BASOPHILS % (AUTO) 0 % (0-10); EOSINOPHILS # (AUTO) 0.1 10^3/uL (0.0-0.3); EOSINOPHILS % (AUTO) 1 % (0-10); HEMATOCRIT 27 % (35-52); HEMOGLOBIN 9.1 G/DL (11.5-16.0); LYMPHOCYTES # (AUTO) 2.1 X 10^3 (1.0-4.0); LYMPHOCYTES % (AUTO) 44 % (12-44); MEAN CORPUSCULAR HEMOGLOBIN 30 PG (25-34); MEAN CORPUSCULAR HGB CONC 34 G/DL (32-36); MEAN CORPUSCULAR VOLUME 90 FL (80-99); MEAN PLATELET VOLUME 8.8 FL (7.4-10.4); MONOCYTES # (AUTO) 0.4 X 10^3 (0.0-1.0); MONOCYTES % (AUTO) 9 % (0-12); NEUTROPHILS # (AUTO) 2.2 X 10^3 (1.8-7.8); NEUTROPHILS % (AUTO) 46 % (42-75); PLATELET COUNT 269 10^3/uL (130-400); RED CELL DISTRIBUTION WIDTH 13.8 % (10.0-14.5); WHITE BLOOD COUNT 4.7 10^3/uL (4.3-11.0)
[2019-09-27 05:26] LABS: BUN/CREATININE RATIO 13; CALCIUM 8.1 MG/DL (8.5-10.1); CARBON DIOXIDE 17 MMOL/L (21-32); CHLORIDE 108 MMOL/L (98-107); CREATININE SERUM 0.54 MG/DL (0.60-1.30); GFR ESTIMATED > 60; GLUCOSE 87 MG/DL (70-105); POTASSIUM 3.6 MMOL/L (3.6-5.0); SODIUM 136 MMOL/L (135-145)
[2019-09-27] MEDS: D5 LR IV SOLUTION 1,000 ML IV SCH (06:00)
[2019-09-27 08:00] VITALS: BP 88/55
[2019-09-27] MEDS: ONDANSETRON 4 MG/2 ML (SDV) Z0FRAN IVP PRN (08:10)
--- NOTE | 2019-09-27 08:42 | History & Physical-OB ---
OB - Chief Complaint & HPI Date/Time Date of Admission: Date of Admission: Sep 26, 2019 at 12:37 Date seen by a Provider: Sep 27, 2019 Time Seen by a Provider: 07:40 Chief Complaint/History OB-Reason for Admission/Chief: Hx : 2 Hx Para: 1 Expected Date of Delivery: Mar 30, 2020 Gestational Age in Weeks: 13 Gestational Age in Days: 3 Other reason for admission: Patient admitted from ER for intractable nausea and vomiting, ketosis. Admission Nurse Assessment Rev: Yes History of Labs Laboratory Tests Test 09/26/19 11:13 09/26/19 11:35 09/26/19 12:12 09/26/19 13:28 Range/Units White Blood Count 7.1 4.3-11.0 10^3/uL Red Blood Count 3.69 L 4.35-5.85 10^6/uL Hemoglobin 11.2 L 11.5-16.0 G/DL Hematocrit 33 L 35-52 % Mean Corpuscular Volume 90 80-99 FL Mean Corpuscular Hemoglobin 30 25-34 PG Mean Corpuscular Hemoglobin Concent 34 32-36 G/DL Red Cell Distribution Width 13.8 10.0-14.5 % Platelet Count 317 130-400 10^3/uL Mean Platelet Volume 9.0 7.4-10.4 FL Neutrophils (%) (Auto) 71 42-75 % Lymphocytes (%) (Auto) 22 12-44 % Monocytes (%) (Auto) 6 0-12 % Eosinophils (%) (Auto) 0 0-10 % Basophils (%) (Auto) 0 0-10 % Neutrophils # (Auto) 5.0 1.8-7.8 X 10^3 Lymphocytes # (Auto) 1.6 1.0-4.0 X 10^3 Monocytes # (Auto) 0.4 0.0-1.0 X 10^3 Eosinophils # (Auto) 0.0 0.0-0.3 10^3/uL Basophils # (Auto) 0.0 0.0-0.1 10^3/uL Sodium Level 133 L 135-145 MMOL/L Potassium Level 3.9 3.6-5.0 MMOL/L Chloride Level 103 98-107 MMOL/L Carbon Dioxide Level 16 L 21-32 MMOL/L Anion Gap 14 5-14 MMOL/L Blood Urea Nitrogen 13 7-18 MG/DL Creatinine 0.58 L 0.60-1.30 MG/DL Estimat Glomerular Filtration Rate > 60 BUN/Creatinine Ratio 22 Glucose Level 65 L 70-105 MG/DL Calcium Level 9.2 8.5-10.1 MG/DL Corrected Calcium 9.1 8.5-10.1 MG/DL Total Bilirubin 1.1 H 0.1-1.0 MG/DL Aspartate Amino Transf (AST/SGOT) 19 5-34 U/L Alanine Aminotransferase (ALT/SGPT) 21 0-55 U/L Alkaline Phosphatase 48 40-136 U/L Total Protein 6.9 6.4-8.2 GM/DL Albumin 4.1 3.2-4.5 GM/DL Urine Color YELLOW Urine Clarity CLEAR Urine pH 6.0 5-9 Urine Specific [place] >=1.030 1.016-1.022 Urine Protein TRACE H NEGATIVE Urine Glucose (UA) NEGATIVE NEGATIVE Urine Ketones 3+ H NEGATIVE Urine Nitrite NEGATIVE NEGATIVE Urine Bilirubin NEGATIVE NEGATIVE Urine Urobilinogen 0.2 < = 1.0 MG/DL Urine Leukocyte Esterase NEGATIVE NEGATIVE Urine RBC (Auto) 2+ H NEGATIVE Urine RBC 0-2 /HPF Urine WBC NONE /HPF Urine Squamous Epithelial Cells 25-50 H /HPF Urine Crystals NONE /LPF Urine Bacteria TRACE /HPF Urine Casts NONE /LPF Urine Mucus NEGATIVE /LPF Urine Culture Indicated NO Glucometer 60 *L 165 H 70-110 MG/DL Test 09/26/19 18:49 09/27/19 04:38 Range/Units Glucometer 164 H 70-110 MG/DL White Blood Count 4.7 4.3-11.0 10^3/uL Red Blood Count 3.00 L 4.35-5.85 10^6/uL Hemoglobin 9.1 L 11.5-16.0 G/DL Hematocrit 27 L 35-52 % Mean Corpuscular Volume 90 80-99 FL Mean Corpuscular Hemoglobin 30 25-34 PG Mean Corpuscular Hemoglobin Concent 34 32-36 G/DL Red Cell Distribution Width 13.8 10.0-14.5 % Platelet Count 269 130-400 10^3/uL Mean Platelet Volume 8.8 7.4-10.4 FL Neutrophils (%) (Auto) 46 42-75 % Lymphocytes (%) (Auto) 44 12-44 % Monocytes (%) (Auto) 9 0-12 % Eosinophils (%) (Auto) 1 0-10 % Basophils (%) (Auto) 0 0-10 % Neutrophils # (Auto) 2.2 1.8-7.8 X 10^3 Lymphocytes # (Auto) 2.1 1.0-4.0 X 10^3 Monocytes # (Auto) 0.4 0.0-1.0 X 10^3 Eosinophils # (Auto) 0.1 0.0-0.3 10^3/uL Basophils # (Auto) 0.0 0.0-0.1 10^3/uL Sodium Level 136 135-145 MMOL/L Potassium Level 3.6 3.6-5.0 MMOL/L Chloride Level 108 H 98-107 MMOL/L Carbon Dioxide Level 17 L 21-32 MMOL/L Anion Gap 11 5-14 MMOL/L Blood Urea Nitrogen 7 7-18 MG/DL Creatinine 0.54 L 0.60-1.30 MG/DL Estimat Glomerular Filtration Rate > 60 BUN/Creatinine Ratio 13 Glucose Level 87 70-105 MG/DL Calcium Level 8.1 L 8.5-10.1 MG/DL Allergies and Home Medications Allergies Coded Allergies: NKANo Known Allergies (Verified Allergy, Mild, 03/29/06) Home Medications Doxylamine Succinate/Vit B6 1 Each Tab.ir.dr, 1 EACH PO HS May repeat in am if needed Prescribed by: DARY BRAMBILA on 09/10/19834 Famotidine 20 Mg Tablet, 20 MG PO BID Prescribed by: ANAIS FAITH on 08/22/19 09 Famotidine 20 Mg Tablet, 20 MG PO BID Prescribed by: DARY BRAMBILA on 09/10/19834 Multivitamin 1 Each Tab.chew, 1 EACH PO DAILY, (Reported) Ondansetron 4 Mg Tab.rapdis, 4 MG PO TID schedule zofran tid with compazine as needed in between Prescribed by: DARY BRAMBILA on 09/10/19834 Prednisone 5 Mg Tablet, 5 MG PO as directed 5 mg po ac breakfast after lunch and after dinner and at bedtime (x 3 days) then 5 mg po ac breakfast and at bedtime (x 3 days), then 5 mg ac breakfast (x 3 days) Prescribed by: DARY BRAMBILA on 09/10/19 0835 Prochlorperazine Maleate 10 Mg Tablet, 10 MG PO QID PRN for NAUSEA/VOMITING-4TH LINE Prescribed by: DARY BRAMBILA on 09/10/19834 Promethazine HCl 25 Mg Tablet, 25 MG PO Q6H PRN for NAUSEA/VOMITING Prescribed by: ANAIS FAITH on 08/22/19 09 Promethazine HCl 25 Mg Supp.rect, 25 MG RC Q6H PRN for NAUSEA/VOMITING Prescribed by: ANAIS FAITH on 08/22/19 09 Scopolamine 1 Each Patch.td72, 1 EACH TD Q72H Prescribed by: DARY BRAMBILA on 09/10/19834 Patient Home Medication List Home Medication List Reviewed: Yes OB - History Hx of Present Care: Yes Obstetrical Complications: Hyperemesis Medical Complications: None Obstetrical History Hx : 2 Hx Para: 1 Hx Total # of Abortions (Spona: 0 Delivery History Hx Blood Disorders: No Adverse Rxn to Tranfusion: No Patient Past Medical History n/a Social History/Family History HIV/AIDS: No Recent Infectious Disease Expo: No Sexually Transmitted Disease: No Alcohol Use: Denies Use Recreational Drug Use: No 2nd Hand Smoke Exposure: No Immunizations Tetanus Booster (TDap): Unknown OB - Admission Exam Physical Exam Vitals: Vital Signs 09/27/19 04:25 Temp 36.2 Pulse 68 Resp 16 B/P (MAP) 81/49 (60) Pulse Ox 96 O2 Delivery Room Air HEENT: NCAT Heart: Rhythm Normal Lungs: Clear Heart Rate: 140's Contractions on Admission: None Labs Laboratory Tests Test 09/26/19 11:13 09/26/19 11:35 09/26/19 12:12 09/26/19 13:28 Range/Units White Blood Count 7.1 4.3-11.0 10^3/uL Red Blood Count 3.69 L 4.35-5.85 10^6/uL Hemoglobin 11.2 L 11.5-16.0 G/DL Hematocrit 33 L 35-52 % Mean Corpuscular Volume 90 80-99 FL Mean Corpuscular Hemoglobin 30 25-34 PG Mean Corpuscular Hemoglobin Concent 34 32-36 G/DL Red Cell Distribution Width 13.8 10.0-14.5 % Platelet Count 317 130-400 10^3/uL Mean Platelet Volume 9.0 7.4-10.4 FL Neutrophils (%) (Auto) 71 42-75 % Lymphocytes (%) (Auto) 22 12-44 % Monocytes (%) (Auto) 6 0-12 % Eosinophils (%) (Auto) 0 0-10 % Basophils (%) (Auto) 0 0-10 % Neutrophils # (Auto) 5.0 1.8-7.8 X 10^3 Lymphocytes # (Auto) 1.6 1.0-4.0 X 10^3 Monocytes # (Auto) 0.4 0.0-1.0 X 10^3 Eosinophils # (Auto) 0.0 0.0-0.3 10^3/uL Basophils # (Auto) 0.0 0.0-0.1 10^3/uL Sodium Level 133 L 135-145 MMOL/L Potassium Level 3.9 3.6-5.0 MMOL/L Chloride Level 103 98-107 MMOL/L Carbon Dioxide Level 16 L 21-32 MMOL/L Anion Gap 14 5-14 MMOL/L Blood Urea Nitrogen 13 7-18 MG/DL Creatinine 0.58 L 0.60-1.30 MG/DL Estimat Glomerular Filtration Rate > 60 BUN/Creatinine Ratio 22 Glucose Level 65 L 70-105 MG/DL Calcium Level 9.2 8.5-10.1 MG/DL Corrected Calcium 9.1 8.5-10.1 MG/DL Total Bilirubin 1.1 H 0.1-1.0 MG/DL Aspartate Amino Transf (AST/SGOT) 19 5-34 U/L Alanine Aminotransferase (ALT/SGPT) 21 0-55 U/L Alkaline Phosphatase 48 40-136 U/L Total Protein 6.9 6.4-8.2 GM/DL Albumin 4.1 3.2-4.5 GM/DL Urine Color YELLOW Urine Clarity CLEAR Urine pH 6.0 5-9 Urine Specific [place]verse >=1.030 1.016-1.022 Urine Protein TRACE H NEGATIVE Urine Glucose (UA) NEGATIVE NEGATIVE Urine Ketones 3+ H NEGATIVE Urine Nitrite NEGATIVE NEGATIVE Urine Bilirubin NEGATIVE NEGATIVE Urine Urobilinogen 0.2 < = 1.0 MG/DL Urine Leukocyte Esterase NEGATIVE NEGATIVE Urine RBC (Auto) 2+ H NEGATIVE Urine RBC 0-2 /HPF Urine WBC NONE /HPF Urine Squamous Epithelial Cells 25-50 H /HPF Urine Crystals NONE /LPF Urine Bacteria TRACE /HPF Urine Casts NONE /LPF Urine Mucus NEGATIVE /LPF Urine Culture Indicated NO Glucometer 60 *L 165 H 70-110 MG/DL Test 09/26/19 18:49 09/27/19 04:38 Range/Units Glucometer 164 H 70-110 MG/DL White Blood Count 4.7 4.3-11.0 10^3/uL Red Blood Count 3.00 L 4.35-5.85 10^6/uL Hemoglobin 9.1 L 11.5-16.0 G/DL Hematocrit 27 L 35-52 % Mean Corpuscular Volume 90 80-99 FL Mean Corpuscular Hemoglobin 30 25-34 PG Mean Corpuscular Hemoglobin Concent 34 32-36 G/DL Red Cell Distribution Width 13.8 10.0-14.5 % Platelet Count 269 130-400 10^3/uL Mean Platelet Volume 8.8 7.4-10.4 FL Neutrophils (%) (Auto) 46 42-75 % Lymphocytes (%) (Auto) 44 12-44 % Monocytes (%) (Auto) 9 0-12 % Eosinophils (%) (Auto) 1 0-10 % Basophils (%) (Auto) 0 0-10 % Neutrophils # (Auto) 2.2 1.8-7.8 X 10^3 Lymphocytes # (Auto) 2.1 1.0-4.0 X 10^3 Monocytes # (Auto) 0.4 0.0-1.0 X 10^3 Eosinophils # (Auto) 0.1 0.0-0.3 10^3/uL Basophils # (Auto) 0.0 0.0-0.1 10^3/uL Sodium Level 136 135-145 MMOL/L Potassium Level 3.6 3.6-5.0 MMOL/L Chloride Level 108 H 98-107 MMOL/L Carbon Dioxide Level 17 L 21-32 MMOL/L Anion Gap 11 5-14 MMOL/L Blood Urea Nitrogen 7 7-18 MG/DL Creatinine 0.54 L 0.60-1.30 MG/DL Estimat Glomerular Filtration Rate > 60 BUN/Creatinine Ratio 13 Glucose Level 87 70-105 MG/DL Calcium Level 8.1 L 8.5-10.1 MG/DL OB - Assessment/Plan/Diagnosis Assessment Assessment: other Admission Dx 33 yo @ 13.4 HEG Admission Status: Observation Reason for Inpatient Admission: Intractable nausea/ vomitting Hyperemesis gravidarum Plan Plan: Other Other Plan IVF hydration and antiemetics overnight Will dc this am if tolerates breakfast BIANCA BUSH DO Sep 27, 2019 08:42
[2019-09-27 09:45] VITALS: BP 88/55
== END 2019-09-27 09:19 | disposition home or self-care (01) ==
LOC: EDUNIT# 10:56 → ER 10:58 → UNDOADMOB 12:37 → LDRP 12:37 → UNDODISOB 09-27 09:45
PROVIDERS: ADMIT Obstetrics & Gynecology; ATTEND Obstetrics & Gynecology
DX: O21.1 Hyperemesis gravidarum with metabolic disturbance (principal); Z3A.13 13 weeks gestation of pregnancy
CPT/HCPCS: 36415; 80048; 80053; 81000; 82962; 85025; 96361; 96374; 96375; 96376; G0378

== ENCOUNTER → 2019-11-20 | Outpatient (CLI) | payer MEDICAID ==
--- NOTE | 2019-11-20 13:17 | Diagnostic Imaging Report ---
INDICATION: survey. TECHNIQUE: Multiple Real-time grayscale images were obtained over the gravid uterus. COMPARISON: None. COMPARISON: There are no prior studies available for comparison. FINDINGS: There is a single live fetus in cephalic presentation. heart motion was noted and a rate of 149 BPM was recorded. There were no abnormalities identified. The growth parameters are fairly uniform. The placenta is anterior and there is no previa. The anatomic fluid volume is within normal limits. The cervix was identified and measures 3.8 cm. Biometrical measurements are as follows: Biparietal 5.11 cm, age 21 weeks 4 days. Head circumference 19.00 cm, age 21 weeks 2 days. Abdominal circumference 16.98 cm, age 22 weeks 0 days. Femur length 3.67 cm, age 21 weeks 5 days. Sonographic estimate age: 21 weeks 5 days. Sonographic estimated date of delivery: 03/27/2020. Estimated Weight: 449 gm (+/- 66 gm). LMP percentile: 70%. heart rate: 149 beats per minute. number: 1 of 1. IMPRESSION: 1. There is a single live fetus of approximately 20 weeks 5 days gestation +/- 1.5 weeks. The EDC is 03/27/2020. 2. There were no abnormalities identified. 3. The growth parameters are fairly uniform. Dictated by: Dictated on workstation # [id number]
== END ==
LOC: RAD 10:00
PROVIDERS: ATTEND Obstetrics & Gynecology
DX: Z34.92 Encounter for supervision of normal pregnancy, unspecified, second trimester (principal); Z3A.20 20 weeks gestation of pregnancy
CPT/HCPCS: 76805

== ENCOUNTER 2020-03-21 05:29 | Outpatient (RCR) | payer MEDICAID ==
[~2020-03-21] VITALS: Ht 167.7 cm; Wt 74.1 kg
== END 2020-03-21 13:44 | disposition home or self-care (01) ==
LOC: PREOP 05:29
PROVIDERS: ATTEND Obstetrics & Gynecology
DX: Z01.812 Encounter for preprocedural laboratory examination (principal); Z20.822 Contact with and (suspected) exposure to COVID-19
CPT/HCPCS: 87635

== ENCOUNTER 2020-03-25 05:20 | Inpatient (IN) | payer MEDICAID ==
[~2020-03-25] VITALS: Ht 167.7 cm; Wt 74.0 kg
[2020-03-25] VITALS (9 sets, daily range): BP systolic 103–137; BP diastolic 60–87
--- NOTE | 2020-03-25 05:28 | NUR ---
CYNDY RUDD presented to unit via ambulation from home/ED, accompanied by SO, with c/o ctxs, sched for r c/s TF. CYNDY RUDD weighed, gowned, voided, and to bed. EFHM and TOCO applied, VS taken. CYNDY RUDD oriented to bed controls, call light, TV, heat, and A/C controls.
[2020-03-25] MEDS ORDERED: ceFAZolin INJECTION 1,000 MG in WATER (STERILE) FOR INJECTION 10 ML IV ONE (05:30)
[2020-03-25] MEDS ORDERED: METOCLOPRAMIDE INJ 10 MG/2 ML (REGLAN) ONE (05:43)
[2020-03-25] MEDS ORDERED: FAMOTIDINE 20MG/2ML IV (PEPCID) ONE (05:43)
[2020-03-25] MEDS ORDERED: CITRIC ACID/SOB CIT (BICITRA) 30 ML UDC ONE (05:43)
[2020-03-25] MEDS ORDERED: TERBUTALINE INJ 1 MG/ML (BRETHINE) AMP ONE (05:44)
[2020-03-25] MEDS ORDERED: CITRIC ACID/SOB CIT (BICITRA) 30 ML UDC PO ONE (05:45)
[2020-03-25] MEDS ORDERED: TERBUTALINE INJ 1 MG/ML (BRETHINE) AMP SC ONE (05:45)
[2020-03-25] MEDS ORDERED: LACTATED RINGERS 1,000 ML IV PRN ×2 (05:45)
[2020-03-25] MEDS ORDERED: METOCLOPRAMIDE INJ 10 MG/2 ML (REGLAN) IV ONE (05:45)
[2020-03-25] MEDS ORDERED: FAMOTIDINE 20MG/2ML IV (PEPCID) IV ONE (05:45)
[2020-03-25 05:59] LABS: BASOPHILS % (AUTO) 0 % (0-10); EOSINOPHILS # (AUTO) 0.1 10^3/uL (0.0-0.3); EOSINOPHILS % (AUTO) 1 % (0-10); HEMATOCRIT 34 % (35-52); HEMOGLOBIN 10.9 g/dL (11.5-16.0); LYMPHOCYTES # (AUTO) 2.5 10^3/uL (1.0-4.0); LYMPHOCYTES % (AUTO) 22 % (12-44); MEAN CORPUSCULAR HEMOGLOBIN 29 pg (25-34); MEAN CORPUSCULAR HGB CONC 32 g/dL (32-36); MEAN CORPUSCULAR VOLUME 88 fL (80-99); MEAN PLATELET VOLUME 10.3 fL (9.0-12.2); MONOCYTES % (AUTO) 8 % (0-12); NEUTROPHILS # (AUTO) 7.7 10^3/uL (1.8-7.8); NEUTROPHILS % (AUTO) 68 % (42-75); PLATELET COUNT 282 10^3/uL (130-400); WHITE BLOOD COUNT 11.4 10^3/uL (4.3-11.0)
[2020-03-25] MEDS ORDERED: fentaNYL INJECTION 100 MCG/2 ML AMP ONE (06:31)
--- NOTE | 2020-03-25 06:36 | History & Physical-OB ---
OB - Chief Complaint & HPI Date/Time Date of Admission: Date of Admission: Mar 25, 2020 at 05:20 Date seen by a Provider: Mar 25, 2020 Time Seen by a Provider: 06:25 Chief Complaint/History OB-Reason for Admission/Chief: Onset of Labor Hx : 2 Hx Para: 1 Expected Date of Delivery: Mar 30, 2020 Gestational Age in Weeks: 39 Gestational Age in Days: 2 Indication for : desires repeat Admission Nurse Assessment Rev: Yes History of Labs O pos Antibody neg RI RPR NR HBsAg NR HIV NR GC neg GBS neg Allergies and Home Medications Allergies Coded Allergies: NKANo Known Allergies (Verified Allergy, Mild, 03/29/06) Home Medications No Active Prescriptions or Reported Meds Patient Home Medication List Home Medication List Reviewed: Yes OB - History Hx of Present Care: Yes Ultrasounds: Normal mid trimester US Obstetrical Complications: None Medical Complications: None Delivery History Hx Blood Disorders: No Adverse Rxn to Tranfusion: No Patient Past Medical History n/a Social History/Family History 2nd Hand Smoke Exposure: No Immunizations Tetanus Booster (TDap): Unknown OB - Admission Exam Physical Exam HEENT: NCAT Heart: Rhythm Normal Lungs: Clear Abdomen: Gravid Extremities: Normal Reflexes: Normal Cervical Dilatation: 5cm Effacement: 75% Station: -1 Membranes: Intact Heart Rate: 130's Accelerations: Accelerations Present Decelerations: No Decelerations Short Term Variability: Present Captain Room Service Variability: Average (6-25) Contractions on Admission: < 5 Minutes Apart Intensity: Firm Labs Laboratory Tests Test 03/25/20 05:50 Range/Units White Blood Count 11.4 H 4.3-11.0 10^3/uL Red Blood Count 3.83 3.80-5.11 10^6/uL Hemoglobin 10.9 L 11.5-16.0 g/dL Hematocrit 34 L 35-52 % Mean Corpuscular Volume 88 80-99 fL Mean Corpuscular Hemoglobin 29 25-34 pg Mean Corpuscular Hemoglobin Concent 32 32-36 g/dL Red Cell Distribution Width 13.4 10.0-14.5 % Platelet Count 282 130-400 10^3/uL Mean Platelet Volume 10.3 9.0-12.2 fL Immature Granulocyte % (Auto) 1 % Neutrophils (%) (Auto) 68 42-75 % Lymphocytes (%) (Auto) 22 12-44 % Monocytes (%) (Auto) 8 0-12 % Eosinophils (%) (Auto) 1 0-10 % Basophils (%) (Auto) 0 0-10 % Neutrophils # (Auto) 7.7 1.8-7.8 10^3/uL Lymphocytes # (Auto) 2.5 1.0-4.0 10^3/uL Monocytes # (Auto) 1.0 0.0-1.0 10^3/uL Eosinophils # (Auto) 0.1 0.0-0.3 10^3/uL Basophils # (Auto) 0.0 0.0-0.1 10^3/uL Immature Granulocyte # (Auto) 0.1 0.0-0.1 10^3/uL OB - Assessment/Plan/Diagnosis Assessment Assessment: active labor Admission Dx 34 yo @ 39.2 weeks Active labor GBS neg Previous Admission Status: Inpatient Order (span 2 midnights) Reason for Inpatient Admission: 39.2 week IUP in active labor Repeat Plan Plan: Section BIANCA BUSH DO Mar 25, 2020 06:36
--- NOTE | 2020-03-25 06:38 | Discharge Inst-Women's Service ---
Discharge Inst-Women's Serv Depart Medication/Instructions New, Converted or Re-Newed RX: RX on Chart Final Diagnosis POD 2 RLTCS Problems Reviewed?: Yes Consults/Follow Up Orders/Referrals Dr. Martin in 7-10 days and in 6 weeks Activity Activity: Activity as Tolerated Driving Instructions: No Driving for 1 Week NO SMOKING: NO SMOKING Nothing Inside Vagina: No Douching, No [place], No Tampons Diet Discharge Diet: No Restrictions Symptoms to Report to : Bleeding Excessive, Pain Increased, Fever Over 101 Degrees F, Vaginal Bleeding Increase, Questions/Concerns For Any Problems or Questions: Contact Your Physician Skin/Wound Care Infection Signs and Symptoms: Increased Redness, Foul Odor of Wound, Increased Drainage, Skin Itchy or Has a Rash, Increased Swelling, Temperature Above 101 F Operative Area Clean and Dry: Keep Incision Clean/Dry Stitches/[place]/Dermabond: Dermabond, Care of Stitches Bathing Instructions: BIANCA Villarreal DO Mar 25, 2020 06:38
[2020-03-25] MEDS ORDERED: IBUP-844 PO (06:39)
[2020-03-25] MEDS ORDERED: DCS100C PO (06:39)
[2020-03-25] MEDS ORDERED: ACHD5005 PO (06:39)
[2020-03-25] MEDS ORDERED: TETANUS,DIPTH,PERTUSS P/F (BOOSTRIX) 0.5 ML VIAL IM SCH (06:45)
[2020-03-25] MEDS ORDERED: MEASLES,MUMPS,RUBELLA 1 EA INJ SC SCH (06:45)
[2020-03-25] MEDS ORDERED: ONDANSETRON 4 MG/2 ML (SDV) Z0FRAN IVP PRN (06:45)
[2020-03-25] MEDS ORDERED: BUPIVACAINE 0.5% 30 ML (SENSORCAINE) VIAL ONE (07:16)
[2020-03-25] MEDS ORDERED: OXYTOCIN PRE-MIX DRIP 1,000 ML IV ONE (07:16)
--- NOTE | 2020-03-25 08:54 | NUR ---
PT TRANSFERRED FROM RECOVERY TO -[facility] IN STABLE CONDITION VIA BED ACCOMPANIED BY THIS RN, S/O AND INFANT. PT ORIENTED TO ROOM, CALL LIGHT SYSTEM, AND NEW ORDERING SYSTEM. CALL LIGHT WITHIN REACH. NO FURTHER NEEDS AT THIS TIME.
--- NOTE | 2020-03-25 09:14 | OPERATIVE REPORT ---
DATE OF SERVICE: PREOPERATIVE DIAGNOSES: 1. A 34-year-old G2, P1 at 39 weeks gestation. 2. Active labor. 3. Previous section. POSTOPERATIVE DIAGNOSES: 1. A 34-year-old G2, P1 at 39 weeks gestation. 2. Active labor. 3. Previous section. PROCEDURE: Repeat low transverse section. SURGEON: Chris Bush DO ANESTHESIA: Spinal. BANKING ANALYST: Stephanie Smalls DNP, who was necessary for manipulation and retraction throughout the procedure. ESTIMATED BLOOD LOSS: 500 mL. URINE OUTPUT: 50 mL clear at the end of the procedure. FLUIDS: 1400 mL of lactated Ringer's solution. FINDINGS: A live female weighing 7 pounds 9 ounces, Apgars of 8 and 9. Grossly normal appearing uterus, bilateral fallopian tubes and ovaries. SPECIMEN SENT: None. INDICATIONS FOR PROCEDURE: This 34-year-old female is a patient, who had sought care in my office. care was uncomplicated with the exception of hyperemesis gravidarum earlier in the , which resolved around 24 weeks. She was scheduled for repeat today; however, presented early this morning in active labor 4 to 5 cm dilated. Due to active labor presentation and the patient's desire for repeat , was planned for and OR crew was called. Risk of the procedure was discussed with the patient throughout her care was reviewed again in the preoperative area. Once all of her questions were answered, consent was obtained, the patient was taken to the operating room. OPERATIVE REPORT IN DETAIL: Once in the operating room, spinal analgesia was found to be adequate, placed in supine position with leftward tilt, prepped and draped in normal sterile fashion. A timeout was performed and anesthesia was tested. I then make a Pfannenstiel skin incision through the previously existing scar using knife and carried down to the underlying fascia using Bovie cautery. Fascial incision extended laterally using Bovie cautery. Superior aspect of the fascial incision was then grasped with Marianela clamps, tented up and dissected off the underlying rectus muscles. The inferior aspect of the fascial incision was then grasped with Marianela clamps, tented up and dissected off the underlying rectus muscles. The rectus muscles were then dissected down the midline using Jaeger scissors, which exposed the peritoneum, which I entered bluntly and extended using blunt traction. Jose ring retractor was placed in the peritoneal incision, which offers excellent lateral sidewall retraction. I identified the lower uterine segment, which was found to be thinned out and make a low transverse incision to the vesicouterine peritoneum and bluntly dissected off the lower uterine segment. I proceeded with myotomy until membranes were visualized, at which point I extended the uterine incision laterally and superiorly using bandage scissors. Amniotomy was performed in the process of doing this, clear fluid was noted. The was found in vertex presentation. With gentle fundal pressure, the 's head was elevated up the incision where the nares and oropharynx were bulb suctioned. Anterior and posterior shoulders were delivered. The infant was then brought to the operative field where the cord was doubly clamped and cut and was handed off to waiting nurses in attendance. Cord blood was collected. Three-vessel cord with intact placenta was delivered spontaneously thereafter. IV Pitocin was initiated to facilitate uterine contraction. Uterine fundus confirmed by manual massage. The uterus was then exteriorized and cleared of all endometrial clots and debris. I then proceeded with closing the uterine incision using 0 Vicryl suture in running locked fashion. Second layer of imbricating 0 Monocryl was placed. Excellent hemostasis was noted after doing this. I then placed the uterus back within the pelvis and copiously irrigated the pelvis using normal saline. Once again, there was no active bleeding noted from any of my dissection planes. I placed Interceed antiadhesive over my low transverse incision and then removed the Jose ring retractor. I then proceeded with closing the peritoneum using 3-0 Vicryl suture in a running fashion. The rectus muscle reapproximated using 3-0 Vicryl suture in interrupted fashion. The fascia was reapproximated using 0 Vicryl suture in running fashion. Subcutaneous tissue was reapproximated using 3-0 plain interrupted subcutaneous stitch and skin reapproximated using 4-0 Monocryl running subcuticular. Dermabond was applied to incision and sterile dressing with adhesive white tape. The patient tolerated the procedure well and sent to recovery in stable condition. Lap and sponge counts were correct at the end of the procedure. Instrument counts correct as well. Two grams of Ancef were given preoperatively for infection prophylaxis. Job ID: [id number] DocumentID: [id number] Dictated Date: 03/25/2020 08:00:48 Supervisor Estimator And Drafter Date: 03/25/2020 09:14:35 Dictated By: CHRIS BUSH DO
--- NOTE | 2020-03-25 09:50 | NUR ---
+PERICARE, NEW PAD APPLIED.
[2020-03-25] MEDS: KETOROLAC 30 MG/ML VIAL IV SCH ×3 (10:38→23:12)
[2020-03-25] MEDS: HYDROcodone/APAP 5 MG/325 MG (LORTAB) TAB PO PRN ×2 (10:38→20:39)
[2020-03-25] MEDS: OXYTOCIN PRE-MIX DRIP 500 ML IV SCH ×2 (10:39→19:46)
--- NOTE | 2020-03-25 11:00 | NUR ---
FFU/-2, LIGHT VAG FLOW, NO CLOTS NOTED. +PERICARE, NEW PAD APPLIED.
--- NOTE | 2020-03-25 14:00 | NUR ---
Pt up to bathroom. Small void noted, pt missed hat for accurate amount. +pericare, new gown, pad and panties applied. Pt back to bed, scds reapplied. No further needs at this time.
--- NOTE | 2020-03-25 17:00 | NUR ---
Pt up to bathroom. 200cc void. +pericare, new pad applied. Pt back to bed. SCDs reapplied. Instructions on how to use IS given to pt. pt has goal of 2750. Pt verbalizes understanding. Ice pack provided for pt. No further needs at this time.
[2020-03-25] MEDS: DOCUSATE SODIUM 100 MG (COLACE) CAP PO SCH ×2 (19:39→20:39)
[2020-03-25] MEDS: IBUPROFEN 600 MG (MOTRIN) TAB PO SCH ×2 (19:40→19:41)
[2020-03-25] MEDS: CATHETER FLUSH 10 ML SYR IV SCH ×2 (19:40→23:12)
[2020-03-25] MEDS ORDERED: SIMETHICONE 80 MG (MYLICON) CHEW ONE (20:33)
[2020-03-25] MEDS: SIMETHICONE 80 MG (MYLICON) CHEW PO PRN (20:39)
[2020-03-26 04:50] VITALS: BP 132/78
[2020-03-26] MEDS: SIMETHICONE 80 MG (MYLICON) CHEW PO PRN ×4 (04:50→20:16)
[2020-03-26] MEDS: KETOROLAC 30 MG/ML VIAL IV SCH (04:50)
[2020-03-26] MEDS: CATHETER FLUSH 10 ML SYR IV SCH ×2 (04:50→22:00)
[2020-03-26] MEDS: IBUPROFEN 600 MG (MOTRIN) TAB PO SCH ×4 (05:00→18:01)
[2020-03-26 06:30] LABS: BASOPHILS % (AUTO) 0 % (0-10); EOSINOPHILS # (AUTO) 0.1 10^3/uL (0.0-0.3); EOSINOPHILS % (AUTO) 1 % (0-10); HEMATOCRIT 27 % (35-52); LYMPHOCYTES # (AUTO) 2.6 10^3/uL (1.0-4.0); LYMPHOCYTES % (AUTO) 23 % (12-44); MEAN CORPUSCULAR HEMOGLOBIN 30 pg (25-34); MEAN CORPUSCULAR HGB CONC 33 g/dL (32-36); MEAN CORPUSCULAR VOLUME 90 fL (80-99); MEAN PLATELET VOLUME 10.6 fL (9.0-12.2); MONOCYTES # (AUTO) 0.9 10^3/uL (0.0-1.0); MONOCYTES % (AUTO) 8 % (0-12); NEUTROPHILS # (AUTO) 7.5 10^3/uL (1.8-7.8); NEUTROPHILS % (AUTO) 67 % (42-75); PLATELET COUNT 231 10^3/uL (130-400); WHITE BLOOD COUNT 11.2 10^3/uL (4.3-11.0)
--- NOTE | 2020-03-26 07:32 | Postpartum Progress Note ---
Note Note Day # 1 Subjective: Patient is without complaints. Ambulating, voiding. Tolerating a regular diet without nausea or vomiting. Normal lochia. Pain is well controlled with oral pain medications. Objective: Physical Exam: General - Alert and oriented, no apparent distress Abdomen - Soft, appropriately tender to palpation, non-distended, fundus firm at umbilicus Extremities - no edema, negative Lynn's bilaterally Incision- c/d/i Assessment: POD 1 RLTCS Acute blood loss anemia Plan: Routine care. Encourage breast feeding. Encourage ambulation. Ferrous sulfate supplementation. Plan for discharge tomorrow Vitals - Labs Vital Signs - I&O Vital Signs Date Time Temp Pulse Resp B/P (MAP) Pulse Ox O2 Delivery O2 Flow Rate FiO2 03/26/20 04:50 36.3 71 18 132/78 (96) 97 Room Air 03/25/20 23:12 36.3 77 18 131/75 (93) 97 Room Air 03/25/20 20:39 36.4 80 18 129/60 (83) 97 Room Air 03/25/20 16:51 36.2 86 18 126/73 (90) 98 Room Air 03/25/20 13:49 36.5 82 18 137/70 (92) 97 Room Air 03/25/20 08:39 Room Air 03/25/20 08:39 36.2 18 120/87 (98) 100 Room Air 03/25/20 08:24 Room Air 03/25/20 08:24 36.2 18 103/86 (92) 100 Room Air 03/25/20 08:09 36.2 18 108/70 (83) 100 Room Air 03/25/20 08:09 Room Air 03/25/20 07:54 36.3 18 109/78 (88) 100 Room Air 03/25/20 07:54 Room Air I & O 03/26/20 07:00 Intake Total 800 ml Output Total 1750 ml Balance -950 ml Labs Laboratory Tests 03/26/20 05:22: White Blood Count 11.2H, Red Blood Count 3.05L, Hemoglobin 9.0L, Hematocrit 27L, Mean Corpuscular Volume 90, Mean Corpuscular Hemoglobin 30, Mean Corpuscular Hemoglobin Concent 33, Red Cell Distribution Width 13.7, Platelet Count 231, Mean Platelet Volume 10.6, Immature Granulocyte % (Auto) 1, Neutrophils (%) (Auto) 67, Lymphocytes (%) (Auto) 23, Monocytes (%) (Auto) 8, Eosinophils (%) (Auto) 1, Basophils (%) (Auto) 0, Neutrophils # (Auto) 7.5, Lymphocytes # (Auto) 2.6, Monocytes # (Auto) 0.9, Eosinophils # (Auto) 0.1, Basophils # (Auto) 0.0, Immature Granulocyte # (Auto) 0.1 BIANCA BUSH DO Mar 26, 2020 07:32
[2020-03-26 08:01] VITALS: BP 127/74
[2020-03-26] MEDS: DOCUSATE SODIUM 100 MG (COLACE) CAP PO SCH ×2 (08:02→20:10)
--- NOTE | 2020-03-26 09:36 | Anesthesia-Regional Post-Op ---
Regional Patient Condition Mental Status: Alert, Oriented x3 Circulation: Same as Pre-Op Headache: Absent Sensation: Full Recovery Motor Block: Absent Post Op Complications Complications None Follow Up Care/Instructions Patient Instructions None needed. Anesthesia/Patient Condition Patient is doing well, no complaints, stable vital signs, no apparent adverse anesthesia problems. No complications reported per nursing. SPARKLE MALIK CRNA Mar 26, 2020 09:36
--- NOTE | 2020-03-26 09:45 | NUR ---
PT UP AMBULATING IN HALLWAYS WITH S/O AND INFANT. NO NEEDS VOICED.
[2020-03-26] MEDS: HYDROcodone/APAP 5 MG/325 MG (LORTAB) TAB PO PRN (11:44)
[2020-03-26 14:26] VITALS: BP 124/82
[2020-03-26 20:00] VITALS: BP 137/89
[2020-03-27] VITALS: BP 135/83
[2020-03-27] MEDS: IBUPROFEN 600 MG (MOTRIN) TAB PO SCH ×2 (01:57→09:44)
[2020-03-27 06:00] VITALS: BP 122/76
[2020-03-27 07:55] VITALS: BP 133/82
--- NOTE | 2020-03-27 08:20 | NUR ---
Dr Martin to see patient and review plan of care.
--- NOTE | 2020-03-27 08:35 | Postpartum Progress Note ---
Note Note Day # 2 Subjective: Patient is without complaints. Ambulating, voiding. Tolerating a regular diet without nausea or vomiting. Normal lochia. Pain is well controlled with oral pain medications. Objective: Physical Exam: General - Alert and oriented, no apparent distress Abdomen - Soft, appropriately tender to palpation, non-distended, fundus firm at umbilicus Extremities - no edema, negative Lynn's bilaterally Incision- c/d/i Assessment: POD 2 RLTCS Plan: Routine care. Encourage breast feeding. Encourage ambulation. Ferrous sulfate supplementation. Plan for discharge today Vitals - Labs Vital Signs - I&O Vital Signs Date Time Temp Pulse Resp B/P (MAP) Pulse Ox O2 Delivery O2 Flow Rate FiO2 03/27/20 07:55 36.7 70 12 133/82 (99) 96 Room Air 03/27/20 06:00 36.4 88 18 122/76 (91) 98 Room Air 03/27/20 00:00 36.5 95 16 135/83 (100) 99 Room Air 03/26/20 20:00 36.8 94 18 137/89 (105) 98 Room Air 03/26/20 14:26 36.4 86 18 124/82 (96) 96 Room Air I & O 03/27/20 07:00 Intake Total 1200 ml Output Total 1300 ml Balance -100 ml Labs Microbiology 03/25/20 MRSA Screen - Final, Complete MRSA not isolated BIANCA BUSH DO Mar 27, 2020 08:35
[2020-03-27] MEDS: DOCUSATE SODIUM 100 MG (COLACE) CAP PO SCH (09:44)
--- NOTE | 2020-03-27 09:50 | NUR ---
Discharge instructions explained, signed and copy to patient. pt verbalized understanding of instructions and denied questions. prescriptions given and discussed pt verbalized understanding of medications
[2020-03-27 11:19] VITALS: BP 110/80
[2020-03-27 12:05] VITALS: BP 110/80
--- NOTE | 2020-03-27 12:05 | NUR ---
Discharged to home. Ambulates self downstairs to private vehicle with belongings in hand. Accompanied by staff and .
== END 2020-03-27 12:05 | disposition home or self-care (01) | DRG 787 ==
LOC: LDRP 05:20
PROVIDERS: ADMIT Obstetrics & Gynecology; ATTEND Obstetrics & Gynecology
PROC: 10D00Z1 Extraction of Products of Conception, Low, Open Approach (ICD-10-PCS; principal; 2020-03-25 06:42)
DX: O34.211 Maternal care for low transverse scar from previous cesarean delivery (principal); D62 Acute posthemorrhagic anemia; Z3A.39 39 weeks gestation of pregnancy; Z37.0 Single live birth; O90.81 Anemia of the puerperium
CPT/HCPCS: 36415; 85025; 86850; 86900; 86901; 87081